=== PATIENT | male | born 1990 | race Caucasian/White ===

== ENCOUNTER → 2016-05-09 | Outpatient (CLI) | payer OTHER ==
[~2016-05-09] MED LIST: ALBU17IN INH; Acetaminophen/Hydrocodone PO; BACT800T5 PO; SENO8.6T10 PO
== END ==
LOC: M LAB 15:03
PROVIDERS: ATTEND Nurse Practitioner Family
DX: Z13.89 Encounter for screening for other disorder (principal); R41.3 Other amnesia

== ENCOUNTER → 2016-08-03 | Outpatient (CLI) | payer OTHER ==
[2016-08-03 11:22] LABS: ALBUMIN 3.9 GM/DL (3.2-5.2); ALBUMIN/GLOBULIN RATIO 1.39 (1.00-1.93); ALKALINE PHOSPHATASE 94 U/L (45-117); ALT/SGPT 31 U/L (12-78); ANION GAP 5 MEQ/L (8-16); AST/SGOT 17 U/L (15-37); BILIRUBIN,TOTAL 0.6 MG/DL (0.2-1.0); BLOOD UREA NITROGEN 10 MG/DL (7-18); CALCIUM LEVEL 8.7 MG/DL (8.5-10.1); CARBON DIOXIDE LEVEL 32 MEQ/L (21-32); CHLORIDE LEVEL 104 MEQ/L (98-107); CHOLESTEROL LEVEL 210 MG/DL (<200); CREATININE FOR GFR 0.98 MG/DL (0.70-1.30); GLOMERULAR FILTRATION RATE > 60.0 (>60); GLUCOSE, FASTING 98 MG/DL (70-105); POTASSIUM SERUM 4.2 MEQ/L (3.5-5.1); SODIUM LEVEL 141 MEQ/L (136-145); TOTAL PROTEIN 6.7 GM/DL (6.4-8.2); TRIGLYCERIDES LEVEL 157 MG/DL (<150)
[2016-08-03 12:31] LABS: BASO % 0.7 % (0.0-1.0); EOS # 0.1 K/mm3 (0.0-0.50); EOS % 2.2 % (0.0-3.0); LYMPH # 1.3 K/mm3 (1.5-6.5); LYMPH % 28.1 % (24.0-44.0); MEAN CORPUSCULAR HEMOGLOBIN 30.1 pg (27.0-33.0); MEAN CORPUSCULAR HGB CONC 33.3 g/dl (32.0-36.5); MEAN CORPUSCULAR VOLUME 90.5 fl (80.0-96.0); MONO # 0.3 K/mm3 (0.0-0.8); MONO % 6.1 % (0.0-5.0); NEUTROPHILS # 2.8 K/mm3 (1.8-7.7); RED CELL DISTRIBUTION WIDTH 12.9 % (11.5-14.5); WHITE BLOOD COUNT 4.5 K/mm3 (4.0-10.0)
== END ==
LOC: M LAB 10:17
PROVIDERS: ATTEND Physician Assistant Medical
DX: E78.2 Mixed hyperlipidemia (principal)

== ENCOUNTER 2016-10-26 21:07 | Emergency (ER) | payer OTHER ==
[~2016-10-26] VITALS: Ht 167.6 cm; Wt 92.5 kg
[2016-10-26] MEDS ORDERED: ZYRT10CA PO (21:26)
[2016-10-26] MEDS ORDERED: ACET30TAB PO (21:55)
[2016-10-26] MEDS ORDERED: BACT800T5 PO (21:55)
[2016-10-26] MEDS ORDERED: ACETAMINOPH W/CODEINE #3 TAB UD PO ONE (22:00)
[2016-10-26 22:03] VITALS: BP 123/58
[2016-10-30] MEDS ORDERED: AUGM875T28 PO (10:40)
== END 2016-10-26 22:08 | disposition home or self-care (01) ==
LOC: M ED 22:06
DX: L03.011 Cellulitis of right finger (principal); F41.9 Anxiety disorder, unspecified; F32.9 Major depressive disorder, single episode, unspecified; Z79.899 Other long term (current) drug therapy

== ENCOUNTER 2016-10-28 12:55 | Emergency (ER) | payer OTHER ==
[~2016-10-28] VITALS: Ht 167.6 cm; Wt 92.6 kg
[~2016-10-28 12:55] MED LIST changes: +ACET30TAB PO; +ZYRT10CA PO
[2016-10-28] MEDS ORDERED: CLEO300C2 PO (14:03)
--- NOTE | 2016-10-28 14:10 | REP ---
LEFT SECOND FINGER SERIES: 10/28/2016 CLINICAL HISTORY: Swelling left 2nd finger. FINDINGS: The four views demonstrate diffuse soft tissue swelling about the proximal to mid 2nd finger. There is less swelling distally. The IP joints and MCP joint are intact. There is no fracture, avulsion or subluxation evident. No radiopaque foreign body. Adjacent bones and soft tissues intact. IMPRESSION: 1. Soft tissue swelling over the middle and proximal phalanges of the left 2nd digit without subjacent fracture, avulsion, IP joint abnormality or MCP joint finding. No foreign body or other acute finding. Signed by Nasir Perez MD 10/28/2016 08:08 P
[2016-10-28 14:14] VITALS: BP 131/69
[2016-10-29] MEDS ORDERED: CLEO300C2 PO (01:56)
[2016-10-29] MEDS ORDERED: ACET30TAB PO (01:56)
[2016-10-30] MEDS ORDERED: AUGM875T28 PO (10:40)
== END 2016-10-28 14:15 | disposition home or self-care (01) ==
LOC: M ED 13:26
DX: L03.012 Cellulitis of left finger (principal); Z86.14 Personal history of Methicillin resistant Staphylococcus aureus infection; J45.909 Unspecified asthma, uncomplicated; Z79.899 Other long term (current) drug therapy; Z88.5 Allergy status to narcotic agent; Z91.041 Radiographic dye allergy status

== ENCOUNTER 2016-10-29 00:23 | Inpatient (IN) | payer OTHER ==
[~2016-10-29] VITALS: Ht 167.6 cm; Wt 94.2 kg
[~2016-10-29 00:23] MED LIST changes: +CLEO300C2 PO
[2016-10-29] MEDS ORDERED: CLINDAMYCIN 900 MG in APPROPRIATE DILUENT 1 EA IV ONE (01:45)
[2016-10-29] MEDS ORDERED: CLEO300C2 PO (01:56)
[2016-10-29] MEDS ORDERED: ACET30TAB PO (01:56)
[2016-10-29 02:13] LABS: BASO # 0.1 K/mm3 (0.0-0.2); EOS # 0.2 K/mm3 (0.0-0.50); LARGE UNSTAINED CELL # 0.1 K/mm3 (0.0-0.4); LARGE UNSTAINED CELL % 1.6 % (0.0-4.0); LYMPH # 2.4 K/mm3 (1.5-6.5); LYMPH % 31.2 % (24.0-44.0); MEAN CORPUSCULAR HEMOGLOBIN 32.2 pg (27.0-33.0); MEAN CORPUSCULAR HGB CONC 34.5 g/dl (32.0-36.5); MEAN CORPUSCULAR VOLUME 93.2 fl (80.0-96.0); MONO # 0.5 K/mm3 (0.0-0.8); MONO % 6.1 % (0.0-5.0); NEUTROPHILS # 4.3 K/mm3 (1.8-7.7); NEUTROPHILS % 57.2 % (36.0-66.0); PLATELET COUNT, AUTOMATED 205 k/mm3 (150-450); RED CELL DISTRIBUTION WIDTH 12.7 % (11.5-14.5); WHITE BLOOD COUNT 7.5 K/mm3 (4.0-10.0)
[2016-10-29 02:34] LABS: ANION GAP 7 MEQ/L (8-16); BLOOD UREA NITROGEN 14 MG/DL (7-18); CALCIUM LEVEL 8.9 MG/DL (8.5-10.1); CARBON DIOXIDE LEVEL 30 MEQ/L (21-32); CHLORIDE LEVEL 104 MEQ/L (98-107); CREATININE FOR GFR 1.02 MG/DL (0.70-1.30); GLOMERULAR FILTRATION RATE > 60.0 (>60); GLUCOSE, FASTING 104 MG/DL (70-105); POTASSIUM SERUM 3.7 MEQ/L (3.5-5.1); SODIUM LEVEL 141 MEQ/L (136-145)
[2016-10-29] MEDS ORDERED: ALBUTEROL 90 MCG/ACT 8GM HFA INHALER INH PRN (04:45)
[2016-10-29] MEDS ORDERED: VANCOMYCIN HCL 1,000 MG, VIAL MATE ADAPTER 1 EACH in D5W 250 ML IV ONE (05:00)
--- NOTE | 2016-10-29 05:29 | HPEPDOC ---
General Date of Admission Oct 29, 2016 at 01:24 Primary Care Physician: ANCELMO HINES MD Attending Physician: TIA DAVEY MD Chief Complaint The patient is a 26-year-old male admitted with a reason for visit of Cellulitis Of Left Index Finger. Source: Patient Exam Limitations: No limitations Timing/Duration: Day(s) (2) Severity: Severe History of Present Illness 26-year-old male with no past medical or surgical history presented to the emergency room for pain and swelling of the left index finger. He denies any trauma. No fever, chills. His left index finger that started due to swelling 2 days back, he came to the emergency room and was given Bactrim which did not help. Swelling or pain. He came back to the emergency room and was given clindamycin, which also did not help his pain. He had history of MRSA in the past. Home Medications Scheduled Clindamycin Hcl (Cleocin) 300 Mg Cap, 300 MG PO Q6H, (Reported) SENT 10/28/16 PATIENT HAS YET TO START FOR 10 DAYS Scheduled PRN Acetaminophen/Codeine (Tylenol/Codeine #3) Tab, 1 TAB PO Q4H PRN for PAIN, ( Reported) Albuterol Sulfate (Ventolin Hfa) 200 Puff/8 Gm Aers, 2 PUFF INH Q4H PRN for WHEEZING, (Reported) Allergies Coded Allergies: Contrast Media (Verified Allergy, Intermediate, triggers asthma, 10/29/16) Hydrocodone (Verified Adverse Reaction, Mild, vomiting, 10/29/16) Past Medical History Medical History None Surgical History None Family History Significant Family History: No pertinent family hx Social History * Smoker: Denies Alcohol: Denies Drugs: denies Recent Travel/Sick Contacts: Denies: Recent travel, Recent sick contacts Psychosocial History: No pertinent psych hx Review of Symptoms Constitutional: Denies: Chills, Fever, Night Sweats Eyes: Denies: Pain, Vision change ENT: Denies: Head Aches, Ear Pain, Dysphagia Skin: Denies: Rash, Lesions, Breakdown Pulmonary: Denies: Dyspnea, Cough Cardiovascular: Denies: Chest Pain, Palpitations, Orthopnea, Paroxysmal Noc. Dyspnea, Lt Headedness Gastrointestinal: Denies: Nausea, Vomiting, Abdominal Pain, Diarrhea Genitourinary: Denies: Dysuria, Frequency, Incontinence, Retention Hematologic: Denies: Bruising, Bleeding Excessively Musculoskeletal: Reports: Hand Pain (left index finger swelling and pain), Denies: Neck Pain, Back Pain, Joint Pain, Muscle Pain, Spasms Neurological: Denies: Weakness, Numbness, Change in speech, Confusion Psych: Reports: Mood Normal, Denies: Depression, Memory Issues Physical Examination General Exam: Positive: Alert, No Acute Distress Eye Exam: Positive: PERRLA, Conjunctiva & lids normal, EOMI, Negative: Sclera icteric ENT Exam: Positive: Atraumatic, Mucous membr. moist/pink, Pharynx Normal Neck Exam: Positive: Supple, Negative: JVD, thyromegaly Chest Exam: Positive: Clear to auscultation, Normal air movement Heart Exam: Positive: Rate Normal, Regular Rhythm, Normal S1, Normal S2, Negative: Murmurs, Rubs Telemetry: Positive: No significant arrhythmia Abdomen Exam: Positive: Normal bowel sounds, Soft, Negative: Tenderness, Hepatospenomegaly Extremity Exam: Positive: Normal pulses, Tenderness, Swelling, Other (left index finger swelling and pain and erythma), Negative: Clubbing, Cyanosis, Edema Skin Exam: Positive: Nl turgor and temperature, Negative: Breakdown, Lesion Neuro Exam: Positive: Normal Gait, Normal Speech, Cranial Nerves 3-12 NL, Reflexes 2+ Psych Exam: Positive: Mental status NL, Mood NL, Oriented x 3 Vital Signs Vital Signs Date Time Temp Pulse Resp B/P (MAP) Pulse Ox O2 Delivery O2 Flow Rate FiO2 10/29/16 04:01 75 18 128/91 (103) 96 10/29/16 00:27 98.3 Room Air Laboratory Data Labs 24H Laboratory Tests 2 10/29/16 02:01: White Blood Count 7.5, Red Blood Count 4.73, Hemoglobin 15.2, Hematocrit 44.0, Mean Corpuscular Volume 93.2, Mean Corpuscular Hemoglobin 32.2, Mean Corpuscular Hemoglobin Concent 34.5, Red Cell Distribution Width 12.7, Platelet Count 205, Neutrophils (%) (Auto) 57.2, Lymphocytes (%) (Auto) 31.2, Monocytes ( %) (Auto) 6.1H, Eosinophils (%) (Auto) 3.0, Basophils (%) (Auto) 1.0, Neutrophils # (Auto) 4.3, Lymphocytes # (Auto) 2.4, Monocytes # (Auto) 0.5, Eosinophils # (Auto) 0.2, Basophils # (Auto) 0.1, Large Unclassified Cells % 1.6 , Large Unclassified Cells # 0.1, Anion Gap 7L, Glomerular Filtration Rate > 60.0, Blood Urea Nitrogen 14, Creatinine 1.02, Sodium Level 141, Potassium Level 3.7, Chloride Level 104, Carbon Dioxide Level 30, Calcium Level 8.9, C- Reactive Protein, Quantitative < 0.30 CBC/BMP Laboratory Tests 10/29/16 02:01 Red Blood Count 4.73, Mean Corpuscular Volume 93.2, Mean Corpuscular Hemoglobin 32.2, Mean Corpuscular Hemoglobin Concent 34.5, Red Cell Distribution Width 12.7 , Neutrophils (%) (Auto) 57.2, Lymphocytes (%) (Auto) 31.2, Monocytes (%) (Auto ) 6.1 H, Eosinophils (%) (Auto) 3.0, Basophils (%) (Auto) 1.0, Neutrophils # ( Auto) 4.3, Lymphocytes # (Auto) 2.4, Monocytes # (Auto) 0.5, Eosinophils # (Auto ) 0.2, Basophils # (Auto) 0.1, Calcium Level 8.9 Microbiology Microbiology 10/29/16 Blood Culture, Received Pending 10/29/16 Blood Culture, Received Pending Assessment/Plan 26-year-old male with no past medical surgical history presented with left index finger cellulitis Problems (1) Cellulitis of left index finger Status: Acute Problem Text: X-ray for left index Finger showed Soft tissue swelling over the middle and proximal phalanges of the left 2nd digit without subjacent fracture, avulsion, IP joint abnormality or MCP joint finding. No foreign body or other acute finding. Started Unasyn and IV vancomycin Plan / VTE VTE Prophylaxis Ordered?: Yes Plan Diet: Continue Current Activity: Continue Current Anticipated Discharge: Home YARELIS TEJEDA MD Oct 29, 2016 05:29
--- NOTE | 2016-10-29 05:45 | PHACANCOPD ---
PHARMACY VANCOMYCIN DOSING Pt Demographics Demographics Patient Age:26 , Weight:90.900 , Gender: male Adjusted Body Weight Date: 10/29/16, Adjusted Body Weight: [74.7] Kg Events Past 24 Hours Events Past 24 Hours: NO: Dialysis, Diuretic Therapy, Change in CrCl, Fever, Elevation in WBC, Pending Diagnostics, Pending Procedures, Other Vancomycin Vancomycin Target Ranges: 15-20 mcg/ml Vancomycin Load Y/N: Yes Load Dose Date Time Vancomycin Load Dose: 2000MG Date: 10-29 Time: 0600 Vancomycin Dose Date: 10/29/16. Current Vancomycin Dose: [1000MG Q8H] Intermittent Dosing?: No Labs Labs Item Value Date Time White Blood Count 7.5 K/mm3 10/29/16 0201 Creatinine 1.02 MG/DL 10/29/16 0201 Blood Urea Nitrogen 14 MG/DL 10/29/16 0201 Vital Signs Label Value Date Time Patient Temperature 97.4 degrees F 10/29/16 0519 Temperature Source Oral 10/29/16 0519 Micro Microbiology 10/29/16 Blood Culture, Received Pending 10/29/16 Blood Culture, Received Pending Creatinine Clearance Date:10/29/16. Creatinine Clearance: [98]. Pending Labs Trough 06-25 @2100 Assessment and Plan Maintaining Current Dose?: Yes Reason for dose change: No Dose Change Pharmacist Note Pharmacist Note Date: 10/29/16. Pharmacist note:Dosed at 1000mg q8h with a trough ordered for 06- 25 @2100. Will continue to monitor and make adjustments as needed. [facility] Oct 29, 2016 05:45
[2016-10-29] MEDS: VANCOMYCIN HCL 1,000 MG, VIAL MATE ADAPTER 1 EACH in D5W 250 ML IV SCH ×3 (05:57→22:28)
[2016-10-29] MEDS ORDERED: ONDANSETRON 4MG/2ML VIAL (J2405) IV PRN (06:00)
[2016-10-29 06:35] VITALS: BP 120/94
[2016-10-29] MEDS ORDERED: IBUPROFEN 400 MG TAB PO PRN (08:00)
[2016-10-29] MEDS: ACETAMINOPHEN 325 MG TAB PO PRN ×2 (08:22→22:35)
[2016-10-29] MEDS: AMPICILLIN SOD/SULBACTAM SOD 3 GM in D5W MINI-BAG PLUS 100 ML IV SCH ×3 (09:26→20:48)
[2016-10-29] MEDS: ENOXAPARIN 40 MG/0.4 ML SYRINGE (J1650) SC SCH (12:15)
--- NOTE | 2016-10-29 13:20 | IPNPDOC ---
Subjective Date Seen The patient was seen on 10/29/16. Subjective Chief Complaint/HPI The patient is a 26-year-old male admitted with a reason for visit of Cellulitis Of Left Index Finger. Events since last encounter no acute events overnight . Denied f/c/abd pain/ n/v/ chest pain Constitutional: Denies: Chills, Fever Skin: Denies: Rash, Lesions Pulmonary: Denies: Dyspnea, Cough Cardiovascular: Denies: Chest Pain, Palpitations Gastrointestinal: Denies: Nausea, Vomiting, Abdominal Pain, Diarrhea, Constipation Objective Physical Examination General Exam: Positive: Alert, No Acute Distress Eye Exam: Positive: PERRLA, Conjunctiva & lids normal, EOMI, Negative: Sclera icteric ENT Exam: Positive: Atraumatic, Mucous membr. moist/pink, Pharynx Normal Neck Exam: Positive: Supple, Negative: JVD, thyromegaly Chest Exam: Positive: Clear to auscultation, Normal air movement Heart Exam: Positive: Rate Normal, Regular Rhythm, Normal S1, Normal S2, Negative: Murmurs, Rubs Telemetry: Positive: No significant arrhythmia Abdomen Exam: Positive: Normal bowel sounds, Soft, Negative: Tenderness, Hepatospenomegaly Extremity Exam: Positive: Normal pulses, Tenderness, Swelling, Other (left index finger swelling and pain and erythma), Negative: Clubbing, Cyanosis, Edema Skin Exam: Positive: Nl turgor and temperature, Negative: Breakdown, Lesion Neuro Exam: Positive: Normal Gait, Normal Speech, Cranial Nerves 3-12 NL, Reflexes 2+ Psych Exam: Positive: Mental status NL, Mood NL, Oriented x 3 Assessment /Plan Assessment 26-year-old male no PMH recented with left index finger swelling not responsive to PO meds Problems (1) Cellulitis of left index finger Status: Acute Problem Text: X-ray for left index Finger showed Soft tissue swelling over the middle and proximal phalanges of the left 2nd digit without subjacent fracture, avulsion, IP joint abnormality or MCP joint finding. No foreign body or other acute finding. Started Unasyn and IV vancomycin d/w ortho, no surgical issu crp neg, no wbc elevation or left shift, MRI possible bug bite MRSA screening Plan/VTE VTE Prophylaxis Ordered?: Yes (lovenox sq) Plan Diet: Continue Current Activity: Continue Current Anticipated Discharge: Home Disposition IF MRI neg, likely DC tomorrow. VS, I&O, 24H, Fishbone Vital Signs/I&O Vital Signs Date Time Temp Pulse Resp B/P (MAP) Pulse Ox O2 Delivery O2 Flow Rate FiO2 10/29/16 06:35 97.6 70 16 120/94 (103) 96 Room Air I&O- Last 24 Hours up to 6 AM 10/29/16 05:59 Intake Total 50 ml Output Total 0 ml Balance 50 ml Laboratory Data 24H LABS Laboratory Tests 2 10/29/16 02:01: White Blood Count 7.5, Red Blood Count 4.73, Hemoglobin 15.2, Hematocrit 44.0, Mean Corpuscular Volume 93.2, Mean Corpuscular Hemoglobin 32.2, Mean Corpuscular Hemoglobin Concent 34.5, Red Cell Distribution Width 12.7, Platelet Count 205, Neutrophils (%) (Auto) 57.2, Lymphocytes (%) (Auto) 31.2, Monocytes ( %) (Auto) 6.1H, Eosinophils (%) (Auto) 3.0, Basophils (%) (Auto) 1.0, Neutrophils # (Auto) 4.3, Lymphocytes # (Auto) 2.4, Monocytes # (Auto) 0.5, Eosinophils # (Auto) 0.2, Basophils # (Auto) 0.1, Large Unclassified Cells % 1.6 , Large Unclassified Cells # 0.1, Anion Gap 7L, Glomerular Filtration Rate > 60.0, Blood Urea Nitrogen 14, Creatinine 1.02, Sodium Level 141, Potassium Level 3.7, Chloride Level 104, Carbon Dioxide Level 30, Calcium Level 8.9, C- Reactive Protein, Quantitative < 0.30 CBC/BMP Laboratory Tests 10/29/16 02:01 Red Blood Count 4.73, Mean Corpuscular Volume 93.2, Mean Corpuscular Hemoglobin 32.2, Mean Corpuscular Hemoglobin Concent 34.5, Red Cell Distribution Width 12.7 , Neutrophils (%) (Auto) 57.2, Lymphocytes (%) (Auto) 31.2, Monocytes (%) (Auto ) 6.1 H, Eosinophils (%) (Auto) 3.0, Basophils (%) (Auto) 1.0, Neutrophils # ( Auto) 4.3, Lymphocytes # (Auto) 2.4, Monocytes # (Auto) 0.5, Eosinophils # (Auto ) 0.2, Basophils # (Auto) 0.1, Calcium Level 8.9 Microbiology Microbiology 10/29/16 Blood Culture, Received Pending 10/29/16 Blood Culture, Received Pending 10/29/16 MRSA Screen, Received Pending HERMAN CASTRO MD Oct 29, 2016 13:20
[2016-10-29 14:00] VITALS: BP 110/77
--- NOTE | 2016-10-29 21:28 | PHACANCOPD ---
PHARMACY VANCOMYCIN DOSING Pt Demographics Demographics Patient Age:26 , Weight:94.200 , Gender: male Adjusted Body Weight Date: 10/29/16, Adjusted Body Weight: [74.7] Kg Events Past 24 Hours Events Past 24 Hours: NO: Dialysis, Diuretic Therapy, Change in CrCl, Fever, Elevation in WBC, Pending Diagnostics, Pending Procedures, Other Vancomycin Vancomycin Target Ranges: 15-20 mcg/ml Vancomycin Load Y/N: Yes Load Dose Date Time Vancomycin Load Dose: 2000MG Date: 10-29 Time: 06 Vancomycin Dose Date: 10/29/16. Current Vancomycin Dose: [1000MG Q8H] Intermittent Dosing?: No Labs Labs Item Value Date Time White Blood Count 7.5 K/mm3 10/29/16 0201 Creatinine 1.02 MG/DL 10/29/16 0201 Blood Urea Nitrogen 14 MG/DL 10/29/16 0201 Vancomycin Level Trough 13.9 UG/ML 10/29/16 2045 Vital Signs Label Value Date Time Patient Temperature 97.7 degrees F 10/29/16 1400 Temperature Source Temporal 10/29/16 1400 Micro Microbiology 10/29/16 Blood Culture, Received Pending 10/29/16 Blood Culture, Received Pending 10/29/16 MRSA Screen, Received Pending Creatinine Clearance Date:10/29/16. Creatinine Clearance: [98]. Pending Labs Trough 10-30 @1300 Assessment and Plan Maintaining Current Dose?: Yes Reason for dose change: No Dose Change Pharmacist Note Pharmacist Note Date: 10/29/16. Pharmacist note:Trough of 13.9 is slightly below target range. Will give additional 500mg dose to boost levels. Will continue current dosing. Trough ordered for 10-30 @1300. Will continue to monitor and make adjustments as needed. [facility] Oct 29, 2016 21:28
[2016-10-29 22:00] VITALS: BP 118/76
[2016-10-30] MEDS ORDERED: VANCOMYCIN HCL 500 MG in D5W MINI-BAG PLUS 100 ML IV ONE ×2
[2016-10-30] MEDS: AMPICILLIN SOD/SULBACTAM SOD 3 GM in D5W MINI-BAG PLUS 100 ML IV SCH ×2 (03:32→09:30)
[2016-10-30] MEDS: VANCOMYCIN HCL 1,000 MG, VIAL MATE ADAPTER 1 EACH in D5W 250 ML IV SCH (05:41)
[2016-10-30 06:00] VITALS: BP 103/57
[2016-10-30 06:01] LABS: MEAN CORPUSCULAR HEMOGLOBIN 31.8 pg (27.0-33.0); MEAN CORPUSCULAR VOLUME 93.6 fl (80.0-96.0); RED CELL DISTRIBUTION WIDTH 12.6 % (11.5-14.5); WHITE BLOOD COUNT 5.4 K/mm3 (4.0-10.0)
[2016-10-30 06:09] LABS: ANION GAP 6 MEQ/L (8-16); BLOOD UREA NITROGEN 8 MG/DL (7-18); CALCIUM LEVEL 8.5 MG/DL (8.5-10.1); CARBON DIOXIDE LEVEL 28 MEQ/L (21-32); CHLORIDE LEVEL 106 MEQ/L (98-107); CREATININE FOR GFR 0.87 MG/DL (0.70-1.30); GLOMERULAR FILTRATION RATE > 60.0 (>60); GLUCOSE, FASTING 89 MG/DL (70-105); MAGNESIUM LEVEL 2.3 MG/DL (1.8-2.4); POTASSIUM SERUM 3.6 MEQ/L (3.5-5.1); SODIUM LEVEL 140 MEQ/L (136-145)
[2016-10-30] MEDS: ACETAMINOPHEN 325 MG TAB PO PRN (07:54)
[2016-10-30] MEDS: ENOXAPARIN 40 MG/0.4 ML SYRINGE (J1650) SC SCH (09:30)
[2016-10-30] MEDS ORDERED: AUGM875T27 PO (10:40)
[2016-10-30] MEDS ORDERED: DOXY-278 PO (10:40)
--- NOTE | 2016-10-30 12:11 | CR ---
DATE OF CONSULTATION: 10/29/2016 REASON FOR CONSULTATION: Left index finger swelling. CONSULTATION REPORT FOR: Dr. Ni Sanchez HISTORY OF PRESENT ILLNESS: Michael Rangel is a 26-year-old, right hand dominant, male with three days of left index finger pain and swelling. The patient has had multiple emergency room visits for this left index finger pain. The patient denies any mechanism of injury. He denies any history of wounds, scratches, or bites to the left index finger. He denies any history of IV drug abuse. PAST MEDICAL HISTORY: None. MEDICATIONS: None. ALLERGIES: No known drug allergies. PAST SURGICAL HISTORY: None. FAMILY HISTORY: Noncontributory. SOCIAL HISTORY: The patient lives in [place]. He denies smoking. He drinks alcohol once or twice a week. He denies any illicit drug use. 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 REVIEW OF SYSTEMS: 14-point review of systems was reviewed and is unremarkable. PHYSICAL EXAMINATION: VITAL SIGNS: Reviewed and stable. GENERAL: This is a well-nourished male who appears his stated age in no acute distress. NEUROLOGIC: He is awake, alert, and oriented to person, place, and time. He has intact sensory and motor function left upper extremity radial, median, and ulnar anterior interosseous nerve (AIN) and posterior interosseous nerve (PIN) distributions. He has intact sensation to light touch in the tip of the left index finger. CARDIOVASCULAR: He has 2+ radial pulse and brisk capillary refill to all digits of the left upper extremity. MUSCULOSKELETAL: Focused physical examination of the left index finger demonstrates mild diffuse swelling about the left index finger extending from the middle of the proximal phalanx to the fingertip. There is mild erythema on the dorsum on the index finger extending to the volar radial aspect of the index finger. There is minimal tenderness along the flexor tendon sheath. There is no pain with passive stretch of the left index finger. It is not held in a flexed posture. There is no tenderness on the thenar eminence. There is no evidence of fusiform swelling. There is no evidence of a ligamentous instability. Plain radiographs of the left index finger demonstrate no acute osseous abnormalities. LABORATORY EVALUATION: Includes a white blood cell count of 7.1 and CRP of less than 0.3. ASSESSMENT: This is a 26-year-old male with left index finger swelling of unknown etiology. Given no history of wound, normal C-reactive protein (CRP) and lack of Kanavel signs, flexor tenosynovitis is unlikely and there does not appear to be any demonstrable abscess. PLAN: I recommend supportive therapy with antiinflammatories. The patient may be given antibiotics per the hospitalist service. He can be splinted or riley taped for comfort with followup with his primary care doctor. No orthopedic surgical intervention is indicated at this time. MARK
--- NOTE | 2016-10-30 12:14 | REP ---
MRI study of the left index finger without IV contrast: History: Pain and swelling left index finger. History of allergy to MRI contrast. Comparison radiographs October 28, 2016. Technique: Sagittal axial and coronal imaging planes utilized. T1 and T2-weighted scans were obtained in the usual fashion with without fat saturation. MRI findings: Cortical and medullary bone signal intensity are normal on T1 and T2-weighted scans. Radial and ulnar collateral ligaments appear intact at all three index finger articulations. The flexor and extensor tendons appear intact. No tendinopathy seen. There is a ill-defined area of subcutaneous low T1 high T2 signal intensity along the radial and dorsal aspect of the index finger at the level of the PIP joint. This area measures approximately 10 mm in length by 6 mm in palmar to dorsal, by 6 mm in radial to ulnar dimension. This is nonspecific. Soft tissues of the index finger are otherwise unremarkable on MR imaging. There is no evidence of joint fluid or other extra-articular fluid collection. Impression: Nonspecific somewhat ill-defined area of soft tissue swelling with high T2 and low T1 signal intensity in the subcutaneous region of the index finger along its dorsal and radial aspect. Signed by José Negron MD 10/30/2016 01:18 P
--- NOTE | 2016-10-30 16:55 | DSES ---
DATE OF ADMISSION: 10/29/2016 DATE OF DISCHARGE: 10/30/2016 PRIMARY CARE PROVIDER: SHAUN Pierre FINAL DIAGNOSES: Right index finger swelling and possibly cellulitis. Failure of outpatient treatment. HISTORY OF PRESENT ILLNESS: This is a 26-year-old male patient with no major past medical history presented to the hospital multiple times to emergency room with swelling of left index finger. Denies any trauma, bug bit or injuries. Denies any fever or chills. Was prescribed Bactrim as well as clindamycin with no improvement. Has history of Methicillin-resistant Staphylococcus aureus (MRSA). Subsequently presented to the emergency room, denies any chest pain, pressure or discomfort and was admitted for observation with antibiotic treatment. HOSPITAL COURSE: The patient was admitted, antibiotics, IV broad spectrum was started. Cultures were sent. C-reactive protein was sent. MRI of the hand was done showing only nonspecific soft tissue swelling. Orthopedics were consulted, determined nothing surgical. The patient's swelling improved over the course of 24 hours and subsequently was discharged for further followup as outpatient. VITAL SIGNS: Temperature 97.7, pulse 63, respirations 18, blood pressure 103.57, pulse oximetry 90% on room air. GENERAL: The patient alert and oriented times two. In no acute distress. HEENT: Normocephalic, atraumatic. PULMONARY: Bilateral clear to auscultation. CARDIAC: Regular rate and rhythm. Normal S1, S2. ABDOMEN: Soft, nontender. Positive bowel sounds. EXTREMITIES: No edema of left index finger. Mildly swollen. Edema has resolved. LABORATORY DATA: WBC 5.4, hemoglobin and hematocrit 14.8/43.6, platelets 177. Sodium 140, potassium 3.6, chloride 106, bicarbonate 28, BUN 8, creatinine 0.87. DISCHARGE MEDICATION: - Augmentin 875/125 mg tablets by mouth twice a day for five more days - doxycycline 100 mg by mouth twice a day for five more days - home medication of acetaminophen Tylenol-3 every 4 hours as needed pain were continued - Ventolin inhaler every 4 hours as needed were continued. HOSPITAL COURSE: The patient instructed to follow with his primary care provider in 7 days. Return to hospital if symptoms worsen.
== END 2016-10-30 13:25 | disposition home or self-care (01) | DRG 383 ==
LOC: M ED 01:23 → M ED INP 01:24 → OBSVTOIN 04:37 → M MSPAV 05:35
PROVIDERS: ADMIT Internal Medicine; ATTEND Hospitalist
DX: L03.012 Cellulitis of left finger (principal); Z88.5 Allergy status to narcotic agent; Z79.899 Other long term (current) drug therapy; Z91.041 Radiographic dye allergy status

== ENCOUNTER → 2016-11-29 | Outpatient (CLI) | payer OTHER ==
[~2016-11-29] MED LIST changes: +AUGM875T28 PO; +DOXY-278 PO
[2016-11-29 10:03] LABS: ALBUMIN 3.8 GM/DL (3.2-5.2); ALBUMIN/GLOBULIN RATIO 1.23 (1.00-1.93); ALKALINE PHOSPHATASE 100 U/L (45-117); ALT/SGPT 27 U/L (12-78); ANION GAP 7 MEQ/L (8-16); AST/SGOT 15 U/L (15-37); BILIRUBIN,TOTAL 0.5 MG/DL (0.2-1.0); BLOOD UREA NITROGEN 13 MG/DL (7-18); CALCIUM LEVEL 8.8 MG/DL (8.5-10.1); CARBON DIOXIDE LEVEL 27 MEQ/L (21-32); CHLORIDE LEVEL 103 MEQ/L (98-107); CHOLESTEROL LEVEL 200 MG/DL (<200); CREATININE FOR GFR 0.91 MG/DL (0.70-1.30); GLOMERULAR FILTRATION RATE > 60.0 (>60); GLUCOSE, FASTING 98 MG/DL (70-105); POTASSIUM SERUM 4.3 MEQ/L (3.5-5.1); SODIUM LEVEL 137 MEQ/L (136-145); TOTAL PROTEIN 6.9 GM/DL (6.4-8.2); TRIGLYCERIDES LEVEL 191 MG/DL (<150)
--- NOTE | 2016-11-30 04:22 | REP ---
Clinical: Cellulitis . Technique: AP, lateral, bilateral oblique views left hand . Findings: The osseous structures and joint spaces are intact and normal. There is no evidence for acute fracture or dislocation. Surrounding soft tissues are unremarkable. No subcutaneous emphysema or radiodense foreign body. Impression: Normal examination. No significant swelling, subcutaneous emphysema, or radiodense foreign body. No obvious osseous or articular involvement. Signed by Scott Almaraz MD 11/30/2016 04:14 A
== END ==
LOC: M LAB 09:00
PROVIDERS: ATTEND Physician Assistant Medical
DX: L03.012 Cellulitis of left finger (principal); E78.2 Mixed hyperlipidemia

== ENCOUNTER 2017-02-24 23:55 | Emergency (ER) | payer OTHER ==
[~2017-02-24] VITALS: Ht 167.6 cm; Wt 95.5 kg
[2017-02-24 23:56] VITALS: BP 113/91
== END 2017-02-25 04:39 | disposition left against medical advice (07) ==
LOC: M ED 23:55
DX: H92.09 Otalgia, unspecified ear (principal); Z53.21 Procedure and treatment not carried out due to patient leaving prior to being seen by health care provider

== ENCOUNTER → 2017-04-09 | Outpatient (CLI) | payer OTHER ==
[2017-04-09 11:08] LABS: ALBUMIN 3.9 GM/DL (3.2-5.2); ALKALINE PHOSPHATASE 100 U/L (45-117); ALT/SGPT 32 U/L (12-78); ANION GAP 6 MEQ/L (8-16); AST/SGOT 21 U/L (7-37); BILIRUBIN,TOTAL 0.8 MG/DL (0.2-1.0); BLOOD UREA NITROGEN 12 MG/DL (7-18); CALCIUM LEVEL 9.1 MG/DL (8.5-10.1); CARBON DIOXIDE LEVEL 32 MEQ/L (21-32); CHLORIDE LEVEL 104 MEQ/L (98-107); CHOLESTEROL LEVEL 207 MG/DL (<200); CREATININE FOR GFR 0.95 MG/DL (0.70-1.30); GLOMERULAR FILTRATION RATE > 60.0 (>60); GLUCOSE, FASTING 90 MG/DL (70-105); POTASSIUM SERUM 4.3 MEQ/L (3.5-5.1); SODIUM LEVEL 142 MEQ/L (136-145); TOTAL PROTEIN 6.9 GM/DL (6.4-8.2); TRIGLYCERIDES LEVEL 118 MG/DL (<150)
== END ==
LOC: M LAB 08:56
PROVIDERS: ATTEND Physician Assistant Medical
DX: E78.2 Mixed hyperlipidemia (principal)

== ENCOUNTER → 2017-06-05 | Outpatient (CLI) | payer OTHER | LOC: M RAD 12:14 | DX: M25.531 Pain in right wrist (principal) | CPT/HCPCS: 73110 ==

== ENCOUNTER → 2017-06-18 | Outpatient (CLI) | payer OTHER ==
[2017-06-18 17:04] LABS: ALBUMIN 4.3 GM/DL (3.2-5.2); ALBUMIN/GLOBULIN RATIO 1.48 (1.00-1.93); ALKALINE PHOSPHATASE 94 U/L (45-117); ALT/SGPT 34 U/L (12-78); ANION GAP 6 MEQ/L (8-16); AST/SGOT 21 U/L (7-37); BILIRUBIN,TOTAL 0.6 MG/DL (0.2-1.0); BLOOD UREA NITROGEN 12 MG/DL (7-18); CALCIUM LEVEL 9.2 MG/DL (8.5-10.1); CARBON DIOXIDE LEVEL 30 MEQ/L (21-32); CHLORIDE LEVEL 104 MEQ/L (98-107); CHOLESTEROL LEVEL 181 MG/DL (<200); CHOLESTEROL RISK RATIO 5.323 (<5); CREATININE FOR GFR 1.03 MG/DL (0.70-1.30); GLOMERULAR FILTRATION RATE > 60.0 (>60); GLUCOSE, FASTING 83 MG/DL (70-100); HDL CHOLESTEROL 34 MG/DL (>40); LDL CHOLESTEROL 128.2 MG/DL (<100); NON-HDL-C 147 MG/DL; POTASSIUM SERUM 4.3 MEQ/L (3.5-5.1); SODIUM LEVEL 140 MEQ/L (136-145); TOTAL PROTEIN 7.2 GM/DL (6.4-8.2); TRIGLYCERIDES LEVEL 94 MG/DL (<150)
== END ==
LOC: M LAB 14:31
DX: E78.2 Mixed hyperlipidemia (principal)
CPT/HCPCS: 80053

== ENCOUNTER 2017-06-23 19:08 | Emergency (ER) | payer OTHER ==
[2017-06-23 22:23] LABS: INFLUENZA A AMPLIFICATION NEGATIVE (NEGATIVE); INFLUENZA B AMPLIFICATION NEGATIVE (NEGATIVE)
[2017-06-23] MEDS: BENZONATATE 100 MG CAP PO (22:57)
[2017-06-23] MEDS: ONDANSETRON 4 MG ORAL DISINTEGRATING TAB (S0181) PO (22:57)
[2017-06-23] MEDS: predniSONE 20 MG TAB PO (22:58)
== END 2017-06-23 23:05 | disposition home or self-care (01) ==
LOC: M ED 19:08
DX: B34.9 Viral infection, unspecified (principal); J45.909 Unspecified asthma, uncomplicated; Z91.048 Other nonmedicinal substance allergy status; Z88.5 Allergy status to narcotic agent; Z79.899 Other long term (current) drug therapy
CPT/HCPCS: 87502

== ENCOUNTER 2017-09-02 17:45 | Emergency (ER) | payer OTHER ==
[2017-09-02 18:36] LABS: BASO % 0.3 % (0.0-1.0); EOS # 0.1 10^3/uL (0.0-0.50); EOS % 1.7 % (0.0-3.0); HEMATOCRIT 45.6 % (42.0-52.0); HEMOGLOBIN 15.4 g/dl (13.5-17.5); IMMATURE GRANULOCYTE % 0.2 % (0-3.0); LYMPH # 1.8 10^3/uL (1.5-6.5); LYMPH % 28.9 % (24.0-44.0); MEAN CORPUSCULAR HEMOGLOBIN 30.3 pg (27.0-33.0); MEAN CORPUSCULAR HGB CONC 33.8 g/dl (32.0-36.5); MEAN CORPUSCULAR VOLUME 89.8 fl (80.0-96.0); MONO # 0.4 10^3/uL (0.0-0.8); MONO % 6.6 % (0.0-5.0); NEUTROPHILS # 3.9 10^3/uL (1.8-7.7); NEUTROPHILS % 62.3 % (36.0-66.0); PLATELET COUNT, AUTOMATED 237 10^3/uL (150-450); RED BLOOD COUNT 5.08 10^6/uL (4.30-6.10); RED CELL DISTRIBUTION WIDTH 12.7 % (11.5-14.5); WHITE BLOOD COUNT 6.3 10^3/uL (4.0-10.0)
[2017-09-02 18:52] LABS: INR 0.96; PROTHROMBIN TIME 12.9 SECONDS (12.4-14.5)
[2017-09-02 18:53] LABS: PARTIAL THROMBOPLASTIN TIME 28.6 SECONDS (26.8-37.9)
[2017-09-02 18:56] LABS: D-DIMER QUANT < 270.0 ng/ml (<500)
[2017-09-02 19:03] LABS: ALBUMIN 4.3 GM/DL (3.2-5.2); ALKALINE PHOSPHATASE 99 U/L (45-117); ALT/SGPT 41 U/L (12-78); ANION GAP 6 MEQ/L (8-16); AST/SGOT 24 U/L (7-37); BILIRUBIN,DIRECT 0.1 MG/DL (0.0-0.2); BILIRUBIN,TOTAL 0.4 MG/DL (0.2-1.0); BLOOD UREA NITROGEN 11 MG/DL (7-18); CALCIUM LEVEL 8.8 MG/DL (8.5-10.1); CARBON DIOXIDE LEVEL 31 MEQ/L (21-32); CHLORIDE LEVEL 104 MEQ/L (98-107); CPK CREATINE PHOSPHOKINASE 126 U/L (39-308); CREATININE FOR GFR 0.96 MG/DL (0.70-1.30); FREE T4 1.06 NG/DL (0.76-1.46); GLOMERULAR FILTRATION RATE > 60.0 (>60); GLUCOSE, FASTING 103 MG/DL (70-100); POTASSIUM SERUM 3.9 MEQ/L (3.5-5.1); SODIUM LEVEL 141 MEQ/L (136-145); TOTAL PROTEIN 7.6 GM/DL (6.4-8.2); TROPONIN I < 0.02 NG/ML (< 0.10)
[2017-09-02 19:08] LABS: CK-MB VALUE MASS < 1.0 NG/ML (<3.6); MB/CK RELATIVE INDEX 0.79 (< OR =4); NT-PRO BNP < 5 PG/ML (<125); THYROID STIMULATING HORMONE 0.928 uIU/ML (0.358-3.740)
== END 2017-09-02 19:35 | disposition home or self-care (01) ==
LOC: M ED 17:45
DX: R07.89 Other chest pain (principal); M79.602 Pain in left arm; R06.02 Shortness of breath; F41.9 Anxiety disorder, unspecified; K21.9 Gastro-esophageal reflux disease without esophagitis; E78.9 Disorder of lipoprotein metabolism, unspecified; J45.909 Unspecified asthma, uncomplicated; Z88.5 Allergy status to narcotic agent; Z91.041 Radiographic dye allergy status; Z79.899 Other long term (current) drug therapy
CPT/HCPCS: 71046

== ENCOUNTER 2017-12-06 17:08 | Emergency (ER) | payer OTHER | END 2017-12-06 19:05 | disposition home or self-care (01) | LOC: M ED 17:08 | DX: K04.7 Periapical abscess without sinus (principal); R51 Headache; E78.5 Hyperlipidemia, unspecified; J45.909 Unspecified asthma, uncomplicated; M54.9 Dorsalgia, unspecified; F41.9 Anxiety disorder, unspecified; F32.9 Major depressive disorder, single episode, unspecified; Z87.442 Personal history of urinary calculi; Z79.899 Other long term (current) drug therapy; Z88.5 Allergy status to narcotic agent; Z91.041 Radiographic dye allergy status | CPT/HCPCS: 99283 ==

== ENCOUNTER → 2017-12-26 | Outpatient (REF) | payer OTHER ==
[2017-12-26 20:23] LABS: ALBUMIN 4.4 GM/DL (3.2-5.2); ALBUMIN/GLOBULIN RATIO 1.38 (1.00-1.93); ALKALINE PHOSPHATASE 102 U/L (45-117); ALT/SGPT 30 U/L (12-78); ANION GAP 8 MEQ/L (8-16); AST/SGOT 17 U/L (7-37); BILIRUBIN,TOTAL 0.7 MG/DL (0.2-1.0); BLOOD UREA NITROGEN 12 MG/DL (7-18); CALCIUM LEVEL 9.4 MG/DL (8.5-10.1); CARBON DIOXIDE LEVEL 30 MEQ/L (21-32); CHLORIDE LEVEL 103 MEQ/L (98-107); CHOLESTEROL LEVEL 210 MG/DL (<200); CREATININE FOR GFR 1.05 MG/DL (0.70-1.30); GLOMERULAR FILTRATION RATE > 60.0 (>60); GLUCOSE, FASTING 81 MG/DL (70-100); HDL CHOLESTEROL 40 MG/DL (>40); LDL CHOLESTEROL 139.4 MG/DL (<100); NON-HDL-C 170 MG/DL; POTASSIUM SERUM 3.9 MEQ/L (3.5-5.1); SODIUM LEVEL 141 MEQ/L (136-145); TOTAL PROTEIN 7.6 GM/DL (6.4-8.2); TRIGLYCERIDES LEVEL 153 MG/DL (<150)
[2017-12-26 20:29] LABS: TOTAL 25(OH) VITAMIN D 29.9 NG/ML (30.0-100.0)
== END ==
LOC: M LABDRWAD 19:56
DX: E78.5 Hyperlipidemia, unspecified (principal)

== ENCOUNTER 2018-02-16 17:24 | Emergency (ER) | payer OTHER ==
[2018-02-16] MEDS: LIDOCAINE W/EPINEPHRINE 1% 20ML VIAL SC (17:54)
[2018-02-16] MEDS: ACETAMINOPHEN TAB 650MG DOSE (2X325MG) PO (17:55)
[2018-02-16] MEDS: ADACEL/BOOSTRIX VACCINE (DIPHTH/PERTUSS/ACELL/TETANUS)0.5ML SYR (90715) IM (17:55)
[2018-02-16] MEDS: DERMABOND TOPICAL SKIN ADHESIVE TOP (18:13)
== END 2018-02-16 18:41 | disposition home or self-care (01) ==
LOC: M ED 17:24
DX: S01.01XA Laceration without foreign body of scalp, initial encounter (principal); W06.XXXA Fall from bed, initial encounter; Y92.019 Unspecified place in single-family (private) house as the place of occurrence of the external cause
CPT/HCPCS: 90715

== ENCOUNTER 2018-02-17 15:29 | Emergency (ER) | payer OTHER ==
[2018-02-17] MEDS: IBUPROFEN 800 MG TAB PO (16:45)
== END 2018-02-17 16:45 | disposition home or self-care (01) ==
LOC: M ED 15:29
DX: S06.0X0A Concussion without loss of consciousness, initial encounter (principal); X58.XXXA Exposure to other specified factors, initial encounter; Y92.89 Other specified places as the place of occurrence of the external cause; Y93.72 Activity, wrestling; J45.909 Unspecified asthma, uncomplicated; Z91.041 Radiographic dye allergy status; Z88.8 Allergy status to other drugs, medicaments and biological substances; Z79.899 Other long term (current) drug therapy
CPT/HCPCS: 70450

== ENCOUNTER → 2018-02-26 | Outpatient (CLI) | payer OTHER | LOC: M SLEEP HO 11:49 | DX: G47.33 Obstructive sleep apnea (adult) (pediatric) (principal); G47.31 Primary central sleep apnea | CPT/HCPCS: G0399 ==

== ENCOUNTER → 2018-04-17 | Outpatient (REF) | payer OTHER ==
[2018-04-17 13:53] LABS: BASO % 0.2 % (0.0-1.0); EOS # 0.1 10^3/uL (0.0-0.50); EOS % 0.5 % (0.0-3.0); HEMATOCRIT 48.2 % (42.0-52.0); HEMOGLOBIN 16.4 g/dl (13.5-17.5); IMMATURE GRANULOCYTE % 0.2 % (0-3.0); LYMPH # 1.3 10^3/uL (1.5-6.5); LYMPH % 14.1 % (24.0-44.0); MEAN CORPUSCULAR HEMOGLOBIN 30.6 pg (27.0-33.0); MEAN CORPUSCULAR VOLUME 89.9 fl (80.0-96.0); MONO # 0.6 10^3/uL (0.0-0.8); MONO % 6.8 % (0.0-5.0); NEUTROPHILS # 7.4 10^3/uL (1.8-7.7); NEUTROPHILS % 78.2 % (36.0-66.0); PLATELET COUNT, AUTOMATED 186 10^3/uL (150-450); RED BLOOD COUNT 5.36 10^6/uL (4.30-6.10); RED CELL DISTRIBUTION WIDTH 12.3 % (11.5-14.5); WHITE BLOOD COUNT 9.5 10^3/uL (4.0-10.0)
[2018-04-17 15:14] LABS: IMMUNOGLOBULIN E 47.9 IU/ML (<100)
[2018-04-21 08:06] LABS: D001-IgE D pteronyssinus 2.78 kU/L (Class III); E001-IgE Cat Epith/Dander < 0.10 kU/L (Class 0); E005-IgE Dog Dander < 0.10 kU/L (Class 0); G002-IgE Bermuda Grass < 0.10 kU/L (Class 0); G008-IgE Kentucky Bluegrass 0.13 kU/L (Class 0/I); M001-IgE Penicillium chrysogen < 0.10 kU/L (Class 0); M002 IgE Cladosporium herbaru < 0.10 kU/L (Class 0); M003 IgE Aspergillus fumigatu < 0.10 kU/L (Class 0); M006-IgE Alternaria alternata < 0.10 kU/L (Class 0); T001-IgE Maple/Box Elder < 0.10 kU/L (Class 0); T003-IgE Common Silver Birch < 0.10 kU/L (Class 0); T006-IgE Cedar, Mountain < 0.10 kU/L (Class 0); T007-IgE Oak, White < 0.10 kU/L (Class 0); T008-IgE Elm, American < 0.10 kU/L (Class 0); T041-IgE Hickory, White < 0.10 kU/L (Class 0); T070-IgE White Mulberry < 0.10 kU/L (Class 0); W001-IgE Ragweed, Short 0.33 kU/L (Class I); W009-IgE Plantain, English 0.15 kU/L (Class 0/I); W014-IgE Pigweed, Rough < 0.10 kU/L (Class 0); W018-IgE Sheep Sorrel < 0.10 kU/L (Class 0)
== END ==
LOC: M LAB REF 13:00
DX: J45.40 Moderate persistent asthma, uncomplicated (principal)

== ENCOUNTER → 2018-04-28 | Outpatient (CLI) | payer OTHER ==
[~2018-04-28] MED LIST changes: +ATOR1TAB21 PO; -DOXY-278 PO; +DOXY-350 PO; +FLUT1INH3; +LIDO2SO SSP; +OMEP20CA3; +PRED20TA PO; +PROAAER10 INH; +TYLE500T78 PO; +VITA50005; +ZOFR4TAB14 PO
--- NOTE | 2018-05-08 08:11 | SLEEPCENT ---
DATE OF PROCEDURE: 04/28/2018 ORDERING PROVIDER: Dr. Perry Nocturnal polysomnography was performed for the titration of pressure therapy in this patient with a clinical diagnosis of obstructive sleep apnea syndrome confirmed by home testing revealing respiratory event index of 17.5. For testing, a ResMed Air Fit F20 full face mask of medium size was used, 4 cm of water pressure were applied to the circuit, and the lights were extinguished. 7 hours and 5 minutes of data were reviewed. There were 278 minutes of sleep identified. Sleep latency was mildly prolonged at 22 minutes. Rapid eye movement (REM) latency was normal at 96 minutes. Sleep architecture was fairly good with three REM cycles noted. Overall sleep efficiency 90.7%. The patient's electrocardiogram showed sinus rhythm with an average heart rate of 60 beats per minute. Electroencephalogram (EEG) showed normal waveforms for awake and sleep with EKG bleed through into the tracing. Respiratory events were best palliated with C-PAP at a pressure of +6, with which the patient slept through REM without respiratory event or oxygen desaturation. IMPRESSION: Obstructive sleep apnea syndrome (G47.33). RECOMMENDATIONS: Nightly use of pressure therapy 6 cm of water.
== END ==
LOC: M SLEEP 19:35
PROVIDERS: ATTEND Internal Medicine Pulmonary Disease
DX: G47.33 Obstructive sleep apnea (adult) (pediatric) (principal)

== ENCOUNTER 2018-08-06 15:02 | Emergency (ER) | payer OTHER ==
[~2018-08-06] VITALS: Ht 167.6 cm; Wt 90.9 kg
[~2018-08-06 15:02] MED LIST changes: +ACET-716 PO; -ACET30TAB PO
[2018-08-06] MEDS ORDERED: IBUPROFEN 800 MG TAB PO ONE (16:00)
[2018-08-06] MEDS ORDERED: ONDANSETRON 4 MG ORAL DISINTEGRATING TAB (Q0162 PER 1MG) PO ONE (16:00)
[2018-08-06 16:44] LABS: INFLUENZA A AMPLIFICATION NEGATIVE (NEGATIVE); INFLUENZA B AMPLIFICATION NEGATIVE (NEGATIVE)
[2018-08-06] MEDS ORDERED: METOCLOPRAMIDE INJ 10MG/2ML VIAL (J2765) IV ONE (17:45)
[2018-08-06] MEDS ORDERED: NS 1,000 ML IV ONE (17:45)
[2018-08-06 17:58] LABS: BASO % 0.2 % (0.0-1.0); EOS % 0.2 % (0.0-3.0); HEMATOCRIT 50.3 % (42.0-52.0); HEMOGLOBIN 16.9 g/dl (13.5-17.5); LYMPH # 0.5 10^3/uL (1.5-6.5); LYMPH % 4.7 % (24.0-44.0); MEAN CORPUSCULAR HEMOGLOBIN 31.3 pg (27.0-33.0); MEAN CORPUSCULAR HGB CONC 33.6 g/dl (32.0-36.5); MEAN CORPUSCULAR VOLUME 93.1 fl (80.0-96.0); MONO # 0.5 10^3/uL (0.0-0.8); MONO % 4.8 % (0.0-5.0); NEUTROPHILS # 9.3 10^3/uL (1.8-7.7); NEUTROPHILS % 89.7 % (36.0-66.0); PLATELET COUNT, AUTOMATED 173 10^3/uL (150-450); WHITE BLOOD COUNT 10.3 10^3/uL (4.0-10.0)
[2018-08-06 18:28] LABS: ALBUMIN 4.7 GM/DL (3.2-5.2); ALT/SGPT 50 U/L (12-78); BILIRUBIN,DIRECT 0.2 MG/DL (0.0-0.2); BILIRUBIN,TOTAL 0.9 MG/DL (0.2-1.0); BLOOD UREA NITROGEN 16 MG/DL (7-18); CALCIUM LEVEL 9.2 MG/DL (8.5-10.1); CARBON DIOXIDE LEVEL 31 MEQ/L (21-32); CHLORIDE LEVEL 106 MEQ/L (98-107); CREATININE FOR GFR 0.97 MG/DL (0.70-1.30); GLOMERULAR FILTRATION RATE > 60.0 (>60); GLUCOSE, FASTING 94 MG/DL (70-100); LIPASE 64 U/L (73-393); POTASSIUM SERUM 4.1 MEQ/L (3.5-5.1); SODIUM LEVEL 143 MEQ/L (136-145); TOTAL PROTEIN 7.4 GM/DL (6.4-8.2)
[2018-08-06] MEDS ORDERED: ACETAMINOPHEN 500 MG TAB PO ONE (20:00)
--- NOTE | 2018-08-06 20:18 | REP ---
Clinical: Upper abdominal pain with nausea and vomiting. Technique: Axial noncontrast images from the lung bases to the pubic symphysis with coronal and sagittal re-formations. Comparison: 03/13/2016. Findings: Lung bases are clear. Visualized heart and pericardium normal. Liver, spleen, pancreas, gallbladder, bilateral adrenal glands and kidneys are normal. The enteric system is without obstruction or acute inflammatory process. Normal terminal ileum and appendix identified in the right lower quadrant. Pelvis demonstrates normal bladder and age appropriate prostate/seminal vesicles. No ascites. No free air. No adenopathy. Abdominal aorta without aneurysm. Musculoskeletal structures intact. Impression: Normal noncontrast CT of the abdomen and pelvis. Electronically Signed by Scott Almaraz MD 08/06/2018 08:10 P
[2018-08-06] MEDS ORDERED: ONDA4TAB6 PO (21:10)
[2018-08-06 21:20] VITALS: BP 130/80
== END 2018-08-06 21:18 | disposition home or self-care (01) ==
LOC: M ED 15:02
DX: R10.10 Upper abdominal pain, unspecified (principal); R11.2 Nausea with vomiting, unspecified; J45.909 Unspecified asthma, uncomplicated; E78.5 Hyperlipidemia, unspecified; F41.9 Anxiety disorder, unspecified; F33.9 Major depressive disorder, recurrent, unspecified; Z91.041 Radiographic dye allergy status; Z88.5 Allergy status to narcotic agent; Z79.899 Other long term (current) drug therapy
CPT/HCPCS: 36415; 74176; 80048; 80076; 81001; 83690; 85025; 87502; 87880; 96374; 99284; J2765; Q0162

== ENCOUNTER 2018-08-25 19:46 | Emergency (ER) | payer OTHER ==
[~2018-08-25] VITALS: Ht 167.6 cm; Wt 90.9 kg
[~2018-08-25 19:46] MED LIST changes: +ONDA4TAB6 PO
[2018-08-25] MEDS ORDERED: ALL10TAB28 (20:03)
[2018-08-25] MEDS ORDERED: MONT10TA2 (20:03)
[2018-08-25] MEDS ORDERED: FLUT1INH3 (20:04)
[2018-08-25] MEDS ORDERED: VITA-145 (20:04)
[2018-08-25] MEDS ORDERED: METOCLOPRAMIDE INJ 10MG/2ML VIAL (J2765) IV ONE (20:15)
--- NOTE | 2018-08-25 20:39 | REPVR ---
EXAM: CT Head Without Contrast EXAM DATE/TIME: 08/25/2018 8:11 PM CLINICAL HISTORY: 28 years old, male; Pain; Additional info: Syncope TECHNIQUE: Imaging protocol: Axial computed tomography images of the head/brain without contrast. Radiation optimization: All CT scans at this facility use at least one of these dose optimization techniques: automated exposure control; mA and/or kV adjustment per patient size (includes targeted exams where dose is matched to clinical indication); or iterative reconstruction. COMPARISON: CT Head without contrast 02/17/2018 4:07 PM FINDINGS: Brain: Normal. No hemorrhage. No significant white matter disease. No edema. Ventricles: Normal. No ventriculomegaly. Bones/joints: Unremarkable. No acute fracture. Sinuses: Visualized sinuses are unremarkable. No acute sinusitis. Mastoid air cells: Visualized mastoid air cells are unremarkable. No mastoid effusion. Soft tissues: Unremarkable. IMPRESSION: No acute intracranial abnormality. Electronically signed by: Kulwant Yap On 08/25/2018 20:38:23 PM
[2018-08-25 20:48] LABS: BASO % 0.2 % (0.0-1.0); EOS # 0.1 10^3/uL (0.0-0.50); EOS % 1.2 % (0.0-3.0); HEMOGLOBIN 15.1 g/dl (13.5-17.5); LYMPH # 0.9 10^3/uL (1.5-6.5); LYMPH % 21.7 % (24.0-44.0); MEAN CORPUSCULAR HEMOGLOBIN 30.7 pg (27.0-33.0); MEAN CORPUSCULAR HGB CONC 33.6 g/dl (32.0-36.5); MEAN CORPUSCULAR VOLUME 91.5 fl (80.0-96.0); MONO # 0.5 10^3/uL (0.0-0.8); NEUTROPHILS # 2.5 10^3/uL (1.8-7.7); NEUTROPHILS % 63.4 % (36.0-66.0); PLATELET COUNT, AUTOMATED 168 10^3/uL (150-450); RED BLOOD COUNT 4.92 10^6/uL (4.30-6.10)
[2018-08-25 20:59] LABS: INR 0.98; PROTHROMBIN TIME 13.1 SECONDS (12.1-14.4)
--- NOTE | 2018-08-25 21:05 | ECGEPIP ---
Stationary ECG Study 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
[2018-08-25 21:30] LABS: AMPHETAMINES LEVEL URINE NEGATIVE (NEGATIVE); BARBITURATES URINE NEGATIVE (NEGATIVE); BENZODIAZEPINES URINE NEGATIVE (NEGATIVE); CANNABINOIDS URINE NEGATIVE (NEGATIVE); COCAINE METABOLITE URINE NEGATIVE (NEGATIVE); METHADONE URINE NEGATIVE (NEGATIVE); OPIATES URINE NEGATIVE (NEGATIVE); PHENCYCLIDINE URINE NEGATIVE (NEGATIVE)
[2018-08-25 21:50] LABS: BLOOD UREA NITROGEN 14 MG/DL (7-18); CALCIUM LEVEL 8.8 MG/DL (8.5-10.1); CARBON DIOXIDE LEVEL 25 MEQ/L (21-32); CHLORIDE LEVEL 108 MEQ/L (98-107); CPK CREATINE PHOSPHOKINASE 310 U/L (39-308); CREATININE FOR GFR 0.84 MG/DL (0.70-1.30); FREE T4 0.87 NG/DL (0.76-1.46); GLOMERULAR FILTRATION RATE > 60.0 (>60); GLUCOSE, FASTING 91 MG/DL (70-100); MAGNESIUM LEVEL 2.1 MG/DL (1.8-2.4); MB/CK RELATIVE INDEX 0.64 (< OR =4); POTASSIUM SERUM 4.1 MEQ/L (3.5-5.1); SODIUM LEVEL 141 MEQ/L (136-145); THYROID STIMULATING HORMONE 0.959 uIU/ML (0.358-3.740); TROPONIN I < 0.02 NG/ML (< 0.10)
[2018-08-25 22:32] VITALS: BP 130/74
--- NOTE | 2018-08-26 08:40 | REP ---
Chest x-ray: Two views. History: Syncope . Comparison study: September 02, 2017. . Findings: The lungs are well inflated and free of infiltrate. The pleural angles are sharp. The heart size is normal. Pulmonary vasculature is not increased. No significant bony abnormality is seen. EKG monitoring electrodes are visualized. Impression: Negative chest x-ray. Electronically Signed by José Negron MD 08/26/2018 08:32 A
== END 2018-08-25 22:35 | disposition home or self-care (01) ==
LOC: M ED 19:46
DX: R55 Syncope and collapse (principal); J45.909 Unspecified asthma, uncomplicated; K21.9 Gastro-esophageal reflux disease without esophagitis; J30.2 Other seasonal allergic rhinitis; Z79.899 Other long term (current) drug therapy; Z88.5 Allergy status to narcotic agent; Z91.041 Radiographic dye allergy status
CPT/HCPCS: 70450; 71046; 80048; 80307; 81001; 82550; 82553; 83735; 84439; 84443; 85025; 85610; 93005; 93041; 94760; 96374; 99284; J2765

== ENCOUNTER 2018-12-10 18:53 | Emergency (ER) | payer OTHER ==
[~2018-12-10] VITALS: Ht 170.2 cm; Wt 92.7 kg
[~2018-12-10 18:53] MED LIST changes: +ALL10TAB29 PO; +MONT10TA2 PO; +OMEP1CAP73 PO; -OMEP20CA3; +VITA-145 PO
[2018-12-10] MEDS ORDERED: NS 1,000 ML IV ONE (19:15)
[2018-12-10 19:32] LABS: HEMATOCRIT 45.1 % (42.0-52.0); HEMOGLOBIN 15.5 g/dl (13.5-17.5); MEAN CORPUSCULAR HEMOGLOBIN 31.6 pg (27.0-33.0); MEAN CORPUSCULAR HGB CONC 34.4 g/dl (32.0-36.5); MEAN CORPUSCULAR VOLUME 91.9 fl (80.0-96.0); PLATELET COUNT, AUTOMATED 206 10^3/uL (150-450); RED BLOOD COUNT 4.91 10^6/uL (4.30-6.10); WHITE BLOOD COUNT 6.2 10^3/uL (4.0-10.0)
[2018-12-10 19:48] LABS: BLOOD UREA NITROGEN 10 MG/DL (7-18); CALCIUM LEVEL 9.5 MG/DL (8.5-10.1); CARBON DIOXIDE LEVEL 28 MEQ/L (21-32); CHLORIDE LEVEL 107 MEQ/L (98-107); CREATININE FOR GFR 1.05 MG/DL (0.70-1.30); GLOMERULAR FILTRATION RATE > 60.0 (>60); GLUCOSE, FASTING 85 MG/DL (70-100); POTASSIUM SERUM 4.1 MEQ/L (3.5-5.1); SODIUM LEVEL 140 MEQ/L (136-145)
--- NOTE | 2018-12-10 20:10 | ECGEPIP ---
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
--- NOTE | 2018-12-10 20:37 | REPVR ---
EXAM: CT Head Without Contrast EXAM DATE/TIME: 12/10/2018 7:54 PM CLINICAL HISTORY: 28 years old, male; Pain; Headache; Additional info: MACARIO, fall TECHNIQUE: Imaging protocol: Computed tomography images of the head without contrast. Radiation optimization: All CT scans at this facility use at least one of these dose optimization techniques: automated exposure control; mA and/or kV adjustment per patient size (includes targeted exams where dose is matched to clinical indication); or iterative reconstruction. COMPARISON: CT Head without contrast 08/25/2018 8:02 PM FINDINGS: Brain: Normal. No hemorrhage. Unremarkable white matter. No mass effect. Ventricles: Normal. No ventriculomegaly. Bones/joints: Unremarkable. No acute fracture. Sinuses: Question of right sphenoid sinus mucosal thickening. Mastoid air cells: Visualized mastoid air cells are well aerated. No mastoid effusion. Soft tissues: Unremarkable. IMPRESSION: 1. There has been no change since 08/25/2018. No acute interval intracranial process is identified. 2. Question of right sphenoid sinus disease. Electronically signed by: Raul Mello On 12/10/2018 20:36:33 PM
[2018-12-10 21:42] VITALS: BP 128/79
[2019-03-14] MEDS ORDERED: ATOR1TAB19 PO (10:50)
[2019-03-14] MEDS ORDERED: TOPI100T9 PO (10:50)
[2019-03-14] MEDS ORDERED: CITA20TA6 PO (10:50)
== END 2018-12-10 21:44 | disposition home or self-care (01) ==
LOC: EDBD 18:53 → M ED 18:53
DX: I95.1 Orthostatic hypotension (principal); E86.0 Dehydration; J45.909 Unspecified asthma, uncomplicated; F33.9 Major depressive disorder, recurrent, unspecified; E78.5 Hyperlipidemia, unspecified; K21.9 Gastro-esophageal reflux disease without esophagitis; Z79.899 Other long term (current) drug therapy; Z88.5 Allergy status to narcotic agent; Z91.041 Radiographic dye allergy status

== ENCOUNTER 2019-01-14 20:22 | Emergency (ER) | payer OTHER ==
[~2019-01-14] VITALS: Ht 170.2 cm; Wt 93.0 kg
[~2019-01-14 20:22] MED LIST changes: +ALL10TAB29; -ALL10TAB29 PO; +MONT10TA2; -MONT10TA2 PO; -OMEP1CAP73 PO; +OMEP20CA4; +VITA-145; -VITA-145 PO
[2019-01-14 23:00] LABS: BASO % 0.3 % (0.0-1.0); EOS # 0.1 10^3/uL (0.0-0.5); EOS % 1.9 % (0.0-3.0); HEMOGLOBIN 13.3 g/dl (13.5-17.5); LYMPH # 1.8 10^3/uL (1.5-5.0); LYMPH % 30.3 % (24.0-44.0); MEAN CORPUSCULAR VOLUME 91.3 fl (80.0-96.0); MONO # 0.4 10^3/uL (0.0-0.8); MONO % 6.6 % (0.0-5.0); NEUTROPHILS # 3.6 10^3/uL (1.5-8.5); NEUTROPHILS % 60.6 % (36.0-66.0); PLATELET COUNT, AUTOMATED 206 10^3/uL (150-450); RED BLOOD COUNT 4.16 10^6/uL (4.30-6.10); WHITE BLOOD COUNT 5.9 10^3/uL (4.0-10.0)
[2019-01-14 23:13] LABS: INR 1.08; PARTIAL THROMBOPLASTIN TIME 28.1 SECONDS (25.0-38.4); PROTHROMBIN TIME 13.7 SECONDS (11.8-14.0)
[2019-01-14 23:30] LABS: BLOOD UREA NITROGEN 10 MG/DL (7-18); CALCIUM LEVEL 9.2 MG/DL (8.5-10.1); CARBON DIOXIDE LEVEL 27 MEQ/L (21-32); CHLORIDE LEVEL 105 MEQ/L (98-107); CK-MB VALUE MASS 1.2 NG/ML (<3.6); CPK CREATINE PHOSPHOKINASE 169 U/L (39-308); CREATININE FOR GFR 0.92 MG/DL (0.70-1.30); GLOMERULAR FILTRATION RATE > 60.0 (>60); GLUCOSE, FASTING 95 MG/DL (70-100); MAGNESIUM LEVEL 2.2 MG/DL (1.8-2.4); MB/CK RELATIVE INDEX 0.71 (< OR =4); POTASSIUM SERUM 3.7 MEQ/L (3.5-5.1); SODIUM LEVEL 141 MEQ/L (136-145); TROPONIN I < 0.02 NG/ML (< 0.10)
[2019-01-15] MEDS ORDERED: NS 1,000 ML IV ONE (00:30)
[2019-01-15 01:35] VITALS: BP 122/64
--- NOTE | 2019-01-15 05:46 | ECGEPIP ---
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
--- NOTE | 2019-01-15 09:08 | REP ---
Chest x-ray: Two views. History: Syncope . Comparison study: August 25, 2018 . Findings: The lungs are well inflated and free of infiltrate. The pleural angles are sharp. The heart size is normal. Pulmonary vasculature is not increased. No significant bony abnormality is seen. EKG monitoring electrodes are seen. Impression: Negative chest x-ray. Electronically Signed by José Negron MD 01/15/2019 09:00 A
--- NOTE | 2019-01-15 09:10 | REP ---
T-spine series: Three views. History: Trauma. Findings: Thoracic vertebral body heights are preserved. No fracture or collapse is seen. Pedicles and posterior elements are intact. No paravertebral soft-tissue mass is seen. Swimmer's lateral view shows no additional abnormality. Impression: Negative thoracic spine radiographs. Electronically Signed by José Negron MD 01/15/2019 09:01 A
== END 2019-01-15 01:37 | disposition home or self-care (01) ==
LOC: M ED 20:22
DX: R55 Syncope and collapse (principal); F33.9 Major depressive disorder, recurrent, unspecified; F41.9 Anxiety disorder, unspecified; E78.9 Disorder of lipoprotein metabolism, unspecified; G47.33 Obstructive sleep apnea (adult) (pediatric); K21.9 Gastro-esophageal reflux disease without esophagitis; Z79.899 Other long term (current) drug therapy; Z88.5 Allergy status to narcotic agent; Z91.041 Radiographic dye allergy status

== ENCOUNTER 2019-03-02 20:25 | Emergency (ER) | payer OTHER ==
[~2019-03-02] VITALS: Ht 170.2 cm; Wt 90.5 kg
[2019-03-02] MEDS ORDERED: TOPI25TA10 PO (20:37)
[2019-03-02] MEDS ORDERED: PRED20TA PO (20:37)
[2019-03-02] MEDS ORDERED: ACETAMINOPHEN 325 MG TAB PO ONE (21:15)
[2019-03-02 21:33] LABS: BASO % 0.4 % (0.0-1.0); EOS # 0.2 10^3/uL (0.0-0.5); EOS % 1.5 % (0.0-3.0); HEMATOCRIT 41.2 % (42.0-52.0); LYMPH # 1.2 10^3/uL (1.5-5.0); LYMPH % 11.3 % (24.0-44.0); MEAN CORPUSCULAR HEMOGLOBIN 30.7 pg (27.0-33.0); MEAN CORPUSCULAR VOLUME 90.4 fl (80.0-96.0); MONO # 0.9 10^3/uL (0.0-0.8); MONO % 8.5 % (0.0-5.0); NEUTROPHILS # 8.5 10^3/uL (1.5-8.5); NEUTROPHILS % 77.6 % (36.0-66.0); PLATELET COUNT, AUTOMATED 172 10^3/uL (150-450); RED BLOOD COUNT 4.56 10^6/uL (4.30-6.10)
[2019-03-02] MEDS ORDERED: diphenhydrAMINE INJ 50MG/ML VIAL (J1200) IV STA (21:51)
[2019-03-02] MEDS ORDERED: KETOROLAC 30 MG/ML VIAL (J1885) IV ONE (22:00)
[2019-03-02] MEDS ORDERED: METOCLOPRAMIDE 10 MG TAB PO ONE (22:00)
[2019-03-02] MEDS ORDERED: NS 1,000 ML IV ONE (22:00)
[2019-03-02 22:01] LABS: ALBUMIN 3.6 GM/DL (3.2-5.2); ALT/SGPT 26 U/L (12-78); BILIRUBIN,TOTAL 0.9 MG/DL (0.2-1.0); BLOOD UREA NITROGEN 17 MG/DL (7-18); CALCIUM LEVEL 8.8 MG/DL (8.5-10.1); CARBON DIOXIDE LEVEL 26 MEQ/L (21-32); CHLORIDE LEVEL 102 MEQ/L (98-107); CREATININE FOR GFR 1.11 MG/DL (0.70-1.30); GLOMERULAR FILTRATION RATE > 60.0 (>60); GLUCOSE, FASTING 99 MG/DL (70-100); POTASSIUM SERUM 3.7 MEQ/L (3.5-5.1); SODIUM LEVEL 135 MEQ/L (136-145); TOTAL PROTEIN 6.9 GM/DL (6.4-8.2)
[2019-03-02 22:06] LABS: INFLUENZA A AMPLIFICATION NEGATIVE (NEGATIVE); INFLUENZA B AMPLIFICATION NEGATIVE (NEGATIVE)
[2019-03-02] MEDS ORDERED: METOCLOPRAMIDE INJ 10MG/2ML VIAL (J2765) IV ONE (22:15)
[2019-03-02] MEDS ORDERED: MAG SULF 1GM/100ML (MAG RUN) 1 GM in IV 1 EA IV ONE (23:45)
[2019-03-02] MEDS ORDERED: VALPROATE SOD INJ 1,000 MG in D5W 50 ML IV ONE (23:45)
[2019-03-03 02:06] VITALS: BP 112/67
--- NOTE | 2019-03-03 07:35 | REP ---
Clinical: Shortness of breath and fever . Comparison: 01/14/2019 . Technique: PA and lateral. Findings: The mediastinum and cardiac silhouette are normal. The lung dickson are clear and without acute consolidation, effusion, or pneumothorax. The skeletal structures are intact and normal. Impression: 1. No acute cardiopulmonary process. Electronically Signed by Scott Almaraz MD 03/03/2019 07:27 A
== END 2019-03-03 02:14 | disposition home or self-care (01) ==
LOC: M ED 20:25
DX: R51 Headache (principal); R42 Dizziness and giddiness; R50.9 Fever, unspecified; J45.909 Unspecified asthma, uncomplicated; K21.9 Gastro-esophageal reflux disease without esophagitis; E78.49 Other hyperlipidemia; Z91.041 Radiographic dye allergy status; Z88.5 Allergy status to narcotic agent
CPT/HCPCS: 71046; 80053; 83605; 85025; 87502; 96361; 96365; 96375; 99284; J1200; J1885; J2765; J3475

== ENCOUNTER 2019-03-18 12:39 | Day surgery (SDC) | payer OTHER ==
[~2019-03-18] VITALS: Ht 170.2 cm; Wt 87.5 kg
[~2019-03-18 12:39] MED LIST changes: -ALL10TAB29; +ALL10TAB29 PO; +ATOR1TAB19 PO; +CITA20TA6 PO; +LR 1,000 ML IV ONE; -MONT10TA2; +MONT10TA2 PO; -OMEP20CA4; +OMEP20CA4 PO; +TOPI100T9 PO; +TOPI25TA10 PO; -VITA-145; +VITA-145 PO; +ceFAZolin SOD 2 GM in IV 1 EA IV ONE
[2019-03-18] MEDS ORDERED: PROPOFOL 200 MG/20 ML VIAL As Ordered ONE (13:03)
[2019-03-18] MEDS ORDERED: MIDAZOLAM INJ 2 MG/2 ML VIAL (J2250) As Ordered ONE (13:03)
[2019-03-18] MEDS ORDERED: fentaNYL 100 MCG/2 ML INJECTION (J3010) As Ordered ONE (13:03)
[2019-03-18] MEDS ORDERED: LIDOCAINE 2% INJ 100 MG/5 ML SDV (FOR ANES.) As Ordered ONE (13:03)
[2019-03-18] MEDS ORDERED: LIDOCAINE 1% MDV 20ML VIAL As Ordered ONE (13:36)
--- NOTE | 2019-03-18 14:41 | RO ---
DATE OF PROCEDURE: 03/18/2019 PREPROCEDURE DIAGNOSIS: Unexplained syncope. POSTPROCEDURE DIAGNOSIS: Unexplained syncope. FINDINGS: Unexplained syncope. PROCEDURE PERFORMED: Implantation of a Medtronic implantable loop recorder. SURGEON: Renny Narayanan MD SOCIAL WORKER AIDE: None. ANESTHESIA: Lidocaine 1% local and monitored anesthetic care. SPECIMENS: None. ESTIMATED BLOOD LOSS: 3 mL. BLOOD PRODUCTS REPLACED: None. DRAINS: None. COMPLICATIONS: None. DESCRIPTION OF PROCEDURE: The patient was prepped and draped over the sternum and left anterior chest. Lidocaine 1% was used for local anesthetic. An incision was made approximately 1 cm in length with a #15 blade though the skin at approximately the left 4th interspace 1 inch lateral to the left parasternal border. The guide on the insertion tool was then placed into the incision and advanced parallel to the anterior chest wall in the subcutaneous fat layer and directed in a left lateral/caudal direction. The insertion tool was then rotated 180 degrees along its long axis, and then the harness placer was placed into the insertion tool and used to advance the loop recorder into the subcutaneous fat. The punch was then removed, and then the insertion tool was removed leaving the loop recorder in situ. A single 2-0 Vicryl suture was used for the more deeper portion of the incision. The skin was then approximated temporarily using a subcuticular stitch consisting of 4-0 Biosyn with the ends protruding about 0.5 cm from either end of the incision line. The incision line was then kept well approximated by placing tension on the suture to get the skin to come together closely, then three layers of Dermabond were applied. The Biosyn suture was then snipped and pulled through the skin and removed entirely. The patient tolerated the procedure well without any immediate complications. The implantable loop recorder implanted was a DotGT Reveal LINQ, model LNQ11 with serial number [id number].
[2019-03-18 15:00] VITALS: BP 120/77
== END 2019-03-18 15:10 | disposition home or self-care (01) ==
LOC: M SDC 12:39
PROVIDERS: ATTEND Internal Medicine Cardiovascular Disease
DX: R55 Syncope and collapse (principal); J45.909 Unspecified asthma, uncomplicated; G47.33 Obstructive sleep apnea (adult) (pediatric); E66.9 Obesity, unspecified; Z68.30 Body mass index [BMI] 30.0-30.9, adult; E78.00 Pure hypercholesterolemia, unspecified; F41.9 Anxiety disorder, unspecified; F32.9 Major depressive disorder, single episode, unspecified; Z79.899 Other long term (current) drug therapy; Z91.041 Radiographic dye allergy status; Z88.5 Allergy status to narcotic agent; Z82.49 Family history of ischemic heart disease and other diseases of the circulatory system; Z86.14 Personal history of Methicillin resistant Staphylococcus aureus infection
CPT/HCPCS: 33285; C1764; J0690; J2250; J3010

== ENCOUNTER → 2019-05-21 | Outpatient (CLI) | payer OTHER ==
[~2019-05-21] MED LIST changes: -LR 1,000 ML IV ONE; +OMEP1CAP73 PO; -OMEP20CA4 PO; -ceFAZolin SOD 2 GM in IV 1 EA IV ONE
--- NOTE | 2019-05-22 07:33 | EEG ---
DATE OF PROCEDURE: 05/21/2019 REFERRING PHYSICIAN: Dr. Laxmi Clark. DIAGNOSIS: Syncope. EEG# - 20-8 HISTORY: Michael Rangel is a 28-year-old male with history of passing out spell. This EEG was done to rule out epileptic potential. He is currently taking Topamax. TECHNICAL DESCRIPTION: This digital EEG was recorded by 21 scalp, ear and two EKG electrodes and was reviewed in bipolar and referential montages following reformatting in 10-20 international electrode placement system. INTERPRETATION: Patient was noted to be in awake and drowsy states during this EEG. Resting awake background rhythm consisted of well-formed posterior dominant rhythm with anterior/posterior gradient comprising of 9 Hz alpha activity measuring 15 - 60 microvolts in amplitude which was symmetric and reactive to eye opening. Attenuation of posterior dominant rhythm was seen during Anteriorly low voltage and mixed frequency activity was noted. Stage I and II sleep were reviewed and were symmetric bilaterally. Hyperventilation and photic stimulation remained unremarkable. EKG revealed normal sinus rhythm. No focal, lateralizing or epileptiform abnormalities were seen. No relevant clinical activity was noted. CONCLUSION: This EEG in awake, drowsy states, stage I is within normal limits.
== END ==
LOC: M SLEEP 08:23
PROVIDERS: ATTEND Psychiatry & Neurology Neurology
DX: R55 Syncope and collapse (principal)

== ENCOUNTER → 2019-07-02 | Outpatient (CLI) | payer OTHER ==
[~2019-07-02] MED LIST changes: -MONT10TA2 PO; +MONT10TA4 PO
[2019-07-02 09:39] LABS: BASO % 0.2 % (0.0-1.0); EOS # 0.1 10^3/uL (0.0-0.5); EOS % 0.6 % (0.0-3.0); HEMATOCRIT 47.9 % (42.0-52.0); HEMOGLOBIN 15.4 g/dl (13.5-17.5); LYMPH # 1.7 10^3/uL (1.5-5.0); LYMPH % 13.1 % (24.0-44.0); MEAN CORPUSCULAR HEMOGLOBIN 29.1 pg (27.0-33.0); MEAN CORPUSCULAR HGB CONC 32.2 g/dl (32.0-36.5); MEAN CORPUSCULAR VOLUME 90.4 fl (80.0-96.0); MONO # 1.1 10^3/uL (0.0-0.8); MONO % 8.4 % (0.0-5.0); NEUTROPHILS # 9.8 10^3/uL (1.5-8.5); NEUTROPHILS % 77.2 % (36.0-66.0); PLATELET COUNT, AUTOMATED 229 10^3/uL (150-450); WHITE BLOOD COUNT 12.7 10^3/uL (4.0-10.0)
[2019-07-02 10:07] LABS: ALBUMIN 4.2 GM/DL (3.2-5.2); ALT/SGPT 27 U/L (12-78); BILIRUBIN,TOTAL 1.3 MG/DL (0.2-1.0); BLOOD UREA NITROGEN 13 MG/DL (7-18); CALCIUM LEVEL 9.5 MG/DL (8.5-10.1); CARBON DIOXIDE LEVEL 31 MEQ/L (21-32); CHLORIDE LEVEL 103 MEQ/L (98-107); CHOLESTEROL LEVEL 159 MG/DL (<200); CHOLESTEROL RISK RATIO 3.533 (<5); CREATININE FOR GFR 1.16 MG/DL (0.70-1.30); FREE T4 1.17 NG/DL (0.76-1.46); GLOMERULAR FILTRATION RATE > 60.0 (>60); GLUCOSE, FASTING 95 MG/DL (70-100); HDL CHOLESTEROL 45 MG/DL (>40); LDL CHOLESTEROL 96 MG/DL (<100); NON-HDL-C 114 MG/DL; POTASSIUM SERUM 4.4 MEQ/L (3.5-5.1); SODIUM LEVEL 138 MEQ/L (136-145); TOTAL PROTEIN 7.7 GM/DL (6.4-8.2); TRIGLYCERIDES LEVEL 89 MG/DL (<150)
[2019-07-02 10:36] LABS: TOTAL 25(OH) VITAMIN D 24.7 NG/ML (30.0-100.0)
== END ==
LOC: M LAB 08:33
PROVIDERS: ATTEND Family Medicine
DX: N52.2 Drug-induced erectile dysfunction (principal); F32.9 Major depressive disorder, single episode, unspecified; R53.83 Other fatigue

== ENCOUNTER → 2019-08-25 | Outpatient (REF) | payer OTHER ==
[2019-08-25 14:32] LABS: ALBUMIN 4.1 GM/DL (3.2-5.2); BILIRUBIN,DIRECT 0.1 MG/DL (0.0-0.2); BILIRUBIN,TOTAL 0.7 MG/DL (0.2-1.0); TOTAL PROTEIN 7.2 GM/DL (6.4-8.2)
== END ==
LOC: M SFHCADAM 10:04
PROVIDERS: ATTEND Family Medicine
DX: R94.5 Abnormal results of liver function studies (principal)

== ENCOUNTER 2019-10-06 17:38 | Emergency (ER) | payer OTHER ==
[~2019-10-06] VITALS: Ht 167.6 cm; Wt 94.2 kg
[~2019-10-06 17:38] MED LIST changes: -ALL10TAB29 PO; +CETI-24 PO; +MONT10TA10 PO; -MONT10TA4 PO
[2019-10-06] MEDS ORDERED: VITAD1000T PO (17:48)
[2019-10-06] MEDS ORDERED: BUPR-69 PO (17:48)
[2019-10-06] MEDS ORDERED: AMIT50TA PO (17:48)
[2019-10-06] MEDS ORDERED: NS 1,000 ML IV ONE (18:00)
[2019-10-06 18:06] LABS: BASO % 0.4 % (0.0-1.0); EOS # 0.2 10^3/uL (0.0-0.5); HEMATOCRIT 41.6 % (42.0-52.0); HEMOGLOBIN 14.2 g/dl (13.5-17.5); LYMPH # 1.7 10^3/uL (1.5-5.0); LYMPH % 25.1 % (24.0-44.0); MEAN CORPUSCULAR HEMOGLOBIN 29.9 pg (27.0-33.0); MEAN CORPUSCULAR HGB CONC 34.1 g/dl (32.0-36.5); MEAN CORPUSCULAR VOLUME 87.6 fl (80.0-96.0); MONO # 0.5 10^3/uL (0.0-0.8); MONO % 7.2 % (0.0-5.0); NEUTROPHILS # 4.4 10^3/uL (1.5-8.5); NEUTROPHILS % 64.2 % (36.0-66.0); PLATELET COUNT, AUTOMATED 244 10^3/uL (150-450); RED BLOOD COUNT 4.75 10^6/uL (4.30-6.10); WHITE BLOOD COUNT 6.9 10^3/uL (4.0-10.0)
[2019-10-06 18:45] LABS: BLOOD UREA NITROGEN 12 MG/DL (7-18); CALCIUM LEVEL 8.6 MG/DL (8.5-10.1); CARBON DIOXIDE LEVEL 26 MEQ/L (21-32); CHLORIDE LEVEL 108 MEQ/L (98-107); GLOMERULAR FILTRATION RATE > 60.0 (>60); GLUCOSE, FASTING 100 MG/DL (70-100); MAGNESIUM LEVEL 2.3 MG/DL (1.8-2.4); POTASSIUM SERUM 3.7 MEQ/L (3.5-5.1); SODIUM LEVEL 137 MEQ/L (136-145); THYROID STIMULATING HORMONE 0.616 uIU/ML (0.358-3.740)
[2019-10-06 19:46] VITALS: BP 147/68
--- NOTE | 2019-10-06 20:52 | ECGEPIP ---
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
[2019-12-28] MEDS ORDERED: GABA-282 PO (22:09)
[2020-03-03] MEDS ORDERED: FLUT1INH3 INH (15:02)
[2020-03-03] MEDS ORDERED: D31000TA2 PO (15:02)
[2020-03-03] MEDS ORDERED: LYRI75CA PO (15:02)
[2020-03-03] MEDS ORDERED: AMIT50TA PO (15:02)
[2020-03-03] MEDS ORDERED: FLUT15.819 (15:02)
[2020-06-10] MEDS ORDERED: MONT10TA10 (21:21)
== END 2019-10-06 19:48 | disposition home or self-care (01) ==
LOC: M ED 17:38 → EDBD 17:38 → M ED 19:48
DX: R55 Syncope and collapse (principal); J45.909 Unspecified asthma, uncomplicated; E78.9 Disorder of lipoprotein metabolism, unspecified; Z79.899 Other long term (current) drug therapy; Z88.5 Allergy status to narcotic agent; Z91.041 Radiographic dye allergy status

== ENCOUNTER 2019-11-12 19:58 | Emergency (ER) | payer OTHER ==
[~2019-11-12] VITALS: Ht 170.2 cm; Wt 100.0 kg
[~2019-11-12 19:58] MED LIST changes: +AMIT50TA PO; +BUPR-69 PO; -MONT10TA10 PO; +MONT10TA4 PO
[2019-11-12] MEDS ORDERED: ACETAMINOPHEN 325 MG TAB PO ONE (21:15)
[2019-11-12] MEDS ORDERED: diazePAM 10 MG TAB PO ONE (21:15)
[2019-11-12] MEDS ORDERED: predniSONE 20 MG TAB PO ONE (21:15)
--- NOTE | 2019-11-12 22:18 | REPVR ---
PROCEDURE INFORMATION: Exam: CT Lumbar Spine Without Contrast Exam date and time: 11/12/2019 9:34 PM Age: 29 years old Clinical indication: Low back pain; Additional info: Low back pain, sciatica TECHNIQUE: Imaging protocol: Computed tomography images of the lumbar spine without contrast. Radiation optimization: All CT scans at this facility use at least one of these dose optimization techniques: automated exposure control; mA and/or kV adjustment per patient size (includes targeted exams where dose is matched to clinical indication); or iterative reconstruction. COMPARISON: No relevant prior studies available. FINDINGS: Vertebrae: No segmental lumbar vertebral malalignment. Vertebral body height and morphology is maintained. No acute fracture or destructive process. Intervertebral disc height is maintained for age. Probable L5-S1 disc bulge and focal protrusion asymmetric to the left of midline. Vasculature: No dilatation of the imaged distal abdominal aorta. Other findings: No significant abnormality of the imaged retroperitoneum. IMPRESSION: 1. No fracture or other acute osseous abnormality involving the lumbar spine. 2. The probable L5-S1 disc bulge and left paracentral disc protrusion which may impact the traversing left S1 nerve root within the lateral recess. This would be better evaluated using MRI since CT is not sensitive or indicated for evaluation of disc disease. Electronically signed by: Tee Jenkins On 11/12/2019 22:18:41 PM
[2019-11-12] MEDS ORDERED: ROBA750T4 PO (22:28)
[2019-11-12] MEDS ORDERED: PRED20TA PO (22:28)
[2019-11-12 22:35] VITALS: BP 132/98
--- NOTE | 2019-11-13 15:03 | ED PDOC ---
Post-Departure Follow-Up dr robison faxed formal report of ct ls spine for fu Jose Moe MD Nov 13, 2019 15:03
[2020-03-03] MEDS ORDERED: AMIT50TA PO (15:02)
[2020-03-03] MEDS ORDERED: FLUT1INH3 INH (15:02)
[2020-03-03] MEDS ORDERED: D31000TA2 PO (15:02)
[2020-03-03] MEDS ORDERED: FLUT15.819 (15:02)
[2020-03-03] MEDS ORDERED: LYRI75CA PO (15:02)
== END 2019-11-12 22:37 | disposition home or self-care (01) ==
LOC: M ED 19:58
DX: M51.16 Intervertebral disc disorders with radiculopathy, lumbar region (principal); J45.909 Unspecified asthma, uncomplicated; Z79.899 Other long term (current) drug therapy; Z88.5 Allergy status to narcotic agent; Z91.041 Radiographic dye allergy status

== ENCOUNTER 2019-11-19 15:25 | Emergency (ER) | payer OTHER ==
[~2019-11-19] VITALS: Ht 167.6 cm; Wt 99.3 kg
[~2019-11-19 15:25] MED LIST changes: +ROBA750T4 PO
[2019-11-19] MEDS ORDERED: LIDOCAINE 5% (LIDODERM) PATCH TD ONE (18:00)
[2019-11-19] MEDS ORDERED: LIDO5DIS41 TOP (19:32)
[2019-11-19] MEDS ORDERED: NEUR300C PO (19:32)
[2019-11-19 19:38] VITALS: BP 130/98
[2019-11-19] MEDS ORDERED: **NOTE PATIENT COMMENT** MISC XX SCH (21:00)
[2020-03-03] MEDS ORDERED: FLUT1INH3 INH (15:02)
[2020-03-03] MEDS ORDERED: AMIT50TA PO (15:02)
[2020-03-03] MEDS ORDERED: D31000TA2 PO (15:02)
[2020-03-03] MEDS ORDERED: FLUT15.819 (15:02)
[2020-03-03] MEDS ORDERED: LYRI75CA PO (15:02)
== END 2019-11-19 19:46 | disposition home or self-care (01) ==
LOC: M ED 15:25
DX: M51.27 Other intervertebral disc displacement, lumbosacral region (principal); J45.909 Unspecified asthma, uncomplicated; Z79.52 Long term (current) use of systemic steroids; Z79.899 Other long term (current) drug therapy; Z88.5 Allergy status to narcotic agent; Z91.041 Radiographic dye allergy status

== ENCOUNTER 2019-12-28 20:36 | Emergency (ER) | payer OTHER ==
[~2019-12-28] VITALS: Ht 167.6 cm; Wt 100.0 kg
[~2019-12-28 20:36] MED LIST changes: +LIDO5DIS41 TOP; +NEUR300C PO
[2019-12-28 20:50] VITALS: BP 158/100
[2019-12-28] MEDS ORDERED: GI COCKTAIL 50ML BTL(HYOSCYAMINE/MAALOX/LIDOCAINE VISCOUS)(1:3:1) PO ONE (21:00)
[2019-12-28] MEDS ORDERED: PANTOPRAZOLE 40MG VIAL (C9113 PER 1) IV ONE (21:00)
[2019-12-28 21:30] LABS: BASO % 0.4 % (0.0-1.0); EOS # 0.4 10^3/uL (0.0-0.5); EOS % 5.5 % (0.0-3.0); HEMATOCRIT 43.1 % (42.0-52.0); HEMOGLOBIN 14.3 g/dl (13.5-17.5); LYMPH # 2.2 10^3/uL (1.5-5.0); LYMPH % 29.8 % (24.0-44.0); MEAN CORPUSCULAR HGB CONC 33.2 g/dl (32.0-36.5); MEAN CORPUSCULAR VOLUME 87.4 fl (80.0-96.0); MONO # 0.8 10^3/uL (0.0-0.8); NEUTROPHILS # 3.9 10^3/uL (1.5-8.5); NEUTROPHILS % 52.9 % (36.0-66.0); PLATELET COUNT, AUTOMATED 234 10^3/uL (150-450); RED BLOOD COUNT 4.93 10^6/uL (4.30-6.10); WHITE BLOOD COUNT 7.4 10^3/uL (4.0-10.0)
[2019-12-28] MEDS ORDERED: BUPR75TA5 PO (22:09)
[2019-12-28] MEDS ORDERED: GABA-843 PO (22:09)
[2019-12-28 22:10] LABS: ALT/SGPT 27 U/L (12-78); BILIRUBIN,DIRECT 0.1 MG/DL (0.0-0.2); BILIRUBIN,TOTAL 0.4 MG/DL (0.2-1.0); BLOOD UREA NITROGEN 9 MG/DL (7-18); CALCIUM LEVEL 8.7 MG/DL (8.5-10.1); CARBON DIOXIDE LEVEL 29 MEQ/L (21-32); CHLORIDE LEVEL 108 MEQ/L (98-107); CK-MB VALUE MASS 1.3 NG/ML (<3.6); CPK CREATINE PHOSPHOKINASE 155 U/L (39-308); CREATININE FOR GFR 0.93 MG/DL (0.70-1.30); GLOMERULAR FILTRATION RATE > 60.0 (>60); GLUCOSE, FASTING 78 MG/DL (70-100); LIPASE 67 U/L (73-393); MB/CK RELATIVE INDEX 0.84 (< OR =4); POTASSIUM SERUM 3.9 MEQ/L (3.5-5.1); SODIUM LEVEL 143 MEQ/L (136-145); TROPONIN I < 0.02 NG/ML (< 0.10)
[2019-12-28] MEDS ORDERED: SUCRALFATE SUSP 1GM/10ML UD PO ONE (22:15)
[2019-12-28] MEDS ORDERED: SUCR1SS PO (23:21)
[2019-12-28] MEDS ORDERED: PROT1TAB2 PO (23:21)
--- NOTE | 2020-01-19 14:23 | ECGEPIP ---
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
--- NOTE | 2020-01-27 08:10 | REP ---
PORTABLE CHEST X-RAY: HISTORY: Chest pain. TECHNIQUE: Portable upright AP view. COMPARISON: 01/14/19 FINDINGS: The mediastinum and cardiac silhouette are within normal limits and stable. Loop recorder noted. Lung dickson are well-aerated and clear. No consolidation, effusion or pneumothorax. Skeletal structures are intact. IMPRESSION: Normal portable chest x-ray. MTDD
[2020-03-03] MEDS ORDERED: FLUT1INH3 INH (15:02)
[2020-03-03] MEDS ORDERED: AMIT50TA PO (15:02)
[2020-03-03] MEDS ORDERED: FLUT15.819 (15:02)
[2020-03-03] MEDS ORDERED: LYRI75CA PO (15:02)
[2020-03-03] MEDS ORDERED: D31000TA2 PO (15:02)
== END 2019-12-28 23:57 | disposition home or self-care (01) ==
LOC: M ED 20:36 → EDBD 20:36 → M ED 23:57
DX: K21.0 Gastro-esophageal reflux disease with esophagitis (principal); G47.33 Obstructive sleep apnea (adult) (pediatric); Z95.818 Presence of other cardiac implants and grafts; Z88.5 Allergy status to narcotic agent; Z91.041 Radiographic dye allergy status; Z79.899 Other long term (current) drug therapy
CPT/HCPCS: 71045; 80048; 80076; 82550; 82553; 83690; 84443; 85025; 93005; 93041; 94760; 96374; 99284; C9113

== ENCOUNTER → 2020-03-03 | Outpatient (CLI) | payer OTHER ==
[~2020-03-03] MED LIST changes: +BUPR75TA5 PO; +D31000TA2 PO; +FLUT15.819; +FLUT1INH3 INH; +GABA-843 PO; +LYRI75CA PO; +PERC5TAB12 PO; +PROT1TAB2 PO; +SUCR1SS PO
== END ==
LOC: M LABSMTC 10:32
PROVIDERS: ATTEND Anesthesiology
DX: Z01.812 Encounter for preprocedural laboratory examination (principal); Z20.828 Contact with and (suspected) exposure to other viral communicable diseases
CPT/HCPCS: C9803; U0003

== ENCOUNTER 2020-03-08 10:49 | Day surgery (SDC) | payer OTHER ==
[2020-03-08] VITALS (8 sets, daily range): BP systolic 140–172; BP diastolic 83–99; O2SAT 91–96
[~2020-03-08] VITALS: Ht 165.1 cm; Wt 98.4 kg
[~2020-03-08 10:49] MED LIST changes: +CelecoXIB (CeleBREX) 100 MG CAP PO ONE; +GABAPENTIN 300 MG CAP PO ONE; +LIDOCAINE 1% MDV 20ML VIAL SQ PRN; +LR 1,000 ML IV ONE; +NORCO, ANEXSIA 5/325MG TABLET (HYDROcodone/ACETAMINOPHEN) PO ONE; -PERC5TAB12 PO; +ceFAZolin SOD 2 GM in IV 1 EA IV ONE
[2020-03-08] MEDS ORDERED: BUPIVACAINE/EPIN 0.5% 30 ML VIAL As Ordered ONE (12:35)
[2020-03-08] MEDS ORDERED: THROMBIN SOLN 20,000 UNITS KIT As Ordered ONE (12:35)
[2020-03-08] MEDS: BUPIVACAINE HCL 0.25% 10ML VIAL As Ordered ONE ×2 (12:35→14:15)
[2020-03-08] MEDS ORDERED: BUPIVACAINE LIPOSOME/PF 1.3% 20ML VIAL (13.3MG/ML)(EXPAREL)(C9290 PER1MG) As Ordered ONE (12:36)
[2020-03-08] MEDS ORDERED: BACITRACIN PWD 50,000 UNITS VIAL As Ordered ONE (12:36)
[2020-03-08] MEDS ORDERED: TRANEXAMIC ACID 100 MG/ML 10ML VIAL As Ordered ONE (12:37)
[2020-03-08] MEDS ORDERED: EPINEPHrine INJ 1 MG/ML 1ML AMP As Ordered ONE (12:37)
[2020-03-08] MEDS ORDERED: BUPIVACAINE HCL 0.5% 10ML VIAL As Ordered ONE (12:39)
[2020-03-08] MEDS ORDERED: LIDOCAINE 2% 100MG/5ML SDV (FOR ANES.) As Ordered ONE (13:25)
[2020-03-08] MEDS ORDERED: propofoL 200 MG/20 ML VIAL As Ordered ONE (13:25)
[2020-03-08] MEDS ORDERED: METOCLOPRAMIDE INJ 10MG/2ML VIAL (J2765 PER 1) As Ordered ONE (13:25)
[2020-03-08] MEDS ORDERED: SUGAMMADEX SODIUM 500 MG/5 ML VIAL (BRIDION) As Ordered ONE (13:25)
[2020-03-08] MEDS ORDERED: fentaNYL 250 MCG/5 ML INJECTION (J3010) As Ordered ONE (13:25)
[2020-03-08] MEDS ORDERED: ROCURONIUM BROMIDE 50 MG/5 ML VIAL As Ordered ONE (13:25)
[2020-03-08] MEDS ORDERED: dexameTHASONE 4 MG/ML 1ML VIAL (J1100 PER 1MG) As Ordered ONE (13:25)
[2020-03-08] MEDS ORDERED: MIDAZOLAM INJ 2MG/2ML VIAL (J2250 PER 1MG) As Ordered ONE (13:25)
[2020-03-08] MEDS ORDERED: ONDANSETRON 4MG/2ML VIAL As Ordered ONE ×2 (13:25→15:21)
[2020-03-08] MEDS ORDERED: HYDROmorphone HCL 2 MG/ML 1ML VIAL (J1170) As Ordered ONE (14:00)
--- NOTE | 2020-03-08 14:13 | REP ---
INDICATION: LEFT L5-S1 MICRODISCECTOMY. COMPARISON: CT 11/12/2019 TECHNIQUE: Cross-table lateral lumbar spine, portable. FINDINGS: Metal probe projects over the spinous process of L5 and is at the lower aspect of the vertebral body at the L5-S1 level. IMPRESSION: Metal surgical probe lower aspect of L5 at the L5-S1 level. <Electronically signed by Nasir Perez > 03/08/20 [id number]
[2020-03-08] MEDS ORDERED: ACETAMINOPHEN 1000MG 100ML IV BTL (OFIRMEV) (J0131 PER 10MG) As Ordered ONE (14:32)
[2020-03-08] MEDS: LR 1,000 ML IV SCH (15:05)
[2020-03-08] MEDS ORDERED: fentaNYL 100 MCG/2 ML INJECTION (J3010) As Ordered ONE (15:20)
[2020-03-08] MEDS ORDERED: oxyCODONE 5MG TAB As Ordered ONE (15:20)
[2020-03-08] MEDS: fentaNYL 100 MCG/2 ML INJECTION (J3010) IV PRN ×4 (15:25→15:40)
[2020-03-08] MEDS ORDERED: oxyCODONE 5MG TAB PO PRN (16:00)
[2020-03-08] MEDS ORDERED: ONDANSETRON 4MG/2ML VIAL IV PRN ×2 (16:00→21:15)
[2020-03-08] MEDS ORDERED: CYCLOBENZAPRINE 10MG TABLET PO PRN (16:15)
[2020-03-08] MEDS ORDERED: PERCOCET 5MG/325MG TAB PO PRN (16:15)
[2020-03-08] MEDS ORDERED: LR 1,000 ML IV SCH (16:15)
[2020-03-08] MEDS ORDERED: HYDROMORPHONE HCL 0.5 MG/ 0.5 ML SYRINGE (J1170 PER 1) IV PRN ×2 (16:15)
[2020-03-08] MEDS: GABAPENTIN 100 MG CAP PO SCH ×2 (17:10→21:01)
[2020-03-08] MEDS: PERCOCET 5MG/325MG TAB PO PRN (18:03)
[2020-03-08] MEDS ORDERED: ceFAZolin SOD 1 GM in D5W MINI-BAG PLUS 50 ML IV ONE (19:00)
[2020-03-08] MEDS ORDERED: AMITRIPTYLINE 50 MG TAB PO SCH (21:00)
[2020-03-08] MEDS ORDERED: OMEPRAZOLE 20 MG CAP PO SCH (21:00)
[2020-03-08] MEDS: buPROPion 75 MG TAB PO SCH (21:01)
[2020-03-09 01:15] VITALS: BP 115/86
[2020-03-09] MEDS: PERCOCET 5MG/325MG TAB PO PRN ×2 (03:13→09:38)
[2020-03-09] MEDS: LR 1,000 ML IV SCH (04:30)
[2020-03-09 05:15] VITALS: BP 116/86
[2020-03-09] MEDS ORDERED: PERC5TAB12 PO (06:34)
[2020-03-09] MEDS ORDERED: METAMUCIL (PSYLLIUM) PACKET PO SCH (09:00)
[2020-03-09] MEDS: GABAPENTIN 100 MG CAP PO SCH (09:38)
[2020-03-09] MEDS: buPROPion 75 MG TAB PO SCH (09:38)
[2020-03-09 10:00] VITALS: BP 119/86
--- NOTE | 2020-03-10 12:16 | ROES ---
DATE OF OPERATION: 03/08/2020 PREOPERATIVE DIAGNOSIS: Left paracentral disc herniation at L5-S producing S1 radiculopathy. POSTOPERATIVE DIAGNOSIS: Left paracentral disc herniation at L5-S producing S1 radiculopathy. PROCEDURE PERFORMED: Left L5-S1 microdiscectomy. SURGEON: Elliot Mcmanus M.D. DRIVER SALESMAN: Sebastián Sprague PA-C ANESTHESIA: General endotracheal ESTIMATED BLOOD LOSS: Less than 40 mL, replaced with crystalloid COMPLICATIONS: No complications. INDICATIONS: Paresthesias, left lower extremity pain, left lower extremity MRI suggests disc extrusion, L5-S1, left paracentral. The patient has elected for operative intervention. Consent reviewed in detail including a wale discussion of the pathology involved, the procedure proposed, alternatives including doing nothing, risks including but not limited to pain, failure, incomplete relief, nerve injury, need for more surgery, infection, bleeding, blood loss, blood clots or other issues. The patient wants to proceed. OPERATIVE COURSE: The patient was identified in the holding area. The site and side verified. He was brought to the operating room. Once anesthesia was administered, he was positioned in the prone position on the Dameon table for exposure of the lumbar spine, the knees slightly flexed. An axillary roll was utilized, both I and the tool room lathe operator, for comfortable sedation and positioning. He was then sterilely prepped and draped in the usual fashion. Mr. Spargue stood on the patients right. Kai stood on the patients left. Incision was based on palpation of the iliac crest, infiltrated with 1/4% Marcaine with epinephrine and the made using a 10 blade knife. I utilized the 3.5 loupe magnification. We developed a dissection down to the posterior lumbar fascia, appreciated crossing of the fibers at L5, opened the posterior lumbar fascia sharply with a 10 blade knife, developed down through the paraspinal muscles, reflecting them off of the spinous process of L5 over the L5 lamina. A drill was then utilized to drill a divot in the L5 lamina. A Carranza John was placed at L5 and a cross table lateral x-ray was taken to verify a level. Once this was accomplished, the dissection continued further inferiorly, superiorly and laterally, exposing the facet complex of 5-1. Next, at this stage, my loupe magnification and headlamp were removed. The operating microscope was sterilely draped and brought in for additional portions of the procedure. Mr. Sprague looked through oculars on the right, I through oculars on the left. I utilized the high speed bur to implement a left unilateral laminotomy of L5, extending superiorly to the bare area of 5, inferiorly to the bare are area of S1, elevated the ligamentum flavum using curved curettes. Mr. Sprague assisted using suction Eliseo and Eliseo retractors. I removed ligamentum flavum using #2 Kerrisons and pituitaries. This exposed the thecal sac. The S1 nerve root was appreciated to be elevated. The subarticular space was decompressed using #2 Kerrisons. Carranza John was utilized to sweep the traversing S1 nerve root medially. Mr. Sprague placed suction Eliseo and held them with the root retracted. We appreciated significant thinning of the annulus and posterior longitudinal ligament with a disc elevation that had been under the shoulder of the S1 nerve root. I opened the annulus using an 11 blade, removed disc material using [place] pituitaries, thin pituitaries. I probed the neural foramina and made sure there was no friable, retrievable disc material there. I utilized bipolar cautery for hemostasis. We probed the interspace to make sure there was no additional removable or friable disc material. Next, irrigation was accomplished. Next, thrombin Gelfoam and bipolar cautery utilized for hemostasis. Next, once we appreciated no active bleeding, we inspected the thecal sac, no evidence of active bleeding or CSF leak. Next, retractors were removed, the posterior lumbar fascia reapproximated with interrupted stitch. All counts were correct. Deep dermis approximated with interrupted stitch. Prineo dressing applied to skin. The patient was rolled to hospital bed, extubated, moved to recovery room in good condition. For further details, please refer to the medical record. MARK
== END 2020-03-09 11:14 | disposition home or self-care (01) ==
LOC: M SDC 10:49 → M MS5PR 16:30 → M SDC 03-09 11:14
PROVIDERS: ATTEND Orthopaedic Surgery
DX: M51.26 Other intervertebral disc displacement, lumbar region (principal); E78.5 Hyperlipidemia, unspecified; K21.9 Gastro-esophageal reflux disease without esophagitis; J45.909 Unspecified asthma, uncomplicated; G43.909 Migraine, unspecified, not intractable, without status migrainosus; Z91.041 Radiographic dye allergy status; Z88.5 Allergy status to narcotic agent; F41.9 Anxiety disorder, unspecified; F32.9 Major depressive disorder, single episode, unspecified; Z79.899 Other long term (current) drug therapy
CPT/HCPCS: 36415; 63030; 72100; 86850; 87641; 88304; 96361; 96365; 96375; C9290; J0131; J0690; J1100; J1170; J2250; J2405; J2765; J3010

== ENCOUNTER → 2020-04-28 | Outpatient (REF) | payer OTHER ==
[~2020-04-28] MED LIST changes: -CelecoXIB (CeleBREX) 100 MG CAP PO ONE; -GABAPENTIN 300 MG CAP PO ONE; -LIDOCAINE 1% MDV 20ML VIAL SQ PRN; -LR 1,000 ML IV ONE; -MONT10TA4 PO; +MONT5TAB2 PO; -NORCO, ANEXSIA 5/325MG TABLET (HYDROcodone/ACETAMINOPHEN) PO ONE; +PERC5TAB12 PO; -ceFAZolin SOD 2 GM in IV 1 EA IV ONE
[2020-04-28 13:21] LABS: FREE T4 0.9 NG/DL (0.76-1.46); THYROID STIMULATING HORMONE 1.34 uIU/ML (0.358-3.740)
== END ==
LOC: M SFHCADAM 09:05
PROVIDERS: ATTEND Family Medicine
DX: R63.5 Abnormal weight gain (principal)

== ENCOUNTER 2020-05-28 23:32 | Emergency (ER) | payer OTHER ==
[~2020-05-28] VITALS: Ht 170.2 cm; Wt 115.8 kg
[~2020-05-28 23:32] MED LIST changes: +GABA-282 PO; -GABA-843 PO; +MONT10TA10 PO; -MONT5TAB2 PO; +VITAD1000T PO
[2020-05-29] MEDS ORDERED: NAPR500T6 PO
--- NOTE | 2020-05-29 02:45 | REPVR ---
PROCEDURE INFORMATION: Exam: US Duplex Left Lower Extremity Veins, Limited Exam date and time: 05/29/2020 2:28 AM Age: 29 years old Clinical indication: Pain; Leg, upper; Left; Additional info: Lle swelling TECHNIQUE: Imaging protocol: Real-time Duplex ultrasound of the Left Lower Extremity with 2-D willoughby scale, color Doppler flow and spectral waveform analysis with image documentation. Limited exam focused on the left lower extremity veins. COMPARISON: US Duplex, Ext,LOWER veins,unilat 06/09/2014 2:30 PM FINDINGS: Left deep veins: Unremarkable. The common femoral, femoral, proximal profunda femoral and popliteal veins are patent without thrombus. Normal Doppler waveforms. Normal compressibility and/or augmentation response. Left superficial veins: Unremarkable. Saphenofemoral junction is patent without thrombus. Soft tissues: Unremarkable. IMPRESSION: Negative left lower extremity venous duplex exam without evidence of deep venous thrombosis. Electronically signed by: Raul Mello On 05/29/2020 02:45:04 AM
[2020-05-29 03:31] VITALS: BP 136/60
[2020-06-10] MEDS ORDERED: MONT10TA10 (21:21)
== END 2020-05-29 03:39 | disposition home or self-care (01) ==
LOC: M ED 23:32
DX: R22.42 Localized swelling, mass and lump, left lower limb (principal); Z91.041 Radiographic dye allergy status; Z79.899 Other long term (current) drug therapy

== ENCOUNTER → 2020-06-04 | Outpatient (REF) | payer OTHER ==
[~2020-06-04] MED LIST changes: -MONT10TA10 PO; +MONT5TAB2 PO; +NAPR500T6 PO
[2020-06-04 16:55] LABS: BASO % 0.4 % (0.0-1.0); EOS # 0.4 10^3/uL (0.0-0.5); EOS % 6.2 % (0.0-3.0); HEMATOCRIT 39.7 % (42.0-52.0); HEMOGLOBIN 12.9 g/dl (13.5-17.5); LYMPH # 1.7 10^3/uL (1.5-5.0); MEAN CORPUSCULAR HEMOGLOBIN 28.9 pg (27.0-33.0); MEAN CORPUSCULAR HGB CONC 32.5 g/dl (32.0-36.5); MEAN CORPUSCULAR VOLUME 88.8 fl (80.0-96.0); MONO # 0.7 10^3/uL (0.0-0.8); NEUTROPHILS # 4.1 10^3/uL (1.5-8.5); NEUTROPHILS % 58.6 % (36.0-66.0); PLATELET COUNT, AUTOMATED 261 10^3/uL (150-450); RED BLOOD COUNT 4.47 10^6/uL (4.30-6.10); WHITE BLOOD COUNT 7.1 10^3/uL (4.0-10.0)
[2020-06-04 17:13] LABS: ALBUMIN 4.4 GM/DL (3.2-5.2); ALT/SGPT 37 U/L (12-78); BILIRUBIN,TOTAL 0.5 MG/DL (0.2-1.0); BLOOD UREA NITROGEN 15 MG/DL (7-18); CALCIUM LEVEL 9.7 MG/DL (8.5-10.1); CARBON DIOXIDE LEVEL 32 MEQ/L (21-32); CHLORIDE LEVEL 105 MEQ/L (98-107); GLOMERULAR FILTRATION RATE > 60.0 (>60); GLUCOSE, FASTING 67 MG/DL (70-100); POTASSIUM SERUM 4.5 MEQ/L (3.5-5.1); SODIUM LEVEL 142 MEQ/L (136-145); TOTAL PROTEIN 7.1 GM/DL (6.4-8.2)
== END ==
LOC: M SFHCADAM 13:53
PROVIDERS: ATTEND Family Medicine
DX: Z01.818 Encounter for other preprocedural examination (principal)

== ENCOUNTER 2020-06-10 21:11 | Emergency (ER) | payer OTHER ==
[~2020-06-10] VITALS: Ht 167.6 cm; Wt 114.7 kg
[~2020-06-10 21:11] MED LIST changes: -AMOX875T2; -MONT10TA10; -MONT10TA10 PO; +MONT5TAB2 PO
--- OUTSIDE RECORDS SUMMARY | 2020-06-10 21:19 | CCD ---
Author Author [facility] Organization [facility] Address Unknown Phone Unavailable Care Team Providers Care Raisin Washer Name Role Phone George Mejia Unavailable PROBLEMS Type Condition ICD9-CM Code PIV62-HC Code Onset Dates Condition S tatus W/U Status Risk SNOMED Code Notes Problem Moderate persistent asthma without complication J4 5.40 Active confirmed 736972934 Problem Vitamin D deficiency E55.9 Active confirmed 21782456 Problem Familial hypercholesterolemia E78.01 Active confirm ed 401747548 Problem Dyslipidemia E78.5 Active confirmed 9141757 07 Problem Allergic rhinitis, unspecified seasonality, unspecifie d trigger J30.9 Active confirmed 75788780 Problem Depression, unspecified depression type F32.9 Active confirmed 23908329 Problem Gastroesophageal reflux dise ase, unspecified whether esophagitis present K21.9 Active confirmed 636632416 Problem Obesity (BMI 30.0-34.9) E66.9 Active confirmed [id number] Problem EDSON (obstructive sleep apnea) G47.33 Active confirm ed 43255907 Problem Mixed hyperlipidemia E78.2 Active confirmed 538659279 Problem Rosacea L71.9 Active confirmed 330000957 Problem Other headache syndrome G44.89 Active confirmed 968701062 Problem Drug-induced erectile dysfunction N52.2 Active confirmed 003148551 Problem Sciatica of left side M54.32 Active confirmed 04838749 ALLERGIES Allergen (clinical drug ingredient) Drug/Non Drug Allergy do cumented on EMR Reaction Allergy Type Onset Date Status MRI contrast Nausea/Vomiting Non Drug Allergy A ctive Vicodin Nausea/Vomiting Drug Allergy Active environmental sneezing Non Drug Allergy Activ e ENCOUNTERS from 1989 to 2020-06-07 Encounter Location Date Provider Diagnosis [facility] Dermatology [address] [facility] [address] [place] [address] May, George Mejia Screening, malignant neoplas m, skin Z12.83 ; Rosacea L71.9 ; Atypical nevus D22.9 ; Melanocytic nevi of trunk D22.5 ; Melanocytic nevi of right upper limb, including shoulder D22.61 ; Melanocytic nevi of left upper limb, including shoulder D22.62 ; Melanocytic nevi of face D22.30 ; Melanocytic nevi of right lower limb, including hip D22.71 ; Melanocytic nevi of left lower limb, including hip D22.72 ; Melanocytic nevi of scalp and neck D22.4 ; Lentigines L81.4 and Skin tag L91.8 IMMUNIZATIONS Vaccine Route Administration Date Status Pneumococcal Adult 0.5mL (Pneumovax 23) IM Intramuscular Dec 26, 2017 Administered SOCIAL HISTORY Tobacco Use: Social History Observation Description Date Details (start date - stop date) Never Smoker Sex Assigned At : Social History Observation Description Sex Assigned At Unknown Audit Question Answer Notes Total Score: 2 Interpretation: Alcohol Education Holiness: Question Answer Notes Holiness No worship beliefs that would impact health care. Drug and Alcohol Question Answer Notes Total Score: 0 Interpretation: No problems reported Alcohol Screening: Question Answer Notes Did you have a drink containing alcohol in the past year? Ye s Points 3 Interpretation Negative How often did you have six or more drinks on one occas ion in the past year? Never (0 points) How many drinks did you have on a typica l day when you were drinking in the past year? 3 or 4 (1 point) How often did you have a drink containing alcohol in t he past year? Two to four times a month (2 points) BMI Care Goal Follow-Up Question Answer Notes Above Normal BMI Follow-Up Giving encouragement to exercise Tobacco Use: Question Answer Notes Are you a: never smoker REASON FOR REFERRAL No Information VITAL SIGNS Weight 242 lbs May, Height 5'7" in May, BMI 37.90 kg/m2 May, Blood pressure systolic 148 mm Hg May, Blood pressure diastolic 90 mm Hg May, MEDICATIONS Medication SIG (Take, Route, Frequency, Duration) Notes Start Da te End Date Status Zyrtec Allergy 10 MG 1 tablet Orally Once a day as needed for 30 Active BuPROPion HCl 75 MG 1 tab Orally Twice a day for 30 Active Naproxen 500 MG 1 tablet Orally Twice a day for 30 day(s) Active AirDuo RespiClick 232/14 232-14 MCG/ACT 1 puff Inhalat ion Twice a day for 30 day(s) Nov, Active Amitriptyline HCl 50 MG 1 tab Orally Daily for 30 days Active Pantoprazole Sodium 40 MG 1 tablet Orally Once a day for 30 days Active Lyrica 25 MG 1 capsule Orally Once a day for 30 Days 2020 Active Atorvastatin Calcium 10 MG 1 tablet Orally Once a day for 30 Active Lidocaine 5 % External for 30 Activ e Metronidazole 0.75 % 1 application Externally Twice a day after washing face May, Active Montelukast Sodium 10 MG take one tablet by mouth every day Oral for 30 days Active Vitamin D3 1000 UNIT 1 tablet Orally Once a day for 30 Active PROCEDURES No Information RESULTS No Results REASON FOR VISIT 1 year FBSE MEDICAL (GENERAL) HISTORY Type Description Date Medical History MRSA infection- Rt Knee 05/2014 Medical History Vitamin D deficiency Medical History Fracture, Rt foot 3rd MT 10/2014 Medical History hyperlipidemia Medical History asthma Medical History obstructive sleep apnea Medical History echo (04/2019) with mild dil atation of the aortic root at the level of the sinuses Valsalva, normal ascending aorta, f/u in 2 years Surgical History I&D- Rt knee 06/04/14 Surgical History cardiac implantable loop recorder Surgical History back surgery 03/08/2020 Hospitalization History related to I&D 05/2014 Goals Section No Information Health Concerns No Information MEDICAL EQUIPMENT No Information MENTAL STATUS No Information FUNCTIONAL STATUS No Information ASSESSMENTS Encounter Date Diagnosis Assessment Notes Treatment Notes Treatm ent Clinical Notes May, Screening, malignant neoplasm, skin (ICD-10 - Z1 2.83) Patient counseled on signs and symptoms of skin cancer including ABCDE's of Melanoma. Patient counseled to wear sunscreen or use sun protective clothing when outdoors. Avoid peak hours of sun between 10-2. Patient instructed to call with any new or changing lesions. May, Rosacea (ICD-10 - L71.9) Resume rx above if worsening. Well controlled right now. Discussed nature of rosacea and factors that can exacerbate the condition including anything that causes flushing/blushing - spicy food, alcohol, sunlight, exercise, and the need to try to limit these factors. Use a mild cleanser on face like Cetaphil liquid cleanser and luke warm water when cleansing May, Atypical nevus (ICD-10 - D22.9) Benign, reassurance, ABCDE, photoprotection, Q 1 Y MD derm skin check, Q 1 M self skin check May, Melanocytic nevi of trunk (ICD-10 - D22.5) Benign, reassurance, ABCDE, photoprotection, Q 1 Y MD derm skin check, Q 1 M self skin check May, Melanocytic nevi of right up per limb, including shoulder (ICD-10 - D22.61) Benign, reassurance, ABCDE, photoprotection, Q 1 Y MD derm skin check, Q 1 M self skin check May, Melanocytic nevi of left upp er limb, including shoulder (ICD-10 - D22.62) Benign, reassurance, ABCDE, photoprotection, Q 1 Y MD derm skin check, Q 1 M self skin check May, Melanocytic nevi of face (ICD-10 - D22.30) Benign, reassurance, ABCDE, photoprotection, Q 1 Y MD derm skin check, Q 1 M self skin check May, Melanocytic nevi of right lo wer limb, including hip (ICD-10 - D22.71) Benign, reassurance, ABCDE, photoprotection, Q 1 Y MD derm skin check, Q 1 M self skin check May, Melanocytic nevi of left low er limb, including hip (ICD-10 - D22.72) Benign, reassurance, ABCDE, photoprotection, Q 1 Y MD derm skin check, Q 1 M self skin check May, Melanocytic nevi of scalp and neck (ICD-10 - D22 .4) Benign, reassurance, ABCDE, photoprotection, Q 1 Y MD derm skin check, Q 1 M self skin check May, Lentigines (ICD-10 - L81.4) Benign, reassurance, ABCDE, photoprotection, Q 1 Y MD derm skin check, Q 1 M self skin check May, Skin tag (ICD-10 - L91.8) Benign, reassurance PLAN OF TREATMENT Treatment Notes Assessment Notes Clinical Notes Screening, malignant neoplasm, skin Patient counseled on signs and symptoms of skin cancer including ABCDE's of Melanoma. Patient counseled to wear sunscreen or use sun protective clothing when outdoors. Avoid peak hours of sun between 10 -2. Patient instructed to call with any new or changing lesions. Rosacea Resume rx above if worsening . Well controlled right now. Discussed nature of rosacea and factors that can exacerbate the condition including anything that causes flushing/blushing - spicy food, alcohol, sunlight, exercise, and the need to try to limit these factors. Use a mild cleanser on face like Cetaphil liquid cleanser and luke warm water when cleansing Atypical nevus Benign, reassurance, ABCDE, photoprotection, Q 1 Y MD derm skin check, Q 1 M self skin check Melanocytic nevi of trunk Benign, reassu jeaneth, ABCDE, photoprotection, Q 1 Y MD derm skin check, Q 1 M self skin check Melanocytic nevi of right upper limb, including shoulder Benign, reassurance, ABCDE, photoprotection, Q 1 Y MD derm skin check, Q 1 M self skin check Melanocytic nevi of left upper limb, including shoulder Benign, reassurance, ABCDE, photoprotection, Q 1 Y MD derm skin check, Q 1 M self skin check Melanocytic nevi of face Benign, reassur ance, ABCDE, photoprotection, Q 1 Y MD derm skin check, Q 1 M self skin check Melanocytic nevi of right lower limb, including hip Benign, reassurance, ABCDE, photoprotection, Q 1 Y MD derm skin check, Q 1 M self skin check Melanocytic nevi of left lower limb, including hip Benign, reassurance, ABCDE, photoprotection, Q 1 Y MD derm skin check, Q 1 M self skin check Melanocytic nevi of scalp and neck Benig n, reassurance, ABCDE, photoprotection, Q 1 Y MD derm skin check, Q 1 M self skin check Skin tag Benign, reassurance Lentigines Benign, reassurance, ABCDE, photoprotection, Q 1 Y MD derm skin check, Q 1 M self skin check Next Appt Details 1 Year Reason:FBSE Provider Name:George Mejia, 2021-05 10:15:00 AM, [address] [facility], [address], [place], [address], Follow Up:1 YearFBSE Insurance Providers Payer Name Payer Address Payer Phone Insured Name Patient Relati onship to Insured Coverage Start Date Coverage End Date [facility] [employer] [address] [facility] [id number] [phone] JUAN WILLIAM self
--- OUTSIDE RECORDS SUMMARY | 2020-06-10 21:19 | CCD | Continuity of Care Document ---
Author Author [facility] Organization Unknown Address [address] [place] [address] Phone [phone] Care Team Providers Care Manager Hospital Name Role Phone Sebastián Franklin MD [facility] [phone] Bridger Soriano MD [facility] [phone] Rihcelle Garces NP [facility] [phone] Rajiv Bae MD [facility] Unavailable Josi Garcia DO [facility] [phone] Problems Active Problems Provider Date Asthma Onset: Abscess Onset: 06/04/2014 Cellulitis of finger Onset: Chest pain Onset: Closed injury of head Onset: Concussion injury of body structure Onse t: Dehydration Onset: Dental abscess Onset: Dizziness Onset: Dyspnea Onset: Facial paresthesia Onset: Pyrexia of unknown origin Onset: 000 Headache Onset: Scalp laceration Onset: Nausea and vomiting Onset: Noncompliance with medication regimen On set: Orthostatic hypotension Onset: 0 Upper abdominal pain Onset: Left without being seen Onset: 0 Posttraumatic headache Onset: Prolapsed lumbar intervertebral disc Ons et: Syncope Onset: Viral disease Onset: Pure hypercholesterolemia Elliot Mcmanus MD Onset: 020 Social History Type Date Description Comments Sex Unknown ETOH Use Occasionally consumes alcohol Allergies, Adverse Reactions, Alerts Active Allergies Reaction Severity Comments Date Hydrocodone Vomiting Mild 11/13/2019 Medications Active Medications SIG Qnty Indications Ordering Provide r Date Tylenol With Codeine #3 300-30mg T ablets 1-2 tabs every 4-6 hours as needed pain 30tabs Lakhwinder Damian MD 03/19/2020 Tizanidine HCL 4mg Tablets 1 by mouth three times a day 30tabs Elliot Mcmanus MD 03/19/2020 Hibiclens 4% Liquid use in shower once daily for 5 days before surgery 1units Elliot Mcmanus MD 02/27/2020 Bactroban 2% Ointment apply a pea sized amount to each nasal passage 3x daily for 5 days before surgery QS Elliot Mcmanus MD 02/27/2020 Hydrocodone Bitartrate/Acetaminophen 5-325mg Tablets 1 tab by mouth every 4-6 hours prn/pain after surgery do not fill until 03-08-20 12tabs Elliot Mcmanus MD 02/20/2020 Methocarbamol 750mg Tablets Three Times A Day 30tabs Unknown 11/12/2019 Prednisone 20mg Tablets As Directed 20tabs Unknown 11/12/2019 Amitriptyline HCL 50mg Tablets Daily At Bedtime Unknown Atorvastatin Calcium 10mg Tablets Daily At Bedtime Unknown Bupropion HCL 100mg Tablets Twice A Day Unknown Cetirizine HCL 10mg Tablets Daily At Bedtime Unknown [facility] High-Potency Vitamin D 1000Unit Tablets Daily At Bedtime Unknown Fluticasone Propionate/Salmeterol 232-14mcg/Act Aerosol Daily as needed for Congestion Unknown Montelukast Sodium 10mg Tablets Daily At Bedtime Unknown Omeprazole 20mg Capsules DR Daily At Bedtime Unknown Immunizations CPT Code Status Date Vaccine Lot # [id number] Given 02/16/2018 Tetanus, Diphthe tali Toxoids/Acellular Pertussis Vaccine 7 [place] > [id number] Given 06/06/2014 Pneumococcal Vaccine Vital Signs Date Vital Result Comment 04/16/2020 10:53am Body Temperature 96.3 F 03/19/2020 10:18am Body Temperature 97.1 F Results Test Acquired Date Facility Test Result H/L Range Note Laboratory test finding 03/09/2020 [facility] [address] [place] [address] ([phone] - MRSA PCR Screen NOT DETECTED Normal Negative 1 Laboratory test finding 03/08/2020 [facility] [address] [place] [address] (315)- - Pathology Request For Service (SEE NOTE) 2 Type & Screen -Incl Blood Type,Jorge,AB SC 03/08/2020 [facility] [address] [place] [address] (315)- - Blood Type O POSITIVE Normal AB Screen Gel Manual NEGATIVE Normal 1 A negative test result does not exclude the possibility of nasal colonization because test results may be affected by improper specimen collection, technical error, sample mix-up, or because the number of organisms in the sample is below the limit of detection of the test. 2 FINAL DIAGNOSIS Submitted as "disc tissue L5-S1",discectomy: Consistent with disc tissue. Negative for malignancy. 03/10/2020857 CLINICAL DIAGNOSIS Herniated/ruptured disc at level L5-S1 03/09/20201331 GROSS DIAGNOSIS Received in formalin labeled "disc tissue L5-S1" consists of fragments of tissue, 0.5 x 0.5 x 0.1 cm. All in one. -OA 03/09/20201331 Signed LASHANDA STEWART MD 03/10/2020 0911 Procedures Date Code Description Status 03/08/2020 80504 Laminectomy One Interspace, Lumb ar Completed 03/08/2020 88349 Laminectomy One Interspace, Lumb ar Completed 02/09/2020 32449 X-Ray Spine Lumbosacral Complete W/Oblique 4 Views Completed Medical Devices Description No Information Available Encounters Type Date Location Provider Dx Diagnosis Office Visit 04/16/2020 11:30a [place] Z47.89 Encounter for other orthopedic aftercare Office Visit 03/[place] 10:[place] [facility] Z47.89 Encounter for other orthopedic aftercare Office Visit 02/09/2020 2:30p [place] MD M51.26 Other intervertebral disc displacement, lumbar region M54.16 Radiculopathy, lumbar region Assessments Date Code Description Provider 05/27/2020 Z47.89 Encounter for other orthopedic a ftercare Sebastián Rocha, P.A. 04/16/2020 Z47.89 Encounter for other orthopedic a ftercare Romulo AdamA. 03/19/2020 Z47.89 Encounter for other orthopedic a ftercare Sebastián Rocha P.A. 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, lumbosacral region Elliot Mcmanus MD 02/09/2020 M51.26 Other intervertebral disc displa cement, lumbar region Elliot Mcmanus MD 02/09/2020 M54.16 Radiculopathy, lumbar region Bru jj Mcmanus MD Plan of Treatment Future Appointment(s):* 06/14/2020 1:30 pm - Katy Damian PA-C at [place] 05/27/2020 - Sebastián Rocha, P.A.* Z47.89 Encounter for other orthopedic aftercare* Follow up:* 1 month with [facility] for back recheck Functional Status Description No Information Available Mental Status Description No Information Available Referrals Refer to Reason for Referral Status Appt Date Elliot Mcmanus MD SURGERY PER PIPPA AT [facility] D APPROVAL FOR LEFT L5/S1 SURGERY (85535) TO SURGERY NT Created [facility], [address] [place] [address] [phone]
--- OUTSIDE RECORDS SUMMARY | 2020-06-10 21:19 | CCD ---
Author Author [facility] Organization [facility] Address Unknown Phone Unavailable Care Team Providers Care Softball Umpire Name Role Phone OjseJosi Bolton Unavailable PROBLEMS Type Condition ICD9-CM Code EAU11-QF Code Onset Dates Condition S tatus SNOMED Code Notes Problem Familial hypercholesterolemia E78.01 Active 39 5847600 Problem Moderate persistent asthma without complication J4 5.40 Active 576736601 Problem Obesity (BMI 30.0-34.9) E66.9 Active 36007521 8672862 Problem Dyslipidemia E78.5 Active 397735048 Problem Allergic rhinitis, unspecified seasonality, unspecifie d trigger J30.9 Active 01282360 Problem Sciatica of left side M54.32 Active 37987629 Problem Mixed hyperlipidemia E78.2 Active 739963640 Problem Gastroesophageal reflux dise ase, unspecified whether esophagitis present K21.9 Active 652859671 Problem Vitamin D deficiency E55.9 Active 06515089 Problem Depression, unspecified depression type F32.9 Active 82028718 Problem Rosacea L71.9 Active 338670346 Problem Other headache syndrome G44.89 Active 93623602 9 Problem Drug-induced erectile dysfunction N52.2 Active 136568692 ALLERGIES Allergen (clinical drug ingredient) Drug/Non Drug Allergy do cumented on EMR Reaction Allergy Type Onset Date Status MRI contrast Nausea/Vomiting Non Drug Allergy A ctive Vicodin Nausea/Vomiting Drug Allergy Active environmental sneezing Non Drug Allergy Activ e ENCOUNTERS from 1989 to 2020-06-03 Encounter Location Date Provider Diagnosis [address] [address] May, Josi Jose-Tartell IMMUNIZATIONS Vaccine Route Administration Date Status Pneumococcal Adult 0.5mL (Pneumovax 23) IM Intramuscular Dec 26, 2017 Administered SOCIAL HISTORY Tobacco Use: Social History Observation Description Date Details (start date - stop date) Never Smoker Sex Assigned At : Social History Observation Description Sex Assigned At Unknown Audit Question Answer Notes Total Score: 2 Interpretation: Alcohol Education Nondenominational: Question Answer Notes Nondenominational No orthodoxy beliefs that would impact health care. Drug [...] REASON FOR REFERRAL No Information VITAL SIGNS No information MEDICATIONS Medication SIG (Take, Route, Frequency, Duration) Notes Start Da te End Date Status Lidocaine 5 % External for 30 Activ e Lyrica 25 MG 1 capsule Orally Once a day for 30 Days 2020 Active Pantoprazole Sodium 40 MG 1 tablet Orally Once a day for 30 days Active Amitriptyline HCl 50 MG 1 tab Orally Daily for 30 days Active Zyrtec Allergy 10 MG 1 tablet Orally Once a day as needed for 30 Active Atorvastatin Calcium 10 MG 1 tablet Orally Once a day for 30 Active Metronidazole 0.75 % 1 application Externally Twice a day after washing face May, Active AirDuo RespiClick 232/14 232-14 MCG/ACT 1 puff Inhalat ion Twice a day for 30 day(s) Nov, Active Montelukast Sodium 10 MG take one tablet by mouth every day Oral for 30 days Active BuPROPion HCl 75 MG 1 tab Orally Twice a day for 30 Active Vitamin D3 1000 UNIT 1 tablet Orally Once a day for 30 Active PROCEDURES No Information RESULTS No Results REASON FOR VISIT ER Visit [facility] 05/29; Left Leg Swelling MEDICAL (GENERAL) HISTORY Type Description Date Medical [...] No Information FUNCTIONAL STATUS No Information ASSESSMENTS No Information PLAN OF TREATMENT Medication Medication Name Sig Start Date Stop Date Metronidazole 0.75 % 1 application Externally Twice a day af ter washing face May, BuPROPion HCl 75 MG 1 tab Orally Twice a day for 30 Lyrica 25 MG 1 capsule Orally Once a day for 30 Days May, Next Appt Details Provider Name:Josi Zamora, 2020-06-04 01:00:00 PM, [address], [place], [address], Provider Name:George Mejia, 2021-05 10:15:00 AM, [address] [facility], [address], [place], [address], Insurance Providers Payer Name Payer Address Payer Phone Insured Name Patient Relati onship to Insured Coverage Start Date Coverage End Date [facility] [address] [facility] [phone] JUAN WILLIAM self
--- OUTSIDE RECORDS SUMMARY | 2020-06-10 21:19 | CCD | Continuity of Care Document ---
Author Author Michael STALLINGS PA-C Organization Unknown Address [address] [place] [address], [facility] [place] [address] Phone [phone] Care Team Providers Care Peoples[employer] Financials Consultant Name Role Phone Adela Bhakta MD AUTM [phone] Josi Garcia DO AUTM [phone] Kusum Perry MD AUTM [phone] Elliot Mcmanus MD AUTM [phone] Problems Active Problems Provider Date Presence of other cardiac implants and grafts SACHI Hollins Onset: 03/26/2019 Syncope and collapse SACHI Fulton Onset: 12/03/2019 Pure hypercholesterolemia SACHI Fulton Onset: 2019 Obesity SACHI Fulton Onset: 12/03/2019 Dietary management surveillance SACHI Fulton Onset: 12/03/2019 Thoracic aortic ectasia SACHI Fulton Onset: 12/03/19 20 Social History Type Date Description Comments Sex Unknown ETOH Use Consumes Beer 2 every other da y Tobacco Use Start: Unknown Patient has never smoked Smoking Status Reviewed: 05/31/20 Patient has never smoked Exercise Type/Frequency Does housework daily Exercise Limitations Shortness Of Breath Exercise Limitations Back Pain Allergies, Adverse Reactions, Alerts Active Allergies Reaction Severity Comments Date Contrast Dye triggers asthma 03/05/2019 Hydrocodone vomiting 03/05/2019 Medications Active Medications SIG Qnty Indications Ordering Provide r Date Naproxen 500mg Tablets 1 by mouth twice a day Unknown 05/30/2020 Pantoprazole Sodium 20mg Tablets D R 1 by mouth every day Josi Garcia DO 0 Bupropion HCL 75mg Tablets 1 po daily Josi Garcia DO 02/29/2020 Lyrica 25mg Capsules 1 po radha ly Josi Garcia, DO 02/29/2020 Cetirizine HCL 10mg Tablets 1 by mouth every day Josi Garcia, DO 9 Vitamin D3 1000Unit Tablets 1 by mouth every day Josi Garcia, DO 9 Montelukast Sodium 10mg Tablets Take One Tablet By Mouth Every Day 30tabs J45.40 Kusum Perry MD Fluticasone Propionate/Salmeterol 232-14mcg/Act Aerosol Inhale One puff By Mouth Twice A Day 3units Kusum Christian MD Atorvastatin Calcium 10mg Tablets 1 by mouth every day Unknown Vitamin D 1000Unit Tablets 1 by mouth every day Unknown Amitriptyline HCL 50mg Tablets 1 tab once daily Unknown Bupropion HCL 75mg Tablets 1 tab twice daily Unknown Immunizations Description No Information Available Vital Signs Date Vital Result Comment 05/31/2020 7:44am Weight 250.00 lb Home Weight 250lb Home weight Height 67 inches 5'7" BMI (Body Mass Index) 39.2 kg/m2 Heart Rate 80 /min Regular Respiratory Rate 16 /min BP Systolic Right Arm 126 mmHg sitting, large cuf f BP Diastolic Right Arm 80 mmHg sitting, large cu ff BP Systolic Left Arm 128 mmHg sitting BP Diastolic Left Arm 80 mmHg sitting 03/01/2020 1:29pm Weight 213.00 lb Height 67 inches 5'7" BMI (Body Mass Index) 33.4 kg/m2 Heart Rate 100 /min Regular Respiratory Rate 16 /min BP Systolic Right Arm 128 mmHg sitting, large cuf f BP Diastolic Right Arm 74 mmHg sitting, large cu ff BP Systolic Left Arm 126 mmHg sitting BP Diastolic Left Arm 74 mmHg sitting Results Test Acquired Date Facility Test Result H/L Range Note Laboratory test finding 04/28/2020 [facility] - not interf aced (315)- - Thyroid Stimulating Hormone 1.340 Free T4 0.90 Procedures Date Code Description Status 05/31/2020 86641 ECG 12-Lead Completed 05/20/2020 95050 Implantable Loop Recorder System , Review And Report Completed 04/16/2020 37210 Implantable Loop Recorder System , Review And Report Completed 03/15/2020 28327 Implantable Loop Recorder System , Review And Report Completed 03/01/2020 22095 ECG 12-Lead Completed 12/08/2019 02203 Implantable Loop Recorder System , Review And Report Completed 12/03/2019 11432 ECG 12-Lead Completed Medical Devices Description No Information Available Encounters Type Date Location Provider Dx Diagnosis Office Visit 05/31/2020 7:45a Main Office Windy Stallings PA-C Z01.8 10 Encounter for preprocedural cardiovascular examination R55 Syncope and collapse Z95.818 Presence of other cardiac im plants and grafts I77.810 Thoracic aortic ectasia E78.00 Pure hypercholesterolemia, u nspecified Z71.3 Dietary counseling and surve illance Office Visit 03/01/2020 1:30p Main Office Windy Stallings PA-C Z01.8 10 Encounter for preprocedural cardiovascular examination R55 Syncope and collapse Z95.818 Presence of other cardiac im plants and grafts I77.810 Thoracic aortic ectasia E78.00 Pure hypercholesterolemia, u nspecified Z71.3 Dietary counseling and surve illance Office Visit 12/03/2019 9:50a Main Office SACHI Fulton R55 Syncope and collapse I77.810 Thoracic aortic ectasia Z95.818 Presence of other cardiac im plants and grafts E78.00 Pure hypercholesterolemia, u nspecified E66.09 Other obesity due to excess calories Z71.3 Dietary counseling and surve illance Assessments Date Code Description Provider 05/31/2020 Z01.810 Encounter for preprocedural card iovascular examination Windy Stallings PA-C 05/31/2020 R55 Syncope and collapse Windy verdin PA-C 05/31/2020 Z95.818 Presence of other cardiac implan ts and grafts Windy Stallings PA-C 05/31/2020 I77.810 Thoracic aortic ectasia Windy gamboa PA-C 05/31/2020 E78.00 Pure hypercholesterolemia, unspe cified Windy Stallings PA-C 05/31/2020 Z71.3 Dietary counseling and surveilla nce Windy Stallings PA-C 05/20/2020 Z95.818 Presence of other cardiac implan ts and grafts [facility] 04/16/2020 Z95.818 Presence of other cardiac implan ts and grafts [facility] 03/15/2020 Z95.818 Presence of other cardiac implan ts and grafts [facility] 03/01/2020 Z01.810 Encounter for preprocedural card iovascular examination Windy Stallings PA-C 03/01/2020 R55 Syncope and collapse Windy verdin PA-C 03/01/2020 Z95.818 Presence of other cardiac implan ts and grafts Windy Stallings PA-C 03/01/2020 I77.810 Thoracic aortic ectasia Windy gamboa PA-C 03/01/2020 E78.00 Pure hypercholesterolemia, unspe cified RAYMON CasonC 03/01/2020 Z71.3 Dietary counseling and surveilla jackelyn Stallings PA-C 12/08/2019 Z95.818 Presence of other cardiac implan ts and grafts [facility] 12/03/2019 R55 Syncope and collapse SACHI Paredes 12/03/2019 I77.810 Thoracic aortic ectasia SACHI Fulton 12/03/2019 Z95.818 Presence of other cardiac implan ts and grafts SACHI Fulton 12/03/2019 E78.00 Pure hypercholesterolemia, unspe cified SACHI Fulton 12/03/2019 E66.09 Other obesity due to excess gilberto yara SACHI Fulton 12/03/2019 Z71.3 Dietary counseling and surveilla SACHI Wyatt Plan of Treatment Future Appointment(s):* 05/31/2021 8:15 am - Windy Stallings PA-C at Main Office * 06/24/2020 7:00 am - [facility] at Main Office 05/31/2020 - Windy Stallings PA-C* Z01.810 Encounter for preprocedural cardiovascular examination * R55 Syncope and collapse * Z95.818 Presence of other cardiac implants and grafts * I77.810 Thoracic aortic ectasia * E78.00 Pure hypercholesterolemia, unspecified * Z71.3 Dietary counseling and surveillance* Recommendations:* Follow a low fat/low cholesterol diet and do at least 30 minutes of sustained aerobic activity daily. * All * Follow up:* 12 month follow up. Functional Status Functional Condition Comment Date Status Independent with all ADL's Activ e Mental Status Description No Information Available Referrals Description No Information Available
--- OUTSIDE RECORDS SUMMARY | 2020-06-10 21:19 | CCD ---
Author Author [facility] Organization [facility] Address Unknown Phone Unavailable Care Team Providers Care Chip Washer Name Role Phone Jose-Tartell, Josi Unavailable PROBLEMS Type Condition ICD9-CM Code ZWF71-EM Code Onset Dates Condition S tatus SNOMED Code Notes Problem Familial hypercholesterolemia E78.01 Active 39 4323746 Problem Moderate persistent asthma without complication J4 5.40 Active 536061586 Problem Obesity (BMI 30.0-34.9) E66.9 Active 20100183 7263282 Problem Dyslipidemia E78.5 Active 778484176 Problem Allergic rhinitis, unspecified seasonality, unspecifie d trigger J30.9 Active 04240370 Problem Sciatica of left side M54.32 Active 54308745 Problem Mixed hyperlipidemia E78.2 Active 283389477 Problem Gastroesophageal reflux dise ase, unspecified whether esophagitis present K21.9 Active 262757585 Problem Vitamin D deficiency E55.9 Active 53081292 Problem Depression, unspecified depression type F32.9 Active 69662140 Problem Rosacea L71.9 Active 692628040 Problem Other headache syndrome G44.89 Active 84032080 9 Problem Drug-induced erectile dysfunction N52.2 Active 582835244 ALLERGIES Allergen (clinical drug ingredient) Drug/Non Drug Allergy do cumented on EMR Reaction Allergy Type Onset Date Status MRI contrast Nausea/Vomiting Non Drug Allergy A ctive Vicodin Nausea/Vomiting Drug Allergy Active environmental sneezing Non Drug Allergy Activ e ENCOUNTERS from 1989 to 2020-05-21 Encounter Location Date Provider Diagnosis [facility] [address] [place] [address] 14 May, Josi Jose-Tartell IMMUNIZATIONS Vaccine Route Administration Date Status Pneumococcal Adult 0.5mL (Pneumovax 23) IM Intramuscular Dec 26, 2017 Administered SOCIAL HISTORY Tobacco Use: Social History Observation Description Date Details (start date - stop date) Never Smoker Sex Assigned At : Social History Observation Description Sex Assigned At Unknown Audit Question Answer Notes Total Score: 2 Interpretation: Alcohol Education Latter Day: Question Answer Notes Latter Day No orthodox beliefs that would impact health care. Drug [...] 5 % External for 30 Activ e BuPROPion HCl 75 MG 1 tab Orally Twice a day for 30 day(s) Oct, Active Pantoprazole Sodium 40 MG 1 tablet Orally Once a day for 30 days Active Amitriptyline HCl 50 MG 1 tab Orally Daily for 30 days Active Vitamin D3 1000 UNIT 1 tablet Orally Once a day for 30 Active Zyrtec Allergy 10 MG 1 tablet Orally Once a day as needed for 30 Active Lyrica 25 MG 1 capsule Orally Once a day for 30 Days 2020 Active AirDuo RespiClick 232/14 232-14 MCG/ACT 1 puff Inhalat ion Twice a day for 30 day(s) Nov, Active Montelukast Sodium 10 MG take one tablet by mouth every day Oral for 30 days Active Atorvastatin Calcium 10 MG 1 tablet Orally Once a day for 30 Active Metronidazole 0.75 % 1 application Externally Twice a day after washing face May, Active PROCEDURES No Information RESULTS No Results REASON FOR VISIT No Information MEDICAL (GENERAL) HISTORY Type Description Date Medical [...] Medication Name Sig Start Date Stop Date Lyrica 25 MG 1 capsule Orally Once a day for 30 Days May, Metronidazole 0.75 % 1 application Externally Twice a day af ter washing face May, Next Appt Details Provider Name:George Robert Mejia, 2021-05 10:15:00 AM, [address] [facility], [address], [place], [address], Insurance Providers Payer Name Payer Address Payer Phone Insured Name Patient Relati onship to Insured Coverage Start Date Coverage End Date [facility] [address] [facility] [address] [phone] JUAN WILLIAM self
--- OUTSIDE RECORDS SUMMARY | 2020-06-10 21:19 | CCD | Continuity of Care Document ---
Author Organization Unknown Address Unknown Phone Unavailable Care Team Providers Care Security Services Manager Name Role Phone Adela Bhakta MD AUTM [phone] Josi Garcia DO AUTM [phone] Kusum Perry MD AUTM [phone] Elliot Mcmanus MD AUTM [phone] Problems Active Problems Provider Date Presence of other cardiac implants and grafts SACHI Hollins Onset: 03/26/2019 Syncope and collapse SACHI Fulton Onset: 12/03/2019 Pure hypercholesterolemia SACHI Fulton Onset: 2019 Obesity SACHI Fulton Onset: 12/03/2019 Dietary management surveillance SACHI Fulton Onset: 12/03/2019 Thoracic aortic ectasia SACHI Fulton Onset: 12/03/19 Social History Type Date Description Comments Sex [...] R 1 by mouth every day Josi Garcia, DO 0 Bupropion HCL 75mg Tablets 1 po daily Josi Garcia, DO 02/29/2020 Lyrica 25mg Capsules 1 po [...] 80 /min Regular Respiratory Rate 16 /min 03/01/2020 1:29pm Weight 213.00 lb Height 67 [...] H/L Range Note Laboratory test finding 04/28/2020 [facility] - not interf aced (315)- - Thyroid Stimulating Hormone 1.340 Free T4 0.90 Procedures Date Code Description Status 05/31/2020 93192 ECG 12-Lead Completed 05/20/2020 44397 Implantable Loop Recorder System , Review And Report Completed 04/16/2020 42072 Implantable Loop Recorder System , Review And Report Completed 03/15/2020 27446 Implantable Loop Recorder System , Review And Report Completed 03/01/2020 08846 ECG 12-Lead Completed 12/08/2019 24796 Implantable Loop Recorder System , Review And Report Completed 12/03/2019 87030 ECG 12-Lead Completed Medical Devices Description No Information Available Encounters Type Date Location Provider Dx Diagnosis Office Visit 03/01/2020 1:30p Main Office Windy Miller PA-C Z01.8 10 Encounter for preprocedural cardiovascular [...] Encounter for preprocedural card iovascular examination Windy Miller PA-C 05/31/2020 R55 Syncope and collapse Windy verdin PA-C 05/31/2020 Z95.818 Presence of other cardiac implan ts and grafts RAYMON CasonC 05/31/2020 I77.810 Thoracic aortic ectasia Windy gamboa PA-C 05/31/2020 E78.00 Pure hypercholesterolemia, unspe cified RAYMON CasonC 05/31/2020 Z71.3 Dietary counseling and surveilla nce Windy Miller PA-C 05/20/2020 Z95.818 Presence of other cardiac implan ts and grafts [facility] 04/16/2020 Z95.818 Presence of other cardiac implan ts and grafts [facility] 03/15/2020 Z95.818 Presence of other cardiac implan ts and grafts [facility] 03/01/2020 Z01.810 Encounter for preprocedural card iovascular examination Windy Miller PA-C 03/01/2020 R55 Syncope and collapse Windy verdin PA-C 03/01/2020 Z95.818 Presence of other cardiac implan ts and grafts Windy Miller PA-C 03/01/2020 I77.810 Thoracic aortic ectasia Windy gamboa PA-C 03/01/2020 E78.00 Pure hypercholesterolemia, unspe cified Windy Millre PA-C 03/01/2020 Z71.3 Dietary counseling and surveilla jackelyn Miller PA-C 12/08/2019 Z95.818 Presence of other cardiac [...] SACHI Wyatt Plan of Treatment Future Appointment(s):* 06/24/2020 7:00 am - [facility] at Main Office * 02/25/2021 8:45 am - Windy Miller PA-C at Main Office 05/31/2020 - Windy Miller PA-C* Z01.810 Encounter for preprocedural cardiovascular examination [...]
--- OUTSIDE RECORDS SUMMARY | 2020-06-10 21:19 | CCD | Continuity of Care Document ---
Author Author Michael HAINES DO Organization Unknown Address [address] [facility], [address] [place] [address] Phone [phone] Care Team Providers Care Fly Frame Tender Name Role Phone Josi Zamora D.O. AUTM Problems Description No Information Available Social History Type Date Description Comments Sex Unknown Tobacco Use Start: Unknown Never Smoked Cigarettes ETOH Use Denies alcohol use Tobacco Use Start: Unknown Denies Smoking Recreational Drug Use Denies Drug Use Smoking Status Reviewed: 02/04/20 Denies Smoking Allergies, Adverse Reactions, Alerts Active Allergies Reaction Severity Comments Date NKDA 05/20/2020 Contrast Dye Difficulty breathing 018 Medications Active Medications SIG Qnty Indications Ordering Provide r Date Montelukast Sodium 10mg Tablets Take One Tablet By Mouth Every Day 30tabs J45.40 Kusum Perry M.D. 0 07/23/2018 CPAP 6cm Kusum Hendrix M.D. 04/08 Fluticasone Propionate/Salmeterol 232-14mcg/Act Aerosol Inhale One puff By Mouth Twice A Day 3units Kusum Christian M.D. Atorvastatin Calcium 10mg Tablets 1 by mouth every day Unknown Vitamin D 1000Unit Tablets 1 by mouth every day Unknown Amitriptyline HCL 50mg Tablets 1 tab once daily Unknown Bupropion HCL 75mg Tablets 1 tab twice daily Unknown Cetirizine HCL 10mg Tablets 1 tabs by mouth every night Unknown Lyrica 75mg Capsules 1 bid Unknown Pantoprazole Sodium 40mg Tablets D R Once daily Unknown Immunizations Description No Information Available Vital Signs Date Vital Result Comment 05/20/2020 9:50am BP Systolic 152 mmHg BP Diastolic 102 mmHg Height 67 inches 5'7" Weight 249.38 lb BMI (Body Mass Index) 39.1 kg/m2 [place] Body Weight 148 lb Weight 113.117 kg BSA (Body Surface Area) 2.22 m2 02/04/2020 8:12am BP Systolic 122 mmHg BP Diastolic 84 mmHg Heart Rate 76 /min O2 % BldC Oximetry 94 % Body Temperature 97.5 F Height 65.5 inches 5'5.50" Weight 214.50 lb BMI (Body Mass Index) 35.1 kg/m2 [place] Body Weight 136 lb Weight 97.297 kg BSA (Body Surface Area) 2.05 m2 Results Description No Information Available Procedures Description No Information Available Medical Devices Description No Information Available Encounters Type Date Location Provider Dx Diagnosis Office Visit 02/04/2020 9:00a [facility] Kusum Phillips M.D. J45.20 Mild intermittent asthma, un complicated G47.33 Obstructive sleep apnea (ana cristina lt) (pediatric) J30.9 Allergic rhinitis, unspecifi ed Assessments Date Code Description Provider 02/04/2020 J45.20 Mild intermittent asthma, uncomp licated Kusum Perry M.D. 02/04/2020 G47.33 Obstructive sleep apnea (adult) (pediatric) Kusum Perry M.D. 02/04/2020 J30.9 Allergic rhinitis, unspecified Kusum Phillips M.D. Plan of Treatment Future Appointment(s):* 08/09/2020 10:30 am - Kusum Perry M.D. at [facility] 02/04/2020 - Kusum Perry M.D.* J45.20 Mild intermittent asthma, uncomplicated * G47.33 Obstructive sleep apnea (adult) (pediatric) * J30.9 Allergic rhinitis, unspecified * * Follow up:* Follow up in six months with compliance report. Functional Status Functional Condition Comment Date Status Independent with all ADL's Activ e Independent with all IADL's Acti ve Mental Status Mental Condition Comment Date Status None Active Can understand information Activ e Referrals Refer to Reason for Referral Status Appt Date Ray Haines D.O. UMBILICAL HERNIA Scheduled [address] [id number] [phone]
--- OUTSIDE RECORDS SUMMARY | 2020-06-10 21:20 | CCD | Continuity of Care Document ---
Author Author Michael ROCHA P.A. Organization Unknown Address [address] [place] [address] Phone [phone] Care Team Providers Care Motorboat Mechanic Name Role Phone Sebastián Franklin MD AUTM [phone] Bridger Soriano MD AUTM [phone] Richelle Garces NP AUTM [phone] Rajiv Bae MD AUTM Unavailable Josi Garcia DO AUTM [phone] Problems Active Problems Provider Date Asthma Onset: [...] CPT Code Status Date Vaccine Lot # [id number] Given 02/16/2018 Tetanus, Diphthe tali Toxoids/Acellular Pertussis Vaccine 7 [place] > [id number] Given 06/06/2014 Pneumococcal Vaccine Vital Signs Date Vital Result Comment 04/16/2020 10:53am Body Temperature 96.3 F 03/19/2020 10:18am Body Temperature 97.1 F Results Test Acquired Date Facility Test Result H/L Range Note Laboratory test finding 03/09/2020 [facility] [address] [place] [address] (315)- - MRSA PCR Screen NOT DETECTED Normal Negative 1 Laboratory test finding 03/08/2020 [facility] [address] [place] [address] (315)- - Pathology Request For Service (SEE NOTE) 2 Type & Screen -Incl Blood Type,Jorge,AB SC 03/08/2020 [facility] [address] [place] [address] (315)- - Blood Type O POSITIVE Normal [...] 0911 Procedures Date Code Description Status 03/08/2020 32606 Laminectomy One Interspace, Lumb ar Completed 03/08/2020 35839 Laminectomy One Interspace, Lumb ar Completed 02/09/2020 41301 X-Ray Spine Lumbosacral Complete W/Oblique 4 Views Completed Medical Devices Description No Information Available Encounters Type Date Location Provider Dx Diagnosis Office Visit 03/19/2020 10:15a [facility] P.[facility] Z47.89 Encounter for other orthopedic aftercare Office Visit 02/09/2020 2:30p Joni Mcmanus MD M51.26 Other intervertebral disc displacement, lumbar region M54.16 Radiculopathy, lumbar region Office Visit 11/13/2019 3:00p Joni Mcmanus MD M54.16 Radiculopathy, lumbar region M54.5 Low back pain Assessments Date Code Description Provider 04/16/2020 Z47.89 Encounter for other orthopedic a ftercare Sebastián Rocha, P.A. 03/19/2020 Z47.89 Encounter for other orthopedic a ftercare Sebastián Rocha, P.A. 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, lumbosacral region Elliot Mcmanus MD 02/09/2020 M51.26 Other intervertebral disc displa cement, lumbar region Elliot Mcmanus MD 02/09/2020 M54.16 Radiculopathy, lumbar region Bru jj Mcmanus MD 11/13/2019 M54.16 Radiculopathy, lumbar region Bru jj Mcmanus MD 11/13/2019 M54.5 Low back pain Elliot Mcmanus MD Plan of Treatment 04/16/2020 - Sebastián Rocha, P.A.* Z47.89 Encounter for other orthopedic aftercare* Follow up:* 5-6 weeks with [facility] for lower back recheck Functional Status Description No Information Available Mental Status Description No Information Available Referrals Refer to Reason for Referral Status Appt Date Elliot Mcmanus MD SURGERY PER PIPPA AT [facility] D APPROVAL FOR LEFT L5/S1 SURGERY (07698) TO SURGERY NT Created [address] [place] [address], [place] [address] [phone] Elliot Mcmanus MD Auth for physical therapy . Patient going to , passed to chart. Created [address] [facility], [place] [address] [phone]
--- OUTSIDE RECORDS SUMMARY | 2020-06-10 21:20 | CCD | Continuity of Care Document ---
Author Organization Unknown Address Unknown Phone Unavailable Care Team Providers Care Manager Programs Name Role Phone Adela Bhakta MD AUTM [phone] Josi Garcia DO AUTM [phone] Kusum Perry MD AUTM [phone] Elliot Mcmanus MD AUTM [phone] Problems Active Problems Provider Date Presence of other cardiac implants and grafts SACHI Hollins Onset: 03/26/2019 Thoracic aortic ectasia SACHI [place]ulton Onset: 12/03/19 20 Dietary management surveillance SACHI [place] Onset: 12/03/2019 Obesity SACHI [place] Onset: 12/03/2019 Pure hypercholesterolemia SACHI [place] Onset: 2019 Syncope and collapse SACHI [place] Onset: 12/03/2019 Social History Type Date Description Comments Sex Unknown ETOH Use Consumes Beer 2 every other da y Tobacco Use Start: Unknown Patient has never smoked Smoking Status Reviewed: 03/01/20 Patient has never smoked Exercise Type/Frequency Walks 5 times a week Exercise Limitations Shortness Of Breath Allergies, Adverse Reactions, Alerts Active Allergies Reaction Severity Comments Date Contrast Dye triggers asthma 03/05/2019 Hydrocodone vomiting 03/05/2019 Medications Active Medications SIG Qnty Indications Ordering Provide r Date Pantoprazole Sodium 20mg Tablets D R 1 by mouth every day Josi Garcia, DO 0 Bupropion HCL 75mg Tablets 1 po daily Josi Garcia, DO 02/29/2020 Lyrica 75mg Capsules 1 po radha ly Josi Garcia, DO 02/29/2020 Atorvastatin Calcium 10mg Tablets 1 by mouth every night at bedtime Josi Garcia, DO 03/05/2019 Cetirizine HCL 10mg Tablets 1 by mouth every day Josi Garcia, DO 9 Fluticasone Propionate 50mcg/Act Suspension 1 spray each nostril daily as needed Josi Morris, DO 03/05/2019 Vitamin D3 1000Unit Tablets 1 by mouth every day Josi Garcia, DO 9 Citalopram Hydrobromide 20mg Table ts 1 by mouth every day Josi Garcia, DO 9 Immunizations Description No Information Available Vital Signs Date Vital Result Comment 03/01/2020 1:29pm Weight 213.00 lb Height 67 inches 5'7" BMI (Body Mass Index) 33.4 kg/m2 Heart Rate 100 /min Regular Respiratory Rate 16 /min BP Systolic Right Arm 128 mmHg sitting, large cuf f BP Diastolic Right Arm 74 mmHg sitting, large cu ff BP Systolic Left Arm 126 mmHg sitting BP Diastolic Left Arm 74 mmHg sitting 12/03/2019 10:11am Weight 217.00 lb Home Weight 215lb Height 67 inches 5'7" BMI (Body Mass Index) 34.0 kg/m2 Heart Rate 89 /min BP Systolic Sitting 122 mmHg large cuff, Ra BP Diastolic Sitting 84 mmHg large cuff, Ra Results Description No Information Available Procedures Date Code Description Status 03/15/2020 63853 Implantable Loop Recorder System , Review And Report Completed 03/01/2020 85161 ECG 12-Lead Completed 12/08/2019 51820 Implantable Loop Recorder System , Review And Report Completed 12/03/2019 85211 ECG 12-Lead Completed 11/05/2019 97048 Implantable Loop Recorder System , Review And Report Completed 10/03/2019 43325 Implantable Loop Recorder System , Review And Report Completed Medical Devices Description No Information Available [...] surve illance Assessments Date Code Description Provider 03/15/2020 Z95.818 Presence of other cardiac implan ts and grafts [facility] 03/01/2020 Z01.810 Encounter for preprocedural card iovascular examination Windy Miller PA-C 03/01/2020 R55 Syncope and collapse Windy verdin PA-C 03/01/2020 Z95.818 Presence of other cardiac implan ts and grafts Windy Miller PA-C 03/01/2020 I77.810 Thoracic aortic ectasia Windy gamboa PA-C 03/01/2020 E78.00 Pure hypercholesterolemia, unspe cified Windy Miller PA-C 03/01/2020 Z71.3 Dietary counseling and surveilla ncbobby Miller PA-C 12/08/2019 Z95.818 Presence of other [...] [place] 12/03/2019 Z71.3 Dietary counseling and surveilla ncSACHI Christensen 11/05/2019 Z95.818 Presence of other cardiac implan ts and grafts [facility] 10/03/2019 Z95.818 Presence of other cardiac implan ts and grafts [facility] Plan of Treatment Future Appointment(s):* 04/14/2020 7:00 am - [facility] at Main Office * 02/25/2021 8:45 am - Windy Miller PA-C at Main Office 03/01/2020 - Windy Miller PA-C* Z01.810 Encounter for preprocedural cardiovascular examination * R55 Syncope and collapse * Z95.818 Presence of other cardiac implants and grafts * I77.810 Thoracic aortic ectasia * E78.00 Pure hypercholesterolemia, unspecified * Z71.3 Dietary counseling and surveillance* Recommendations:* Follow a low fat/low cholesterol diet and do at least 30 minutes of sustained aerobic activity daily, after you are cleared by orthopedics post surgery. * All * Follow up:* 12 month follow up. Request last lipids from PCP. Functional Status Functional Condition Comment Date Status Independent with all ADL's Activ e Mental Status Description No Information Available Referrals Description No Information Available
--- OUTSIDE RECORDS SUMMARY | 2020-06-10 21:20 | CCD ---
Author Author [facility] Organization [facility] Address Unknown Phone Unavailable Care Team Providers Care Diesel Engine Mechanic Name Role Phone Jose-Tartell, Josi Unavailable PROBLEMS Type Condition ICD9-CM Code TKQ65-LE Code Onset Dates Condition S tatus SNOMED Code Notes Problem Familial hypercholesterolemia E78.01 Active 39 0638359 Problem Moderate persistent asthma without complication J4 5.40 Active 764229872 Problem Obesity (BMI 30.0-34.9) E66.9 Active 26696618 2221471 Problem Dyslipidemia E78.5 Active 370230648 Problem Allergic rhinitis, unspecified seasonality, unspecifie d trigger J30.9 Active 17950616 Problem Sciatica of left side M54.32 Active 74207364 Problem Mixed hyperlipidemia E78.2 Active 113841065 Problem Gastroesophageal reflux dise ase, unspecified whether esophagitis present K21.9 Active 600927672 Problem Vitamin D deficiency E55.9 Active 22747008 Problem Depression, unspecified depression type F32.9 Active 74306095 Problem Rosacea L71.9 Active 089367492 Problem Other headache syndrome G44.89 Active 62877697 9 Problem Drug-induced erectile dysfunction N52.2 Active 061339104 ALLERGIES Allergen (clinical drug ingredient) Drug/Non Drug Allergy do cumented on EMR Reaction Allergy Type Onset Date Status MRI contrast Nausea/Vomiting Non Drug Allergy A ctive Vicodin Nausea/Vomiting Drug Allergy Active environmental sneezing Non Drug Allergy Activ e ENCOUNTERS from 1989 to 2020-05-15 Encounter Location Date Provider Diagnosis [facility] [address] [place] [address] 23 Dec, 20 20 Josi Jose-Tartell Umbilical hernia without obstruction and without gangrene K42.9 and Weight gain R63.5 IMMUNIZATIONS Vaccine Route Administration Date Status Pneumococcal Adult 0.5mL (Pneumovax 23) IM Intramuscular Dec 26, 2017 Administered SOCIAL HISTORY Tobacco Use: Social History Observation Description Date Details (start date - stop date) Never Smoker Sex Assigned At : Social History Observation Description Sex Assigned At Unknown Audit Question Answer Notes Total Score: 2 Interpretation: Alcohol Education Cheondoism: Question Answer Notes Cheondoism No episcopalian beliefs that would impact health care. Drug [...] FOR REFERRAL No Information VITAL SIGNS Weight 239 lbs Apr, Height 5'7" in Apr, BMI 37.43 kg/m2 Apr, Heart Rate 103 /min Apr, Respiratory Rate 18 /min Apr, Temperature 98.7 degrees Fahrenheit Apr, Oximetry 98 Apr, Blood pressure systolic 116 mm Hg Apr, Blood pressure diastolic 82 mm Hg Apr, MEDICATIONS Medication SIG (Take, Route, Frequency, Duration) [...] every day Oral for 30 days Active Lyrica 25 MG 1 capsule Orally Once a day May, Active Vitamin D3 1000 UNIT 1 tablet Orally Once a day for 30 Active PROCEDURES No Information RESULTS REASON FOR VISIT poss. hernia MEDICAL (GENERAL) HISTORY Type Description Date Medical [...] Notes Treatment Notes Treatm ent Clinical Notes Apr, Umbilical hernia without obs truction and without gangrene (ICD-10 - K42.9) Discussed; referred to general surgery. Discussed need for emergent medical attention if significant pain develops. Apr, Weight gain (ICD-10 - R63.5) Likely from reduced activity with back pain and surgery; will check a thyroid to evaluate for contributions from this. PLAN OF TREATMENT Medication Medication Name Sig Start Date Stop Date Metronidazole 0.75 % 1 application Externally Twice a day af ter washing face May, Treatment Notes Assessment Notes Clinical Notes Umbilical hernia without obstruction and without gangrene Discussed; referred to general surgery. Discussed need for emergent medical attention if significant pain develops. Weight gain Likely from reduced activity with back pain and surgery; will check a thyroid to evaluate for contributions from this. Next Appt Details Provider Name:George Mejia, 2021-05 10:15:00 AM, [address] [facility], [address] Floor, [place], [address], Insurance Providers Payer Name Payer Address Payer Phone Insured Name Patient Relati onship to Insured Coverage Start Date Coverage End Date [facility] [address] [facility] [address] JUAN WILLIAM self
--- OUTSIDE RECORDS SUMMARY | 2020-06-10 21:20 | CCD | Continuity of Care Document ---
Author Author Michael ROCHA P.A. Organization Unknown Address [address] [place] [address] Phone [phone] Care Team Providers Care Audit Associate Name Role Phone Sebastián Franklin MD AUTM [phone] Bridger Soriano MD AUTM [phone] Richelle Garces NP AUTM [phone] Rajiv Bae MD AUTM Unavailable Josi Garcia DO AUTM [phone] Problems Active Problems Provider Date Asthma Onset: [...] CPT Code Status Date Vaccine Lot # [id number] Given 02/16/2018 Tetanus, Diphthe tali Toxoids/Acellular Pertussis Vaccine 7 [place] > [id number] Given 06/06/2014 Pneumococcal Vaccine Vital Signs Date Vital Result Comment 03/19/2020 10:18am Body Temperature 97.1 F 11/12/2019 7:58pm Weight 220.44 lb BMI (Body Mass Index) 34.0 kg/m2 Results Test Acquired Date Facility Test Result H/L Range Note Laboratory test finding 03/09/2020 [facility] [address] [place] [address] (315)- - MRSA PCR Screen NOT DETECTED Normal Negative 1 Laboratory test finding 03/08/2020 [facility] [address] [place] [address] (315)- - Pathology Request For Service (SEE NOTE) 2 Type & Screen -Incl Blood Type,Jorge,AB SC 03/08/2020 [facility] [address] [place] [address] (315)- - Blood Type O POSITIVE Normal AB Screen Gel Manual NEGATIVE Normal Monocytes # Bld Auto 10/06/2019 N2N/CCD Import Monocytes # Bld Auto 0.5 0.0-0.8 Eosinophil # Bld Auto 10/06/2019 N2N/CCD Import Eosinophil # Bld Auto 0.2 0.0-0.5 Basophils # Bld Auto 10/06/2019 N2N/CCD Import Basophils # Bld Auto 0.0 0.0-0.2 Serum or plasma glucose measurement (mass/volume) 10/06/2019 N2N/CCD Import Serum or plasma glucose measurement (mass/volume) 100 70-100 BUN SerPl-mCnc 10/06/2019 N2N/CCD Import BUN SerPl-mCnc 12 7-18 Serum or plasma creatinine measurement (mass/volum 0 N2N/CCD Import Serum or plasma creatinine measurement (mass/volume) 0.90 0.70-1.30 GFR/Bsa.pred SerPl MDRD-ArVRat 10/06/2019 N2N/CCD I mport GFR/Bsa.pred SerPl MDRD-ArVRat > 60.0 >60 Sodium SerPl-sCnc 10/06/2019 N2N/CCD Import Sodium SerPl-sCnc 137 136-145 Potassium SerPl-sCnc 10/06/2019 N2N/CCD Import Potassium SerPl-sCnc 3.7 3.5-5.1 Chloride SerPl-sCnc 10/06/2019 N2N/CCD Import Chloride SerPl-sCnc 108 98-107 Co2 SerPl-sCnc 10/06/2019 N2N/CCD Import Co2 SerPl-sCnc 26 21-32 Anion Gap3 SerPl-sCnc 10/06/2019 N2N/CCD Import Anion Gap3 SerPl-sCnc 3 8-16 Calcium SerPl-sCnc 10/06/2019 N2N/CCD Import Calcium SerPl-sCnc 8.6 8.5-10.1 Magnesium SerPl-mCnc 10/06/2019 N2N/CCD Import Magnesium SerPl-mCnc 2.3 1.8-2.4 Serum or plasma thyrotropin measurement by detecti 0 N2N/CCD Import Serum or plasma thyrotropin measurement by detection limit <= 0.005 miu/l (units/volume) 0.616 0.358-3.740 WBC # Bld Auto 10/06/2019 N2N/CCD Import WBC # Bld Auto 6.9 4.0-10.0 Blood erythrocytes automated count (number/volume) 0 N2N/CCD Import Blood erythrocytes automated count (number/volume) 4.75 4.30-6.10 Hgb Bld-mCnc 10/06/2019 N2N/CCD Import Hgb Bld-mCnc 14.2 13.5-17.5 Hct VFr Bld Auto 10/06/2019 N2N/CCD Import Hct VFr Bld Auto 41.6 42.0-52.0 MCV RBC Auto 10/06/2019 N2N/CCD Import MCV RBC Auto 87.6 80.0-96.0 MCH RBC Qn Auto 10/06/2019 N2N/CCD Import MCH RBC Qn Auto 29.9 27.0-33.0 Automated erythrocyte mean corpuscular hemoglobin 10/06/2019 N2N/CCD Import Automated erythrocyte mean corpuscular h emoglobin concentration measurement (mass/volume) 34.1 32.0-36.5 Automated erythrocyte distribution width ratio 10/06/2019 N2N/CCD Import Automated erythrocyte distribution width ratio 13.2 11.5-14.5 Platelet # Bld Auto 10/06/2019 N2N/CCD Import Platelet # Bld Auto 244 150-450 Blood neutrophils automated count (number/volume) 10/06/2019 N2N/CCD Import Blood neutrophils automated count (number/volume) 64.2 36.0-66.0 Lymphocytes/leuk NFr Bld Auto 10/06/2019 N2N/CCD Im port Lymphocytes/leuk NFr Bld Auto 25.1 24.0-44.0 Monocytes/leuk NFr Bld Auto 10/06/2019 N2N/CCD Impo rt Monocytes/leuk NFr Bld Auto 7.2 0.0-5.0 Eosinophil/leuk NFr Bld Auto 10/06/2019 N2N/CCD Imp ort Eosinophil/leuk NFr Bld Auto 3.0 0.0-3.0 Basophils/leuk NFr Bld Auto 10/06/2019 N2N/CCD Impo rt Basophils/leuk NFr Bld Auto 0.4 0.0-1.0 Imm Granulocytes/leuk NFr Bld Auto 10/06/2019 N2N/C CD Import Imm Granulocytes/leuk NFr Bld Auto 0.1 0-3.0 nRBC/100 WBC Bld Auto-Rto 10/06/2019 N2N/CCD Import nRBC/100 WBC Bld Auto-Rto 0.0 0-0 Neutrophils # Bld Auto 10/06/2019 N2N/CCD Import Neutrophils # Bld Auto 4.4 1.5-8.5 Lymphocytes # Bld Auto 10/06/2019 N2N/CCD Import Lymphocytes # Bld Auto 1.7 1.5-5.0 1 A negative test result does not exclude the possibility of nasal colonization because test results may be affected by improper specimen collection, technical error, sample mix-up, or because the number of organisms in the sample is below the limit of detection of the test. 2 FINAL DIAGNOSIS Submitted as "disc tissue L5-S1",discectomy: Consistent with disc tissue. Negative for malignancy. 03/10/2020 - 0858 CLINICAL DIAGNOSIS Herniated/ruptured disc at level L5-S1 03/09/2020 - 1331 GROSS DIAGNOSIS Received in formalin labeled "disc tissue L5-S1" consists of fragments of tissue, 0.5 x 0.5 x 0.1 cm. All in one. -OA 03/09/2020 - 1331 Signed LASHANDA STEWART MD 03/10/2020 0911 Procedures Date Code Description Status 03/08/2020 03226 Laminectomy One Interspace, Lumb ar Completed 03/08/2020 86723 Laminectomy One Interspace, Lumb ar Completed 02/09/2020 84988 X-Ray Spine Lumbosacral Complete W/Oblique 4 Views Completed Medical Devices Description No Information Available Encounters Type Date Location Provider Dx Diagnosis Office Visit 03/19/2020 10:15a [place] Romulo AdamA. Z47.89 Encounter for other orthopedic aftercare Office Visit 02/09/2020 2:30p [place] Elliot Mcmanus MD M51.26 Other intervertebral disc displacement, lumbar region M54.16 Radiculopathy, lumbar region Office Visit 11/13/2019 3:00p [place] Elliot Mcmanus MD M54.16 Radiculopathy, lumbar region M54.5 Low back pain Assessments Date Code Description Provider 03/19/2020 Z47.89 Encounter for other orthopedic a ftercare Miguel Adam 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, lumbosacral region Miguel Adam 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, lumbosacral region Elliot Mcmanus MD 02/09/2020 M51.26 Other intervertebral disc displa cement, lumbar region Elliot Mcmanus MD 02/09/2020 M54.16 Radiculopathy, lumbar region Bru jj Mcmanus MD 11/13/2019 M54.16 Radiculopathy, lumbar region Bru jj Mcmanus MD 11/13/2019 M54.5 Low back pain Elliot Mcmanus MD Plan of Treatment Future Appointment(s):* 04/16/2020 11:30 am - Miguel Adam at [facility] [place] 03/19/2020 - Sebastián Rocha PBeau* Z47.89 Encounter for other orthopedic aftercare* Follow up:* in 3-4 weeks with [facility] * All * New Medication:* Tylenol With Codeine #3 300-30 mg - 1-2 tabs every 4-6 hours as needed pain * Tizanidine HCL 4 mg - 1 by mouth three times a day Functional Status Description No Information Available Mental Status Description No Information Available Referrals Refer to Reason for Referral Status Appt Date Elliot Mcmanus MD SURGERY PER PIPPA [facility] D APPROVAL FOR LEFT L5/S1 SURGERY (04048) TO SURGERY NT Created [address] [facility], [address] [place] [address] [phone] Elliot Mcmanus MD Auth for physical therapy . Patient going to , passed to chart. Created [address] [facility], [address] [place] [address] [phone]
--- OUTSIDE RECORDS SUMMARY | 2020-06-10 21:20 | CCD ---
Author Author [facility] Organization [facility] Address Unknown Phone Unavailable Care Team Providers Care Service Delivery Supervisor Name Role Phone Jose-Tartell, Josi Unavailable PROBLEMS Type Condition ICD9-CM Code VDK09-KF Code Onset Dates Condition S tatus SNOMED Code Notes Problem Familial hypercholesterolemia E78.01 Active 39 1671262 Problem Moderate persistent asthma without complication J4 5.40 Active 657031367 Problem Obesity (BMI 30.0-34.9) E66.9 Active 29041243 2471385 Problem Dyslipidemia E78.5 Active 896195664 Problem Allergic rhinitis, unspecified seasonality, unspecifie d trigger J30.9 Active 97051909 Problem Sciatica of left side M54.32 Active 09709792 Problem Mixed hyperlipidemia E78.2 Active 881607318 Problem Gastroesophageal reflux dise ase, unspecified whether esophagitis present K21.9 Active 697412035 Problem Vitamin D deficiency E55.9 Active 48204535 Problem Depression, unspecified depression type F32.9 Active 39200181 Problem Rosacea L71.9 Active 095127927 Problem Other headache syndrome G44.89 Active 83071887 9 Problem Drug-induced erectile dysfunction N52.2 Active 235276671 ALLERGIES Allergen (clinical drug ingredient) Drug/Non Drug Allergy do cumented on EMR Reaction Allergy Type Onset Date Status MRI contrast Nausea/Vomiting Non Drug Allergy A ctive Vicodin Nausea/Vomiting Drug Allergy Active environmental sneezing Non Drug Allergy Activ e ENCOUNTERS from 1989 to 2020-05-06 Encounter Location Date Provider Diagnosis [facility] [address] [place] [address] 29 Dec, 20 20 Josi Jose-Tartell IMMUNIZATIONS Vaccine Route Administration Date Status Pneumococcal Adult 0.5mL (Pneumovax 23) IM Intramuscular Dec 26, 2017 Administered SOCIAL HISTORY Tobacco Use: Social History Observation Description Date Details (start date - stop date) Never Smoker Sex Assigned At : Social History Observation Description Sex Assigned At Unknown Audit Question Answer Notes Total Score: 2 Interpretation: Alcohol Education Pentecostalism: Question Answer Notes Pentecostalism No evangelical beliefs that would impact health care. Drug [...] Notes Start Da te End Date Status Vitamin D3 1000 UNIT 1 tablet Orally Once a day for 30 Active Zyrtec Allergy 10 MG 1 tablet Orally Once a day as needed for 30 Active Metronidazole 0.75 % 1 application Externally Twi ce a day after washing face for 30 Days May, Active Acetaminophen-Codeine #3 300-30 MG 1 tablet as needed Orally every 6 hrs Active Tizanidine HCl 4 MG 1 tablet as needed Orally Three times a day Active Lyrica 75 MG 1 capsule Orally bid for 30 Days Feb, Not-Taking Gabapentin 600 MG 1 tablet Orally tid for 30 day(s) Nov Not-Taking Methocarbamol 750 MG Oral for 10 No t-Taking Omeprazole 20 MG TAKE ONE CAPSULE BY MOUTH EVERY DAY Oral for 30 Not-Taking Montelukast Sodium 10 MG take one tablet by mouth every day Oral for 30 days Active Amitriptyline HCl 50 MG 1 tab Orally Daily for 30 days Active AirDuo RespiClick 232/14 232-14 MCG/ACT 1 puff Inhalat ion Twice a day for 30 day(s) Nov, Active Pantoprazole Sodium 40 MG 1 tablet Orally Once a day for 30 days Active Lidocaine 5 % External for 30 Activ e BuPROPion HCl 75 MG 1 tab Orally Twice a day for 30 day(s) Oct, Active Atorvastatin Calcium 10 MG 1 tablet Orally Once a day for 30 Active PROCEDURES No Information RESULTS No Results REASON FOR VISIT refill MEDICAL (GENERAL) HISTORY Type Description Date Medical [...] cardiac implantable loop recorder Surgical History back 03/08/2020 Hospitalization History related to I&D 05/2014 Goals Section No Information Health Concerns No Information MEDICAL EQUIPMENT No Information MENTAL STATUS No Information FUNCTIONAL STATUS No Information ASSESSMENTS No Information PLAN OF TREATMENT Medication Medication Name Sig Start Date Stop Date Zyrtec Allergy 10 MG 1 tablet Orally Once a day as needed for 30 Atorvastatin Calcium 10 MG 1 tablet Orally Once a day for 30 Vitamin D3 1000 UNIT 1 tablet Orally Once a day for 30 Next Appt Details Provider Name:George Mejia, 2020-05 10:30:00 AM, [address] [facility], [address], [place], [address], Insurance Providers Payer Name Payer Address Payer Phone Insured Name Patient Relati onship to Insured Coverage Start Date Coverage End Date [facility] [address] [facility] [phone] JUAN WILLIAM self
--- OUTSIDE RECORDS SUMMARY | 2020-06-10 21:20 | CCD ---
Author Author [facility] Organization [facility] Address Unknown Phone Unavailable Care Team Providers Care Assembler Corncob Pipes Name Role Phone Josi Zamora Unavailable PROBLEMS Type Condition ICD9-CM Code [id number] Code Onset Dates Condition S tatus SNOMED Code Notes Problem Familial hypercholesterolemia E78.01 Active 39 9995686 Problem Moderate persistent asthma without complication J4 5.40 Active 536560878 Problem Obesity (BMI 30.0-34.9) E66.9 Active 94220707 0012282 Problem Dyslipidemia E78.5 Active 984780406 Problem Allergic rhinitis, unspecified seasonality, unspecifie d trigger J30.9 Active 66897747 Problem Sciatica of left side M54.32 Active 11129227 Problem Mixed hyperlipidemia E78.2 Active 592065853 Problem Gastroesophageal reflux dise ase, unspecified whether esophagitis present K21.9 Active 106070147 Problem Vitamin D deficiency E55.9 Active 29923316 Problem Depression, unspecified depression type F32.9 Active 05114091 Problem Rosacea L71.9 Active 159317712 Problem Other headache syndrome G44.89 Active 93477615 9 Problem Drug-induced erectile dysfunction N52.2 Active 404779474 ALLERGIES Allergen (clinical drug ingredient) Drug/Non Drug Allergy do cumented on EMR Reaction Allergy Type Onset Date Status MRI contrast Nausea/Vomiting Non Drug Allergy A ctive Vicodin Nausea/Vomiting Drug Allergy Active environmental sneezing Non Drug Allergy Activ e ENCOUNTERS from 1989 to 2020-05-04 Encounter Location Date Provider Diagnosis [facility] [address] [address] Apr, Josi Jose-Tartell IMMUNIZATIONS Vaccine Route Administration Date [...] Education Pentecostalism: Question Answer Notes Pentecostalism No sabianism beliefs that would impact health care. Drug [...] Notes Start Da te End Date Status Amitriptyline HCl 50 MG 1 tab Orally Daily for 30 days Active Pantoprazole Sodium 40 MG 1 tablet Orally Once a day for 30 days Active Montelukast Sodium 10 MG take one tablet by mouth every day Oral for 30 days Active Gabapentin 600 MG 1 tablet Orally tid for 30 day(s) Nov Not-Taking Zyrtec Allergy 10 MG 1 tablet Orally Once a day as needed for 30 Active Lidocaine 5 % External for 30 Activ e Atorvastatin Calcium 10 MG 1 tablet Orally Once a day for 30 Active AirDuo RespiClick 232/14 232-14 MCG/ACT 1 puff Inhalat ion Twice a day for 30 day(s) Nov, Active BuPROPion HCl 75 MG 1 tab Orally Twice a day for 30 day(s) Oct, Active Tizanidine HCl 4 MG 1 tablet as needed Orally Three times a day Active Omeprazole 20 MG TAKE ONE CAPSULE BY MOUTH EVERY DAY Oral for 30 Not-Taking Acetaminophen-Codeine #3 300-30 MG 1 tablet as needed Orally every 6 hrs Active Metronidazole 0.75 % 1 application Externally Twi ce a day after washing face for 30 Days May, Active Vitamin D3 1000 UNIT 1 tablet Orally Once a day for 30 Active Lyrica 75 MG 1 capsule Orally bid for 30 Days Feb, Not-Taking Methocarbamol 750 MG Oral for 10 No t-Taking PROCEDURES No Information RESULTS No Results REASON FOR VISIT refills MEDICAL (GENERAL) HISTORY Type Description Date Medical [...] Medication Name Sig Start Date Stop Date Atorvastatin Calcium 10 MG 1 tablet Orally Once a day for 30 Vitamin D3 1000 UNIT 1 tablet Orally Once a day for 30 Zyrtec Allergy 10 MG 1 tablet Orally Once a day as needed for 30 Next Appt Details Provider Name:George Mejia, 2020-05 10:30:00 AM, [address] [facility], [address]st [facility], [place], [address], Insurance Providers Payer Name Payer Address Payer Phone Insured Name Patient Relati onship to Insured Coverage Start Date Coverage End Date [facility] COMMUN[facility] PLAN [facility] [address] [facility] [phone] JUAN WILLIAM self
--- OUTSIDE RECORDS SUMMARY | 2020-06-10 21:20 | CCD | Continuity of Care Document ---
Author Author [facility] Organization Unknown Address [address] [place] [address] Phone [phone] Care Team Providers Care Professional Employer Consultant Name Role Phone Sebastián Franklin MD AUTM [phone] Bridger Soriano MD AUTM [phone] Richelle Garces NP AUTM [phone] Rajiv Bae MD AUTM Unavailable Josi Garcia DO AUTM [phone] Problems Active Problems Provider Date Asthma Onset: [...] CPT Code Status Date Vaccine Lot # [id number] Given 02/16/2018 Tetanus, Diphthe tali Toxoids/Acellular Pertussis Vaccine 7 [place] > [id number] Given 06/06/2014 Pneumococcal Vaccine Vital Signs Date Vital Result Comment 04/16/2020 10:53am Body Temperature 96.3 F 03/19/2020 10:18am Body Temperature 97.1 F Results Test Acquired Date Facility Test Result H/L Range Note Laboratory test finding 03/09/2020 [facility] [address] [place] [address] (315)- - MRSA PCR Screen NOT DETECTED Normal Negative 1 Laboratory test finding 03/08/2020 [facility] [address] [place] [address] (315)- - Pathology Request For Service (SEE NOTE) 2 Type & Screen -Incl Blood Type,Jorge,AB SC 03/08/2020 [facility] [address] [place] [address] (315)- - Blood Type O POSITIVE Normal [...] 0911 Procedures Date Code Description Status 03/08/2020 58297 Laminectomy One Interspace, Lumb ar Completed 03/08/2020 72889 Laminectomy One Interspace, Lumb ar Completed 02/09/2020 56215 X-Ray Spine Lumbosacral Complete W/Oblique 4 Views Completed Medical Devices Description No Information Available Encounters Type Date Location Provider Dx Diagnosis Office Visit 04/16/2020 11[place] Z47.89 Encounter for other orthopedic aftercare Office Visit 03/19/2020 10[place] Z47.89 Encounter for other orthopedic aftercare Office Visit 02/09/2020 2:[place] M51.26 Other intervertebral disc displacement, lumbar region M54.16 Radiculopathy, lumbar region Office Visit 11/13/2019 3:00p [place] Elliot Mcmanus MD M54.16 Radiculopathy, lumbar region M54.5 Low back pain Assessments Date Code Description Provider 04/16/2020 Z47.89 Encounter for other orthopedic a ftercare Sebastián Rocha P.AJulissa 03/19/2020 Z47.89 Encounter for other orthopedic a ftercare Sebastián Rocha P.A. 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, lumbosacral region Elliot Mcmanus MD 02/09/2020 M51.26 Other intervertebral disc displa cement, lumbar region Elliot Mcmanus MD 02/09/2020 M54.16 Radiculopathy, lumbar region Bru jj Mcmanus MD 11/13/2019 M54.16 Radiculopathy, lumbar region Bru jj Mcmanus MD 11/13/2019 M54.5 Low back pain Elliot Mcmanus MD Plan of Treatment Future Appointment(s):* 05/27/2020 11:30 am - Miguel Adam at [place] 04/16/2020 - Miguel Adam* Z47.89 Encounter for other orthopedic aftercare* Follow up:* 5-6 weeks with [facility] for lower back recheck Functional Status Description No Information Available Mental Status Description No Information Available Referrals Refer to Dr Reason for Referral Status Appt Date Elliot Mcmanus MD SURGERY PER [facility]PA [facility] APPROVAL FOR LEFT L5/S1 SURGERY (82918) TO SURGERY NT Created [address] [place] [address] [phone] Elliot Mcmanus MD Auth for physical therapy . Patient going to , passed to chart. Created [facility] [place] [address] [phone]
--- OUTSIDE RECORDS SUMMARY | 2020-06-10 21:20 | CCD | Continuity of Care Document ---
Author Author [facility] Organization Unknown Address [address] [place] [address] Phone [phone] Care Team Providers Care Hall Supervisor Name Role Phone Sebastián Franklin MD AUTM [phone] Bridger Soriano MD AUTM [phone] Richelle Garces NP AUTM [phone] Rajiv Bae MD AUTM Unavailable Josi Garcia DO AUTM [phone] Problems Active Problems Provider Date Asthma Onset: [...] SIG Qnty Indications Ordering Provide r Date Hibiclens 4% Liquid use in shower once [...] CPT Code Status Date Vaccine Lot # [id number] Given 02/16/2018 Tetanus, Diphthe tali Toxoids/Acellular Pertussis Vaccine 7 Or > [id number] Given 06/06/2014 Pneumococcal Vaccine Vital Signs Date Vital Result Comment 11/12/2019 7:58pm Weight 220.44 lb BMI (Body Mass Index) 34.0 kg/m2 Results Test Acquired Date Facility Test Result H/L Range Note Laboratory test finding 03/09/2020 [facility] [address] [place] [address] (315)- - MRSA PCR Screen NOT DETECTED Normal Negative 1 Laboratory test finding 03/08/2020 [facility] [address] [place] [address] (278)- - Pathology Request For Service (SEE NOTE) 2 Type & Screen -Incl Blood Type,Jorge,AB SC 03/08/2020 [facility] [address] [place] [address] (344)- - Blood Type O POSITIVE Normal AB [...] Herniated/ruptured disc at level L5-S1 03/09/2020 - 133 GROSS DIAGNOSIS Received in formalin labeled "disc tissue L5-S1" consists of fragments of tissue, 0.5 x 0.5 x 0.1 cm. All in one. -OA 03/09/2020 - 133 Signed LASHANDA STEWART MD 03/10/2020 0911 Procedures Date Code Description Status 03/08/2020 45377 Laminectomy One Interspace, Lumb ar Completed 03/08/2020 05903 Laminectomy One Interspace, Lumb ar Completed 02/09/2020 83182 X-Ray Spine Lumbosacral Complete W/Oblique 4 Views Completed Medical Devices Description No Information Available Encounters Type Date Location Provider Dx Diagnosis Office Visit 02/09/2020 2:30p Joni Mcmanus MD M51.26 Other intervertebral disc displacement, lumbar region M54.16 Radiculopathy, lumbar region Office Visit 11/13/2019 3:00p Joni Mcmanus MD M54.16 Radiculopathy, lumbar region M54.5 Low back pain Assessments Date Code Description Provider 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 at [place] 02/09/2020 - Elliot Mcmanus MD* M51.26 Other intervertebral disc displacement, lumbar region* Follow up:* post op * M54.16 Radiculopathy, lumbar region Functional Status Description No Information Available Mental Status Description No Information Available Referrals Refer to Dr Reason for Referral Status Appt Date Elliot Mcmanus MD SURGERY PER PIPPA AT [facility] APPROVAL FOR LEFT L5/S1 SURGERY (56081) TO SURGERY NT Created [address] [place] [address], [place] [address] [phone] Elliot Mcmanus MD Auth for physical therapy . Patient going to , passed to chart. Created [address] [place] [address], [place] [address] [phone]
--- OUTSIDE RECORDS SUMMARY | 2020-06-10 21:20 | CCD ---
Author Author [facility] Organization [facility] Address Unknown Phone Unavailable Care Team Providers Care Veterinary Microbiologist Name Role Phone Jose-Tartell, Josi Unavailable PROBLEMS Type Condition ICD9-CM Code [id number] Code Onset Dates Condition S tatus SNOMED Code Notes Problem Familial hypercholesterolemia E78.01 Active 39 9166480 Problem Moderate persistent asthma without complication J4 5.40 Active 947789144 Problem Obesity (BMI 30.0-34.9) E66.9 Active 09396444 9296929 Problem Dyslipidemia E78.5 Active 254005489 Problem Allergic rhinitis, unspecified seasonality, unspecifie d trigger J30.9 Active 70532765 Problem Sciatica of left side M54.32 Active 92566732 Problem Mixed hyperlipidemia E78.2 Active 109130975 Problem Gastroesophageal reflux dise ase, unspecified whether esophagitis present K21.9 Active 604486420 Problem Vitamin D deficiency E55.9 Active 38550292 Problem Depression, unspecified depression type F32.9 Active 33392237 Problem Rosacea L71.9 Active 205174472 Problem Other headache syndrome G44.89 Active 64206018 9 Problem Drug-induced erectile dysfunction N52.2 Active 263004975 ALLERGIES Allergen (clinical drug ingredient) Drug/Non Drug Allergy do cumented on EMR Reaction Allergy Type Onset Date Status MRI contrast Nausea/Vomiting Non Drug Allergy A ctive Vicodin Nausea/Vomiting Drug Allergy Active environmental sneezing Non Drug Allergy Activ e ENCOUNTERS from 1989 to 2020-05-06 Encounter Location Date Provider Diagnosis [facility] [address] [place] [address] 29 Dec, 20 20 Josi Jose-Tartell IMMUNIZATIONS Vaccine Route Administration Date Status Pneumococcal Adult 0.5mL (Pneumovax 23) IM Intramuscular Dec 26, 2017 Administered SOCIAL HISTORY Tobacco Use: Social History Observation Description Date Details (start date - stop date) Never Smoker Sex Assigned At : Social History Observation Description Sex Assigned At Unknown Audit Question Answer Notes Total Score: 2 Interpretation: Alcohol Education Episcopalian: Question Answer Notes Episcopalian No tenriism beliefs that would impact health care. Drug [...] Information RESULTS No Results REASON FOR VISIT vit d MEDICAL (GENERAL) HISTORY Type Description Date Medical [...] Provider Name:George Mejia, 2020-05 10:30:00 AM, [address] [facility], [address] [facility], [place], [address], Insurance Providers Payer Name Payer Address Payer Phone Insured Name Patient Relati onship to Insured Coverage Start Date Coverage End Date [facility] COMMUN[facility] PLAN [facility] [address] [facility] [phone] JUAN WILLIAM self
--- OUTSIDE RECORDS SUMMARY | 2020-06-10 21:20 | CCD | Continuity of Care Document ---
Author Author Michael [facility] P.A[facility] Organization Unknown Address [address] [place] [address] Phone [phone] Care Team Providers Care Fresh Meat Grader Name Role Phone Sebastián Franklin MD AUTM [phone] Bridger Soriano MD AUTM [phone] Richelle Garces NP AUTM [phone] Rajiv Bae MD AUTM Unavailable Josi Garcia DO AUTM [phone] Problems Active Problems Provider Date Asthma Onset: [...] every 4-6 hours as needed pain 30tabs Elliot Mcmanus MD 03/19/2020 Tizanidine HCL 4mg Tablets 1 [...] CPT Code Status Date Vaccine Lot # [id number] Given 02/16/2018 Tetanus, Diphthe tali Toxoids/Acellular Pertussis Vaccine 7 [place] > [address] Given 06/06/2014 Pneumococcal Vaccine Vital Signs Date Vital Result Comment 03/19/2020 10:18am Body Temperature 97.1 F 11/12/2019 7:58pm Weight 220.44 lb BMI (Body Mass Index) 34.0 kg/m2 Results Test Acquired Date Facility Test Result H/L Range Note Laboratory test finding 03/09/2020 [facility] [address] [place] [address] (315)- - MRSA PCR Screen NOT DETECTED Normal Negative 1 Laboratory test finding 03/08/2020 [facility] [address] [place] [address] (315)- - Pathology Request For Service (SEE NOTE) 2 Type & Screen -Incl Blood Type,Jorge,AB SC 03/08/2020 [facility] [address] [place] [address] (315)- - Blood Type O POSITIVE Normal [...] 0911 Procedures Date Code Description Status 03/08/2020 27248 Laminectomy One Interspace, Lumb ar Completed 03/08/2020 43893 Laminectomy One Interspace, Lumb ar Completed 02/09/2020 02099 X-Ray Spine Lumbosacral Complete W/Oblique 4 Views Completed Medical Devices Description No Information Available Encounters Type Date Location Provider Dx Diagnosis Office Visit 02/09/2020 2:30p [place] Elliot Mcmanus MD M51.26 Other intervertebral disc displacement, lumbar region M54.16 Radiculopathy, lumbar region Office Visit 11/13/2019 3:00p [place] Elliot Mcmanus MD M54.16 Radiculopathy, lumbar region [...] pain Elliot Mcmanus MD Plan of Treatment 03/19/2020 - Sebastián Rocha, P.A.* Z47.89 Encounter for [...] Elliot Mcmanus MD SURGERY PER PIPPA AT [facility] D APPROVAL FOR LEFT L5/S1 SURGERY (17817) TO SURGERY NT Created [address] [place] [address] [phone] Elliot Mcmanus MD Auth for physical therapy . Patient going to , passed to chart. Created [address] [place], [place] [address], [place] [address] [phone]
--- OUTSIDE RECORDS SUMMARY | 2020-06-10 21:20 | CCD ---
Author Author [facility] Organization [facility] Address Unknown Phone Unavailable Care Team Providers Care Mumps Developer Name Role Phone Jose-Tartell, Josi Unavailable PROBLEMS Type Condition ICD9-CM Code [id number] Code Onset Dates Condition S tatus SNOMED Code Notes Problem Familial hypercholesterolemia E78.01 Active 39 9621735 Problem Moderate persistent asthma without complication J4 5.40 Active 504890245 Problem Obesity (BMI 30.0-34.9) E66.9 Active 21716708 3812330 Problem Dyslipidemia E78.5 Active 964248490 Problem Allergic rhinitis, unspecified seasonality, unspecifie d trigger J30.9 Active 13886206 Problem Sciatica of left side M54.32 Active 79780321 Problem Mixed hyperlipidemia E78.2 Active 413188357 Problem Gastroesophageal reflux dise ase, unspecified whether esophagitis present K21.9 Active 178853852 Problem Vitamin D deficiency E55.9 Active 01720150 Problem Depression, unspecified depression type F32.9 Active 13517335 Problem Rosacea L71.9 Active 587804051 Problem Other headache syndrome G44.89 Active 58785146 9 Problem Drug-induced erectile dysfunction N52.2 Active 359373492 ALLERGIES Allergen (clinical drug ingredient) Drug/Non Drug Allergy do cumented on EMR Reaction Allergy Type Onset Date Status MRI contrast Nausea/Vomiting Non Drug Allergy A ctive Vicodin Nausea/Vomiting Drug Allergy Active environmental sneezing Non Drug Allergy Activ e ENCOUNTERS from 1989 to 2020-04-05 Encounter Location Date Provider Diagnosis [facility] [address] [place] [address] 18 Nov, 20 20 Josi Jose-Tartell Moderate persistent asthma without compl ication J45.40 ; Back pain with history of spinal surgery M54.9 and Gastroesophageal reflux disease, unspecified whether esophagitis present K21.9 IMMUNIZATIONS Vaccine Route Administration Date Status Pneumococcal Adult 0.5mL (Pneumovax 23) IM Intramuscular Dec 26, 2017 Administered SOCIAL HISTORY Tobacco Use: Social History Observation Description Date Details (start date - stop date) Never Smoker Sex Assigned At : Social History Observation Description Sex Assigned At Unknown Audit Question Answer Notes Total Score: 2 Interpretation: Alcohol Education Adventist: Question Answer Notes Adventist No taoism beliefs that would impact health care. Drug [...] FOR REFERRAL No Information VITAL SIGNS Weight 217 lbs Mar, Height 5'7" in Mar, BMI 33.98 kg/m2 Mar, Heart Rate 82 /min Mar, Respiratory Rate 18 /min Mar, Temperature 97.8 degrees Fahrenheit Mar, Oximetry 98 Mar, Blood pressure systolic 126 mm Hg Mar, Blood pressure diastolic 92 mm Hg Mar, MEDICATIONS Medication SIG (Take, Route, Frequency, Duration) Notes Start Da te End Date Status Lyrica 75 MG 1 capsule Orally bid for 30 Days Feb, Not-Taking Zyrtec Allergy 10 MG 1 tablet Orally Once a day as needed for 30 Active BuPROPion HCl 75 MG 1 tab Orally Twice a day for 30 day(s) Oct, Active Omeprazole 20 MG TAKE ONE CAPSULE BY MOUTH EVERY DAY Oral for 30 Not-Taking AirDuo RespiClick 232/14 232-14 MCG/ACT 1 puff Inhalat ion Twice a day for 30 day(s) Nov, Active Methocarbamol 750 MG Oral for 10 No t-Taking Metronidazole 0.75 % 1 application Externally Twi ce a day after washing face for 30 Days May, Active Atorvastatin Calcium 10 MG 1 tablet Orally Once a day for 30 Active Pantoprazole Sodium 40 MG 1 tablet Orally Once a day for 30 days Active Tizanidine HCl 4 MG 1 tablet as needed Orally Three times a day Active Amitriptyline HCl 50 MG Orally A ctive Montelukast Sodium 10 MG take one tablet by mouth every day Oral for 30 days Active Lidocaine 5 % External for 30 Activ e Vitamin D3 1000 UNIT 1 tablet Orally Once a day for 30 Active Acetaminophen-Codeine #3 300-30 MG 1 tablet as needed Orally every 6 hrs Active Gabapentin 600 MG 1 tablet Orally tid for 30 day(s) Nov Not-Taking PROCEDURES No Information RESULTS No Results REASON FOR VISIT 3 month MEDICAL (GENERAL) HISTORY Type Description Date Medical [...] Notes Treatment Notes Treatm ent Clinical Notes Mar, Moderate persistent asthma without compl ication (ICD-10 - J45.40) Asthma currently pretty well controlled, refill requested. Mar, Back pain with history of spinal surgery (ICD-10 - M54.9) Encouraged PT when appropriate. Following with ortho, recovering from surgery. Mar, Gastroesophageal reflux dise ase, unspecified whether esophagitis present (ICD-10 - K21.9) This controls his symptoms well. PLAN OF TREATMENT Medication Medication Name Sig Start Date Stop Date Pantoprazole Sodium 40 MG 1 tablet Orally Once a day for 30 days Montelukast Sodium 10 MG take one tablet by mouth every day Oral for 30 days Treatment Notes Assessment Notes Clinical Notes Moderate persistent asthma without complication Asthma currently pretty well controlled, refill requested. Back pain with history of spinal surgery Encouraged PT when appropriate. Following with ortho, recovering from surgery. Gastroesophageal reflux disease, unspecified whether esophag itis present This controls his symptoms well. Next Appt Details 6 Months Reason:f/u Provider Name:George Mejia, 2020-05 10:30:00 AM, [address] [facility], 1st Floor, [place], [address], Follow Up:6 Monthsf/u Insurance Providers Payer Name Payer Address Payer Phone Insured Name Patient Relati onship to Insured Coverage Start Date Coverage End Date [facility] COMMUN[facility] PLAN [facility] [address] [facility] [id number] JUAN WILLIAM self
[2020-06-10] MEDS ORDERED: MONT5TAB2 (21:21)
[2020-06-10] MEDS ORDERED: AMOX875T2 (21:21)
--- OUTSIDE RECORDS SUMMARY | 2020-06-10 21:21 | CCD | Continuity of Care Document ---
Author Author Michael PICKENS MD Organization Unknown Address [address] [place] [id number] Phone [phone] Care Team Providers Care Bindery Machine Tender Name Role Phone Sebastián Franklin MD AUTM [phone] Bridger Soriano MD AUTM [phone] Richelle Garces NP AUTM [phone] Rajiv Bae MD AUTM Unavailable Josi Garcia DO AUTM [phone] Problems Active Problems Provider Date Asthma Onset: [...] Onset: Viral disease Onset: Pure hypercholesterolemia Elliot Pickens MD Onset: 020 Social History Type Date Description Comments Sex Unknown ETOH Use Occasionally consumes alcohol Allergies, Adverse Reactions, Alerts Active Allergies Reaction Severity Comments Date Hydrocodone Vomiting Mild 11/13/2019 Medications Active Medications SIG Qnty Indications Ordering Provide r Date Hibiclens 4% Liquid use in shower once daily for 5 days before surgery 1units Elliot Pickens MD 02/27/2020 Bactroban 2% Ointment apply a pea sized amount to each nasal passage 3x daily for 5 days before surgery QS Elliot Pickens MD 02/27/2020 Hydrocodone Bitartrate/Acetaminophen 5-325mg Tablets 1 tab by mouth every 4-6 hours prn/pain after surgery do not fill until 03-08-20 12tabs Elliot Pickens MD 02/20/2020 Methocarbamol 750mg Tablets Three Times [...] CPT Code Status Date Vaccine Lot # [id number] Given 02/16/2018 Tetanus, Diphthe tali Toxoids/Acellular Pertussis Vaccine 7 Or > [id number] Given 06/06/2014 Pneumococcal Vaccine Vital Signs Date Vital Result Comment 11/12/2019 7:58pm Weight 220.44 lb BMI (Body Mass Index) 34.0 kg/m2 Results Test Acquired Date Facility Test Result H/L Range Note Laboratory test finding 03/09/2020 [facility] [address] [place] [address] (315)- - MRSA PCR Screen NOT DETECTED Normal Negative 1 Laboratory test finding 03/08/2020 [facility] [address] [place] [address] (315)- - Pathology Request For Service (SEE NOTE) 2 Type & Screen -Incl Blood Type,Jorge,AB SC 03/08/2020 [facility] [address] [place] [address] [phone] - Blood Type O POSITIVE Normal AB [...] disc tissue. Negative for malignancy. 03/10/2020 - 857 CLINICAL DIAGNOSIS Herniated/ruptured disc at level L5-S1 03/09/2020 - 1331 GROSS DIAGNOSIS Received in formalin labeled "disc tissue L5-S1" consists of fragments of tissue, 0.5 x 0.5 x 0.1 cm. All in one. 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, lumbar region M54.16 Radiculopathy, lumbar region Office Visit 11/13/2019 3:[facility]p [facility] MD M54.16 Radiculopathy, lumbar region M54.5 Low back pain Assessments Date Code Description Provider 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 at [facility] 02/09/2020 - Elliot Pickens MD* M51.26 Other intervertebral disc displacement, lumbar region* Follow up:* post op * M54.16 Radiculopathy, lumbar region Functional Status Description No Information Available Mental Status Description No Information Available Referrals Refer to Dr Reason for Referral Status Appt Date Elliot Pickens MD SURGERY PER [facility] AT [facility] APPROVAL FOR LEFT L5/S1 SURGERY (96743) TO SURGERY NT Created [address] [place] [address] [phone] Elliot Pickens MD Auth for physical therapy . Patient going to , passed to chart. Created [facility] [place] [address] [phone]
--- OUTSIDE RECORDS SUMMARY | 2020-06-10 21:22 | CCD ---
Author Author [facility] Organization [facility] Address Unknown Phone Unavailable Support Name Relationship Address Phone 11-14 Next Of Kin [address] [place] [address] Lidia Whiting Next Of Kin [address] [place] [address] HUMA Next Of Kin [id number] [place] [address] [address] Next Of Kin [address] [place] [address] Milana Maharaj Next Of Kin [address] [place] [id number] LEIGHTON VALADEZ Next Of Kin [address] [address] [place] Next Of Kin [id number] [address] Pili Clark DMD Next Of Kin [address] [place] [address] SUNJOHN [place] [address] LEIGHTON MIXON Next Of Kin [address] [address] Cleo Mayes Next Of Kin [address] [place] [address] [address] Next Of Kin [address] [place] [address] [employer] Next Of Kin [address] [place] [address] [place] [address] TOYS R US Next Of Kin Unknown [facility] Next Of Kin [address] [place] [address] UE Next Of Kin Unknown Unavailable ST Next Of Kin Unknown Unavailable GORDO WILLIAM Next Of Kin [address] [place] [address] WATNTIMES Next Of Kin [address] [place] [address] FRANSISCA WILLIAM Next Of Kin [address] [place] [address] Leighton Valadez ECON Unknown [phone] Fransisca William ECON [address] [place] [address] [phone] leighton mixon ECON [address] [place] [address] [phone] GORDO WILLIAM ECON [address] [place] [address] Unavailable Care Team Providers Care Traffic Control Signaler Name Role Phone Symenow, Aaliyah Windy PA Unavailable Unavailable Symenow, Aaliyah Windy PA Unavailable Unavailable Symenow, Aaliyah Windy PA Unavailable Unavailable Symenow, Aaliyah Windy PA Unavailable Unavailable Symenow, Aaliyah Windy PA Unavailable Unavailable Symenow, Aaliyah Windy PA Unavailable Unavailable Symenow, Aaliyah Windy PA Unavailable Unavailable Symenow, Aaliyah Windy PA Unavailable Unavailable Symenow, Aaliyah Windy PA Unavailable Unavailable Symenow, Aaliyah Windy PA Unavailable Unavailable Symenow, Aaliyah Windy PA Unavailable Unavailable Symenow, Aaliyah Windy PA Unavailable Unavailable Symenow, Aaliyah Windy PA Unavailable Unavailable Symenow, Aaliyah Windy PA Unavailable Unavailable Symenow, Aaliyah Windy PA Unavailable Unavailable Symenow, Aaliyah Windy PA Unavailable Unavailable Symenow, Aaliyah Windy PA Unavailable Unavailable Symenow, Aaliyah Windy PA Unavailable Unavailable Symenow, Aaliyah Windy PA Unavailable Unavailable Symenow, Aaliyah Windy PA Unavailable Unavailable Symenow, Aaliyah Windy PA Unavailable Unavailable Symenow, Aaliyah Windy PA Unavailable Unavailable Symenow, Aaliyah Windy PA Unavailable Unavailable Symenow, Aaliyah Windy PA Unavailable Unavailable Symenow, Aaliyah Windy PA Unavailable Unavailable Symenow, Aaliyah Windy PA Unavailable Unavailable Symenow, Aaliyah Windy PA Unavailable Unavailable Symenow, Aaliyah Windy PA Unavailable Unavailable Symenow, Aaliyah Windy PA Unavailable Unavailable Symenow, Aaliyah Windy PA Unavailable Unavailable Symenow, Aaliyah Windy PA Unavailable Unavailable Symenow, Aaliyah Windy PA Unavailable Unavailable Symenow, Aaliyah Windy PA Unavailable Unavailable Symenow, Aaliyah Windy PA Unavailable Unavailable Symenow, Aaliyah Windy PA Unavailable Unavailable Symenow, Aaliyah Windy PA Unavailable Unavailable [facility], JLAM Unavailable Unavailable MCELHERAN, GWENDOLYN PA Unavailable Unavailable MCELHERAN, GWENDOLYN PA Unavailable Unavailable MCELHERAN, GWENDOLYN PA Unavailable Unavailable MCELHERAN, GWENDOLYN PA Unavailable Unavailable MCELHERAN, GWENDOLYN PA Unavailable Unavailable MCELHERAN, GWENDOLYN PA Unavailable Unavailable MCELHERAN, GWENDOLYN PA Unavailable Unavailable MCELHERAN, GWENDOLYN PA Unavailable Unavailable MCELHERAN, GWENDOLYN PA Unavailable Unavailable MCELHERAN, GWENDOLYN PA Unavailable Unavailable MCELHERAN, GWENDOLYN PA Unavailable Unavailable MCELHERAN, GWENDOLYN PA Unavailable Unavailable MCELHERAN, GWENDOLYN PA Unavailable Unavailable MCELHERAN, GWENDOLYN PA Unavailable Unavailable MCELHERAN, GWENDOLYN PA Unavailable Unavailable MCELHERAN, GWENDOLYN PA Unavailable Unavailable MCELHERAN, GWENDOLYN PA Unavailable Unavailable MCELHERAN, GWENDOLYN PA Unavailable Unavailable MCELHERAN, GWENDOLYN PA Unavailable Unavailable MCELHERAN, GWENDOLYN PA Unavailable Unavailable MCELHERAN, GWENDOLYN PA Unavailable Unavailable MCELHERAN, GWENDOLYN PA Unavailable Unavailable MCELHERAN, GWENDOLYN PA Unavailable Unavailable MCELHERAN, GWENDOLYN PA Unavailable Unavailable MCELHERAN, GWENDOLYN PA Unavailable Unavailable MCELHERAN, GWENDOLYN PA Unavailable Unavailable MCELHERAN, GWENDOLYN PA Unavailable Unavailable MCELHERAN, GWENDOLYN PA Unavailable Unavailable Sandip, Angela Marissa PA Unavailable Unavailable Sandip, Angela Marissa PA Unavailable Unavailable Sandip, Angela Marissa PA Unavailable Unavailable Sandip, Angela Marissa PA Unavailable Unavailable Sandip, L Marissa PA Unavailable Unavailable Sandip, L Marissa PA Unavailable Unavailable Sandip, L Marissa PA Unavailable Unavailable Sandip, L Marissa PA Unavailable Unavailable Sandip, L Marissa PA Unavailable Unavailable Sandip, L Marissa PA Unavailable Unavailable Sandip, L Marissa PA Unavailable Unavailable Sandip, L Marissa PA Unavailable Unavailable Sandip, L Marissa PA Unavailable Unavailable Sandip, L Marissa PA Unavailable Unavailable Sandip, L Marissa PA Unavailable Unavailable Sandip, L Marissa PA Unavailable Unavailable Sandip, L Marissa PA Unavailable Unavailable Sandip, L Marissa PA Unavailable Unavailable Sandip, L Marissa PA Unavailable Unavailable Sandip, L Marissa PA Unavailable Unavailable Sandip, L Marissa PA Unavailable Unavailable Sandip, L Marissa PA Unavailable Unavailable Sadnip, L Marissa PA Unavailable Unavailable NCFH, SSCORDO SCORDO PA LIDIA Unavailable Unavaila ble Kusum Perry MD Unavailable Unavailable Kusum Perry MD Unavailable Unavailable Kusum Perry MD Unavailable Unavailable Kusum Perry MD Unavailable Unavailable Kusum Perry MD Unavailable Unavailable Kusum Perry MD Unavailable Unavailable Kusum Perry MD Unavailable Unavailable Kusum Perry MD Unavailable Unavailable Kusum Perry MD Unavailable Unavailable Kusum Perry MD Unavailable Unavailable Kusum Perry MD Unavailable Unavailable Kusum Perry MD Unavailable Unavailable Kusum Perry MD Unavailable Unavailable Kusum Perry MD Unavailable Unavailable Kusum Perry MD Unavailable Unavailable Kusum Perry MD Unavailable Unavailable Kusum Perry MD Unavailable Unavailable Kusum Perry MD Unavailable Unavailable Kusum Perry MD Unavailable Unavailable Kusum Perry MD Unavailable Unavailable Kusum Perry MD Unavailable Unavailable Kusum Perry MD Unavailable Unavailable Kusum Perry MD Unavailable Unavailable Kusum Perry MD Unavailable Unavailable Kusum Perry MD Unavailable Unavailable Scordo, M Lidia PA Unavailable Unavailable Scordo, M Lidia PA Unavailable Unavailable Scordo, M Lidia PA Unavailable Unavailable Scordo, M Lidia PA Unavailable Unavailable Scordo, M Lidia PA Unavailable Unavailable Scordo, M Lidia PA Unavailable Unavailable Scordo, M Lidia PA Unavailable Unavailable Scordo, M Lidia PA Unavailable Unavailable Scordo, M Lidia PA Unavailable Unavailable Scordo, M Lidia PA Unavailable Unavailable Scordo, M Lidia PA Unavailable Unavailable Scordo, M Lidia PA Unavailable Unavailable Scordo, M Lidia PA Unavailable Unavailable Scordo, M Lidia PA Unavailable Unavailable Scordo, M Lidia PA Unavailable Unavailable Scordo, M Lidia PA Unavailable Unavailable Scordo, M Lidia PA Unavailable Unavailable Scordo, M Lidia PA Unavailable Unavailable Scordo, M Lidia PA Unavailable Unavailable Scordo, M Lidia PA Unavailable Unavailable Scordo, M Lidia PA Unavailable Unavailable Scordo, M Lidia PA Unavailable Unavailable Scordo, M Lidia PA Unavailable Unavailable Scordo, M Lidia PA Unavailable Unavailable Scordo, M Lidia PA Unavailable Unavailable Scordo, M Lidia PA Unavailable Unavailable Scordo, M Lidia PA Unavailable Unavailable Scordo, M Lidia PA Unavailable Unavailable Scordo, M Lidia PA Unavailable Unavailable Scordo, M Lidia PA Unavailable Unavailable Scordo, M Lidia PA Unavailable Unavailable Scordo, M Lidia PA Unavailable Unavailable Scordo, M Lidia PA Unavailable Unavailable Scordo, M Lidia PA Unavailable Unavailable Scordo, M Lidia PA Unavailable Unavailable Scordo, M Lidia PA Unavailable Unavailable Scordo, M Lidia PA Unavailable Unavailable Scordo, M Lidia PA Unavailable Unavailable Scordo, M Lidia PA Unavailable Unavailable Scordo, M Lidia PA Unavailable Unavailable Scordo, M Lidia PA Unavailable Unavailable Scordo, M Lidia PA Unavailable Unavailable Veley, Milana COMPUTER SYSTEMS SECURITY ANALYST Unavailable Unavailable Veley, Milana COMPUTER SYSTEMS SECURITY ANALYST Unavailable Unavailable Veley, Milana COMPUTER SYSTEMS SECURITY ANALYST Unavailable Unavailable Veley, Milana COMPUTER SYSTEMS SECURITY ANALYST Unavailable Unavailable Veley, Milana COMPUTER SYSTEMS SECURITY ANALYST Unavailable Unavailable Veley, Milana COMPUTER SYSTEMS SECURITY ANALYST Unavailable Unavailable Veley, Milana COMPUTER SYSTEMS SECURITY ANALYST Unavailable Unavailable Veley, Milana COMPUTER SYSTEMS SECURITY ANALYST Unavailable Unavailable Veley, Milana COMPUTER SYSTEMS SECURITY ANALYST Unavailable Unavailable Veley, Milana COMPUTER SYSTEMS SECURITY ANALYST Unavailable Unavailable Veley, Milana COMPUTER SYSTEMS SECURITY ANALYST Unavailable Unavailable Veley, Milana COMPUTER SYSTEMS SECURITY ANALYST Unavailable Unavailable Veley, Milana COMPUTER SYSTEMS SECURITY ANALYST Unavailable Unavailable Veley, Milana COMPUTER SYSTEMS SECURITY ANALYST Unavailable Unavailable Veley, Milana COMPUTER SYSTEMS SECURITY ANALYST Unavailable Unavailable Veley, Milana COMPUTER SYSTEMS SECURITY ANALYST Unavailable Unavailable Veley, Milana COMPUTER SYSTEMS SECURITY ANALYST Unavailable Unavailable Veley, Milana COMPUTER SYSTEMS SECURITY ANALYST Unavailable Unavailable Veley, Milana COMPUTER SYSTEMS SECURITY ANALYST Unavailable Unavailable Veley, Milana COMPUTER SYSTEMS SECURITY ANALYST Unavailable Unavailable Veley, Milana COMPUTER SYSTEMS SECURITY ANALYST Unavailable Unavailable Veley, Milana COMPUTER SYSTEMS SECURITY ANALYST Unavailable Unavailable Veley, Milana COMPUTER SYSTEMS SECURITY ANALYST Unavailable Unavailable Veley, Milana COMPUTER SYSTEMS SECURITY ANALYST Unavailable Unavailable Veley, Milana COMPUTER SYSTEMS SECURITY ANALYST Unavailable Unavailable Veley, Milana COMPUTER SYSTEMS SECURITY ANALYST Unavailable Unavailable Veley, Milana COMPUTER SYSTEMS SECURITY ANALYST Unavailable Unavailable Veley, Milana COMPUTER SYSTEMS SECURITY ANALYST Unavailable Unavailable Veley, Milana COMPUTER SYSTEMS SECURITY ANALYST Unavailable Unavailable Veley, Milana COMPUTER SYSTEMS SECURITY ANALYST Unavailable Unavailable Velpablo, Milana COMPUTER SYSTEMS SECURITY ANALYST Unavailable Unavailable Bigg Bhakta MD Unavailable Unavailable Bigg Bhakta MD Unavailable Unavailable Bigg Bhakta MD Unavailable Unavailable Bigg Bhaktaah Unavailable Unavailable Livia O Pacoah Unavailable Unavailable Livia O Pacoah Unavailable Unavailable Bigg Bhakta MD Unavailable Unavailable Bigg Bhakta MD Unavailable Unavailable Bigg Bhakta MD Unavailable Unavailable Bigg Bhaktaah Unavailable Unavailable Bigg Bhakta MD Unavailable Unavailable Bigg Bhakta MD Unavailable Unavailable Bigg Bhakta MD Unavailable Unavailable Bigg Bhakta MD Unavailable Unavailable Bigg Bhakta MD Unavailable Unavailable Bigg Bhakta MD Unavailable Unavailable Bigg Bhakta MD Unavailable Unavailable Bigg Bhakta MD Unavailable Unavailable Bigg Bhakta MD Unavailable Unavailable Bigg Bhakta MD Unavailable Unavailable Bigg Bhakta MD Unavailable Unavailable Bigg Bhakta MD Unavailable Unavailable Bigg Bhakta MD Unavailable Unavailable Bigg Bhakta MD Unavailable Unavailable Bigg Bhakta MD Unavailable Unavailable Bigg Bhakta MD Unavailable Unavailable Bigg Bhakta MD Unavailable Unavailable Bigg Bhaktaah Unavailable Unavailable Bigg Bhakta MD Unavailable Unavailable Bigg Bhakta MD Unavailable Unavailable Bigg Bhakta MD Unavailable Unavailable Bigg Bhakta MD Unavailable Unavailable Bigg Bhakta MD Unavailable Unavailable Bigg Bhaktaah Unavailable Unavailable Bigg Bhakta MD Unavailable Unavailable Bigg Bhakta MD Unavailable Unavailable Bigg Bhakta MD Unavailable Unavailable Bigg Bhakta MD Unavailable Unavailable Bigg Bhaktaah Unavailable Unavailable Bigg Bhakta MD Unavailable Unavailable Bigg Bhakta MD Unavailable Unavailable Bigg Bhakta MD Unavailable Unavailable Bigg Bhakta MD Unavailable Unavailable Bigg Bhakta MD Unavailable Unavailable Bigg Bhakta MD Unavailable Unavailable Bigg Bhakta MD Unavailable Unavailable Bigg Bhakta MD Unavailable Unavailable Bigg Bhakta MD Unavailable Unavailable Bigg Bhakta MD Unavailable Unavailable Bigg Bhakta MD Unavailable Unavailable Bigg Bhakta MD Unavailable Unavailable Bigg Bhakta MD Unavailable Unavailable Bigg Bhakta MD Unavailable Unavailable Bigg Bhakta MD Unavailable Unavailable Bigg Bhakta MD Unavailable Unavailable Bigg Bhakta MD Unavailable Unavailable Bigg Bhakta MD Unavailable Unavailable Bigg Bhakta MD Unavailable Unavailable Bigg Bhakta MD Unavailable Unavailable Bigg Bhakta MD Unavailable Unavailable Bigg Bhakta MD Unavailable Unavailable Bigg Bhakta MD Unavailable Unavailable Bigg Bhakta MD Unavailable Unavailable Bigg Bhakta MD Unavailable Unavailable Bigg Bhakta MD Unavailable Unavailable Bigg Bhakta MD Unavailable Unavailable Bigg Bhakta MD Unavailable Unavailable Bigg Bhakta MD Unavailable Unavailable Bigg Bhakta MD Unavailable Unavailable Bigg Bhakta MD Unavailable Unavailable Bigg Bhakta MD Unavailable Unavailable Bigg Bhakta MD Unavailable Unavailable Bigg Bhakta MD Unavailable Unavailable Bigg Bhakta MD Unavailable Unavailable Bigg Bhakta MD Unavailable Unavailable Bigg Bhakta MD Unavailable Unavailable Angela Mcmanus MD Unavailable Unavailable Angela Mcmanus MD Unavailable Unavailable Angela Mcmanus MD Unavailable Unavailable Angela Mcmanus MD Unavailable Unavailable Angela Mcmanus MD Unavailable Unavailable Angela Mcmanus MD Unavailable Unavailable Angela Mcmanus MD Unavailable Unavailable Angela Mcmanus MD Unavailable Unavailable Angela Mcmanus MD Unavailable Unavailable Angela Mcmanus MD Unavailable Unavailable Angela Mcmanus MD Unavailable Unavailable Angela Mcmanus MD Unavailable Unavailable Angela Mcmanus MD Unavailable Unavailable Angela Mcmanus MD Unavailable Unavailable Angela Mcmanus MD Unavailable Unavailable Angela Mcmanus MD Unavailable Unavailable Mcmanus, L Elliot MD Unavailable Unavailable Mcmanus, L Elliot MD Unavailable Unavailable Mcmanus, L Elliot MD Unavailable Unavailable Mcmanus, L Elliot MD Unavailable Unavailable Mcmanus, L Elliot MD Unavailable Unavailable Mcmanus, L Elliot MD Unavailable Unavailable Mcmanus, L Elliot MD Unavailable Unavailable Mcmanus, L Elliot MD Unavailable Unavailable Mcmanus, L Elliot MD Unavailable Unavailable Mcmanus, L Elliot MD Unavailable Unavailable Mcmanus, L Elliot MD Unavailable Unavailable Mcmanus, L Elliot MD Unavailable Unavailable Mcmanus, L Elliot MD Unavailable Unavailable Mcmanus, L Elliot MD Unavailable Unavailable Mcmanus, L Elliot MD Unavailable Unavailable Mcmanus, L Elliot MD Unavailable Unavailable Mcmanus, L Elliot MD Unavailable Unavailable Mcmanus, L Elliot MD Unavailable Unavailable Mcmanus, L Elliot MD Unavailable Unavailable Mcmanus, L Elliot MD Unavailable Unavailable Mcmanus, L Elliot MD Unavailable Unavailable Mcmanus, L Elliot MD Unavailable Unavailable Mcmanus, L Elliot MD Unavailable Unavailable Mcmanus, L Elliot MD Unavailable Unavailable Mcmanus, L Elliot MD Unavailable Unavailable Mcmanus, L Elliot MD Unavailable Unavailable Mcmanus, L Elliot MD Unavailable Unavailable Mcmanus, L Elliot MD Unavailable Unavailable Mcmanus, L Elliot MD Unavailable Unavailable Mcmanus, L Elliot MD Unavailable Unavailable Mcmanus, L Elliot MD Unavailable Unavailable Re-disclosure Warning The records that you are about to access may contain information from federally-assisted alcohol or drug abuse programs. If such information is present, then the following federally mandated warning applies: This information has been disclosed to you from records protected by federal confidentiality rules (42 CFR part 2). The federal rules prohibit you from making any further disclosure of this information unless further disclosure is expressly permitted by the written consent of the person to whom it pertains or as otherwise permitted by 42 CFR part 2. A general authorization for the release of medical or other information is NOT sufficient for this purpose. The Federal rules restrict any use of the information to criminally investigate or prosecute any alcohol or drug abuse patient.The records that you are about to access may contain highly sensitive health information, the redisclosure of which is protected by Article 27-F of the [place] State Public Health law. If you continue you may have access to information: Regarding HIV / AIDS; Provided by facilities licensed or operated by the [facility] Office of Mental Health; or Provided by the [facility] Office for People With Developmental Disabilities. If such information is present, then the following [facility] mandated warning applies: This information has been disclosed to you from confidential records which are protected by state law. State law prohibits you from making any further disclosure of this information without the specific written consent of the person to whom it pertains, or as otherwise permitted by law. Any unauthorized further disclosure in violation of state law may result in a fine or halfway sentence or both. A general authorization for the release of medical or other information is NOT sufficient authorization for further disc losure. Allergies and Adverse Reactions Type Description Substance Reaction Status Data Source(s ) Adverse Reaction Adverse Reaction Hydrocodone Vomiting Mild MEDENT ([facility]) MRI contrast MRI contrast MRI contrast Nausea/Vomiting Active eC W1 ([facility]) environmental environmental environmental sneezing Active eCW1 ([facility]) Vicodin Vicodin Vicodin Nausea/Vomiting Active eCW1 ([facility]) environmental environmental environmental sneezing Active eCW1 ([facility]) MRI contrast MRI contrast MRI contrast Nausea/Vomiting Active eC W1 ([facility]) Vicodin Vicodin Vicodin Nausea/Vomiting Active eCW1 ([facility]) environmental environmental environmental sneezing Active eCW1 ([facility]) MRI contrast MRI contrast MRI contrast Nausea/Vomiting Active eC W1 ([facility]) Vicodin Vicodin Vicodin Nausea/Vomiting Active eCW1 ([facility]) environmental environmental environmental sneezing Active eCW1 ([facility]) MRI contrast MRI contrast MRI contrast Nausea/Vomiting Active eC W1 ([facility]) Vicodin Vicodin Vicodin Nausea/Vomiting Active eCW1 ([facility]) environmental environmental environmental sneezing Active eCW1 ([facility]) MRI contrast MRI contrast MRI contrast Nausea/Vomiting Active eC W1 ([facility]) Vicodin Vicodin Vicodin Nausea/Vomiting Active eCW1 ([facility]) Family History Family Member Name Family Member Gender Family Member Status Date o f Status Description Data Source(s) Unknown Male Problem [facility] () Encounters Encounter Providers Location Date Indications Data Source(s ) Office Visit Attender: Windy KARIMI Main Office 05/31/2020 06:45:0 0 AM EST [facility] ([facility]) [place] [address] [facility] [address] 05/31/2020 12:00:00 AM EST eCW1 ([facility]) [place] [address] [address] 05/20/2020 12:00:00 AM EST eCW1 ([facility]) [place] [address] [facility] [address] 05/10/2020 12:00:00 AM EST eCW1 ([facility]) [place] [address] [facility] [address] 05/04/2020 12:00:00 AM EST eCW1 ([facility]) [place] [address] [facility] [address] 05/04/2020 12:00:00 AM EST eCW1 ([facility]) [place] [address] [facility] [address] 04/28/2020 12:00:00 AM EST eCW1 ([facility]) [place] [address] [facility] [address] 04/22/2020 12:00:00 AM EST eCW1 ([facility]) Office Visit Attender: GWENDOLYN KARIMI Physical Therapy 04/16/2020 10:30:00 AM EST [facility] ([facility]) Outpatient [address] [facility] [place] [address] 03/24/2020 12:00:00 AM EST eCW1 ([facility]) Office Visit Attender: GWENDOLYN KRAIMI Physical Therapy 03/19/2020 09:15:00 AM EST MEDENT ([facility]) Office Visit Attender: Windy KARIMI Main Office 03/01/2020 01:30:0 0 PM EDT [facility] ([facility]) [place] [address] [facility] [facility] [address] 02/19/2020 12:00:00 AM EDT eCW1 ([facility]) [place] [address] [facility] [facility] [address] 02/19/2020 12:00:00 AM EDT eCW1 ([facility]) [place] [address] [facility] [address] 02/19/2020 12:00:00 AM EDT eCW1 ([facility]) Outpatient Attender: Elliot Mcmanus MD Physical Therapy 02/09/2020 0 2:30:00 PM EDT MEDENT ([facility]) [facility]2020 10:14:01 AM EDT [facility] Outpatient Attender: Kusum Huerta/Hafsa/Alexis/Jose ndl 02/04/2020 09:00:00 AM EDT MEDENT ([facility]) Outpatient Attender: [facility] 01/05/2020 03:22:01 PM EDT [facility] Outpatient Attender: Lidia KARIMI 01/05/2020 03:22:01 PM EDT [facility] Outpatient Attender: JOHNATHON [facility] 01/05/2020 11:25:01 AM EDT [facility] Outpatient Attender: JOHNATHON [facility] 01/05/2020 11:24:00 AM EDT [facility] Outpatient Attender: JOHNATHON [facility] 01/05/2020 11:20:00 AM EDT [facility] Outpatient Attender: Lidia KARIMI 01/02/2020 03:40:00 PM EDT [facility] Office Visit Attender: Marissa KARIMI Main Office 12/03/2019 09 :50:00 AM EDT MEDENT ([facility]) Outpatient Attender: Adela Bhakta MD Main office - [facility] 12/02/2019 12:30:00 PM EDT MED[facility] ([facility]) [place] [address] [facility] [address] 11/27/2019 12:00:00 AM EDT eCW1 ([facility]) [place] [address] [facility] [address] 11/26/2019 12:00:00 AM EDT eCW1 ([facility]) Outpatient Attender: Milana Garcia COMPUTER SYSTEMS SECURITY ANALYST FP 11/21/2019 04:03:0 0 PM EDT [facility] Outpatient Attender: Milana Garcia COMPUTER SYSTEMS SECURITY ANALYST FP 11/21/2019 10:08:0 0 AM EDT [facility] Outpatient Attender: Milana Garcia COMPUTER SYSTEMS SECURITY ANALYST FP 11/20/2019 04:07:0 0 PM EDT [facility] Outpatient Attender: Milana Garcia COMPUTER SYSTEMS SECURITY ANALYST FP 11/20/2019 02:59:0 0 PM EDT [facility] Outpatient Attender: Milana Garcia COMPUTER SYSTEMS SECURITY ANALYST FP 11/20/2019 02:57:0 1 PM EDT [facility] Outpatient Attender: Milana Garcia COMPUTER SYSTEMS SECURITY ANALYST FP 11/20/2019 02:56:0 0 PM EDT [facility] Outpatient Attender: Milana Garcia COMPUTER SYSTEMS SECURITY ANALYST FP 11/20/2019 02:25:0 3 PM EDT [facility] Outpatient Attender: Milana Garcia COMPUTER SYSTEMS SECURITY ANALYST FP 11/20/2019 02:13:0 1 PM EDT [facility] Unknown [address] [facility] [address] 11/20/2019 12:00:00 AM EDT eCW1 ([facility]) Outpatient Attender: Milana Garcia COMPUTER SYSTEMS SECURITY ANALYST FP 11/19/2019 03:41:0 0 PM EDT [facility] Outpatient Attender: Elliot Mcmanus MD Physical Therapy 11/13/2019 0 3:00:00 PM EDT MEDENT ([facility]) Outpatient Attender: Milana Garcia COMPUTER SYSTEMS SECURITY ANALYST FP 10/16/2019 11:48:0 0 AM EDT [facility] Outpatient [address] [facility] [address] 10/13/2019 12:00:00 AM EDT eCW1 ([facility]) Outpatient Attender: Milana Garcia COMPUTER SYSTEMS SECURITY ANALYST FP 09/24/2019 09:49:4 9 AM EDT [facility] Outpatient Attender: Adela Bhakta MD Main office - [facility] 09/01/2019 01:00:00 PM EDT MEDENT ([facility]) [facility] Linus [place]a [facility] [address] 08/25/2019 12:00:00 AM EDT eCW1 ([facility]) [facility] Lin[place] Figueroa [facility] [address] 2019 12:00:00 AM EDT eCW1 ([facility]) [facility] Linus [address] [place] [address], [place] [address] 07/10/2019 12:00:00 AM EST eCW1 ([facility]) Outpatient Attender: Milana Garcia NP FP 07/08/2019 01:48:0 1 PM [facility] Outpatient Attender: Milana Garcia NP FP 07/04/2019 02:46:0 1 PM [facility] Outpatient Attender: Milana Garcia NP FP 07/04/2019 02:45:0 0 PM [facility] Outpatient Attender: Milana Garcia NP FP 07/04/2019 02:44:5 9 PM [facility] Outpatient Attender: Milana Garcia NP FP 07/04/2019 02:43:0 1 PM [facility] Linus [address] [place] [address], [place] [address] 07/04/2019 12:00:00 AM EST eCW1 ([facility]) [facility] 06/09/2019 11:36:00 AM [facility] Linus [address] [place] [address], [place] [address] 06/05/2019 12:00:00 AM EST eCW1 ([facility]) [facility] 06/04/2019 10:23:00 AM EST [facility] Outpatient Attender: Kusum Huerta/Hafsa/Alexis/Jose ndangela 05/29/2019 08:00:00 AM EST MEDENT ([facility]) [facility] FP 05/13/2019 03:00:04 PM EST [facility] Outpatient [facility]: [facility] 05/13/2019 12:33:01 PM EST [facility] Outpatient Attender: [facility] 05/13/2019 11:26:00 AM EST [facility]/13[facility] 11:14:00 AM EST [facility] 05/13/2019 11:12:02 AM EST [facility] Outpatient [facility] 05/13/2019 11:04:01 AM EST [facility] Outpatient [facility] 05/12/2019 08:25:01 AM EST [facility] [address] [place] [address] 05/08/2019 12:00:00 AM EST eCW1 ([facility]) [facility] [address] [facility] [address] 04/29/2019 12:00:00 AM EST eCW1 ([facility]) Medications Medication Brand Name Start Date Product Form Dose Route Admi nistrative Instructions Pharmacy Instructions Status Indications Reaction Description Data Source(s) 875-125 mg 06/09/2020 12:00:00 AM EST tablet 20 TAKE ONE TABLET BY MOUTH TWICE A DAY FOR 10 DAYS TAKE ONE TABLET BY MOUTH TWICE A DAY FOR 10 DAYS SOLD: 06/09/2020 [facility] 75 mg 05/31/2020 12:00:00 AM EST tablet 60 TAKE ONE TABLET BY MOUTH TWICE A DAY TAKE ONE TABLET BY MOUTH TWICE A DAY SOLD: 06/01/2020 [facility] Naproxen 500 MG Oral Tablet Naproxen 05/30/2020 12:00:00 AM EST ORAL active [facility] ([facility]) 500 mg 05/23/2020 12:00:00 AM EST tablet 20 TAKE ONE TABLET BY MOUTH EVERY 12 HOURS FOR 10 DAYS TAKE ONE TABLET BY MOUTH EVERY 12 HOURS FOR 10 DAYS SO LD: 05/23/2020 [facility] 500 mg 05/23/2020 12:00:00 AM EST tablet 20 TAKE ONE TABLET BY MOUTH EVERY 12 HOURS FOR 10 DAYS TAKE ONE TABLET BY MOUTH EVERY 12 HOURS FOR 10 DAYS SO LD: 06/04/2020 [facility] 25 mg 05/22/2020 12:00:00 AM EST capsule 30 TAKE ONE CAPSULE BY MOUTH EVERY DAY * MAXIMUM DAILY DOSE = 1 TAKE ONE CAPSULE BY MOUTH EVERY DAY * JO-ANN MEDELLIN DAILY DOSE = 1 SOLD: 05/23/2020 [facility] pregabalin 25 MG Oral Capsule [Lyrica] Lyrica 25 MG Lyrica 2 5 MG 05/10/2020 12:00:00 AM EST 1.0 {capsule} active L yrica 25 MG eCW1 ([facility]) pregabalin 25 MG Oral Capsule [Lyrica] Lyrica 25 MG Lyrica 2 5 MG 05/10/2020 12:00:00 AM EST 1.0 {capsule} active L yrica 25 MG eCW1 ([facility]) pregabalin 25 MG Oral Capsule [Lyrica] Lyrica 25 MG Lyrica 2 5 MG 05/10/2020 12:00:00 AM EST 1.0 {capsule} active L yrica 25 MG eCW1 ([facility]) pregabalin 25 MG Oral Capsule [Lyrica] Lyrica 25 MG Lyrica 2 5 MG 05/10/2020 12:00:00 AM EST 1.0 {capsule} active L yrica 25 MG eCW1 ([facility]) atorvastatin 10 MG Oral Tablet ATORVASTATIN CALCIUM 05/07/2020 1 2:00:00 AM EST tablet 30 TAKE ONE TABLET BY MOUTH EVERY D AY TAKE ONE TABLET BY MOUTH EVERY DAY SOLD: 05/08/2020 [facility] atorvastatin 10 MG Oral Tablet ATORVASTATIN CALCIUM 05/07/2020 1 2:00:00 AM EST tablet 30 TAKE ONE TABLET BY MOUTH EVERY D AY TAKE ONE TABLET BY MOUTH EVERY DAY SOLD: 06/07/2020 [facility] 10 mg 04/23/2020 12:00:00 AM EST tablet 30 TAKE ONE TABLET BY MOUTH EVERY DAY NEEDED TAKE ONE TABLET BY MOUTH EVERY DAY NEEDED SOLD: 04/24/2020 [facility] 25 mcg (1,000 unit) 04/23/2020 12:00:00 AM EST tablet 30 TAKE ONE TABLET BY MOUTH EVERY DAY TAKE ONE TABLET BY MOUTH EVERY DAY SOLD: 05/23/2020 [facility] 25 mcg (1,000 unit) 04/23/2020 12:00:00 AM EST tablet 30 TAKE ONE TABLET BY MOUTH EVERY DAY TAKE ONE TABLET BY MOUTH EVERY DAY SOLD: 04/24/2020 [facility] 10 mg 04/23/2020 12:00:00 AM EST tablet 30 TAKE ONE TABLET BY MOUTH EVERY DAY NEEDED TAKE ONE TABLET BY MOUTH EVERY DAY NEEDED SOLD: 05/23/2020 [facility] 75 mg 04/23/2020 12:00:00 AM EST tablet 60 TAKE ONE TABLET BY MOUTH TWICE A DAY TAKE ONE TABLET BY MOUTH TWICE A DAY SOLD: 04/24/2020 [facility] 50 mg 04/08/2020 12:00:00 AM EST tablet 30 TAKE ONE TABLET BY MOUTH EVERY DAY TAKE ONE TABLET BY MOUTH EVERY DAY SOLD: 05/08/2020 [facility] 50 mg 04/08/2020 12:00:00 AM EST tablet 30 TAKE ONE TABLET BY MOUTH EVERY DAY TAKE ONE TABLET BY MOUTH EVERY DAY SOLD: 04/09/2020 [facility] 50 mg 04/08/2020 12:00:00 AM EST tablet 30 TAKE ONE TABLET BY MOUTH EVERY DAY TAKE ONE TABLET BY MOUTH EVERY DAY SOLD: 06/07/2020 [facility] 300-30 mg 03/30/2020 12:00:00 AM EST tablet 30 TAKE 1-2 TABLETS BY MOUTH EVERY 4-6 HOURS NEEDED FOR PAIN MAXIMUM DAILY DOSE = 4 TABLETS TAKE 1-2 TABLETS BY MOUTH EVERY 4-6 HOURS NEEDED FOR PAIN MAXIMUM DAILY DOSE = 4 TABLETS SOLD: 03/30/2020 [facility] pantoprazole 40 MG Delayed Release Oral Tablet PANTOPRAZOLE SODIUM 03/25/2020 12:00:00 AM EST tablet,delayed release (DR/EC) 30 T ISIDRO ONE TABLET BY MOUTH EVERY DAY TAKE ONE TABLET BY MOUTH EVERY DAY SOLD: 04/22/2020 [facility] pantoprazole 40 MG Delayed Release Oral Tablet PANTOPRAZOLE SODIUM 03/25/2020 12:00:00 AM EST tablet,delayed release (DR/EC) 30 T ISIDRO ONE TABLET BY MOUTH EVERY DAY TAKE ONE TABLET BY MOUTH EVERY DAY SOLD: 05/23/2020 [facility] montelukast 10 MG Oral Tablet MONTELUKAST SODIUM 03/25/2020 12:0 0:00 AM EST tablet 30 TAKE ONE TABLET BY MOUTH EVERY D AY TAKE ONE TABLET BY MOUTH EVERY DAY SOLD: 04/22/2020 [facility] montelukast 10 MG Oral Tablet MONTELUKAST SODIUM 03/25/2020 12:0 0:00 AM EST tablet 30 TAKE ONE TABLET BY MOUTH EVERY D AY TAKE ONE TABLET BY MOUTH EVERY DAY SOLD: 03/27/2020 [facility] pantoprazole 40 MG Delayed Release Oral Tablet PANTOPRAZOLE SODIUM 03/25/2020 12:00:00 AM EST tablet,delayed release (DR/EC) 30 T ISIDRO ONE TABLET BY MOUTH EVERY DAY TAKE ONE TABLET BY MOUTH EVERY DAY SOLD: 03/27/2020 [facility] montelukast 10 MG Oral Tablet MONTELUKAST SODIUM 03/25/2020 12:0 0:00 AM EST tablet 30 TAKE ONE TABLET BY MOUTH EVERY D AY TAKE ONE TABLET BY MOUTH EVERY DAY SOLD: 05/23/2020 [facility] tizanidine 4 MG Oral Tablet Tizanidine HCL 03/19/2020 12:00:00 AM EST ORAL active MEDENT ([facility]) Acetaminophen 300 MG / Codeine Phosphate 30 MG Oral Tablet [Tylenol with Codeine] Tylenol With Codeine #3 03/19/2020 12:00:00 AM EST active [facility] ([facility]) tizanidine 4 MG Oral Tablet TIZANIDINE HCL 03/19/2020 12:00:00 AM EST tablet 30 TAKE ONE TABLET BY MOUTH THREE TIMES A DAY MAXIMUM JENNIFER LY DOSE = 3 TAKE ONE TABLET BY MOUTH THREE TIMES A DAY MAXIMUM DAILY DOSE = 3 SOLD: 03/19/2020 [facility] 300-30 mg 03/19/2020 12:00:00 AM EST tablet 30 TAKE 1-2 TABLETS BY MOUTH EVERY 4 TO 6 HOURS NEEDED FOR PAIN MAXIMUM DAILY DOSE = 4 TABLETS TAKE 1-2 TABLETS BY MOUTH EVERY 4 TO 6 HOURS NEEDED FOR PAIN MAXIMUM DAILY DOSE = 4 TABLETS SOLD: 03/19/2020 [facility] 5-325 mg 03/08/2020 12:00:00 AM EST tablet 12 TAKE 1 TABLET BY MOUTH EVERY 4 TO 6 HOURS NEEDED FOR PAIN AFTER SURGERY MAXIMUM DAILY DOSE = 6 TABLETS TAKE 1 TABLET BY MOUTH EVERY 4 TO 6 HOURS NEEDED FOR PAIN AFTER SURGERY MAXIMUM DAILY DOSE = 6 TABLETS SOLD: 03/09/2020 [facility] pregabalin 25 MG Oral Capsule [Lyrica] Lyrica 02/29/2020 12:00:00 AM EDT ORAL active [facility] ([facility]) Bupropion Hydrochloride 75 MG Oral Tablet Bupropion HCL 02/29/2020 12:00:00 AM EDT ORAL active [facility] ([facility]) pantoprazole 20 MG Delayed Release Oral Tablet Pantoprazole Sodium 02/29/2020 12:00:00 AM EDT ORAL active M EDENT ([facility]) 2 % 02/27/2020 12:00:00 AM EDT ointment 22 APPLY A PEA SIZED AMOUNT TO EACH NASAL PASSAGE 3 TIMES A DAY FOR 5 DAYS BEFORE SURGERY APPLY A PEA SIZED AMOUNT TO EACH NASAL PASSAGE 3 TIMES A DAY FOR 5 DAYS BEFORE SURGERY SOLD: 03/01/2020 [facility] Mupirocin 0.02 MG/MG Topical Ointment [Bactroban] Bactroban 02/27/2020 12:00:00 AM EDT active MEDENT ([facility]) chlorhexidine gluconate 40 MG/ML Medicated Liquid Soap [Hibi clens] Hibiclens 02/27/2020 12:00:00 AM EDT active MEDENT ([facility]) 600 mg 02/20/2020 12:00:00 AM EDT tablet 90 TAKE 1 TABLET BY MOUTH 3 TIMES A DAY MAXIMUM DAILY DOSE = 3 TABLETS TAKE 1 TABLET BY MOUTH 3 TIMES A DAY MAX IMUM DAILY DOSE = 3 TABLETS SOLD: 02/21/2020 [facility] 75 mg 02/20/2020 12:00:00 AM EDT tablet 60 TAKE ONE TABLET BY MOUTH TWICE A DAY TAKE ONE TABLET BY MOUTH TWICE A DAY SOLD: 02/21/2020 [facility] 75 mg 02/20/2020 12:00:00 AM EDT capsule 60 TAKE 1 CAPSULE BY MOUTH TWICE A DAY MAXIMUM DAILY DOSE = 2 CAPSULES TAKE 1 CAPSULE BY MOUTH TWICE A DAY MAXI MUM DAILY DOSE = 2 CAPSULES SOLD: 02/21/2020 [facility] Acetaminophen 325 MG / Hydrocodone Bitartrate 5 MG Ora l Tablet Hydrocodone Bitartrate/Acetaminophen 02/20/2020 12:00:00 AM EDT ORAL active MEDENT ([facility]) 75 mg 02/20/2020 12:00:00 AM EDT capsule 60 TAKE 1 CAPSULE BY MOUTH TWICE A DAY MAXIMUM DAILY DOSE = 2 CAPSULES TAKE 1 CAPSULE BY MOUTH TWICE A DAY MAXI MUM DAILY DOSE = 2 CAPSULES SOLD: 03/20/2020 [facility] pregabalin 75 MG Oral Capsule [Lyrica] Lyrica 75 MG Lyrica 7 5 MG 02/19/2020 12:00:00 AM EDT 1.0 {capsule} suspended Lyrica 75 MG eCW1 ([facility]) pregabalin 75 MG Oral Capsule [Lyrica] Lyrica 75 MG Lyrica 7 5 MG 02/19/2020 12:00:00 AM EDT 1.0 {capsule} suspended Lyrica 75 MG eCW1 ([facility]) pregabalin 75 MG Oral Capsule [Lyrica] Lyrica 75 MG Lyrica 7 5 MG 02/19/2020 12:00:00 AM EDT 1.0 {capsule} active L yrica 75 MG eCW1 ([facility]) pregabalin 75 MG Oral Capsule [Lyrica] Lyrica 75 MG Lyrica 7 5 MG 02/19/2020 12:00:00 AM EDT 1.0 {capsule} suspended Lyrica 75 MG eCW1 ([facility]) pregabalin 75 MG Oral Capsule [Lyrica] Lyrica 75 MG Lyrica 7 5 MG 02/19/2020 12:00:00 AM EDT 1.0 {capsule} suspended Lyrica 75 MG eCW1 ([facility]) pregabalin 75 MG Oral Capsule [Lyrica] Lyrica 75 MG Lyrica 7 5 MG 02/19/2020 12:00:00 AM EDT 1.0 {capsule} active L yrica 75 MG eCW1 ([facility]) pregabalin 75 MG Oral Capsule [Lyrica] Lyrica 75 MG Lyrica 7 5 MG 02/19/2020 12:00:00 AM EDT 1.0 {capsule} active L yrica 75 MG eCW1 ([facility]) 20 mg 01/28/2020 12:00:00 AM EDT capsule,delayed release (DR/EC) 30 TAKE ONE CAPSULE BY MOUTH EVERY DAY TAKE ONE CAPSULE BY MOUTH EVERY DAY SOLD: 02/02/2020 [facility] 20 mg 01/28/2020 12:00:00 AM EDT capsule,delayed release (DR/EC) 30 TAKE ONE CAPSULE BY MOUTH EVERY DAY TAKE ONE CAPSULE BY MOUTH EVERY DAY SOLD: 03/01/2020 [facility] 232-14 mcg/actuation 01/27/2020 12:00:00 AM EDT aerosol powdr breath activated 3 INHALE ONE PUFF BY MOUTH TWICE A DAY INHA LE ONE PUFF BY MOUTH TWICE A DAY SOLD: 05/04/2020 [facility] 232-14 mcg/actuation 01/27/2020 12:00:00 AM EDT aerosol powdr breath activated 3 INHALE ONE PUFF BY MOUTH TWICE A DAY INHA LE ONE PUFF BY MOUTH TWICE A DAY SOLD: 02/02/2020 [facility] 40 mg 12/29/2019 12:00:00 AM EDT tablet,delayed release (DR/EC) 30 TAKE ONE TABLET BY MOUTH EVERY DAY TAKE ONE TABLET BY MOUTH EVERY DAY SOLD: 12/31/2019 [facility] 600 mg 12/14/2019 12:00:00 AM EDT tablet 135 TAKE 1 & 1/2 TABLETS BY MOUTH THREE TIMES A DAY TAKE 1 & 1/2 TABLETS BY MOUTH THREE TIMES A DAY SOLD: 12/17/2019 [facility] 600 mg 12/14/2019 12:00:00 AM EDT tablet 135 TAKE 1 & 1/2 TABLETS BY MOUTH THREE TIMES A DAY TAKE 1 & 1/2 TABLETS BY MOUTH THREE TIMES A DAY SOLD: 01/14/2020 [facility] 4 mg 12/02/2019 12:00:00 AM EDT tablet,disintegrating 3 0 DISSOLVE ONE TABLET ON TONGUE EVERY 8 HOURS NEEDED FOR NAUSEA AND VOMITING OR MIGRAINE DISSOLVE ONE TABLET ON TONGUE EVERY 8 HOURS NEEDED FOR NAUSEA AND VOMITING OR MIGRAINE SOLD: 12/05/2019 [facility] Ondansetron 4 MG Disintegrating Oral Tablet Ondansetron 12/02/2019 12:00:00 AM EDT active MEDENT ([facility]) gabapentin 600 MG Oral Tablet Gabapentin 600 MG Gabapentin 6 00 MG 11/27/2019 12:00:00 AM EDT 1.0 {tablet} suspended Gabapentin 600 MG eCW1 ([facility]) gabapentin 600 MG Oral Tablet Gabapentin 600 MG Gabapentin 6 00 MG 11/27/2019 12:00:00 AM EDT 1.0 {tablet} suspended Gabapentin 600 MG eCW1 ([facility]) gabapentin 600 MG Oral Tablet Gabapentin 600 MG Gabapentin 6 00 MG 11/27/2019 12:00:00 AM EDT 1.0 {tablet} active Ga bapentin 600 MG eCW1 ([facility]) 600 mg 11/27/2019 12:00:00 AM EDT tablet 90 TAKE ONE TABLET BY MOUTH THREE TIMES A DAY TAKE ONE TABLET BY MOUTH THREE TIMES A DAY SOLD: 11/28/2019 [facility] gabapentin 600 MG Oral Tablet Gabapentin 600 MG Gabapentin 6 00 MG 11/27/2019 12:00:00 AM EDT 1.0 {tablet} active Ga bapentin 600 MG eCW1 ([facility]) gabapentin 600 MG Oral Tablet Gabapentin 600 MG Gabapentin 6 00 MG 11/27/2019 12:00:00 AM EDT 1.0 {tablet} active Ga bapentin 600 MG eCW1 ([facility]) gabapentin 600 MG Oral Tablet Gabapentin 600 MG Gabapentin 6 00 MG 11/27/2019 12:00:00 AM EDT 1.0 {tablet} active Ga bapentin 600 MG eCW1 ([facility]) gabapentin 600 MG Oral Tablet Gabapentin 600 MG Gabapentin 6 00 MG 11/27/2019 12:00:00 AM EDT 1.0 {tablet} suspended Gabapentin 600 MG eCW1 ([facility]) gabapentin 600 MG Oral Tablet Gabapentin 600 MG Gabapentin 6 00 MG 11/27/2019 12:00:00 AM EDT 1.0 {tablet} active Ga bapentin 600 MG eCW1 ([facility]) gabapentin 600 MG Oral Tablet Gabapentin 600 MG Gabapentin 6 00 MG 11/27/2019 12:00:00 AM EDT 1.0 {tablet} suspended Gabapentin 600 MG eCW1 ([facility]) 300 mg 11/20/2019 12:00:00 AM EDT capsule 45 TAKE 1 CAPSULE BY MOUTH 3 TIMES A DAY MAX DAILY DOSE = 3 CAPSULES TAKE 1 CAPSULE BY MOUTH 3 TIMES A DAY MA X DAILY DOSE = 3 CAPSULES SOLD: 11/20/2019 [facility] 5 % 11/20/2019 12:00:00 AM EDT adhesive patch,medicate d 30 APPLY 1 PATCH TOPICALLY ONCE A DAY, MAY WEAR FOR UP TO 12 HOURS (12 HOURS ON, 12 HOURS OFF) APPLY 1 PATCH TOPICALLY ONCE A DAY, MAY WEAR FOR UP TO 12 HOURS (12 HOURS ON, 12 HOURS OFF) SOLD: 11/20/2019 [facility] 750 mg 11/13/2019 12:00:00 AM EDT tablet 30 TAKE ONE TABLET BY MOUTH THREE TIMES A DAY TAKE ONE TABLET BY MOUTH THREE TIMES A DAY SOLD: 11/13/2019 [facility] 20 mg 11/13/2019 12:00:00 AM EDT tablet 20 3 TABLETS BY MOUTH EVERY DAY X 3 DAYS, 2 TABLETS EVERY DAY X 4 DAYS, 1 TABLET EVERY DAY X 3 DAYS 3 TABLETS BY MOUTH EVERY DAY X 3 DAYS, 2 TABLETS EVERY DAY X 4 DAYS, 1 TABLET EVERY DAY X 3 DAYS SOLD: 11/13/2019 [facility] Prednisone 20 MG Oral Tablet Prednisone 11/12/2019 12:00:00 AM EDT active [facility] ([facility]) Methocarbamol 750 MG Oral Tablet Methocarbamol 11/12/2019 12:00:00 AM EDT active MEDENT ([facility]) onabotulinumtoxinA 200 UNT/ML Injectable Solution [Botox] Alvarado tox 10/30/2019 12:00:00 AM EDT active M EDENT ([facility]) 25 mcg (1,000 unit) 10/16/2019 12:00:00 AM EDT tablet 30 TAKE ONE TABLET BY MOUTH EVERY DAY TAKE ONE TABLET BY MOUTH EVERY DAY SOLD: 12/31/2019 [facility] 10 mg 10/16/2019 12:00:00 AM EDT tablet 30 TAKE ONE TABLET BY MOUTH EVERY DAY NEEDED TAKE ONE TABLET BY MOUTH EVERY DAY NEEDED SOLD: 02/02/2020 [facility] 10 mg 10/16/2019 12:00:00 AM EDT tablet 30 TAKE ONE TABLET BY MOUTH EVERY DAY TAKE ONE TABLET BY MOUTH EVERY DAY SOLD: 11/20/2019 [facility] 25 mcg (1,000 unit) 10/16/2019 12:00:00 AM EDT tablet 30 TAKE ONE TABLET BY MOUTH EVERY DAY TAKE ONE TABLET BY MOUTH EVERY DAY SOLD: 10/17/2019 [facility] 10 mg 10/16/2019 12:00:00 AM EDT tablet 30 TAKE ONE TABLET BY MOUTH EVERY DAY NEEDED TAKE ONE TABLET BY MOUTH EVERY DAY NEEDED SOLD: 10/17/2019 [facility] 25 mcg (1,000 unit) 10/16/2019 12:00:00 AM EDT tablet 30 TAKE ONE TABLET BY MOUTH EVERY DAY TAKE ONE TABLET BY MOUTH EVERY DAY SOLD: 11/20/2019 [facility] 10 mg 10/16/2019 12:00:00 AM EDT tablet 30 TAKE ONE TABLET BY MOUTH EVERY DAY NEEDED TAKE ONE TABLET BY MOUTH EVERY DAY NEEDED SOLD: 03/30/2020 [facility] 10 mg 10/16/2019 12:00:00 AM EDT tablet 30 TAKE ONE TABLET BY MOUTH EVERY DAY TAKE ONE TABLET BY MOUTH EVERY DAY SOLD: 12/31/2019 [facility] 10 mg 10/16/2019 12:00:00 AM EDT tablet 30 TAKE ONE TABLET BY MOUTH EVERY DAY TAKE ONE TABLET BY MOUTH EVERY DAY SOLD: 10/17/2019 [facility] 25 mcg (1,000 unit) 10/16/2019 12:00:00 AM EDT tablet 30 TAKE ONE TABLET BY MOUTH EVERY DAY TAKE ONE TABLET BY MOUTH EVERY DAY SOLD: 02/02/2020 [facility] 10 mg 10/16/2019 12:00:00 AM EDT tablet 30 TAKE ONE TABLET BY MOUTH EVERY DAY NEEDED TAKE ONE TABLET BY MOUTH EVERY DAY NEEDED SOLD: 12/31/2019 [facility] 25 mcg (1,000 unit) 10/16/2019 12:00:00 AM EDT tablet 30 TAKE ONE TABLET BY MOUTH EVERY DAY TAKE ONE TABLET BY MOUTH EVERY DAY SOLD: 03/30/2020 [facility] 25 mcg (1,000 unit) 10/16/2019 12:00:00 AM EDT tablet 30 TAKE ONE TABLET BY MOUTH EVERY DAY TAKE ONE TABLET BY MOUTH EVERY DAY SOLD: 03/01/2020 [facility] 10 mg 10/16/2019 12:00:00 AM EDT tablet 30 TAKE ONE TABLET BY MOUTH EVERY DAY NEEDED TAKE ONE TABLET BY MOUTH EVERY DAY NEEDED SOLD: 11/20/2019 [facility] atorvastatin 10 MG Oral Tablet ATORVASTATIN CALCIUM 10/16/2019 1 2:00:00 AM EDT tablet 30 TAKE ONE TABLET BY MOUTH EVERY D AY TAKE ONE TABLET BY MOUTH EVERY DAY SOLD: 03/30/2020 [facility] 10 mg 10/16/2019 12:00:00 AM EDT tablet 30 TAKE ONE TABLET BY MOUTH EVERY DAY NEEDED TAKE ONE TABLET BY MOUTH EVERY DAY NEEDED SOLD: 03/01/2020 [facility] atorvastatin 10 MG Oral Tablet ATORVASTATIN CALCIUM 10/16/2019 1 2:00:00 AM EDT tablet 30 TAKE ONE TABLET BY MOUTH EVERY D AY TAKE ONE TABLET BY MOUTH EVERY DAY SOLD: 03/01/2020 [facility] atorvastatin 10 MG Oral Tablet ATORVASTATIN CALCIUM 10/16/2019 1 2:00:00 AM EDT tablet 30 TAKE ONE TABLET BY MOUTH EVERY D AY TAKE ONE TABLET BY MOUTH EVERY DAY SOLD: 02/02/2020 [facility] Bupropion Hydrochloride 75 MG Oral Tablet BuPROPion HC l 75 MG BuPROPion HCl 75 MG 10/13/2019 12:00:00 AM EDT active BuPROPion HCl 75 MG eCW1 ([facility]) 75 mg 10/13/2019 12:00:00 AM EDT tablet 60 TAKE ONE TABLET BY MOUTH TWICE A DAY TAKE ONE TABLET BY MOUTH TWICE A DAY SOLD: 10/17/2019 [facility] Bupropion Hydrochloride 75 MG Oral Tablet BuPROPion HC l 75 MG BuPROPion HCl 75 MG 10/13/2019 12:00:00 AM EDT active BuPROPion HCl 75 MG eCW1 ([facility]) Bupropion Hydrochloride 75 MG Oral Tablet BuPROPion HC l 75 MG BuPROPion HCl 75 MG 10/13/2019 12:00:00 AM EDT active BuPROPion HCl 75 MG eCW1 ([facility]) Bupropion Hydrochloride 75 MG Oral Tablet BuPROPion HC l 75 MG BuPROPion HCl 75 MG 10/13/2019 12:00:00 AM EDT active BuPROPion HCl 75 MG eCW1 ([facility]) Bupropion Hydrochloride 75 MG Oral Tablet BuPROPion HC l 75 MG BuPROPion HCl 75 MG 10/13/2019 12:00:00 AM EDT active BuPROPion HCl 75 MG eCW1 ([facility]) Bupropion Hydrochloride 75 MG Oral Tablet BuPROPion HC l 75 MG BuPROPion HCl 75 MG 10/13/2019 12:00:00 AM EDT active BuPROPion HCl 75 MG eCW1 ([facility]) Bupropion Hydrochloride 75 MG Oral Tablet BuPROPion HC l 75 MG BuPROPion HCl 75 MG 10/13/2019 12:00:00 AM EDT active BuPROPion HCl 75 MG eCW1 ([facility]) Bupropion Hydrochloride 75 MG Oral Tablet BuPROPion HC l 75 MG BuPROPion HCl 75 MG 10/13/2019 12:00:00 AM EDT active BuPROPion HCl 75 MG eCW1 ([facility]) Bupropion Hydrochloride 75 MG Oral Tablet BuPROPion HC l 75 MG BuPROPion HCl 75 MG 10/13/2019 12:00:00 AM EDT active BuPROPion HCl 75 MG eCW1 ([facility]) Bupropion Hydrochloride 75 MG Oral Tablet BuPROPion HC l 75 MG BuPROPion HCl 75 MG 10/13/2019 12:00:00 AM EDT active BuPROPion HCl 75 MG eCW1 ([facility]) Bupropion Hydrochloride 75 MG Oral Tablet BuPROPion HC l 75 MG BuPROPion HCl 75 MG 10/13/2019 12:00:00 AM EDT active BuPROPion HCl 75 MG eCW1 ([facility]) Bupropion Hydrochloride 75 MG Oral Tablet BuPROPion HC l 75 MG BuPROPion HCl 75 MG 10/13/2019 12:00:00 AM EDT active BuPROPion HCl 75 MG eCW1 ([facility]) Bupropion Hydrochloride 75 MG Oral Tablet BuPROPion HC l 75 MG BuPROPion HCl 75 MG 10/13/2019 12:00:00 AM EDT active BuPROPion HCl 75 MG eCW1 ([facility]) 20 mg 08/29/2019 12:00:00 AM EDT capsule,delayed release (DR/EC) 30 TAKE ONE CAPSULE BY MOUTH EVERY DAY TAKE ONE CAPSULE BY MOUTH EVERY DAY SOLD: 12/31/2019 [facility] 20 mg 08/29/2019 12:00:00 AM EDT capsule,delayed release (DR/EC) 30 TAKE ONE CAPSULE BY MOUTH EVERY DAY TAKE ONE CAPSULE BY MOUTH EVERY DAY SOLD: 11/20/2019 [facility] 20 mg 08/29/2019 12:00:00 AM EDT capsule,delayed release (DR/EC) 30 TAKE ONE CAPSULE BY MOUTH EVERY DAY TAKE ONE CAPSULE BY MOUTH EVERY DAY SOLD: 09/18/2019 [facility] 20 mg 08/29/2019 12:00:00 AM EDT capsule,delayed release (DR/EC) 30 TAKE ONE CAPSULE BY MOUTH EVERY DAY TAKE ONE CAPSULE BY MOUTH EVERY DAY SOLD: 10/17/2019 [facility] 100 mg 08/06/2019 12:00:00 AM EDT tablet 60 TAKE ONE TABLET BY MOUTH TWICE A DAY TAKE ONE TABLET BY MOUTH TWICE A DAY SOLD: 08/12/2019 [facility] 232-14 mcg/actuation 07/31/2019 12:00:00 AM EDT aerosol powdr breath activated 3 INHALE ONE PUFF BY MOUTH TWICE A DAY INHA LE ONE PUFF BY MOUTH TWICE A DAY SOLD: 08/03/2019 [facility] 232-14 mcg/actuation 07/31/2019 12:00:00 AM EDT aerosol powdr breath activated 3 INHALE ONE PUFF BY MOUTH TWICE A DAY INHA LE ONE PUFF BY MOUTH TWICE A DAY SOLD: 10/31/2019 [facility] 500 mg 07/02/2019 12:00:00 AM EST tablet 40 TAKE 2 TABLETS BY MOUTH TWO TIMES A DAY FOR 10 DAYS TAKE 2 TABLETS BY MOUTH TWO TIMES A DAY FOR 10 DAYS SOLD: 07/02/2019 [facility] 75 mg 07/01/2019 12:00:00 AM EST capsule 10 TAKE ONE CAPSULE BY MOUTH TWICE A DAY FOR 5 DAYS TAKE ONE CAPSULE BY MOUTH TWICE A DAY FOR 5 DAYS SOLD: 07/02/2019 [facility] 50 mg 06/18/2019 12:00:00 AM EST tablet 30 TAKE ONE TABLET BY MOUTH DAILY AT BEDTIME TAKE ONE TABLET BY MOUTH DAILY AT BEDTIME SOLD: 07/24/2019 [facility] 50 mg 06/18/2019 12:00:00 AM EST tablet 30 TAKE ONE TABLET BY MOUTH DAILY AT BEDTIME TAKE ONE TABLET BY MOUTH DAILY AT BEDTIME SOLD: 08/21/2019 [facility] 50 mg 06/18/2019 12:00:00 AM EST tablet 30 TAKE ONE TABLET BY MOUTH DAILY AT BEDTIME TAKE ONE TABLET BY MOUTH DAILY AT BEDTIME SOLD: 09/18/2019 [facility] 50 mg 06/18/2019 12:00:00 AM EST tablet 30 TAKE ONE TABLET BY MOUTH DAILY AT BEDTIME TAKE ONE TABLET BY MOUTH DAILY AT BEDTIME SOLD: 06/18/2019 [facility] Amitriptyline Hydrochloride 50 MG Oral Tablet Amitriptyline HCL 06/17/2019 12:00:00 AM EST active M EDENT ([facility]) 100 mg 06/06/2019 12:00:00 AM EST tablet 60 TAKE 1 TABLET BY MOUTH TWICE A DAY TAKE 1 TABLET BY MOUTH TWICE A DAY SOLD: 06/09/2019 [facility] Bupropion Hydrochloride 100 MG Oral Tablet BuPROPion H Cl 100 MG BuPROPion HCl 100 MG 06/05/2019 12:00:00 AM EST active 1 tablet W1 ([facility]) Bupropion Hydrochloride 100 MG Oral Tablet BuPROPion H Cl 100 MG BuPROPion HCl 100 MG 06/05/2019 12:00:00 AM EST active 1 tablet eCW1 ([facility]) Amitriptyline Hydrochloride 25 MG Oral Tablet AMITRIPTYLINE HCL 06/03/2019 12:00:00 AM EST tablet 30 TAKE 1 TABLET BY MOUTH AT BEDTIME TAKE 1 TABLET BY MOUTH AT BEDTIME SOLD: 06/04/2019 [facility] Amitriptyline Hydrochloride 25 MG Oral Tablet Amitriptyline HCL 06/02/2019 12:00:00 AM EST completed MEDENT ([facility]) 0.75 % 05/09/2019 12:00:00 AM EST gel 45 APPLY 1 APPLICATION TOPICALLY TO FACE AFTER WASHING TWICE A DAY APPLY 1 APPLICATION TOPICALLY TO FACE AF TER WASHING TWICE A DAY SOLD: 06/09/2019 [facility] 0.75 % 05/09/2019 12:00:00 AM EST gel 45 APPLY 1 APPLICATION TOPICALLY TO FACE AFTER WASHING TWICE A DAY APPLY 1 APPLICATION TOPICALLY TO FACE AF TER WASHING TWICE A DAY SOLD: 09/18/2019 [facility] 0.75 % 05/09/2019 12:00:00 AM EST gel 45 APPLY 1 APPLICATION TOPICALLY TO FACE AFTER WASHING TWICE A DAY APPLY 1 APPLICATION TOPICALLY TO FACE AF TER WASHING TWICE A DAY SOLD: 07/24/2019 [facility] 0.75 % 05/09/2019 12:00:00 AM EST gel 45 APPLY 1 APPLICATION TOPICALLY TO FACE AFTER WASHING TWICE A DAY APPLY 1 APPLICATION TOPICALLY TO FACE AF TER WASHING TWICE A DAY SOLD: 08/21/2019 [facility] 0.75 % 05/09/2019 12:00:00 AM EST gel 45 APPLY 1 APPLICATION TOPICALLY TO FACE AFTER WASHING TWICE A DAY APPLY 1 APPLICATION TOPICALLY TO FACE AF TER WASHING TWICE A DAY SOLD: 05/09/2019 [facility] 0.75 % 05/09/2019 12:00:00 AM EST gel 45 APPLY 1 APPLICATION TOPICALLY TO FACE AFTER WASHING TWICE A DAY APPLY 1 APPLICATION TOPICALLY TO FACE AF TER WASHING TWICE A DAY SOLD: 10/17/2019 [facility] Metronidazole 0.0075 MG/MG Vaginal Gel Metronidazole 0 .75 % Metronidazole 0.75 % 05/08/2019 12:00:00 AM EST active 1 application eCW1 ([facility]) Metronidazole 0.0075 MG/MG Vaginal Gel Metronidazole 0 .75 % Metronidazole 0.75 % 05/08/2019 12:00:00 AM EST 1.0 {application} active Metronidazole 0.75 % eCW1 ([facility]) Metronidazole 0.0075 MG/MG Vaginal Gel Metronidazole 0 .75 % Metronidazole 0.75 % 05/08/2019 12:00:00 AM EST 1.0 {application} active Metronidazole 0.75 % eCW1 ([facility]) Metronidazole 0.0075 MG/MG Vaginal Gel Metronidazole 0 .75 % Metronidazole 0.75 % 05/08/2019 12:00:00 AM EST 1.0 {application} active Metronidazole 0.75 % eCW1 ([facility]) Metronidazole 0.0075 MG/MG Vaginal Gel Metronidazole 0 .75 % Metronidazole 0.75 % 05/08/2019 12:00:00 AM EST 1.0 {application} active Metronidazole 0.75 % eCW1 ([facility]) Metronidazole 0.0075 MG/MG Vaginal Gel Metronidazole 0 .75 % Metronidazole 0.75 % 05/08/2019 12:00:00 AM EST 1.0 {application} active Metronidazole 0.75 % eCW1 ([facility]) Metronidazole 0.0075 MG/MG Vaginal Gel Metronidazole 0 .75 % Metronidazole 0.75 % 05/08/2019 12:00:00 AM EST active 1 application eCW1 ([facility]) Metronidazole 0.0075 MG/MG Vaginal Gel Metronidazole 0 .75 % Metronidazole 0.75 % 05/08/2019 12:00:00 AM EST active 1 application eCW1 ([facility]) Metronidazole 0.0075 MG/MG Vaginal Gel Metronidazole 0 .75 % Metronidazole 0.75 % 05/08/2019 12:00:00 AM EST 1.0 {application} active Metronidazole 0.75 % eCW1 ([facility]) Metronidazole 0.0075 MG/MG Vaginal Gel Metronidazole 0 .75 % Metronidazole 0.75 % 05/08/2019 12:00:00 AM EST 1.0 {application} active Metronidazole 0.75 % eCW1 ([facility]) Metronidazole 0.0075 MG/MG Vaginal Gel Metronidazole 0 .75 % Metronidazole 0.75 % 05/08/2019 12:00:00 AM EST active 1 application eCW1 ([facility]) Metronidazole 0.0075 MG/MG Vaginal Gel Metronidazole 0 .75 % Metronidazole 0.75 % 05/08/2019 12:00:00 AM EST 1.0 {application} active Metronidazole 0.75 % eCW1 ([facility]) Metronidazole 0.0075 MG/MG Vaginal Gel Metronidazole 0 .75 % Metronidazole 0.75 % 05/08/2019 12:00:00 AM EST 1.0 {application} active Metronidazole 0.75 % eCW1 ([facility]) Metronidazole 0.0075 MG/MG Vaginal Gel Metronidazole 0 .75 % Metronidazole 0.75 % 05/08/2019 12:00:00 AM EST 1.0 {application} active Metronidazole 0.75 % eCW1 ([facility]) Metronidazole 0.0075 MG/MG Vaginal Gel Metronidazole 0 .75 % Metronidazole 0.75 % 05/08/2019 12:00:00 AM EST 1.0 {application} active Metronidazole 0.75 % eCW1 ([facility]) Metronidazole 0.0075 MG/MG Vaginal Gel Metronidazole 0 .75 % Metronidazole 0.75 % 05/08/2019 12:00:00 AM EST 1.0 {application} active Metronidazole 0.75 % eCW1 ([facility]) Metronidazole 0.0075 MG/MG Vaginal Gel Metronidazole 0 .75 % Metronidazole 0.75 % 05/08/2019 12:00:00 AM EST 1.0 {application} active Metronidazole 0.75 % eCW1 ([facility]) Metronidazole 0.0075 MG/MG Vaginal Gel Metronidazole 0 .75 % Metronidazole 0.75 % 05/08/2019 12:00:00 AM EST 1.0 {application} active Metronidazole 0.75 % eCW1 ([facility]) Metronidazole 0.0075 MG/MG Vaginal Gel Metronidazole 0 .75 % Metronidazole 0.75 % 05/08/2019 12:00:00 AM EST 1.0 {application} active Metronidazole 0.75 % eCW1 ([facility]) venlafaxine 100 MG Oral Tablet VENLAFAXINE HCL 05/01/2019 12:00: 00 AM EST tablet 60 TAKE ONE TABLET BY MOUTH TWICE A DAY WITH FOOD TAKE ONE TABLET BY MOUTH TWICE A DAY WITH FOOD SOLD: 05/05/2019 [facility] Amoxicillin 875 MG / Clavulanate 125 MG Oral Tablet Amoxicillin-Pot Clavulanate 875-125 MG Amoxicillin-Pot Clavulanate 875-125 MG 04/29/2019 12:00:00 AM ES T active 1 tablet eCW1 ([facility]) Amoxicillin 875 MG / Clavulanate 125 MG Oral Tablet Amoxicillin-Pot Clavulanate 875-125 MG Amoxicillin-Pot Clavulanate 875-125 MG 04/29/2019 12:00:00 AM ES T 1.0 {tablet} suspended Amoxicillin-Pot C lavulanate 875-125 MG eCW1 ([facility]) Amoxicillin 875 MG / Clavulanate 125 MG Oral Tablet Amoxicillin-Pot Clavulanate 875-125 MG Amoxicillin-Pot Clavulanate 875-125 MG 04/29/2019 12:00:00 AM ES T suspended 1 tablet eCW1 ([facility]) Amoxicillin 875 MG / Clavulanate 125 MG Oral Tablet Amoxicillin-Pot Clavulanate 875-125 MG Amoxicillin-Pot Clavulanate 875-125 MG 04/29/2019 12:00:00 AM ES T suspended 1 tablet eCW1 ([facility]) venlafaxine 100 MG Oral Tablet Venlafaxine HCl 100 MG Venlaf axine HCl 100 MG 04/29/2019 12:00:00 AM EST active 1 tablet with food eCW1 ([facility]) venlafaxine 100 MG Oral Tablet Venlafaxine HCl 100 MG Venlaf axine HCl 100 MG 04/29/2019 12:00:00 AM EST active 1 tablet with food eCW1 ([facility]) 875-125 mg 04/29/2019 12:00:00 AM EST tablet 20 TAKE ONE TABLET BY MOUTH EVERY 12 HOURS FOR 10 DAYS TAKE ONE TABLET BY MOUTH EVERY 12 HOURS FOR 10 DAYS SOLD: 05/05/2019 [facility] Amoxicillin 875 MG / Clavulanate 125 MG Oral Tablet Amoxicillin-Pot Clavulanate 875-125 MG Amoxicillin-Pot Clavulanate 875-125 MG 04/29/2019 12:00:00 AM ES T 1.0 {tablet} suspended Amoxicillin-Pot C lavulanate 875-125 MG W1 ([facility]) Amoxicillin 875 MG / Clavulanate 125 MG Oral Tablet Amoxicillin-Pot Clavulanate 875-125 MG Amoxicillin-Pot Clavulanate 875-125 MG 04/29/2019 12:00:00 AM ES T active 1 tablet W1 ([facility]) Amoxicillin 875 MG / Clavulanate 125 MG Oral Tablet Amoxicillin-Pot Clavulanate 875-125 MG Amoxicillin-Pot Clavulanate 875-125 MG 04/29/2019 12:00:00 AM ES T suspended 1 tablet W1 ([facility]) 25 mcg (1,000 unit) 03/29/2019 12:00:00 AM EST tablet 30 TAKE 1 TABLET BY MOUTH ONCE A DAY TAKE 1 TABLET BY MOUTH ONCE A DAY SOLD: 07/24/2019 [facility] 10 mg 03/29/2019 12:00:00 AM EST tablet 30 TAKE ONE TABLET BY MOUTH EVERY DAY TAKE ONE TABLET BY MOUTH EVERY DAY SOLD: 08/21/2019 [facility] 25 mcg (1,000 unit) 03/29/2019 12:00:00 AM EST tablet 30 TAKE 1 TABLET BY MOUTH ONCE A DAY TAKE 1 TABLET BY MOUTH ONCE A DAY SOLD: 05/19/2019 [facility] 10 mg 03/29/2019 12:00:00 AM EST tablet 30 TAKE ONE TABLET BY MOUTH EVERY DAY TAKE ONE TABLET BY MOUTH EVERY DAY SOLD: 06/16/2019 [facility] 25 mcg (1,000 unit) 03/29/2019 12:00:00 AM EST tablet 30 TAKE 1 TABLET BY MOUTH ONCE A DAY TAKE 1 TABLET BY MOUTH ONCE A DAY SOLD: 08/21/2019 [facility] 10 mg 03/29/2019 12:00:00 AM EST tablet 30 TAKE ONE TABLET BY MOUTH EVERY DAY NEEDED TAKE ONE TABLET BY MOUTH EVERY DAY NEEDED SOLD: 04/15/2019 [facility] 25 mcg (1,000 unit) 03/29/2019 12:00:00 AM EST tablet 30 TAKE 1 TABLET BY MOUTH ONCE A DAY TAKE 1 TABLET BY MOUTH ONCE A DAY SOLD: 06/16/2019 [facility] 10 mg 03/29/2019 12:00:00 AM EST tablet 30 TAKE ONE TABLET BY MOUTH EVERY DAY TAKE ONE TABLET BY MOUTH EVERY DAY SOLD: 09/18/2019 [facility] 10 mg 03/29/2019 12:00:00 AM EST tablet 30 TAKE ONE TABLET BY MOUTH EVERY DAY TAKE ONE TABLET BY MOUTH EVERY DAY SOLD: 04/15/2019 [facility] 10 mg 03/29/2019 12:00:00 AM EST tablet 30 TAKE ONE TABLET BY MOUTH EVERY DAY TAKE ONE TABLET BY MOUTH EVERY DAY SOLD: 05/19/2019 [facility] 10 mg 03/29/2019 12:00:00 AM EST tablet 30 TAKE ONE TABLET BY MOUTH EVERY DAY TAKE ONE TABLET BY MOUTH EVERY DAY SOLD: 07/24/2019 [facility] 25 mcg (1,000 unit) 03/29/2019 12:00:00 AM EST tablet 30 TAKE 1 TABLET BY MOUTH ONCE A DAY TAKE 1 TABLET BY MOUTH ONCE A DAY SOLD: 09/18/2019 [facility] 10 mg 03/29/2019 12:00:00 AM EST tablet 30 TAKE ONE TABLET BY MOUTH EVERY DAY NEEDED TAKE ONE TABLET BY MOUTH EVERY DAY NEEDED SOLD: 05/19/2019 [facility] 10 mg 03/29/2019 12:00:00 AM EST tablet 30 TAKE ONE TABLET BY MOUTH EVERY DAY NEEDED TAKE ONE TABLET BY MOUTH EVERY DAY NEEDED SOLD: 07/24/2019 [facility] 10 mg 03/29/2019 12:00:00 AM EST tablet 30 TAKE ONE TABLET BY MOUTH EVERY DAY NEEDED TAKE ONE TABLET BY MOUTH EVERY DAY NEEDED SOLD: 06/16/2019 [facility] 10 mg 03/29/2019 12:00:00 AM EST tablet 30 TAKE ONE TABLET BY MOUTH EVERY DAY NEEDED TAKE ONE TABLET BY MOUTH EVERY DAY NEEDED SOLD: 09/18/2019 [facility] 10 mg 03/29/2019 12:00:00 AM EST tablet 30 TAKE ONE TABLET BY MOUTH EVERY DAY NEEDED TAKE ONE TABLET BY MOUTH EVERY DAY NEEDED SOLD: 08/21/2019 [facility] 25 mcg (1,000 unit) 03/29/2019 12:00:00 AM EST tablet 30 TAKE 1 TABLET BY MOUTH ONCE A DAY TAKE 1 TABLET BY MOUTH ONCE A DAY SOLD: 04/15/2019 [facility] 100 mg 02/20/2019 12:00:00 AM EDT tablet 30 TAKE 1 TABLET BY MOUTH AT BEDTIME TAKE 1 TABLET BY MOUTH AT BEDTIME SOLD: 05/07/2019 [facility] 232-14 mcg/actuation 01/20/2019 12:00:00 AM EDT aerosol powdr breath activated 3 INHALE ONE PUFF BY MOUTH TWICE A DAY INHA LE ONE PUFF BY MOUTH TWICE A DAY SOLD: 05/05/2019 [facility] 20 mg 11/20/2018 12:00:00 AM EDT capsule,delayed release (DR/EC) 30 TAKE ONE CAPSULE BY MOUTH EVERY DAY TAKE ONE CAPSULE BY MOUTH EVERY DAY SOLD: 08/03/2019 [facility] Insurance Providers Payer name Policy type / Coverage type Policy ID Covered constitution party ID Covered constitution party's relationship to lorenzana Policy Lorenzana Plan Information [facility] [id number] SP [id number] [facility] [id number] SP [id number] [facility] O [id number] S [id number] Managed Care - [facility] Community Plan P [id number] S [id number] Medicaid S [id number] S [id number] Managed Care Formerly [facility] Plan P [id number] S [id number] [facility] [id number] SP [id number] ANS-Medicaid [id number] ANS-Medicaid [id number] Managed Care - [facility] Plan [facility] P [id number] S [id number] [facility] [id number] Managed Care - Community Plan [facility] P [id number] S [id number] Medicaid S [id number] S [id number] ANSI-Medicaid [id number] ANSI-Medicaid [id number] [facility] COMMUNITY [facility]AN [facility] [id number] SP [id number] ANSI-Medicaid [id number] [facility] Health Maintenance Organization (HMO) [id number] Self [id number] ANSI-Medicaid [id number] ANSI-Medicaid [id number] [facility] Health Maintenance Organization (O) [id number] Self [id number] ANSI-Medicaid [id number] [facility] O [id number] S [id number] Managed Care - Community Plan [facility] P [id number] S [id number] MEDICAID [id number] SP [id number] SELF PAY ONLY [id number] SP [id number] [facility] O [id number] S [id number] [employer] COMP [id number] SP [id number] [facility] [id number] SP [id number] SELF PAY UNAVAILABLE SP [facility]NAVAILA BLE [facility] [id number] SP [id number] [employer] [id number] SP [id number] Problems, Conditions, and Diagnoses Code Display Name Description Problem Type Effective Dates Data Source(s) G47.33 [id number] EDSON (obstructive sleep apnea) Problem 06/04/2020 12:00:00 AM EST eC ([facility]) K21.9 [id number] Gastroesophageal ref lux disease, unspecified whether esophagitis present Problem 03/24/2020 12:00:00 AM EST eCW1 ([facility]) 521.00 Dental caries Dental caries 01/05/2020 03:21:29 PM EDT [facility] Thoracic aortic ectasia Thoracic aortic ectasia Proble m 12/03/2019 12:00:00 AM EDT MEDENT ([facility]) [id number] Dietary management surveillance Dietary manageme nt surveillance Problem 12/03/2019 12:00:00 AM EDT [facility] ([facility] 520637956 Obesity Obesity Problem 12/03/2019 12:00:00 AM ED T MEDENT ([facility]) 215412111 Pure hypercholesterolemia Pure hypercholesterolemia Pr oblem 12/03/2019 12:00:00 AM EDT MEDENT ([facility]) 694187834 Syncope and collapse Syncope and collapse Problem 12/03/2019 12:00:00 AM EDT MEDENT ([facility]) M54.32 74991321 Sciatica of left side Problem 11/27/2019 12: 00:00 AM EDT eCW1 ([facility]) 510040213 Pure hypercholesterolemia Pure hypercholesterolemia Pr oblem 11/14/2019 12:00:00 AM EDT MEDENT ([facility] ) 034.0 STREP THROAT STREP THROAT 07/04/2019 02:44:15 P M EST [facility] L71.9 [id number] Rosacea Problem 05/08/2019 12:00:00 AM ES T eCW1 ([facility]) L71.9 [id number] Rosacea Problem 05/08/2019 12:00:00 AM ES T eCW1 ([facility]) N52.2 117601009 Drug-induced erectile dysfunction Problem 04/29/2019 12:00:00 AM EST eCW1 ([facility]) N52.2 566605278 Drug-induced erectile dysfunction Problem 04/29/2019 12:00:00 AM EST eCW1 ([facility]) Surgeries/Procedures Procedure Description Date Indications Data Source(s) ECG ROUTINE ECG W/LEAST 12 LDS W/I&R 05/31/2020 12:00: 00 AM EST MEDENT ([facility]) Implantable Loop Recorder System, Review And Report 05/20/2020 12:00:00 AM EST MEDENT ([facility]) Implantable Loop Recorder System, Review And Report 04/16/2020 12:00:00 AM EST MEDENT ([facility]) Implantable Loop Recorder System, Review And Report 03/15/2020 12:00:00 AM EST MEDENT ([facility]) Laminectomy One Interspace, Lumbar 03/08/2020 12:00:00 AM EST MEDENT ([facility] ) Laminectomy One Interspace, Lumbar 03/08/2020 12:00:00 AM EST MEDENT ([facility] ) ECG ROUTINE ECG W/LEAST 12 LDS W/I&R 03/01/2020 12:00: 00 AM EDT MED[facility] ([facility]) RADEX SPINE LUMBOSACRAL MINIMUM 4 VIEWS 02/09/2020 12: 00:00 AM EDT MEDENT ([facility] ) MRI SPINAL CANAL LUMBAR W/O CONTRAST MATERIAL 02/03/20 20 12:00:00 AM EDT MEDENT ([facility] ) MRI SPINAL CANAL LUMBAR W/O CONTRAST MATERIAL 02/03/20 20 12:00:00 AM EDT MEDENT ([facility] ) Injection, Single Or Multiple trigger points one or two musc les 02/02/2020 12:00:00 AM EDT MEDENT ([facility] ) Inj, Anesth Agent, Trigeminal 02/02/2020 12:00:00 AM E DT MEDENT ([facility] ) INJECTION ANES OTHER PERIPHERAL NERVE/BRANCH 0 12:00:00 AM EDT MEDENT ([facility] ) Implantable Loop Recorder System, Review And Report 12/08/2019 12:00:00 AM EDT MEDENT ([facility]) ECG ROUTINE ECG W/LEAST 12 LDS W/I&R 12/03/2019 12:00: 00 AM EDT MEDENT ([facility]) Injection, Single Or Multiple trigger points one or two musc les 11/20/2019 12:00:00 AM EDT MEDENT ([facility] ) Inj, Anesth Agent, Trigeminal 11/20/2019 12:00:00 AM E DT MEDENT ([facility] ) INJECTION ANES OTHER PERIPHERAL NERVE/BRANCH 0 12:00:00 AM EDT MEDENT ([facility] ) CHEMODNRVTJ [facility] INNERVATED FACIAL NRV 11/18/2019 12:00:00 AM EDT MEDENT ([facility] ) Implantable Loop Recorder System, Review And Report 11/05/2019 12:00:00 AM EDT MEDENT ([facility]) Implantable Loop Recorder System, Review And Report 10/03/2019 12:00:00 AM EDT MEDENT ([facility]) Injection, Single Or Multiple trigger points one or two musc les 09/03/2019 12:00:00 AM EDT MEDENT ([facility] ) Inj, Anesth Agent, Trigeminal 09/03/2019 12:00:00 AM E DT MEDENT ([facility] ) INJECTION ANES OTHER PERIPHERAL NERVE/BRANCH 0 12:00:00 AM EDT MEDENT ([facility] ) Implantable Loop Recorder System, Review And Report 09/02/2019 12:00:00 AM EDT MEDENT ([facility]) Injection, Single Or Multiple trigger points one or two musc les 07/07/2019 12:00:00 AM EST MEDENT ([facility] ) Inj, Anesth Agent, Trigeminal 07/07/2019 12:00:[address] MEDENT ([facility] ) INJECTION ANES OTHER PERIPHERAL NERVE/BRANCH 0 12:00:00 AM EST MEDENT ([facility] ) Implantable Loop Recorder System, Review And Report 06/19/2019 12:00:00 AM EST MEDENT ([facility]) Spirometry 05/29/2019 12:00:00 AM EST M EDENT ([facility], ) Injection, Single Or Multiple trigger points one or two musc les 04/25/2019 12:00:00 AM EST MEDENT ([facility]) Inj, Anesth Agent, Trigeminal 04/25/2019 12:00:[address] MEDENT ([facility] ) INJECTION ANES OTHER PERIPHERAL NERVE/BRANCH 9 12:00:00 AM EST MEDENT ([facility] ) Results ID Date Data Source [id number] 04/28/2020 08:08:00 AM EST [facility] ([facility]) Name Value Range Interpretation Code Description Data Polina rce(s) Supporting Document(s) Thyroid Stimulating Hormone 1.340 ME DENT ([facility]) Free T4 0.90 MED[facility] ([facility]) ID Date Data Source FREE T4 & TSH PANEL 04/28/2020 12:00:00 AM EST eCW1 ([facility]) Name Value Range Interpretation Code Description Data Polina rce(s) Supporting Document(s) 1.340 0.358-3.740 eCW1 ([facility]) 0.90 0.76-1.46 eCW1 ([facility]) ID Date Data Source [id number] 03/09/2020 09:41:00 AM EST MEDENT ([facility]) Name Value Range Interpretation Code Description Data Polina rce(s) Supporting Document(s) Methicillin resistant Staphylococcus aur eus (MRSA) DNA [Presence] in Unspecified specimen by Probe and target amplification method Laboratory [facility]) A negative test result does not exclude the possibility of nasal colonization because test results may be affected by improper specimen collection, technical error, sample mix-up, or because the number of organisms in the sample is below the limit of detection of the test. ID Date Data Source [id number] 03/08/2020 02:41:00 PM EST MEDENT ([facility]) Name Value Range Interpretation Code Description Data [facility] rce(s) Supporting Document(s) Surgical pathology study Laboratory test result [facility] ([facility]) FINAL DIAGNOSIS Submitted as "disc tissue L5-S1",discectomy: Consistent with disc tissue. Negative for malignancy. 03/10/2020857 CLINICAL DIAGNOSIS Herniated/ruptured disc at level L5-S1 03/09/20201331 GROSS DIAGNOSIS Received in formalin labeled "disc tissue L5-S1" consists of fragments of tissue, 0.5 x 0.5 x 0.1 cm. All in one. -OA 03/09/20201331 Signed LASHANDA STEWART MD 03/10/2020 0911 ID Date Data Source [id number] 03/08/2020 11:14:00 AM EST MEDENT ([facility]) Name Value Range Interpretation Code Description Data Polina rce(s) Supporting Document(s) AB Screen Gel Manual Laboratory test result [facility] ([facility]) Blood Type Laboratory test result [facility] ([facility]) ID Date Data Source [id number] 03/03/2020 10:30:00 AM EDT [facility] Name Value Range Interpretation Code Description Data Polina rce(s) Supporting Document(s) SARS coronavirus 2 RNA [facility] This lab was ordered by [facility] and reported by [facility]. ID Date Data Source [id number] 02/09/2020 10:08:22 AM EDT [facility] Vital SignsTemperature: 98.8FV ital Signs performed by: Josi Hall LPN, February 09, 2020 10:08 AMVaccines Administered/Entered:Vaccination Group: InfluenzaSeries: 2Vaccination: Flulaval Quadrivalent Intramuscular Suspension Prefilled Syringe 0.5 MLMfr / Lot# / Exp.Date: Powerspanbelinda / [id number] / 11/03/2020mt. Given / Route / Site: 0.5 mL / IM / Left DeltoidNDC / CVX: [id number] / 150Administered Date: 02/09/2020 10:09VFC Eligibility: Not VFC EligibleVIS Date: 12/19/2018Comments: Administered by: Josi Hall LPN Assessment & Plan Orders:[id number] - Immo Admin (under 19 yrs), 1st Toxoid [CPT- 22763] FluLaval Quadrivalent, preservative free [CPT-14536] 04097-Lig Vst-Est Level I [CPT-83292] Name Value Range Interpretation Code Description Data Polina rce(s) Supporting Document(s) ID Date Data Source [id number] 01/05/2020 10:53:44 AM EDT [facility] Current Problems: Dental caries (ICD-521 .00) (JQV58-C03.9)STREP THROAT (ICD- 034.0) (GKA87-Y28.0)DENTAL CHURCH STATUS (ICD-V45.84) (GDP95-Z28.811)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) (QEE23-U83.6)vitamin D deficiency (ICD- 268.9) (OEQ65-S86.9)Well adult exam (ICD-V70.0) (GEA53-F35.00)Influenza vaccine (ICD-V04.8) (VFB19-G67)Abdominal pain (ICD-789.00) (CFA01-A83.9)Memory loss (ICD-780.93) (OCS89-A27.3)BMI 32.0-32.9 (ICD-V85.32) (VQJ43-Z97.32)Obesity (ICD- 278.00) (XMH18-D01.09)Problem list reviewed during this update.Current Medications: VITAMIN D3 SUPER STRENGTH 2000 UNIT ORAL TABLET (CHOLECALCIFEROL) 1 tab po daily with dinner omit on day taking the Drisdol.; Route: ORALVENTOLIN HFA 108 (90 Base) MCG/ACT INHALATION AEROSOL SOLUTION (ALBUTEROL SULFATE) 2 puffs inhaled q 4hr prn wheezing; Route: INHALATIONMedication list reviewed during this update.Current Allergies: * SEASONAL (Critical)Allergy list reviewed during this update. Dental Chart: Procedures:Type - CDT Code - Description B - (D2160) Amalgam, 3 surfaces, primary or permanent on Tooth # 12 on Tooth Surface MOD (Performed by Pili Clark DMD) B - (D2140) Amalgam-one surface, primary or permanent on Tooth # 2 on Tooth Surface O (Performed by Pili Clark DMD) Chart Notes:rosibel (Jan 05 2020 3:21PM): MERYL (-)Per Pt. . Took temp@ F. Additional PPE requirements due to COVID-19 in the dental setting, N95, surgical mask, hair covering, gown CC: none. Cetacaine spray used as topical. Ul & UR infiltration,1/2 carp each, Lidocaine HCL 2% with 1:100,000 epi. Operative: #2-O, (12-MOD, Limelite, light cured),Gluma and Amalgam. Excavated with High Speed, Slow Speed and Spoon. Occlusion checked and polished. No complications. POI. Assisted by PDPt was cooperative. NV: P/Pili Sousa DMD by rosibel (01/05/2020 3:21 PM): Tooth Notes and Watches:- Tooth 12 Watch: distalSylvia Matos by janie (10/22/2018 3:06 PM): - Tooth 13 Watch: mesialSylvia Matos by janie (10/22/2018 3:06 PM): - Tooth 3 Note: open margin on the distalSylvia Matos by janie (10/22/2018 3:07 PM): - Tooth 31 Watch: mesial Sylvia Matos RDH by janie (11/20/2019 2:54 PM): Assessment & Plan Problems:Added: Dental caries (ICD-521.00) (PMS93-I90.9)Medications:VITAMIN D3 SUPER STRENGTH 2000 UNIT ORAL TABLETVENTOLIN HFA 108 (90 Base) MCG/ACT INHALATION AEROSOL SOLUTIONAllergies:* SEASONAL (Critical) Name Value Range Interpretation Code Description Data Polina rce(s) Supporting Document(s) ID Date Data Source [id number] 11/20/2019 02:38:09 PM EDT [facility] Patient History Medical History:MRSAasth maPast Hx of recurrent strep throatback problemsmigraines- botox injectionsFamily History:Mother-lung cancerSocial/Personal History: Smoking Status: never smokerCurrent Problems: STREP THROAT (ICD-034.0) (QZL73-F56.0)DENTAL CHURCH STATUS (ICD-V45.84) (HEE18-M18.811)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) (RNV09-J56.6)vitamin D deficiency (ICD-268.9) (PPA46-M01.9)Well adult exam (ICD-V70.0) (ICD10- Z00.00)Influenza vaccine (ICD-V04.8) (YYM59-B07)Abdominal pain (ICD-789.00) (GPC09-G60.9)Memory loss (ICD-780.93) (IBX38-F96.3)BMI 32.0-32.9 (ICD-V85.32) (I ZO67-L89.32)Obesity (ICD-278.00) (CVJ56-A02.09)Problem list reviewed during this update.Current Medications: VITAMIN D3 SUPER STRENGTH 2000 UNIT ORAL TABLET (CHOLECALCIFEROL) 1 tab po daily with dinner omit on day taking the Drisdol.; Route: ORALVENTOLIN HFA 108 (90 Base) MCG/ACT INHALATION AEROSOL SOLUTION (ALBUTEROL SULFATE) 2 puffs inhaled q 4hr prn wheezing; Route: INHALATIONMedication list reviewed during this update.Current Allergies: * SEASONAL (Critical)Allergy list reviewed during this update.Past Medical History:(reviewed - no changes required) MRSAasthmaPast Hx of recurrent strep throatback problemsmigraines- botox injections Dental Chart: Procedures:Type - CDT Code - Description B - (D1110) Prophylaxis, adult (Performed by Sylvia Matos RDH) B - (D0120) Periodic oral evaluation - established patient (Performed by Pili Clark DMD) Treatments:Type - CDT Code - Description T - (D2160) Amalgam, 3 surfaces, primary or permanent on Tooth # 12 on Tooth Surface MOD (Performed by Sylvia Matos RDH) Existing:Type - CDT Code - Description[E] Decay On #12 Surface MOD Chart Notes:jlam (Nov 20 2019 4:06PM): Additional PPE requirements due to COVID-19 in the dental setting, N95, surgical mask, hair covering, gown and shield [facility](-). CC: none. Reviewed Xrays. Exam: caries detected. OCS: WNL IO/ EO completed, No significant hard findings upon clinical exam Pt was cooperative.OHI givenReferral: N/ANV:fillingSylvia Matos RDH by rosibel (11/20/2019 4:06 PM): ; janie (Nov 20 2019 3:34PM): [facility] with patient- updated. He is having a little sensitivity on the upper left.Adult prophy- handscaled, italian- mint prophy paste, flossOH-Patient brushes twice/day and flossing regularlyLT gen marginal biofilm and marginal/introproximal calculus on LA. Marginal tissue is pink with no bleeding. OHI- Advise to brush 2x a day and floss everyday. Went over brushing along the gum line nad flossing everyday. Patient is cooperative. NV- 6 month recall/fillingsRasMagen macedo RDH by janie (11/20/2019 3:33 PM): Tooth Notes and Watches:- Tooth 12 Watch: distalSylvia Matos by janie (10/22/2018 3:06 PM): - Tooth 13 Watch: mesialSylvia Matos by janie (10/22/2018 3:06 PM): - Tooth 3 Note: open margin on the distalSylvia Matos by janie (10/22/2018 3:07 PM): - Tooth 31 Watch: mesial Sylvia Matos RDH by janie (11/20/2019 2:54 PM): Assessment & Plan Medications:VITAMIN D3 SUPER STRENGTH 2000 UNIT ORAL TABLETVENTOLIN HFA 108 (90 Base) MCG/ACT INHALATION AEROSOL SOLUTIONAllergies:* SEASONAL (Critical) Name Value Range Interpretation Code Description Data Polina rce(s) Supporting Document(s) ID Date Data Source [id number] 10/06/2019 05:51:00 PM EDT [facility] ([facility]) Name Value Range Interpretation Code Description Data Polina rce(s) Supporting Document(s) Lymphocytes [#/volume] in Blood by Automated count 1.7 1.5-5.0 [facility] ([facility]) ID Date Data Source [id number] 10/06/2019 05:51:00 PM EDT [facility] ([facility]) Name Value Range Interpretation Code Description Data Polina rce(s) Supporting Document(s) Neutrophils [#/volume] in Blood by Automated count 4.4 1.5-8.5 [facility] ([facility]) ID Date Data Source [id number] 10/06/2019 05:51:00 PM EDT [facility] ([facility]) Name Value Range Interpretation Code Description Data Polina rce(s) Supporting Document(s) Nucleated erythrocytes/100 leukocytes [Ratio] in Blood by Au tomated count 0.0 0-0 [facility] ([facility]) ID Date Data Source [id number] 10/06/2019 05:51:00 PM EDT [facility] ([facility]) Name Value Range Interpretation Code Description Data Polina rce(s) Supporting Document(s) Immature granulocytes/100 leukocytes in Blood by Automated count 0.1 0-3.0 [facility] ([facility]) ID Date Data Source [id number] 10/06/2019 05:51:00 PM EDT [facility] ([facility]) Name Value Range Interpretation Code Description Data Polina rce(s) Supporting Document(s) Basophils/100 leukocytes in Blood by Automated count 0.4 0.0-1 .0 [facility] ([facility]) ID Date Data Source [id number] 10/06/2019 05:51:00 PM EDT [facility] ([facility]) Name Value Range Interpretation Code Description Data Polina rce(s) Supporting Document(s) Eosinophils/100 leukocytes in Blood by Automated count 3.0 0.0 -3.0 [facility] ([facility]) ID Date Data Source [id number] 10/06/2019 05:51:00 PM EDT [facility] ([facility]) Name Value Range Interpretation Code Description Data Polina rce(s) Supporting Document(s) Monocytes/100 leukocytes in Blood by Automated count 7.2 0.0-5 .0 [facility] ([facility]) ID Date Data Source [id number] 10/06/2019 05:51:00 PM EDT [facility] ([facility]) Name Value Range Interpretation Code Description Data Polina rce(s) Supporting Document(s) Lymphocytes/100 leukocytes in Blood by Automated count 25.1 24. 0-44.0 [facility] ([facility]) ID Date Data Source [id number] 10/06/2019 05:51:00 PM EDT [facility] ([facility]) Name Value Range Interpretation Code Description Data Polina rce(s) Supporting Document(s) Neutrophils [#/volume] in Blood by Automated count 64.2 36.0-66 .0 [facility] ([facility]) ID Date Data Source [id number] 10/06/2019 05:51:00 PM EDT [facility] ([facility]) Name Value Range Interpretation Code Description Data Polina rce(s) Supporting Document(s) Platelets [#/volume] in Blood by Automated count 244 150-450 [facility] ([facility]) ID Date Data Source [id number] 10/06/2019 05:51:00 PM EDT [facility] ([facility]) Name Value Range Interpretation Code Description Data Polina rce(s) Supporting Document(s) Erythrocyte distribution width [Ratio] by Automated count 13.2 11.5-14.5 [facility] ([facility]) ID Date Data Source [id number] 10/06/2019 05:51:00 PM EDT [facility] ([facility]) Name Value Range Interpretation Code Description Data Polina rce(s) Supporting Document(s) Erythrocyte mean corpuscular hemoglobin concentration [Mass/volume] by Automated count 34.1 32.0-36.5 [facility] ID Date Data Source [id number] 10/06/2019 05:51:00 PM EDT [facility] ([facility]) Name Value Range Interpretation Code Description Data Polina rce(s) Supporting Document(s) Erythrocyte mean corpuscular hemoglobin [Entitic mass] by Au tomated count 29.9 27.0-33.0 [facility] ([facility]) ID Date Data Source [id number] 10/06/2019 05:51:00 PM EDT [facility] ([facility]) Name Value Range Interpretation Code Description Data Polina rce(s) Supporting Document(s) Erythrocyte mean corpuscular volume [Entitic volume] by Auto mated count 87.6 80.0-96.0 [facility] ([facility]) ID Date Data Source [id number] 10/06/2019 05:51:00 PM EDT [facility] ([facility]) Name Value Range Interpretation Code Description Data Polina rce(s) Supporting Document(s) Hematocrit [Volume Fraction] of Blood by Automated count 41.6 4 2.0-52.0 [facility] ([facility]) ID Date Data Source [id number] 10/06/2019 05:51:00 PM EDT [facility] ([facility]) Name Value Range Interpretation Code Description Data Polina rce(s) Supporting Document(s) Hemoglobin [Mass/volume] in Blood 14.2 13.5-17.5 [facility] ([facility]) ID Date Data Source [id number] 10/06/2019 05:51:00 PM EDT [facility] ([facility]) Name Value Range Interpretation Code Description Data Polina rce(s) Supporting Document(s) Erythrocytes [#/volume] in Blood by Automated count 4.75 4.30-6 .10 [facility] ([facility]) ID Date Data Source [id number] 10/06/2019 05:51:00 PM EDT [facility] ([facility]) Name Value Range Interpretation Code Description Data Polina rce(s) Supporting Document(s) Magnesium [Mass/volume] in Serum or Plasma 2.3 1.8-2.4 [facility] ([facility]) ID Date Data Source [id number] 10/06/2019 05:51:00 PM EDT [facility] ([facility]) Name Value Range Interpretation Code Description Data Polina rce(s) Supporting Document(s) Calcium [Moles/volume] in Serum or Plasma 8.6 8.5-10.1 [facility] ([facility]) ID Date Data Source [id number] 10/06/2019 05:51:00 PM EDT [facility] ([facility]) Name Value Range Interpretation Code Description Data Polina rce(s) Supporting Document(s) Anion gap 3 in Serum or Plasma 3 8-16 [facility] ([facility]) ID Date Data Source [id number] 10/06/2019 05:51:00 PM EDT [facility] ([facility]) Name Value Range Interpretation Code Description Data Polina rce(s) Supporting Document(s) Carbon dioxide, total [Moles/volume] in Serum or Plasma 26 21 -32 [facility] ([facility]) ID Date Data Source [id number] 10/06/2019 05:51:00 PM EDT [facility] ([facility] Name Value Range Interpretation Code Description Data Polina rce(s) Supporting Document(s) Chloride [Moles/volume] in Serum or Plasma 108 98-107 [facility] ([facility]) ID Date Data Source [id number] 10/06/2019 05:51:00 PM EDT [facility] ([facility] Name Value Range Interpretation Code Description Data Polina rce(s) Supporting Document(s) Potassium [Moles/volume] in Serum or Plasma 3.7 3.5-5.1 [facility] ([facility]) ID Date Data Source [id number] 10/06/2019 05:51:00 PM EDT [facility] ([facility] Name Value Range Interpretation Code Description Data Polina rce(s) Supporting Document(s) Sodium [Moles/volume] in Serum or Plasma 137 136-145 [facility] ([facility]) ID Date Data Source [id number] 10/06/2019 05:51:00 PM EDT [facility] ([facility]) Name Value Range Interpretation Code Description Data Polina rce(s) Supporting Document(s) Glomerular filtration rate/1.73 sq M.pre dicted [Volume Rate/Area] in Serum or Plasma by Creatinine-based formula (MDRD) [facility] ID Date Data Source [id number] 10/06/2019 05:51:00 PM EDT [facility] ([facility] ) Name Value Range Interpretation Code Description Data Polina rce(s) Supporting Document(s) Creatinine [Mass/volume] in Serum or Plasma 0.90 0.70-1.30 [facility] ([facility]) ID Date Data Source [id number] 10/06/2019 05:51:00 PM EDT [facility] ([facility] ) Name Value Range Interpretation Code Description Data Polina rce(s) Supporting Document(s) Urea nitrogen [Mass/volume] in Serum or Plasma 12 7-18 [facility] ([facility]) ID Date Data Source [id number] 10/06/2019 05:51:00 PM EDT [facility] ([facility]) Name Value Range Interpretation Code Description Data Polina rce(s) Supporting Document(s) Glucose [Mass/volume] in Serum or Plasma 100 70-100 [facility] ([facility]) ID Date Data Source [id number] 10/06/2019 05:51:00 PM EDT [facility] ([facility]) Name Value Range Interpretation Code Description Data Polina rce(s) Supporting Document(s) Basophils [#/volume] in Blood by Automated count 0.0 0.0-0.2 [facility] ([facility]) ID Date Data Source [id number] 10/06/2019 05:51:00 PM EDT [facility] ([facility]) Name Value Range Interpretation Code Description Data Polina rce(s) Supporting Document(s) Eosinophils [#/volume] in Blood by Automated count 0.2 0.0-0.5 [facility] ([facility]) ID Date Data Source [id number] 10/06/2019 05:51:00 PM EDT [facility] ([facility]) Name Value Range Interpretation Code Description Data Polina rce(s) Supporting Document(s) Monocytes [#/volume] in Blood by Automated count 0.5 0.0-0.8 [facility] ([facility]) ID Date Data Source [id number] 10/06/2019 05:51:00 PM EDT [facility] ([facility]) Name Value Range Interpretation Code Description Data Polina rce(s) Supporting Document(s) Leukocytes [#/volume] in Blood by Automated count 6.9 4.0-10.0 [facility] ([facility]) ID Date Data Source [id number] 10/06/2019 05:51:00 PM EDT [facility] ([facility]) Name Value Range Interpretation Code Description Data Polina rce(s) Supporting Document(s) Thyrotropin [Units/volume] in Serum or Plasma by Detec tion limit <= 0.005 mIU/L 0.616 0.358-3.740 [facility] ([facility]) ID Date Data Source [id number] 08/25/2019 10:18:00 AM EDT [facility] ([facility]) Name Value Range Interpretation Code Description Data Polina rce(s) Supporting Document(s) Albumin/Globulin [Mass Ratio] in Serum or Plasma 1.32 1.00-1.93 [facility] ([facility]) ID Date Data Source [id number] 08/25/2019 10:18:00 AM EDT [facility] ([facility]) Name Value Range Interpretation Code Description Data Polina rce(s) Supporting Document(s) Albumin [Mass/volume] in Serum or Plasma 4.1 3.2-5.2 [facility] ([facility]) ID Date Data Source [id number] 08/25/2019 10:18:00 AM EDT [facility] ([facility]) Name Value Range Interpretation Code Description Data Polina rce(s) Supporting Document(s) Protein [Mass/volume] in Serum or Plasma 7.2 6.4-8.2 [facility] ([facility]) ID Date Data Source [id number] 08/25/2019 10:18:00 AM EDT [facility] ([facility]) Name Value Range Interpretation Code Description Data Polina rce(s) Supporting Document(s) Bilirubin.direct [Mass/volume] in Serum or Plasma 0.1 0.0-0.2 [facility] ([facility]) ID Date Data Source [id number] 08/25/2019 10:18:00 AM EDT [facility] ([facility]) Name Value Range Interpretation Code Description Data Polina rce(s) Supporting Document(s) Bilirubin.total [Mass/volume] in Serum or Plasma 0.7 0.2-1.0 [facility] ([facility]) ID Date Data Source [id number] 08/25/2019 10:18:00 AM EDT [facility] ([facility]) Name Value Range Interpretation Code Description Data Polina rce(s) Supporting Document(s) Alkaline phosphatase [Enzymatic activity/volume] in Serum or Ara sma 110 45-117 [facility] ([facility]) ID Date Data Source [id number] 08/25/2019 10:18:00 AM EDT [facility] ([facility]) Name Value Range Interpretation Code Description Data Polina rce(s) Supporting Document(s) Gamma glutamyl transferase [Enzymatic activity/volume] in Se rum or Plasma 75 15-85 [facility] ([facility]) ID Date Data Source [id number] 08/25/2019 10:18:00 AM EDT [facility] ([facility]) Name Value Range Interpretation Code Description Data Polina rce(s) Supporting Document(s) Alanine aminotransferase [Enzymatic activity/volume] in Seru m or Plasma 38 12-78 [facility] ([facility]) ID Date Data Source [id number] 08/25/2019 10:18:00 AM EDT [facility] ([facility]) Name Value Range Interpretation Code Description Data Polina rce(s) Supporting Document(s) Aspartate aminotransferase [Enzymatic activity/volume] in Se rum or Plasma 22 7-37 [facility] ([facility]) ID Date Data Source [id number] 08/25/2019 12:00:00 AM EDT [facility] ([facility]) Name Value Range Interpretation Code Description Data Polina rce(s) Supporting Document(s) 22 7-37 AST/SGOT eCW1 ([facility]) 0.1 0.0-0.2 BILIRUBIN,DIRECT eCW1 ([facility]) 110 45-117 ALKALINE PHOSPHATASE eCW1 ([facility]) 38 12-78 ALT/SGPT eCW1 ([facility]) 0.7 0.2-1.0 BILIRUBIN,TOTAL eCW1 ([facility]) 7.2 6.4-8.2 TOTAL PROTEIN eCW1 ([facility]) 4.1 3.2-5.2 ALBUMIN eCW1 ([facility]) 1.32 1.00-1.93 ALBUMIN/GLOBULIN RATIO eCW1 ([facility]) ID Date Data Source [id number] 08/25/2019 12:00:00 AM EDT [facility] ([facility]) Name Value Range Interpretation Code Description Data Polina rce(s) Supporting Document(s) 75 15-85 GAMMA GLUTAMYLTRANSPEPTIDASE e CW1 ([facility]) ID Date Data Source [id number] 07/02/2019 03:37:46 PM [facility] Measurements & CalculationsHeight: 66 inches 167.64 cm Weight: 205.8 pounds 93.55 kg Body Mass Index (BMI): 33.34BMI Interpretation: ObeseBody Surface Area (BSA): 2.03Weight Management Education Done (Nutrition/Physical Activity)Vital SignsTemperature: 98.7FPulse Rate: 78 beats/minuteRespiratory Rate: 20 respirations/minuteBlood Pressure: 130/88 left arm sitting automaticVital Signs performed by: Josi Hall LPN, July 02, 2019 3:38 PMLabs In-House Lab TestsDate/Time Collected: July 02, 2019 3:41 PMDate/Time Received: July 02, 2019 3:41 PMTest Result Reference Range Normal ValueRapid Strep: positive negativeJosi Hall LPN, July 02, 2019 3:41 PMInitial Intake Information from: patient Room #: 2Smoking, Tobacco, Vaping or Smoke Exposure StatusSmoke Status: never smokerTobacco Use: NoDo you vape? NoPassive Smoke Expo sure: NoHealthcare HistorySince your last office visit...Have you been admitted to the hospital? NoHave you been to an emergency room (ER) or urgent care clinic? NoHave you seen another healthcare provider? NoHave you seen a dentist? Yes - [facility] Int[facility] performed by: Josi Hall LPN, July 02, 2019 3:38 PMPain AssessmentAre you currently having any pain which... You would like your provider to address? Yes Affects your activity level? YesDepression Screening - PHQ-2Over the last two weeks, have you... Had little interest or pleasure in doing things? Not at all Been feeling down, depressed, or hopeless? Not at all PHQ-2 Score: 0Anxiety Screening - ANIA-2Over the last two weeks, have you been... Feeling nervous, anxious, or on edge? Not at all Unable to stop or control worrying? Not at all ANIA-2 Score: 0Infectious Disease / Travel ScreeningRecent travel for you, your family, and/or any sexual partners? NoPain AssessmentLocation: THROATOnset: 06/30/2019Duration: 2-3 daysFrequency: DailyScreening, Brief Intervention, & Referral to Treatment (SBIRT)Pre-Screening Questions How many times have you have 5 or more drinks in a day? 0How many times have you used an illegal drug or used a prescription medication for a non-medical reason? 0Performed by: Josi Hall LPN, July 02, 2019 3:39 PMPatient History Medical History:MRSAasthmaPast Hx of recurrent strep throatSurgical History:No known surgical historyFamily History:Mother-lung cancerSocial/Personal History: Chief Complaintstrep throat History of Present Illness (HPI)URI SYMPTOMS PAST FEW DAYS. SEEN IN [facility] AND TOLD HE HAD THE FLU BUT NO ONE EXAMINED HIM AND THEY REFUSED TO TEST FOR STREP. GIVEN TAMIFLU BUT HE HAS NOT STARTED TAKING.Transitions of Care InboundProblem ReviewProblem List was reviewed and/or updated during this visit.Medication Reconciliation & ReviewMedication List was reviewed and/or updated during this visit, including review of any [id number]-[id number] medications, herbal therapies, and/or supplements.Allergy ReviewAllergy List was reviewed and/or updated during this visit.Review of Systems General: Complains of fatigue, fever, feeling ill. Denies loss of appetite, chills, dizziness, continued fever, headache, sweats, night sweats, sleep disturbances, weight loss. Ears Nose and Throat: Complains of nasal congestion, sore throat, difficulty swallowing. Denies earac he, ear discharge, ringing in ears, decreased hearing, nosebleeds, runny nose, hoarseness, dry mouth, tooth pain, bleeding gums, swollen glands. Negative review of systems for Eyes, Cardiovascular, Respiratory/Breast, GI, Skin.Physical ExamGeneral Appearance: well nourished, well hydrated, no acute distressEyes, External: conjunctivae and lids normal, EOMIExternal Ears: normal, no lesions or deformitiesNasal: congested soundingPharynx: tonsillar exudates, injectedRespiratory, Auscultation: clear to auscultation bilaterally; no rales, rhonchi, or wheezesRespiratory, Effort: no intercostal retractions or use of accessory musclesCardiovascular, Auscultation: S1, S2 audible; no murmur, rub, or gallop; RRRAbdomen: soft, non-tender, no masses, bowel sounds normalSkin, Inspection: no rashes, lesions, or ulcerationsCervical Nodes: anterior cervical adenopathyMood & Affect: no depression, anxiety, or agitationCare Management Plan Transitions of CareInboundAssessment & Plan Problems:Added: STREP THROAT (ICD-034.0) (OUB77-U27.0) Assessment: Instructions: POSITIVE STREP TEST.PENICILLIN X 10 DAYS.Encourage clear liquids. Call if child becomes short of breath, listless, or if no improvement in 2-3 days or if additional or worsening symptoms develop.Patient Instructions/Care Plan: STREP THROAT: POSITIVE STREP TEST.PENICILLIN X 10 DAYS.Encourage clear liquids. Call if child becomes short of breath, listless, or if no improvement in 2-3 days or if additional or worsening symptoms develop. Plan developed in collaboration with patient and/or familyMedications:PENICILLIN V POTASSIUM 500 MG ORAL TABLETVITAMIN D3 SUPER STRENGTH 2000 UNIT ORAL TABLETVENTOLIN HFA 108 (90 Base) MCG/ACT INHALATION AEROSOL SOLUTIONMedication Changes:New Prescription:PENICILLIN V POTASSIUM 500 MG ORAL TABLET-2 TABS PO BID X 10 DAYS Qty: 40[Tablet] Refills: 0 Method: ElectronicRemoved:DRISDOL 17625 UNIT ORAL CAPSULE-1 tab po weekly with dinnerAllergies:* SEASONAL (Critical)Orders:Rapid Strep [CPT-51712] Ofc Vst, Est Level III [CPT-31957] Follow-Up Return to clinic: as needed for follow upMedications:PENICILLIN V POTASSIUM 500 MG ORAL TABLET (PENICILLIN V POTASSIUM) 2 TABS PO BID X 10 DAYS #40[Tablet] x 0 Route:ORAL Entered and Authorized by: Milana CARBALLO Method used: Electronically to [id number] ([email or web address]) [id number] [place] [address] Fax: Note to Pharmacy: Route: ORAL; RxID: [id number]]Elec tronically signed by Milana CARBALLO on 07/04/2019 at 2:44 PM Name Value Range Interpretation Code Description Data Polina rce(s) Supporting Document(s) ID Date Data Source [id number] 07/02/2019 03:37:46 PM EST [facility] Name Value Range Interpretation Code Description Data Polina rce(s) Supporting Document(s) RAPID STREP positive [facility] ID Date Data Source [id number] 07/02/2019 08:51:00 AM EST [facility] ([facility]) Name Value Range Interpretation Code Description Data Polina rce(s) Supporting Document(s) Deprecated Cobalamin [Mass/volume] in Serum 24.7 30.0-100.0 [facility] ([facility]) ID Date Data Source [id number] 07/02/2019 08:51:00 AM EST [facility] ([facility]) Name Value Range Interpretation Code Description Data Polina rce(s) Supporting Document(s) Thyroxine (T4) free [Mass/volume] in Serum or Plasma 1.17 0.76- 1.46 [facility] ([facility]) ID Date Data Source [id number] 07/02/2019 08:51:00 AM EST [facility] ([facility]) Name Value Range Interpretation Code Description Data Polina rce(s) Supporting Document(s) Cholesterol.total/Cholesterol in HDL [Mass Ratio] in Serum or Plasm a 3.533 [facility] ([facility]) ID Date Data Source [id number] 07/02/2019 08:51:00 AM EST [facility] ([facility]) Name Value Range Interpretation Code Description Data Polina rce(s) Supporting Document(s) Cholesterol non HDL [Mass/volume] in Serum or Plasma 114 [facility] ([facility]) ID Date Data Source [id number] 07/02/2019 08:51:00 AM EST [facility] ([facility]) Name Value Range Interpretation Code Description Data Polina rce(s) Supporting Document(s) Cholesterol in LDL [Mass/volume] in Serum or Plasma by calculation 96 [facility] ([facility]) ID Date Data Source [id number] 07/02/2019 08:51:00 AM EST [facility] ([facility]) Name Value Range Interpretation Code Description Data Polina rce(s) Supporting Document(s) Cholesterol in HDL [Mass/volume] in Serum or Plasma 45 [facility] ([facility]) ID Date Data Source [id number] 07/02/2019 08:51:00 AM EST [facility] ([facility]) Name Value Range Interpretation Code Description Data Polina rce(s) Supporting Document(s) Cholesterol [Mass/volume] in Serum or Plasma 159 [facility] ([facility]) ID Date Data Source [id number] 07/02/2019 08:51:00 AM EST [facility] ([facility]) Name Value Range Interpretation Code Description Data Polina rce(s) Supporting Document(s) Triglyceride [Mass/volume] in Serum or Plasma 89 [facility] ([facility]) ID Date Data Source [id number] 05/13/2019 12:32:26 PM [facility] Patient History Medical History:MRSAasth maFamily History:Mother-lung cancerSocial/Personal History: Smoking Status: never smokerCurrent Problems: DENTAL CHURCH STATUS (ICD-V45.84) (PNY14-R40.811)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) (SLK41-J33.6)vitamin D deficiency (ICD-268.9) (ICD10- E55.9)Well adult exam (ICD-V70.0) (UVI95-H56.00)Influenza vaccine (ICD-V04.8) (LOZ23-U59)Abdominal pain (ICD-789.00) (ERL85-F98.9)Memory loss (ICD-780.93) (ZDR75-O33.3)BMI 32.0-32.9 (ICD-V85.32) (UCL59-D02.32)Obesity (ICD-278.00) (RVQ54-F84.09)Problem list reviewed during this update.Current Medications: TRISHA MIN D3 SUPER STRENGTH 2000 UNIT ORAL TABLET (CHOLECALCIFEROL) 1 tab po daily with dinner omit on day taking the Drisdol.; Route: ORALDRISDOL 75068 UNIT ORAL CAPSULE (ERGOCALCIFEROL) 1 tab po weekly with dinner; Route: ORALVENTOLIN HFA 108 (90 Base) MCG/ACT INHALATION AEROSOL SOLUTION (ALBUTEROL SULFATE) 2 puffs inhaled q 4hr prn wheezing; Route: INHALATIONMedication list reviewed during this update.Current Allergies: * SEASONAL (Critical)Allergy list reviewed during this update.Past Medical History:(reviewed - no changes required) MRSAasthma Dental Chart: Procedures:Type - CDT Code - Description B - (D0274) Bitewings, 4 radiographic images (Performed by Sylvia Matos RDH) B - (D0120) Periodic oral evaluation - established patient (Performed by Pili Clark DMD) B - (D1110) Prophylaxis, adult (Performed by Sylvia Matos RDH) Treatments:Type - CDT Code - Description T - (D2140) Amalgam-one surface, primary or permanent on Tooth # 2 on Tooth Surface O (Performed by Sylvia Matos RDH) Existing:Type - CDT Code - Description[E] Decay On #2 Surface O Chart Notes:rosibel (May 13 2019 2:59PM): [facility](-). CC: none. Reviewed Xrays. Exam: caries detected. OCS: WNL IO/ EO completed, No significant hard findings upon clinical exam Pt was cooperative.OHI givenReferral: N/ANV:fillingSylvia Matos RDH by rosibel (05/13/2019 2:59 PM): ; janie (May 13 2019 1:12PM): [facility] with patient- No changes. No problems or concerns today. Adult prophy- handscaled, italian- mint prophy paste, floss, 4 BW's- alwasy take a BW of the upper left due to a watch that is on the border of being done.OH-Patient brushes twice/day and flossing regularlyLT gen marginal biofilm and marginal/introproximal calculus on LA. Marginal tissue is pink with no bleeding. OHI- Advise to brush 2x a day and floss everyday. Went over proper flossin due to watches in between the teeth. Patient is cooperative. NV- 6 month recallRasSylvia macedo RDH by janie (05/13/2019 1:12 PM): Tooth Notes and Watches:- Tooth 12 Note: take BW every 6 months to watch decay due to borderlineReynaldoo Sylvia HERNANDEZ by janie (05/13/2019 12:55 PM): - Tooth 12 Watch: distalSylvia Matos by janie (10/22/2018 3:06 PM): - Tooth 13 Watch: mesialSylvia Matos by janie (10/22/2018 3:06 PM): - Tooth 3 Note: open margin on the distalSylvia Matos by janie (10/22/2018 3:07 PM): Assessment & Plan Medications:VITAMIN D3 SUPER STRENGTH 2000 UNIT ORAL TABLETDRISDOL 94962 UNIT ORAL CAPSULEVENTOLIN HFA 108 (90 Base) MCG/ACT INHALATION AEROSOL SOLUTIONAllergies:* SEASONAL (Critical) __ Name Value Range Interpretation Code Description Data Polina rce(s) Supporting Document(s) Procedure Social History Code Duration Value Status Description Data Source(s ) Smoking 06/04/2020 12:00:00 AM EST Never Smoker completed Never S moker eCW1 ([facility]) Smoking 05/31/2020 12:00:00 AM EST Patient has never smoked co mpleted Patient has never smoked [facility] ([facility]) Smoking 05/10/2020 12:00:00 AM EST Never Smoker completed Never S moker eCW1 ([facility]) Smoking 05/10/2020 12:00:00 AM EST Never Smoker completed Never S moker eCW1 ([facility]) Smoking 05/10/2020 12:00:00 AM EST Never Smoker completed Never S moker eCW1 ([facility]) Smoking 04/28/2020 12:00:00 AM EST Never Smoker completed Never S moker eCW1 ([facility]) Smoking 04/28/2020 12:00:00 AM EST Never Smoker completed Never S moker eCW1 ([facility]) Smoking 04/28/2020 12:00:00 AM EST Never Smoker completed Never S moker eCW1 ([facility]) Smoking 03/24/2020 12:00:00 AM EST Never Smoker completed Never S moker eCW1 ([facility]) Smoking 11/27/2019 12:00:00 AM EDT Never Smoker completed Never S moker eCW1 ([facility]) Smoking 11/27/2019 12:00:00 AM EDT Never Smoker completed Never S moker eCW1 ([facility]) Smoking 11/27/2019 12:00:00 AM EDT Never Smoker completed Never S moker eCW1 ([facility]) Smoking 11/27/2019 12:00:00 AM EDT Never Smoker completed Never S moker eCW1 ([facility]) Smoking 11/27/2019 12:00:00 AM EDT Never Smoker completed Never S moker eCW1 ([facility]) Smoking 11/03/2019 12:00:00 AM EDT Never Smoker completed Never S moker eCW1 ([facility]) Smoking 10/13/2019 12:00:00 AM EDT Never Smoker completed Never S moker eCW1 ([facility]) Vital Signs ID Date Data Source UNK Name Value Range Interpretation Code Description Data Source(s) Respiratory rate 16 /min 16 /min [facility] ( [facility]) Heart rate 80 /min 80 /min [facility] ([facility] Regular Body mass index (BMI) [Ratio] 39.2 kg/m2 39.2 k g/m2 [facility] Body height 67 [in_i] 67 [in_i] [facility] ([facility]) 5'7" Body weight 250.00 [lb_av] 250.00 [lb_av] MED[facility] T ([facility]) Diastolic blood pressure 80 mm[Hg] 80 mm[Hg] [facility] ([facility]) sitting Systolic blood pressure 128 mm[Hg] 128 mm[Hg] [facility] sitting Diastolic blood pressure 80 mm[Hg] 80 mm[Hg] [facility] ([facility]) sitting, large cuff Systolic blood pressure 126 mm[Hg] 126 mm[Hg] [facility] sitting, large cuff Body surface area Derived from formula 2.22 m2 2.22 m2 [facility] ([facility], ) Body weight 113.117 kg 113.117 kg [facility] ([facility], ) [place] body weight 148 [lb_av] 148 [lb_av] MEDEN T ([facility], ) Body mass index (BMI) [Ratio] 39.1 kg/m2 39.1 k g/m2 [facility] ([facility]) Body weight 249.38 [lb_av] 249.38 [lb_av] MEDEN T ([facility]) Body height 67 [in_i] 67 [in_i] [facility] ([facility]) 5'7" Diastolic blood pressure 102 mm[Hg] 102 mm[Hg] [facility] ([facility]) Systolic blood pressure 152 mm[Hg] 152 mm[Hg] M EDENT ([facility]) Diastolic blood pressure 90 mm[Hg] 90 mm[Hg] eCW1 ([facility]) Systolic blood pressure 148 mm[Hg] 148 mm[Hg] e CW1 ([facility]) Body mass index (BMI) [Ratio] 37.90 kg/m2 37.90 kg/m2 eCW1 ([facility]) Body height [in_i] eCW1 ([facility]) Body weight 242 [lb_av] 242 [lb_av] eCW1 ([facility]) Diastolic blood pressure 82 mm[Hg] 82 mm[Hg] eCW1 ([facility]) Systolic blood pressure 116 mm[Hg] 116 mm[Hg] e CW1 ([facility]) Body temperature 98.7 [degF] 98.7 [degF] eCW1 ( [facility]) Respiratory rate 18 /min 18 /min eCW1 ([facility]) Heart rate 103 /min 103 /min eCW1 ([facility]) Body mass index (BMI) [Ratio] 37.43 kg/m2 37.43 kg/m2 W1 ([facility]) Body height [in_i] eCW1 ([facility]) Body weight 239 [lb_av] 239 [lb_av] eCW1 ([facility]) Body temperature 96.3 [degF] 96.3 [degF] [facility] ([facility]) Diastolic blood pressure 92 mm[Hg] 92 mm[Hg] eCW1 ([facility]) Systolic blood pressure 126 mm[Hg] 126 mm[Hg] e CW1 ([facility]) Body temperature 97.8 [degF] 97.8 [degF] eCW1 ( [facility]) Respiratory rate 18 /min 18 /min eCW1 ([facility]) Heart rate 82 /min 82 /min eCW1 ([facility]) Body mass index (BMI) [Ratio] 33.98 kg/m2 33.98 kg/m2 eCW1 ([facility]) Body height [in_i] eCW1 ([facility]) Body weight 217 [lb_av] 217 [lb_av] eCW1 ([facility]) Body temperature 97.1 [degF] 97.1 [degF] [facility] ([facility]) Diastolic blood pressure 74 mm[Hg] 74 mm[Hg] [facility] ([facility]) sitting Systolic blood pressure 126 mm[Hg] 126 mm[Hg] M EDENT ([facility]) sitting Diastolic blood pressure 74 mm[Hg] 74 mm[Hg] [facility] ([facility]) sitting, large cuff Systolic blood pressure 128 mm[Hg] 128 mm[Hg] M EDENT ([facility]) sitting, large cuff Respiratory rate 16 /min 16 /min [facility] ( [facility]) Heart rate 100 /min 100 /min [facility] ([facility]) Regular Body mass index (BMI) [Ratio] 33.4 kg/m2 33.4 k g/m2 [facility] ([facility]) Body height 67 [in_i] 67 [in_i] [facility] ([facility]) 5'7" Body weight 213.00 [lb_av] 213.00 [lb_av] MEDEN T ([facility]) Body surface area Derived from formula 2.05 m2 2.05 m2 [facility] ([facility], ) Body weight 97.297 kg 97.297 kg [facility] ([facility], ) [place] body weight 136 [lb_av] 136 [lb_av] MEDEN T ([facility]) Body mass index (BMI) [Ratio] 35.1 kg/m2 35.1 k g/m2 [facility] ([facility]) Body weight 214.50 [lb_av] 214.50 [lb_av] MEDEN T ([facility]) Body height 65.5 [in_i] 65.5 [in_i] [facility] 5'5.50" Body temperature 97.5 [degF] 97.5 [degF] [facility] ([facility]) Oxygen saturation in Arterial blood by Pulse oximetry 94 % 94 % [facility] ([facility]) Heart rate 76 /min 76 /min [facility] ([facility]) Diastolic blood pressure 84 mm[Hg] 84 mm[Hg] [facility] Systolic blood pressure 122 mm[Hg] 122 mm[Hg] [facility] Diastolic blood pressure--sitting 84 mm[Hg] 84 mm[Hg] [facility] ([facility]) large cuff, Ra Systolic blood pressure--sitting 122 mm[Hg] 122 mm[Hg] [facility] ([facility]) large cuff, Ra Heart rate 89 /min 89 /min [facility] ([facility]) Body mass index (BMI) [Ratio] 34.0 kg/m2 34.0 k g/m2 [facility] ([facility]) Body height 67 [in_i] 67 [in_i] [facility] ([facility]) 5'7" Body weight 217.00 [lb_av] 217.00 [lb_av] MED[facility] T ([facility]) [place] body weight 148 [lb_av] 148 [lb_av] MEDEN T ([facility]) Body mass index (BMI) [Ratio] 31.3 kg/m2 31.3 k g/m2 [facility] ([facility]) Body weight 200.00 [lb_av] 200.00 [lb_av] MEDEN T ([facility]) Body height 67 [in_i] 67 [in_i] [facility] ([facility]) 5'7" Respiratory rate 12 /min 12 /min [facility] ( [facility] ) Diastolic blood pressure 66 mm[Hg] 66 mm[Hg] eCW1 ([facility]) Systolic blood pressure 122 mm[Hg] 122 mm[Hg] e CW1 ([facility]) Body temperature 98.5 [degF] 98.5 [degF] eCW1 ( [facility]) Respiratory rate 18 /min 18 /min eCW1 ([facility]) Heart rate 120 /min 120 /min eCW1 ([facility]) Body mass index (BMI) [Ratio] 33.70 kg/m2 33.70 kg/m2 eCW1 ([facility]) Body height [in_i] eCW1 ([facility]) Body weight 215.2 [lb_av] 215.2 [lb_av] eCW1 ([facility]) Body mass index (BMI) [Ratio] 34.0 kg/m2 34.0 k g/m2 [facility] ([facility] Body weight 220.44 [lb_av] 220.44 [lb_av] MED[facility] T ([facility] ) Diastolic blood pressure 70 mm[Hg] 70 mm[Hg] eCW1 ([facility]) Systolic blood pressure 120 mm[Hg] 120 mm[Hg] e CW1 ([facility]) Body temperature 96.8 [degF] 96.8 [degF] eCW1 ( [facility]) Respiratory rate 18 /min 18 /min eCW1 ([facility]) Heart rate 99 /min 99 /min eCW1 ([facility]) Body mass index (BMI) [Ratio] 33.14 kg/m2 33.14 kg/m2 eCW1 ([facility]) Body height [in_i] eCW1 ([facility]) Body weight 211.6 [lb_av] 211.6 [lb_av] eCW1 ([facility]) [place] body weight 148 [lb_av] 148 [lb_av] MEDEN T ([facility] ) Body mass index (BMI) [Ratio] 31.3 kg/m2 31.3 k g/m2 [facility] ([facility], ) Body weight 200.00 [lb_av] 200.00 [lb_av] MEDEN T ([facility], ) Body height 67 [in_i] 67 [in_i] [facility] ([facility], ) 5'7" Respiratory rate 12 /min 12 /min [facility] ( [facility], ) Diastolic blood pressure 78 mm[Hg] 78 mm[Hg] eCW1 ([facility]) Systolic blood pressure 128 mm[Hg] 128 mm[Hg] e CW1 ([facility]) Body temperature 96.9 [degF] 96.9 [degF] eCW1 ( [facility]) Respiratory rate 18 /min 18 /min eCW1 ([facility]) Heart rate 109 /min 109 /min eCW1 ([facility]) Body mass index (BMI) [Ratio] 33.48 kg/m2 33.48 kg/m2 eCW1 ([facility]) Body height [in_us] eCW1 ([facility]) Body weight Measured 213.8 [lb_av] 213.8 [lb_av ] eCW1 ([facility]) Diastolic blood pressure 74 mm[Hg] 74 mm[Hg] eCW1 ([facility]) Systolic blood pressure 126 mm[Hg] 126 mm[Hg] e CW1 ([facility]) Body temperature 97.1 [degF] 97.1 [degF] eCW1 ( [facility]) Respiratory rate 18 /min 18 /min eCW1 ([facility]) Heart rate 113 /min 113 /min eCW1 ([facility]) Body mass index (BMI) [Ratio] 32.95 kg/m2 32.95 kg/m2 W1 ([facility]) Body height [in_us] eCW1 ([facility]) Body weight Measured 210.4 [lb_av] 210.4 [lb_av ] eCW1 ([facility]) Body mass index (BMI) [Ratio] 31.3 kg/m2 31.3 k g/m2 [facility] ([facility]) Body weight 200.00 [lb_av] 200.00 [lb_av] MEDEN T ([facility]) Body height 67 [in_i] 67 [in_i] [facility] 5'7" Respiratory rate 12 /min 12 /min [facility] ( [facility]) Heart rate 68 /min 68 /min [facility] ([facility]) Diastolic blood pressure 72 mm[Hg] 72 mm[Hg] [facility] ([facility]) Systolic blood pressure 120 mm[Hg] 120 mm[Hg] M EDENT ([facility]) Diastolic blood pressure 70 mm[Hg] 70 mm[Hg] eCW1 ([facility]) Systolic blood pressure 122 mm[Hg] 122 mm[Hg] e CW1 ([facility]) Body temperature 97.5 [degF] 97.5 [degF] eCW1 ( [facility]) Respiratory rate 18 /min 18 /min eCW1 ([facility]) Heart rate 109 /min 109 /min eCW1 ([facility]) Body mass index (BMI) [Ratio] 32.39 kg/m2 32.39 kg/m2 W1 ([facility]) Body height [in_us] eCW1 ([facility]) Body weight Measured 206.8 [lb_av] 206.8 [lb_av ] eCW1 ([facility]) Body weight 91.741 kg 91.741 kg [facility] ([facility]) Body mass index (BMI) [Ratio] 33.1 kg/m2 33.1 k g/m2 [facility] ([facility]) Body weight 202.25 [lb_av] 202.25 [lb_av] MEDEN T ([facility]) Body height 65.5 [in_i] 65.5 [in_i] [facility] 5'5.50" Oxygen saturation in Arterial blood by Pulse oximetry 98 % 98 % [facility] Heart rate 67 /min 67 /min [facility] ([facility]) Diastolic blood pressure 82 mm[Hg] 82 mm[Hg] [facility] ([facility], ) Systolic blood pressure 118 mm[Hg] 118 mm[Hg] M EDENT ([facility], ) Diastolic blood pressure 86 mm[Hg] 86 mm[Hg] eCW1 ([facility]) Systolic blood pressure 132 mm[Hg] 132 mm[Hg] e CW1 ([facility]) Body temperature 98.7 [degF] 98.7 [degF] eCW1 ( [facility]) Respiratory rate 18 /min 18 /min eCW1 ([facility]) Heart rate 85 /min 85 /min eCW1 ([facility]) Body mass index (BMI) [Ratio] 31.67 kg/m2 31.67 kg/m2 eCW1 ([facility]) Body height [in_us] eCW1 ([facility]) Body weight Measured 202.2 [lb_av] 202.2 [lb_av ] eCW1 ([facility]) Diastolic blood pressure 82 mm[Hg] 82 mm[Hg] eCW1 ([facility]) Systolic blood pressure 122 mm[Hg] 122 mm[Hg] e CW1 ([facility]) Body temperature 97.1 [degF] 97.1 [degF] eCW1 ( [facility]) Respiratory rate 18 /min 18 /min eCW1 ([facility]) Heart rate 81 /min 81 /min eCW1 ([facility]) Body mass index (BMI) [Ratio] 31.04 kg/m2 31.04 kg/m2 eCW1 ([facility]) Body height [in_us] eCW1 ([facility]) Body weight Measured 198.2 [lb_av] 198.2 [lb_av ] eCW1 ([facility]) Patient Treatment Plan of Care Planned Activity Planned Date Details Description Data Source (s) pregabalin 25 MG Oral Capsule [Lyrica] 05/10/2020 12:00:00 AM EST eCW1 ([facility]) pregabalin 25 MG Oral Capsule [Lyrica] 05/10/2020 12:00:00 AM EST eCW1 ([facility]) pregabalin 75 MG Oral Capsule [Lyrica] 02/19/2020 12:00:00 AM EDT eCW1 ([facility]) pregabalin 75 MG Oral Capsule [Lyrica] 02/19/2020 12:00:00 AM EDT eCW1 ([facility]) pregabalin 75 MG Oral Capsule [Lyrica] 02/19/2020 12:00:00 AM EDT eCW1 ([facility]) gabapentin 600 MG Oral Tablet 11/27/2019 12:00:00 AM EDT eCW1 ([facility]) gabapentin 600 MG Oral Tablet 11/27/2019 12:00:00 AM EDT eCW1 ([facility]) gabapentin 600 MG Oral Tablet 11/27/2019 12:00:00 AM EDT eCW1 ([facility]) gabapentin 600 MG Oral Tablet 11/27/2019 12:00:00 AM EDT eCW1 ([facility]) gabapentin 600 MG Oral Tablet 11/27/2019 12:00:00 AM EDT eCW1 ([facility]) Bupropion Hydrochloride 75 MG Oral Tablet 10/13/2019 12:00:00 AM ED T eCW1 ([facility]) Bupropion Hydrochloride 75 MG Oral Tablet 10/13/2019 12:00:00 AM ED T eCW1 ([facility]) Bupropion Hydrochloride 75 MG Oral Tablet 10/13/2019 12:00:00 AM ED T eCW1 ([facility]) Bupropion Hydrochloride 75 MG Oral Tablet 10/13/2019 12:00:00 AM ED T eCW1 ([facility]) Bupropion Hydrochloride 75 MG Oral Tablet 10/13/2019 12:00:00 AM ED T eCW1 ([facility]) Bupropion Hydrochloride 100 MG Oral Tablet 06/05/2019 12:00:[address] eCW1 ([facility]) Metronidazole 0.0075 MG/MG Vaginal Gel 05/08/2019 12:00:00 AM EST eCW1 ([facility]) Metronidazole 0.0075 MG/MG Vaginal Gel 05/08/2019 12:00:00 AM EST eCW1 ([facility]) Metronidazole 0.0075 MG/MG Vaginal Gel 05/08/2019 12:00:00 AM EST eCW1 ([facility]) Metronidazole 0.0075 MG/MG Vaginal Gel 05/08/2019 12:00:00 AM EST eCW1 ([facility]) Amoxicillin 875 MG / Clavulanate 125 MG Oral Tablet 04/29/20 12:00:00 AM EST eCW1 ([facility]) venlafaxine 100 MG Oral Tablet 04/29/2019 12:00:00 AM EST eCW1 ([facility])
--- OUTSIDE RECORDS SUMMARY | 2020-06-11 01:05 | CCD ---
Author Author [facility] Organization [facility] Address Unknown Phone Unavailable Support Name Relationship Address Phone 11 Next Of Kin [address] [place] [address] Lidia Whiting Next Of Kin [address] [place] [address] HUMA Next Of Kin [id number] [place] [address] [address] [place] Next Of [address] [address] [place] [address] Milana Maharaj Next Of Kin [address] [place] [id number] LEIGHTON VALADEZ Next Of Kin [id number] [address] [address] [place] Next Of Kin [phone] [address] Pili Clark DMD Next Of Kin [address] [place] [address] SUNJOHN [place] [address] LEIGHTON MIXON Next Of Kin [address] [address] Cleo Mayes Next Of Kin [address] [place] [address] [address] Next Of Kin [address] [place] [address] FUN ON [employer] RUN Next Of Kin [address] [place] [address] [place] [address] TOYS R [place] Next Of Kin Unknown KINNEYWASH Next Of Kin [address] [place] [address] UE Next Of Kin Unknown Unavailable ST Next Of Kin Unknown Unavailable WILLIAMGORDO Next Of Kin [address] [place] [address] WATNTIMES Next Of Kin [address] [place] [address] NATALIIA FRANSISCA Next Of Kin [address] [place] [address] Leighton Valadez ECON Unknown [phone] Fransisca William ECON [address] [place] [address] [phone] leighton mixon ECON [address] [place] [address] [phone] GORDO WILLIAM ECON [address] [place] [address] Unavailable Care Team Providers Care Route Driver Name Role Phone Rufinow, Aaliyah Temple PA Unavailable Unavailable Symenow, Aaliyah Windy PA [...] Unavailable MCELHERAN, GWENDOLYN PA Unavailable Unavailable Sandip, Ritu Marissa PA Unavailable Unavailable Sandip, Ritu Ann PA Unavailable Unavailable Sandip, Ritu Marissa PA Unavailable Unavailable Sandip, L Marissa [...] Unavailable Sandip, L Marissa PA Unavailable Unavailable [facility], SSCORDO SCORDO PA LIDIA Unavailable Unavaila ble Kusum Perry MD Unavailable Unavailable Kusum Perry MD Unavailable Unavailable Kusum Perry MD Unavailable Unavailable uKsum Perry MD Unavailable Unavailable Kusum Perry MD [...] M Lidia PA Unavailable Unavailable Veley, Milana PARKING LINE PAINTER Unavailable Unavailable Veley, Milana PARKING LINE PAINTER Unavailable Unavailable Veley, Milana PARKING LINE PAINTER Unavailable Unavailable Veley, Milana PARKING LINE PAINTER Unavailable Unavailable Veley, Milana PARKING LINE PAINTER Unavailable Unavailable Veley, Milana PARKING LINE PAINTER Unavailable Unavailable Veley, Milana PARKING LINE PAINTER Unavailable Unavailable Veley, Milana PARKING LINE PAINTER Unavailable Unavailable Veley, Milana PARKING LINE PAINTER Unavailable Unavailable Veley, Milana PARKING LINE PAINTER Unavailable Unavailable Veley, Milana PARKING LINE PAINTER Unavailable Unavailable Veley, Milana PARKING LINE PAINTER Unavailable Unavailable Veley, Milana PARKING LINE PAINTER Unavailable Unavailable Veley, Milana PARKING LINE PAINTER Unavailable Unavailable Veley, Milana PARKING LINE PAINTER Unavailable Unavailable Veley, Milana PARKING LINE PAINTER Unavailable Unavailable Veley, Milana PARKING LINE PAINTER Unavailable Unavailable Veley, Milana PARKING LINE PAINTER Unavailable Unavailable Veley, Milana PARKING LINE PAINTER Unavailable Unavailable Veley, Milana PARKING LINE PAINTER Unavailable Unavailable Veley, Milana PARKING LINE PAINTER Unavailable Unavailable Veley, Milana PARKING LINE PAINTER Unavailable Unavailable Veley, Milana PARKING LINE PAINTER Unavailable Unavailable Veley, Milana PARKING LINE PAINTER Unavailable Unavailable Veley, Milana PARKING LINE PAINTER Unavailable Unavailable Veley, Milana PARKING LINE PAINTER Unavailable Unavailable Veley, Milana PARKING LINE PAINTER Unavailable Unavailable Veley, Milana PARKING LINE PAINTER Unavailable Unavailable Veley, Milana PARKING LINE PAINTER Unavailable Unavailable Veley, Milana PARKING LINE PAINTER Unavailable Unavailable Veley, Milana PARKING LINE PAINTER Unavailable Unavailable Bigg Bhakta MD Unavailable Unavailable Bigg Bhakta Samah Unavailable Unavailable Bigg Bhakta MD Unavailable Unavailable Livia O Samah Unavailable Unavailable Livia O Samah Unavailable Unavailable Livia O Samah Unavailable Unavailable Bigg Bhakta MD Unavailable Unavailable Bigg Bhakta MD Unavailable Unavailable Bigg Bhakta MD Unavailable Unavailable Bigg Bhakta MD Unavailable Unavailable Livia O Pacoah Unavailable Unavailable [...] Unavailable Bigg Bhakta MD Unavailable Unavailable Bigg hBakta MD Unavailable Unavailable Bigg Bhakta MD Unavailable Unavailable Bigg Bhaktaah Unavailable Unavailable Bigg Bhakta MD Unavailable Unavailable Bigg Bhakta MD Unavailable Unavailable Bigg Bhakta MD Unavailable Unavailable Bigg Bhakta MD Unavailable Unavailable Bigg Bhaktaah Unavailable Unavailable Bigg Bhakta Samah Unavailable Unavailable Bigg Bhaktaah Unavailable Unavailable Bigg Bhakta MD Unavailable Unavailable Bigg Bhakta MD Unavailable Unavailable Bigg Bhaktaah Unavailable Unavailable Bigg Bhaktaah Unavailable Unavailable Bigg Bhaktaah Unavailable Unavailable Bigg [...] Unavailable Bigg Bhakta MD Unavailable Unavailable Bigg Bhakat MD Unavailable Unavailable Bigg Bhakta MD Unavailable [...] Unavailable Unavailable Bigg Bhakta MD Unavailable Unavailable Ritu Mcmanus MD Unavailable Unavailable Ritu Mcmanus MD Unavailable Unavailable Ritu Mcmanus MD Unavailable Unavailable Ritu Mcmanus MD Unavailable Unavailable Ritu Mcmanus MD Unavailable Unavailable Ritu Mcmanus MD Unavailable Unavailable Ritu Mcmanus MD Unavailable Unavailable Ritu Mcmanus MD Unavailable Unavailable Ritu Mcmanus MD Unavailable Unavailable Ritu Mcmanus MD Unavailable Unavailable Ritu Mcmanus MD Unavailable Unavailable Ritu Mcmanus MD Unavailable Unavailable Ritu Mcmanus MD Unavailable Unavailable Ritu Mcmanus MD Unavailable Unavailable Ritu Mcmanus MD Unavailable Unavailable Ritu Mcmanus MD Unavailable Unavailable Mcmanus, L Elliot [...] is protected by Article 27-F of the [facility] Public Health law. If you continue you may have access to information: Regarding HIV / AIDS; Provided by facilities licensed or operated by the [facility] Office of Mental Health; or Provided by the [facility] Office for People With Developmental Disabilities. If such information is present, then the following [facility] mandated warning applies: This information has been [...] law may result in a fine or assisted sentence or both. A general authorization for the release of medical or other information is NOT sufficient authorization for further disc losure. Allergies and Adverse Reactions Type Description Substance Reaction Status Data Source(s ) Adverse Reaction Adverse Reaction Hydrocodone Vomiting Mild MEDENT ([facility]) MRI contrast MRI contrast MRI contrast Nausea/Vomiting Active eC W1 ([facility]) environmental environmental environmental sneezing Active eCW1 ([facility]) Vicodin Vicodin Vicodin Nausea/Vomiting Active eCW1 ([facility]) environmental environmental environmental sneezing Active eCW1 ([facility]) MRI contrast MRI contrast MRI contrast Nausea/Vomiting Active eC W1 ([facility]) Vicodin Vicodin Vicodin Nausea/Vomiting Active eCW1 ([facility]) environmental environmental environmental sneezing Active eCW1 ([facility]) MRI contrast MRI contrast MRI contrast Nausea/Vomiting Active eC W1 ([facility]) Vicodin Vicodin Vicodin Nausea/Vomiting Active eCW1 ([facility]) environmental environmental environmental sneezing Active eCW1 ([facility]) MRI contrast MRI contrast MRI contrast Nausea/Vomiting Active eC W1 ([facility]) Vicodin Vicodin Vicodin Nausea/Vomiting Active eCW1 ([facility]) environmental environmental environmental sneezing Active eCW1 ([facility]) MRI contrast MRI contrast MRI contrast Nausea/Vomiting Active eC W1 ([facility]) Vicodin Vicodin Vicodin Nausea/Vomiting Active eCW1 ([facility]) Family History Family Member Name Family Member Gender Family Member Status Date o f Status Description Data Source(s) Unknown Male Problem MEDENT ([facility] ) () Encounters Encounter Providers Location Date Indications Data Source(s ) Office Visit Attender: Windy KARIMI Main Office 05/31/2020 06:45:0 0 AM EST MEDENT ([facility] [place] [address] [facility] [place] [address] 05/31/2020 12:00:00 AM EST eCW1 ([facility]) [place] [address] [facility] [address] 05/20/2020 12:00:00 AM EST eCW1 ([facility]) Outpatient [address] [facility] [place] [address] 05/10/2020 12:00:00 AM EST eCW1 ([facility]) Unknown [address] [facility] [place] [address] 05/04/2020 12:00:00 AM EST eCW1 ([facility]) Unknown [address] [facility] [place] [address] 05/04/2020 12:00:00 AM EST eCW1 ([facility]) Outpatient [address] [facility] Y [address] 04/28/2020 12:00:00 AM EST eCW1 ([facility]) Unknown [address] [facility] [place] [address] 04/22/2020 12:00:00 AM EST eCW1 ([facility]) Office Visit Attender: GWENDOLYN KARIMI Physical Therapy 04/16/2020 10:30:00 AM EST MEDENT ([facility]) Outpatient [address] [facility] [place] [address] 03/24/2020 12:00:00 AM EST eCW1 ([facility]) Office Visit Attender: GWENDOLYN KARIMI Physical Therapy 03/19/2020 09:15:00 AM EST MEDENT ([facility]) Office Visit Attender: Windy KARIMI Main Office 03/01/2020 01:30:0 0 PM EDT MEDENT ([facility]) Unknown [address] [facility] [place] [address] 02/19/2020 12:00:00 AM EDT eCW1 ([facility]) Unknown [address] [facility] [place] [address] 02/19/2020 12:00:00 AM EDT eCW1 ([facility]) [place] [address] [facility] [address] 02/19/2020 12:00:00 AM EDT eCW1 ([facility]) Outpatient Attender: Elliot Mcmanus MD Physical Therapy 02/09/2020 0 2:30:00 PM EDT MEDENT ([facility]) Outpatient Attender: JOHNATHON CARRILLO [facility] 02/09/2020 10:14:01 AM EDT [facility] Outpatient Attender: Kusum Huerta/Hafsa/Alexis/Jose ndl 02/04/2020 09:00:00 AM EDT MEDENT ([facility]) Outpatient Attender: JOHNATHON CARRILLO [facility] 01/05/2020 03:22:01 PM EDT [facility] Outpatient Attender: Lidia KARIMI 01/05/2020 03:22:01 PM EDT [facility] Outpatient Attender: JOHNATHON CARRILLO [facility] 01/05/2020 11:25:01 AM EDT [facility] Outpatient Attender: JOHNATHON CARRILLO [facility] 01/05/2020 11:24:00 AM EDT [facility] Outpatient Attender: JOHNATHON CARRILLO [facility] 01/05/2020 11:20:00 AM EDT [facility] Outpatient Attender: Lidia KARIMI 01/02/2020 03:40:00 PM EDT [facility] Office Visit Attender: Marissa KARIMI Main Office 12/03/2019 09 :50:00 AM EDT MEDENT ([facility]) Outpatient Attender: Adela Bhakta MD Main office - [facility] 12/02/2019 12:30:00 PM EDT MEDENT ([facility]) [place] [address] [facility] [address] 11/27/2019 12:00:00 AM EDT eCW1 ([facility]) [place] [address] [facility] [address] 11/26/2019 12:00:00 AM EDT eCW1 ([facility]) Outpatient Attender: Milana Garcia PARKING LINE PAINTER FP 11/21/2019 04:03:0 0 PM EDT [facility] Outpatient Attender: Milana Garcia PARKING LINE PAINTER FP 11/21/2019 10:08:0 0 AM EDT [facility] Outpatient Attender: Milana Garcia PARKING LINE PAINTER FP 11/20/2019 04:07:0 0 PM EDT [facility] Outpatient Attender: Milana Garcia PARKING LINE PAINTER FP 11/20/2019 02:59:0 0 PM EDT [facility] Outpatient Attender: Milana Garcia PARKING LINE PAINTER FP 11/20/2019 02:57:0 1 PM EDT [facility] Outpatient Attender: Milana Garcia PARKING LINE PAINTER FP 11/20/2019 02:56:0 0 PM EDT [facility] Outpatient Attender: Milana Garcia PARKING LINE PAINTER FP 11/20/2019 02:25:0 3 PM EDT [facility] Outpatient Attender: Milana Garcia PARKING LINE PAINTER FP 11/20/2019 02:13:0 1 PM EDT [facility] Unknown [address] [facility] [address] 11/20/2019 12:00:00 AM EDT eCW1 ([facility]) Outpatient Attender: Milana Garcia PARKING LINE PAINTER FP 11/19/2019 03:41:0 0 PM EDT [facility] Outpatient Attender: Elliot Mcmanus MD Physical Therapy 11/13/2019 0 3:00:00 PM EDT MEDENT ([facility]) Outpatient Attender: Milana Garcia PARKING LINE PAINTER FP 10/16/2019 11:48:0 0 AM EDT [facility] Outpatient [address] [facility] [address] 10/13/2019 12:00:00 AM EDT eCW1 ([facility]) Outpatient Attender: Milana Garcia PARKING LINE PAINTER FP 09/24/2019 09:49:4 9 AM EDT [facility] Outpatient Attender: Adela Bhakta MD Main office - [facility] 09/01/2019 01:00:00 PM EDT MEDENT ([facility]) [facility] Linus Figueroa [facility] [address] 08/25/2019 12:00:00 AM EDT eCW1 ([facility]) [facility] Linus Figu[place]a [facility] [address] 2019 12:00:00 AM EDT eCW1 ([facility]) [facility] Linus [place] [facility] [address] 07/10/2019 12:00:00 AM EST eCW1 ([facility]) Outpatient Attender: Milana MAGANA 07/08/2019 01:48:0 1 PM [facility] Outpatient Attender: Milana Garcia NP FP 07/04/2019 02:46:0 1 PM [facility] Outpatient Attender: Milana MAGANA 07/04/2019 02:45:0 0 PM [facility] Outpatient Attender: Milana Garcia NP FP 07/04/2019 02:44:5 9 PM [facility] Outpatient Attender: Milana Garcia NP FP 07/04/2019 02:43:0 1 PM [facility] [place] [facility] [address] 07/04/2019 12:00:00 AM EST eCW1 ([facility]) Outpatient Attender: LINSEY HERNANDEZ IZZY 06/09/2019 11:36:00 AM [facility] Lin[address] [place] [facility] [address] 06/05/2019 12:00:00 AM EST eCW1 ([facility]) Outpatient Attender: [facility]SEY [facility] IZZY 06/04/2019 10:23:00 AM EST [facility] Outpatient Attender: Kusum Huerta/Hafsa/Alexis/Jose gusman 05/29/2019 08:00:00 AM EST MEDENT ([facility]) Outpatient Attender: LINSEY HERNANDEZ IZZY 05/13/2019 03:00:04 PM EST [facility]: [facility] 12:33:01 PM EST [facility] 05/13/2019 11:26:00 AM EST [facility] 05/13/2019 11:14:00 AM [facility] 05/13/2019 11:12:02 AM [facility] 05/13/2019 11:04:01 AM EST [facility] 05/12/2019 08:25:01 AM EST [facility] [address] [place] [address] 05/08/2019 12:00:00 AM EST eCW1 ([facility]) [facility] [place] [address] [facility] [address] 04/29/2019 12:00:00 AM EST eCW1 ([facility]) Medications Medication Brand Name Start Date Product [...] EST ORAL active MEDENT ([facility]) 500 mg 05/23/2020 12:00:00 AM EST tablet [...] {capsule} active L yrica 25 MG eCW1 ([facility]) pregabalin 25 MG Oral Capsule [Lyrica] Lyrica 25 MG Lyrica 2 5 MG 05/10/2020 12:00:00 AM EST 1.0 {capsule} active L yrica 25 MG eCW1 ([facility]) pregabalin 25 MG Oral Capsule [Lyrica] Lyrica 25 MG Lyrica 2 5 MG 05/10/2020 12:00:00 AM EST 1.0 {capsule} active L yrica 25 MG eCW1 ([facility]) pregabalin 25 MG Oral Capsule [Lyrica] Lyrica 25 MG Lyrica 2 5 MG 05/10/2020 12:00:00 AM EST 1.0 {capsule} active L yrica 25 MG eCW1 ([facility]) atorvastatin 10 MG Oral Tablet ATORVASTATIN CALCIUM [...] BY MOUTH EVERY DAY SOLD: 06/07/2020 [facility] 300-30 mg 03/30/2020 12:00:00 AM EST tablet 30 TAKE 1-2 TABLETS BY MOUTH EVERY 4-6 HOURS NEEDED FOR PAIN MAXIMUM DAILY DOSE = 4 TABLETS TAKE 1-2 TABLETS BY MOUTH EVERY 4-6 HOURS NEEDED FOR PAIN MAXIMUM DAILY DOSE = 4 TABLETS SOLD: 03/30/2020 [facility] pantoprazole 40 MG Delayed Release Oral Tablet PANTOPRAZOLE SODIUM 03/25/2020 12:00:00 AM EST tablet,delayed release (DR/EC) 30 T ISIDRO ONE TABLET BY MOUTH EVERY DAY TAKE ONE TABLET BY MOUTH EVERY DAY SOLD: 04/22/2020 [facility] pantoprazole 40 MG Delayed Release Oral Tablet PANTOPRAZOLE SODIUM 03/25/2020 12:00:00 AM EST tablet,delayed release (DR/EC) 30 T ISIDRO ONE TABLET BY MOUTH EVERY DAY TAKE ONE TABLET BY MOUTH EVERY DAY SOLD: 05/23/2020 [facility] montelukast 10 MG Oral Tablet [...] 03/19/2020 12:00:00 AM EST ORAL active MEDENT ([facility]) Acetaminophen 300 MG / Codeine Phosphate 30 MG Oral Tablet [Tylenol with Codeine] Tylenol With Codeine #3 03/19/2020 12:00:00 AM EST active MEDENT ([facility]) tizanidine 4 [...] EDT ORAL active [facility] ([facility] Bupropion Hydrochloride 75 MG Oral Tablet Bupropion HCL 02/29/2020 12:00:00 AM EDT ORAL active [facility] ([facility] pantoprazole 20 MG Delayed Release Oral Tablet Pantoprazole Sodium 02/29/2020 12:00:00 AM EDT ORAL active M EDENT ([facility]) 2 % 02/27/2020 12:00:00 AM EDT ointment 22 APPLY A PEA SIZED AMOUNT TO EACH NASAL PASSAGE 3 TIMES A DAY FOR 5 DAYS BEFORE SURGERY APPLY A PEA SIZED AMOUNT TO EACH NASAL PASSAGE 3 TIMES A DAY FOR 5 DAYS BEFORE SURGERY SOLD: 03/01/2020 [facility] Mupirocin 0.02 MG/MG Topical Ointment [Bactroban] Bactroban 02/27/2020 12:00:00 AM EDT active MEDENT ([facility] chlorhexidine gluconate 40 MG/ML Medicated Liquid Soap [Hibi clens] Hibiclens 02/27/2020 12:00:00 AM EDT active MEDENT ([facility] 600 mg 02/20/2020 12:00:00 AM EDT tablet [...] 02/20/2020 12:00:00 AM EDT ORAL active MEDENT ([facility]) 75 mg 02/20/2020 [...] 1.0 {capsule} suspended Lyrica 75 MG eCW1 ([facility]) pregabalin 75 MG Oral Capsule [Lyrica] Lyrica 75 MG Lyrica 7 5 MG 02/19/2020 12:00:00 AM EDT 1.0 {capsule} suspended Lyrica 75 MG eCW1 ([facility]) pregabalin 75 MG Oral Capsule [Lyrica] Lyrica 75 MG Lyrica 7 5 MG 02/19/2020 12:00:00 AM EDT 1.0 {capsule} active L yrica 75 MG eCW1 ([facility]) pregabalin 75 MG Oral Capsule [Lyrica] Lyrica 75 MG Lyrica 7 5 MG 02/19/2020 12:00:00 AM EDT 1.0 {capsule} suspended Lyrica 75 MG eCW1 ([facility]) pregabalin 75 MG Oral Capsule [Lyrica] Lyrica 75 MG Lyrica 7 5 MG 02/19/2020 12:00:00 AM EDT 1.0 {capsule} suspended Lyrica 75 MG eCW1 ([facility]) pregabalin 75 MG Oral Capsule [Lyrica] Lyrica 75 MG Lyrica 7 5 MG 02/19/2020 12:00:00 AM EDT 1.0 {capsule} active L yrica 75 MG eCW1 ([facility]) pregabalin 75 MG Oral Capsule [Lyrica] Lyrica 75 MG Lyrica 7 5 MG 02/19/2020 12:00:00 AM EDT 1.0 {capsule} active L yrica 75 MG eCW1 ([facility]) 20 mg 01/28/2020 12:00:00 AM EDT capsule,delayed [...] 12/02/2019 12:00:00 AM EDT active MEDENT ([facility]) gabapentin 600 MG Oral Tablet Gabapentin 600 MG Gabapentin 6 00 MG 11/27/2019 12:00:00 AM EDT 1.0 {tablet} suspended Gabapentin 600 MG eCW1 ([facility]) gabapentin 600 MG Oral Tablet Gabapentin 600 MG Gabapentin 6 00 MG 11/27/2019 12:00:00 AM EDT 1.0 {tablet} suspended Gabapentin 600 MG eCW1 ([facility]) gabapentin 600 MG Oral Tablet Gabapentin 600 MG Gabapentin 6 00 MG 11/27/2019 12:00:00 AM EDT 1.0 {tablet} active Ga bapentin 600 MG eCW1 ([facility]) 600 mg 11/27/2019 12:00:00 AM EDT tablet 90 TAKE ONE TABLET BY MOUTH THREE TIMES A DAY TAKE ONE TABLET BY MOUTH THREE TIMES A DAY SOLD: 11/28/2019 [facility] gabapentin 600 MG Oral Tablet Gabapentin 600 MG Gabapentin 6 00 MG 11/27/2019 12:00:00 AM EDT 1.0 {tablet} active Ga bapentin 600 MG eCW1 ([facility]) gabapentin 600 MG Oral Tablet Gabapentin 600 MG Gabapentin 6 00 MG 11/27/2019 12:00:00 AM EDT 1.0 {tablet} active Ga bapentin 600 MG eCW1 ([facility]) gabapentin 600 MG Oral Tablet Gabapentin 600 MG Gabapentin 6 00 MG 11/27/2019 12:00:00 AM EDT 1.0 {tablet} active Ga bapentin 600 MG eCW1 ([facility]) gabapentin 600 MG Oral Tablet Gabapentin 600 MG Gabapentin 6 00 MG 11/27/2019 12:00:00 AM EDT 1.0 {tablet} suspended Gabapentin 600 MG eCW1 ([facility]) gabapentin 600 MG Oral Tablet Gabapentin 600 MG Gabapentin 6 00 MG 11/27/2019 12:00:00 AM EDT 1.0 {tablet} active Ga bapentin 600 MG eCW1 ([facility]) gabapentin 600 MG Oral Tablet Gabapentin 600 MG Gabapentin 6 00 MG 11/27/2019 12:00:00 AM EDT 1.0 {tablet} suspended Gabapentin 600 MG eCW1 ([facility]) 300 mg 11/20/2019 12:00:00 AM EDT capsule 45 TAKE 1 CAPSULE BY MOUTH 3 TIMES A DAY MAX DAILY DOSE = 3 CAPSULES TAKE 1 CAPSULE BY MOUTH 3 TIMES A DAY MA X DAILY DOSE = 3 CAPSULES SOLD: 11/20/2019 [facility] 5 % 11/20/2019 12:00:00 AM EDT [...] Prednisone 11/12/2019 12:00:00 AM EDT active MEDENT ([facility]) Methocarbamol 750 MG Oral Tablet Methocarbamol 11/12/2019 12:00:00 AM EDT active MEDENT ([facility]) onabotulinumtoxinA 200 UNT/ML Injectable Solution [Botox] Alvarado tox 10/30/2019 12:00:00 AM EDT active M EDENT ([facility]) 25 mcg (1,000 [...] EDT active BuPROPion HCl 75 MG eCW1 ([facility]) 75 mg 10/13/2019 12:00:00 AM EDT tablet 60 TAKE ONE TABLET BY MOUTH TWICE A DAY TAKE ONE TABLET BY MOUTH TWICE A DAY SOLD: 10/17/2019 [facility] Bupropion Hydrochloride 75 MG Oral Tablet BuPROPion HC l 75 MG BuPROPion HCl 75 MG 10/13/2019 12:00:00 AM EDT active BuPROPion HCl 75 MG eCW1 ([facility]) Bupropion Hydrochloride 75 MG Oral Tablet BuPROPion HC l 75 MG BuPROPion HCl 75 MG 10/13/2019 12:00:00 AM EDT active BuPROPion HCl 75 MG eCW1 ([facility]) Bupropion Hydrochloride 75 MG Oral Tablet BuPROPion HC l 75 MG BuPROPion HCl 75 MG 10/13/2019 12:00:00 AM EDT active BuPROPion HCl 75 MG eCW1 ([facility] [facility] Bupropion Hydrochloride 75 MG Oral Tablet BuPROPion HC l 75 MG BuPROPion HCl 75 MG 10/13/2019 12:00:00 AM EDT active BuPROPion HCl 75 MG eCW1 ([facility]) Bupropion Hydrochloride 75 MG Oral Tablet BuPROPion HC l 75 MG BuPROPion HCl 75 MG 10/13/2019 12:00:00 AM EDT active BuPROPion HCl 75 MG eCW1 ([facility]) Bupropion Hydrochloride 75 MG Oral Tablet BuPROPion HC l 75 MG BuPROPion HCl 75 MG 10/13/2019 12:00:00 AM EDT active BuPROPion HCl 75 MG eCW1 ([facility]) Bupropion Hydrochloride 75 MG Oral Tablet BuPROPion HC l 75 MG BuPROPion HCl 75 MG 10/13/2019 12:00:00 AM EDT active BuPROPion HCl 75 MG eCW1 ([facility]) Bupropion Hydrochloride 75 MG Oral Tablet BuPROPion HC l 75 MG BuPROPion HCl 75 MG 10/13/2019 12:00:00 AM EDT active BuPROPion HCl 75 MG eCW1 ([facility]) Bupropion Hydrochloride 75 MG Oral Tablet BuPROPion HC l 75 MG BuPROPion HCl 75 MG 10/13/2019 12:00:00 AM EDT active BuPROPion HCl 75 MG eCW1 ([facility]) Bupropion Hydrochloride 75 MG Oral Tablet BuPROPion HC l 75 MG BuPROPion HCl 75 MG 10/13/2019 12:00:00 AM EDT active BuPROPion HCl 75 MG eCW1 ([facility]) Bupropion Hydrochloride 75 MG Oral Tablet BuPROPion HC l 75 MG BuPROPion HCl 75 MG 10/13/2019 12:00:00 AM EDT active BuPROPion HCl 75 MG eCW1 ([facility]) Bupropion Hydrochloride 75 MG Oral Tablet BuPROPion HC l 75 MG BuPROPion HCl 75 MG 10/13/2019 12:00:00 AM EDT active BuPROPion HCl 75 MG eCW1 ([facility]) 20 mg 08/29/2019 12:00:00 AM EDT capsule,delayed [...] BY MOUTH DAILY AT BEDTIME SOLD: 06/18/2019 [facility] Amitriptyline Hydrochloride 50 MG Oral Tablet Amitriptyline HCL 06/17/2019 12:00:00 AM EST active M EDENT ([facility]) 100 mg 06/06/2019 12:00:00 AM EST tablet 60 TAKE 1 TABLET BY MOUTH TWICE A DAY TAKE 1 TABLET BY MOUTH TWICE A DAY SOLD: 06/09/2019 [facility] Bupropion Hydrochloride 100 MG Oral Tablet BuPROPion H Cl 100 MG BuPROPion HCl 100 MG 06/05/2019 12:00:00 AM EST active 1 tablet eCW1 ([facility]) Bupropion Hydrochloride 100 MG Oral Tablet BuPROPion H Cl 100 MG BuPROPion HCl 100 MG 06/05/2019 12:00:00 AM EST active 1 tablet eCW1 ([facility]) Amitriptyline Hydrochloride 25 MG Oral Tablet AMITRIPTYLINE HCL 06/03/2019 12:00:00 AM EST tablet 30 TAKE 1 TABLET BY MOUTH AT BEDTIME TAKE 1 TABLET BY MOUTH AT BEDTIME SOLD: 06/04/2019 [facility] Amitriptyline Hydrochloride 25 MG Oral Tablet Amitriptyline HCL 06/02/2019 12:00:00 AM EST completed MEDENT ([facility], ) 0.75 % 05/09/2019 12:00:00 AM EST gel [...] 12:00:00 AM EST active 1 application eCW1 ([facility]) Metronidazole 0.0075 MG/MG Vaginal Gel Metronidazole 0 .75 % Metronidazole 0.75 % 05/08/2019 12:00:00 AM EST 1.0 {application} active Metronidazole 0.75 % eCW1 ([facility]) Metronidazole 0.0075 MG/MG Vaginal Gel Metronidazole 0 .75 % Metronidazole 0.75 % 05/08/2019 12:00:00 AM EST 1.0 {application} active Metronidazole 0.75 % eCW1 ([facility]) Metronidazole 0.0075 MG/MG Vaginal Gel Metronidazole 0 .75 % Metronidazole 0.75 % 05/08/2019 12:00:00 AM EST 1.0 {application} active Metronidazole 0.75 % eCW1 ([facility]) Metronidazole 0.0075 MG/MG Vaginal Gel Metronidazole 0 .75 % Metronidazole 0.75 % 05/08/2019 12:00:00 AM EST 1.0 {application} active Metronidazole 0.75 % eCW1 ([facility]) Metronidazole 0.0075 MG/MG Vaginal Gel Metronidazole 0 .75 % Metronidazole 0.75 % 05/08/2019 12:00:00 AM EST 1.0 {application} active Metronidazole 0.75 % eCW1 ([facility]) Metronidazole 0.0075 MG/MG Vaginal Gel Metronidazole 0 .75 % Metronidazole 0.75 % 05/08/2019 12:00:00 AM EST active 1 application eCW1 ([facility]) Metronidazole 0.0075 MG/MG Vaginal Gel Metronidazole 0 .75 % Metronidazole 0.75 % 05/08/2019 12:00:00 AM EST active 1 application eCW1 ([facility]) Metronidazole 0.0075 MG/MG Vaginal Gel Metronidazole 0 .75 % Metronidazole 0.75 % 05/08/2019 12:00:00 AM EST 1.0 {application} active Metronidazole 0.75 % eCW1 ([facility]) Metronidazole 0.0075 MG/MG Vaginal Gel Metronidazole 0 .75 % Metronidazole 0.75 % 05/08/2019 12:00:00 AM EST 1.0 {application} active Metronidazole 0.75 % eCW1 ([facility]) Metronidazole 0.0075 MG/MG Vaginal Gel Metronidazole 0 .75 % Metronidazole 0.75 % 05/08/2019 12:00:00 AM EST active 1 application eCW1 ([facility]) Metronidazole 0.0075 MG/MG Vaginal Gel Metronidazole 0 .75 % Metronidazole 0.75 % 05/08/2019 12:00:00 AM EST 1.0 {application} active Metronidazole 0.75 % eCW1 ([facility]) Metronidazole 0.0075 MG/MG Vaginal Gel Metronidazole 0 .75 % Metronidazole 0.75 % 05/08/2019 12:00:00 AM EST 1.0 {application} active Metronidazole 0.75 % eCW1 ([facility]) Metronidazole 0.0075 MG/MG Vaginal Gel Metronidazole 0 .75 % Metronidazole 0.75 % 05/08/2019 12:00:00 AM EST 1.0 {application} active Metronidazole 0.75 % eCW1 ([facility]) Metronidazole 0.0075 MG/MG Vaginal Gel Metronidazole 0 .75 % Metronidazole 0.75 % 05/08/2019 12:00:00 AM EST 1.0 {application} active Metronidazole 0.75 % eCW1 ([facility]) Metronidazole 0.0075 MG/MG Vaginal Gel Metronidazole 0 .75 % Metronidazole 0.75 % 05/08/2019 12:00:00 AM EST 1.0 {application} active Metronidazole 0.75 % eCW1 ([facility]) Metronidazole 0.0075 MG/MG Vaginal Gel Metronidazole 0 .75 % Metronidazole 0.75 % 05/08/2019 12:00:00 AM EST 1.0 {application} active Metronidazole 0.75 % eCW1 ([facility]) Metronidazole 0.0075 MG/MG Vaginal Gel Metronidazole 0 .75 % Metronidazole 0.75 % 05/08/2019 12:00:00 AM EST 1.0 {application} active Metronidazole 0.75 % eCW1 ([facility]) Metronidazole 0.0075 MG/MG Vaginal Gel Metronidazole 0 .75 % Metronidazole 0.75 % 05/08/2019 12:00:00 AM EST 1.0 {application} active Metronidazole 0.75 % eCW1 ([facility]) venlafaxine 100 MG Oral Tablet VENLAFAXINE HCL [...] AM ES T active 1 tablet eCW1 ([facility]) Amoxicillin 875 MG / Clavulanate 125 MG Oral Tablet Amoxicillin-Pot Clavulanate 875-125 MG Amoxicillin-Pot Clavulanate 875-125 MG 04/29/2019 12:00:00 AM ES T 1.0 {tablet} suspended Amoxicillin-Pot C lavulanate 875-125 MG eCW1 ([facility]) Amoxicillin 875 MG / Clavulanate 125 MG Oral Tablet Amoxicillin-Pot Clavulanate 875-125 MG Amoxicillin-Pot Clavulanate 875-125 MG 04/29/2019 12:00:00 AM ES T suspended 1 tablet eCW1 ([facility]) Amoxicillin 875 MG / Clavulanate 125 MG Oral Tablet Amoxicillin-Pot Clavulanate 875-125 MG Amoxicillin-Pot Clavulanate 875-125 MG 04/29/2019 12:00:00 AM ES T suspended 1 tablet eCW1 ([facility]) venlafaxine 100 MG Oral Tablet Venlafaxine HCl 100 MG Venlaf axine HCl 100 MG 04/29/2019 12:00:00 AM EST active 1 tablet with food eCW1 ([facility]) venlafaxine 100 MG Oral Tablet Venlafaxine HCl 100 MG Venlaf axine HCl 100 MG 04/29/2019 12:00:00 AM EST active 1 tablet with food eCW1 ([facility]) 875-125 mg 04/29/2019 12:00:00 AM EST tablet 20 TAKE ONE TABLET BY MOUTH EVERY 12 HOURS FOR 10 DAYS TAKE ONE TABLET BY MOUTH EVERY 12 HOURS FOR 10 DAYS SOLD: 05/05/2019 [facility] Amoxicillin 875 MG / Clavulanate 125 MG Oral Tablet Amoxicillin-Pot Clavulanate 875-125 MG Amoxicillin-Pot Clavulanate 875-125 MG 04/29/2019 12:00:00 AM ES T 1.0 {tablet} suspended Amoxicillin-Pot C lavulanate 875-125 MG eCW1 ([facility]) Amoxicillin 875 MG / Clavulanate 125 MG Oral Tablet Amoxicillin-Pot Clavulanate 875-125 MG Amoxicillin-Pot Clavulanate 875-125 MG 04/29/2019 12:00:00 AM ES T active 1 tablet eCW1 ([facility]) Amoxicillin 875 MG / Clavulanate 125 MG Oral Tablet Amoxicillin-Pot Clavulanate 875-125 MG Amoxicillin-Pot Clavulanate 875-125 MG 04/29/2019 12:00:00 AM ES T suspended 1 tablet W1 ([facility]) 25 mcg (1,000 unit) 03/29/2019 12:00:00 AM [...] TABLET BY MOUTH EVERY DAY SOLD: 05/19/2019 [facility] 10 mg [...] relationship to lorenzana Policy Lorenzana Plan Information [facility] [id number] SP [id number] [facility] [id number] SP [id number] [facility]) O [id number] S [id number] Managed Care [facility] Community Plan P [id number] S [id number] Medicaid S [id number] S [id number] Managed Care Critical access hospital Plan P [id number] S [id number] [facility] [id number] SP [id number] [facility] [id number] [facility] [id number] Managed Care - [facility] Plan [facility] P [id number] S [id number] [facility] [id number] Managed Care - Community Plan [facility] P [id number] S [id number] Medicaid S [id number] S [id number] ANS-Medicaid [id number] [facility] [id number] [facility] [id number] SP [id number] ANSI-Medicaid [id number] [facility] Health Maintenance Organization (O) [id number] Self [id number] ANSI-Medicaid [id number] ANSI-Medicaid [id number] [facility] Health Maintenance Organization ([facility]) [id number] Self [id number] ANSI-Medicaid [id number] [facility] [id number] S [id number] Managed Care - Community Plan [facility] P [id number] S [id number] MEDICAID [id number] SP [id number] SELF PAY ONLY [id number] SP [id number] [facility] O [id number] S [id number] [employer] COMP [id number] SP [id number] [facility] [id number] SP [id number] SELF PAY UNAVAILABLE SP UNAVAILA [facility] [id number] SP [id number] [employer] [id number] SP [id number] Problems, Conditions, and Diagnoses Code Display Name Description Problem Type Effective Dates Data Source(s) G47.33 [id number] EDSON (obstructive sleep apnea) Problem 06/04/2020 12:00:00 AM EST eC1 ([facility]) K21.9 [id number] Gastroesophageal ref lux disease, unspecified whether esophagitis present Problem 03/24/2020 12:00:00 AM EST eCW1 ([facility]) 521.00 Dental caries Dental caries 01/05/2020 03:21:29 PM EDT [facility] Thoracic aortic ectasia Thoracic aortic ectasia Proble m 12/03/2019 12:00:00 AM EDT MEDENT ([facility]) [id number] Dietary management surveillance Dietary manageme nt surveillance Problem 12/03/2019 12:00:00 AM EDT MEDENT ([facility] 766568966 Obesity Obesity Problem 12/03/2019 12:00:00 AM ED T MEDENT ([facility]) 469438280 Pure hypercholesterolemia Pure hypercholesterolemia Pr oblem 12/03/2019 12:00:00 AM EDT MEDENT ([facility]) 420043904 Syncope and collapse Syncope and collapse Problem 12/03/2019 12:00:00 AM EDT MEDENT ([facility]) M54.32 61848130 Sciatica of left side Problem 11/27/2019 12: 00:00 AM EDT eCW1 ([facility]) 321333017 Pure hypercholesterolemia Pure hypercholesterolemia Pr oblem 11/14/2019 12:00:00 AM EDT MEDENT ([facility] ) 034.0 STREP THROAT STREP THROAT 07/04/2019 02:44:15 P M EST [facility] L71.9 [id number] Rosacea Problem 05/08/2019 12:00:00 AM ES T eCW1 ([facility]) L71.9 089848886 Rosacea Problem 05/08/2019 12:00:00 AM ES T eCW1 ([facility]) N52.2 898181077 Drug-induced erectile dysfunction Problem 04/29/2019 12:00:00 AM EST eCW1 ([facility]) N52.2 017661197 Drug-induced erectile dysfunction Problem 04/29/2019 12:00:00 AM EST eCW1 ([facility]) Surgeries/Procedures Procedure Description Date Indications Data Source(s) ECG ROUTINE ECG W/LEAST 12 LDS W/I&R 05/31/2020 12:00: 00 AM EST MEDENT ([facility]) Implantable Loop Recorder System, Review And Report 05/20/2020 12:00:00 AM EST MEDENT ([facility]) Implantable Loop Recorder System, Review And Report 04/16/2020 12:00:00 AM EST MEDENT ([facility]) Implantable Loop Recorder System, Review And Report 03/15/2020 12:00:00 AM EST MEDENT ([facility]) Laminectomy One Interspace, Lumbar 03/08/2020 12:00:00 AM EST MEDENT ([facility] ) Laminectomy One Interspace, Lumbar 03/08/2020 12:00:00 AM EST MEDENT ([facility] ) ECG ROUTINE ECG W/LEAST 12 LDS W/I&R 03/01/2020 12:00: 00 AM EDT MEDENT ([facility]) RADEX SPINE LUMBOSACRAL MINIMUM 4 VIEWS 02/09/2020 12: 00:00 AM EDT MEDENT ([facility] ) MRI SPINAL CANAL LUMBAR W/O CONTRAST MATERIAL 02/03/20 20 12:00:00 AM EDT MEDENT ([facility] ) MRI SPINAL CANAL LUMBAR W/O CONTRAST MATERIAL 02/03/20 20 12:00:00 AM EDT MEDENT ([facility] ) Injection, Single Or Multiple trigger points one or two musc les 02/02/2020 12:00:00 AM EDT MEDENT ([facility], ) Inj, Anesth Agent, Trigeminal 02/02/2020 12:00:00 AM E DT MEDENT ([facility] ) INJECTION ANES OTHER PERIPHERAL NERVE/BRANCH 0 12:00:00 AM EDT MEDENT ([facility] ) Implantable Loop Recorder System, Review And Report 12/08/2019 12:00:00 AM EDT MEDENT ([facility]) ECG ROUTINE ECG W/LEAST 12 LDS W/I&R 12/03/2019 12:00: 00 AM EDT MEDENT ([facility]) Injection, Single Or Multiple trigger points one or two musc les 11/20/2019 12:00:00 AM EDT MEDENT ([facility] ) Inj, Anesth Agent, Trigeminal 11/20/2019 12:00:00 AM E DT MEDENT ([facility] ) INJECTION ANES OTHER PERIPHERAL NERVE/BRANCH 0 12:00:00 AM EDT MEDENT ([facility] ) CHEMODNRVTJ [facility] MUSC INNERVATED FACIAL NRV 11/18/2019 12:00:00 AM EDT MEDENT ([facility] ) Implantable Loop Recorder System, Review And Report 11/05/2019 12:00:00 AM EDT MEDENT ([facility]) Implantable Loop Recorder System, Review And Report 10/03/2019 12:00:00 AM EDT MEDENT ([facility]) Injection, Single Or Multiple trigger points one or two musc les 09/03/2019 12:00:00 AM EDT MEDENT ([facility] ) Inj, Anesth Agent, Trigeminal 09/03/2019 12:00:00 AM E DT MEDENT ([facility] ) INJECTION ANES OTHER PERIPHERAL NERVE/BRANCH 0 12:00:00 AM EDT MEDENT ([facility] ) Implantable Loop Recorder System, Review And Report 09/02/2019 12:00:00 AM EDT MEDENT ([facility]) Injection, Single Or Multiple trigger points one or two musc les 07/07/2019 12:00:00 AM EST MEDENT ([facility] ) Inj, Anesth Agent, Trigeminal 07/07/2019 12:00:[address] MEDENT ([facility] ) INJECTION ANES OTHER PERIPHERAL NERVE/BRANCH 0 12:00:00 AM EST MEDENT ([facility] ) Implantable Loop Recorder System, Review And Report 06/19/2019 12:00:00 AM EST MEDENT ([facility]) Spirometry 05/29/2019 12:00:00 AM EST M EDENT ([facility], ) Injection, Single Or Multiple trigger points one or two musc les 04/25/2019 12:00:00 AM EST MEDENT ([facility]) Inj, Anesth Agent, Trigeminal 04/25/2019 12:00:[address] MEDENT ([facility] ) INJECTION ANES OTHER PERIPHERAL NERVE/BRANCH 9 12:00:00 AM EST MEDENT ([facility] ) Results ID Date Data Source [id number] 04/28/2020 08:08:00 AM EST MEDENT ([facility]) Name Value Range Interpretation Code Description Data Polina rce(s) Supporting Document(s) Thyroid Stimulating Hormone 1.340 ME DENT ([facility]) Free T4 0.90 MEDENT ([facility]) ID Date Data Source FREE T4 & TSH PANEL 04/28/2020 12:00:00 AM EST eCW1 ([facility]) Name Value Range Interpretation Code Description Data Polina rce(s) Supporting Document(s) 1.340 0.358-3.740 eCW1 ([facility]) 0.90 0.76-1.46 eCW1 ([facility]) ID Date Data Source [id number] 03/09/2020 09:41:00 AM EST MEDENT ([facility]) Name Value Range Interpretation Code Description Data Polina rce(s) Supporting Document(s) Methicillin resistant Staphylococcus aur eus (MRSA) DNA [Presence] in Unspecified specimen by Probe and target amplification method [facility] A negative test result does not exclude the possibility of nasal colonization because test results may be affected by improper specimen collection, technical error, sample mix-up, or because the number of organisms in the sample is below the limit of detection of the test. ID Date Data Source [id number] 03/08/2020 02:41:00 PM EST MEDENT ([facility]) Name Value Range Interpretation Code Description Data [facility] rce(s) Supporting Document(s) Surgical pathology study Laboratory test result [facility] ([facility]) FINAL DIAGNOSIS Submitted as "disc tissue L5-S1",discectomy: Consistent with disc tissue. Negative for malignancy. 03/10/2020857 CLINICAL DIAGNOSIS Herniated/ruptured disc at level L5-S1 03/09/20201331 GROSS DIAGNOSIS Received in formalin labeled "disc tissue L5-S1" consists of fragments of tissue, 0.5 x 0.5 x 0.1 cm. All in one. -OA 03/09/20201331 Signed LASHANDA STEWART MD 03/10/2020 0911 ID Date Data Source [id number] 03/08/2020 11:14:00 AM EST MEDENT ([facility]) Name Value Range Interpretation Code Description Data Polina rce(s) Supporting Document(s) AB Screen Gel Manual Laboratory test result MEDENT ([facility]) Blood Type Laboratory test result MEDENT ([facility]) ID Date Data Source [id number] 03/03/2020 10:30:00 AM EDT [facility] Name Value Range Interpretation Code Description Data Polina rce(s) Supporting Document(s) SARS coronavirus 2 RNA [facility] This lab was ordered by [facility] and reported by [facility]. ID Date Data Source [id number] 02/09/2020 10:08:22 AM EDT [facility] Vital SignsTemperature: 98.8FV ital Signs performed by: Josi Hall LPN, February 09, 2020 10:08 AMVaccines Administered/Entered:Vaccination Group: InfluenzaSeries: 2Vaccination: Flulaval Quadrivalent Intramuscular Suspension Prefilled Syringe 0.5 MLMfr / Lot# / Exp.Date: [employer] / [id number] / 11/03/2020mt. Given / Route / Site: 0.5 mL / IM / Left DeltoidNDC / CVX: [id number] / 150Administered Date: 02/09/2020 10:09VFC Eligibility: Not VFC EligibleVIS Date: 12/19/2018Comments: Administered by: Josi Hall LPN Assessment & Plan Orders:[id number] - Immo Admin (under 19 yrs), 1st Toxoid [CPT- 41122] FluLaval Quadrivalent, preservative free [CPT-33224] 43251-Ooq Vst-Est Level I [CPT-37691] Name Value Range Interpretation Code Description Data Polina rce(s) Supporting Document(s) ID Date Data Source [id number] 01/05/2020 10:53:44 AM EDT [facility] Current Problems: Dental caries (ICD-521 .00) (ECO77-H93.9)STREP THROAT (ICD- 034.0) (ACT95-L20.0)DENTAL JAIN STATUS (ICD-V45.84) (JSB92-Y55.811)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 . Took temp@ F. Additional [...] was cooperative. NV: P/Pili Sousa DMD by linsey (01/05/2020 3:21 PM): Tooth Notes and Watches:- Tooth 12 Watch: distalSylvia Matos by janie (10/22/2018 3:06 PM): - Tooth 13 Watch: mesialSylvia Matos by janie (10/22/2018 3:06 PM): - Tooth 3 Note: open margin on the distalSylvia Matos by janie (10/22/2018 3:07 PM): - Tooth 31 Watch: mesial Sylvia Matos RDH by janie (11/20/2019 2:54 PM): Assessment & Plan Problems:Added: Dental caries (ICD-521.00) (YBT63-O78.9)Medications:VITAMIN D3 SUPER STRENGTH 2000 UNIT ORAL TABLETVENTOLIN HFA 108 (90 Base) MCG/ACT INHALATION AEROSOL SOLUTIONAllergies:* SEASONAL (Critical) Name Value Range Interpretation Code Description Data Polina rce(s) Supporting Document(s) ID Date Data Source [id number] 11/20/2019 02:38:09 PM EDT [facility] Patient History Medical History:MRSAasth maPast Hx of recurrent strep throatback problemsmigraines- botox injectionsFamily History:Mother-lung cancerSocial/Personal History: Smoking Status: never smokerCurrent Problems: STREP THROAT (ICD-034.0) (IXI66-H49.0)DENTAL JAIN STATUS (ICD-V45.84) (BOE05-F98.811)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 CC: none. Reviewed Xrays. Exam: caries detected. OCS: WNL IO/ EO completed, No significant hard findings upon clinical exam Pt was cooperative.OHI givenReferral: N/ANV:fillingRaso Sylvia HERNANDEZ by linsey (11/20/2019 4:06 PM): ; janie (Nov 20 2019 3:34PM): [facility] with patient- updated. He is having a little sensitivity on the upper left.Adult prophy- handscaled, kazakh- mint prophy paste, flossOH-Patient brushes twice/day and [...] 3:07 PM): - Tooth 31 Watch: mesial RasSylvia macedo RDH by janie (11/20/2019 2:54 PM): Assessment & Plan Medications:VITAMIN D3 SUPER STRENGTH 2000 UNIT ORAL TABLETVENTOLIN HFA 108 (90 Base) MCG/ACT INHALATION AEROSOL SOLUTIONAllergies:* SEASONAL (Critical) Name Value Range Interpretation Code Description Data Polina rce(s) Supporting Document(s) ID Date Data Source [id number] 10/06/2019 05:51:00 PM EDT [facility] ([facility]) Name Value Range Interpretation Code Description Data Polina rce(s) Supporting Document(s) Lymphocytes [#/volume] in Blood by Automated count 1.7 1.5-5.0 [facility] ([facility]) ID Date Data Source [id number] 10/06/2019 05:51:00 PM EDT [facility] ([facility]) Name Value Range Interpretation Code Description Data Polina rce(s) Supporting Document(s) Neutrophils [#/volume] in Blood by Automated count 4.4 1.5-8.5 [facility] ([facility]) ID Date Data Source [id number] 10/06/2019 05:51:00 PM EDT [facility] ([facility]) Name Value Range Interpretation Code Description Data Polina rce(s) Supporting Document(s) Nucleated erythrocytes/100 leukocytes [Ratio] in Blood by Au tomated count 0.0 0-0 [facility] ([facility]) ID Date Data Source [id number] 10/06/2019 05:51:00 PM EDT [facility] ([facility]) Name Value Range Interpretation Code Description Data Polina rce(s) Supporting Document(s) Immature granulocytes/100 leukocytes in Blood by Automated count 0.1 0-3.0 [facility] ([facility]) ID Date Data Source [id number] 10/06/2019 05:51:00 PM EDT [facility] ([facility]) Name Value Range Interpretation Code Description Data Polina rce(s) Supporting Document(s) Basophils/100 leukocytes in Blood by Automated count 0.4 0.0-1 .0 [facility] ([facility]) ID Date Data Source [id number] 10/06/2019 05:51:00 PM EDT [facility] ([facility]) Name Value Range Interpretation Code Description Data Polina rce(s) Supporting Document(s) Eosinophils/100 leukocytes in Blood by Automated count 3.0 0.0 -3.0 [facility] ([facility]) ID Date Data Source [id number] 10/06/2019 05:51:00 PM EDT [facility] ([facility]) Name Value Range Interpretation Code Description Data Polina rce(s) Supporting Document(s) Monocytes/100 leukocytes in Blood by Automated count 7.2 0.0-5 .0 [facility] ([facility]) ID Date Data Source [id number] 10/06/2019 05:51:00 PM EDT [facility] ([facility]) Name Value Range Interpretation Code Description Data Polina rce(s) Supporting Document(s) Lymphocytes/100 leukocytes in Blood by Automated count 25.1 24. 0-44.0 [facility] ([facility]) ID Date Data Source [id number] 10/06/2019 05:51:00 PM EDT [facility] ([facility]) Name Value Range Interpretation Code Description Data Polina rce(s) Supporting Document(s) Neutrophils [#/volume] in Blood by Automated count 64.2 36.0-66 .0 [facility] ([facility]) ID Date Data Source [id number] 10/06/2019 05:51:00 PM EDT [facility] ([facility]) Name Value Range Interpretation Code Description Data Polina rce(s) Supporting Document(s) Platelets [#/volume] in Blood by Automated count 244 150-450 [facility] ([facility]) ID Date Data Source [id number] 10/06/2019 05:51:00 PM EDT [facility] ([facility]) Name Value Range Interpretation Code Description Data Polina rce(s) Supporting Document(s) Erythrocyte distribution width [Ratio] by Automated count 13.2 11.5-14.5 [facility] ([facility]) ID Date Data Source [id number] 10/06/2019 05:51:00 PM EDT [facility] ([facility]) Name Value Range Interpretation Code Description Data Polina rce(s) Supporting Document(s) Erythrocyte mean corpuscular hemoglobin concentration [Mass/volume] by Automated count 34.1 32.0-36.5 [facility] ([facility]) ID Date Data Source [id number] 10/06/2019 05:51:00 PM EDT [facility] ([facility]) Name Value Range Interpretation Code Description Data Polina rce(s) Supporting Document(s) Erythrocyte mean corpuscular hemoglobin [Entitic mass] by Au tomated count 29.9 27.0-33.0 [facility] ([facility]) ID Date Data Source [id number] 10/06/2019 05:51:00 PM EDT [facility] ([facility]) Name Value Range Interpretation Code Description Data Polina rce(s) Supporting Document(s) Erythrocyte mean corpuscular volume [Entitic volume] by Auto mated count 87.6 80.0-96.0 [facility] ([facility]) ID Date Data Source [id number] 10/06/2019 05:51:00 PM EDT [facility] ([facility]) Name Value Range Interpretation Code Description Data Polina rce(s) Supporting Document(s) Hematocrit [Volume Fraction] of Blood by Automated count 41.6 4 2.0-52.0 [facility] ([facility]) ID Date Data Source [id number] 10/06/2019 05:51:00 PM EDT [facility] ([facility]) Name Value Range Interpretation Code Description Data Polina rce(s) Supporting Document(s) Hemoglobin [Mass/volume] in Blood 14.2 13.5-17.5 [facility] ([facility]) ID Date Data Source [id number] 10/06/2019 05:51:00 PM EDT [facility] ([facility]) Name Value Range Interpretation Code Description Data Polina rce(s) Supporting Document(s) Erythrocytes [#/volume] in Blood by Automated count 4.75 4.30-6 .10 [facility] ([facility]) ID Date Data Source [id number] 10/06/2019 05:51:00 PM EDT [facility] ([facility]) Name Value Range Interpretation Code Description Data Polina rce(s) Supporting Document(s) Magnesium [Mass/volume] in Serum or Plasma 2.3 1.8-2.4 [facility] ([facility]) ID Date Data Source [id number] 10/06/2019 05:51:00 PM EDT [facility] ([facility]) Name Value Range Interpretation Code Description Data Polina rce(s) Supporting Document(s) Calcium [Moles/volume] in Serum or Plasma 8.6 8.5-10.1 [facility] ([facility]) ID Date Data Source [id number] 10/06/2019 05:51:00 PM EDT [facility] ([facility]) Name Value Range Interpretation Code Description Data Polina rce(s) Supporting Document(s) Anion gap 3 in Serum or Plasma 3 8-16 [facility] ([facility]) ID Date Data Source [id number] 10/06/2019 05:51:00 PM EDT [facility] ([facility]) Name Value Range Interpretation Code Description Data Polina rce(s) Supporting Document(s) Carbon dioxide, total [Moles/volume] in Serum or Plasma 26 21 -32 [facility] ([facility] ) ID Date Data Source [id number] 10/06/2019 05:51:00 PM EDT [facility] ([facility] ) Name Value Range Interpretation Code Description Data Polina rce(s) Supporting Document(s) Chloride [Moles/volume] in Serum or Plasma 108 98-107 [facility] ([facility]) ID Date Data Source [id number] 10/06/2019 05:51:00 PM EDT [facility] ([facility]) Name Value Range Interpretation Code Description Data Polina rce(s) Supporting Document(s) Potassium [Moles/volume] in Serum or Plasma 3.7 3.5-5.1 [facility] ([facility] ) ID Date Data Source [id number] 10/06/2019 05:51:00 PM EDT [facility] ([facility]) Name Value Range Interpretation Code Description Data Polina rce(s) Supporting Document(s) Sodium [Moles/volume] in Serum or Plasma 137 136-145 [facility] ([facility] ) ID Date Data Source [id number] 10/06/2019 05:51:00 PM EDT [facility] ([facility]) Name Value Range Interpretation Code Description Data Polina rce(s) Supporting Document(s) Glomerular filtration rate/1.73 sq M.pre dicted [Volume Rate/Area] in Serum or Plasma by Creatinine-based formula (MDRD) Laboratory test result [facility] ([facility] ) ID Date Data Source [id number] 10/06/2019 05:51[facility] [facility] Name Value Range Interpretation Code Description Data Polina rce(s) Supporting Document(s) Creatinine [Mass/volume] in Serum or Plasma 0.90 0.70-1.30 [facility] ([facility] ) ID Date Data Source [id number] 10/06/2019 05:51:00 PM EDT [facility] ([facility] ) Name Value Range Interpretation Code Description Data Polina rce(s) Supporting Document(s) Urea nitrogen [Mass/volume] in Serum or Plasma 12 7-18 [facility] ([facility] ) ID Date Data Source [id number] 10/06/2019 05:51:00 PM EDT [facility] ([facility]) Name Value Range Interpretation Code Description Data Polina rce(s) Supporting Document(s) Glucose [Mass/volume] in Serum or Plasma 100 70-100 [facility] ([facility]) ID Date Data Source [id number] 10/06/2019 05:51:00 PM EDT [facility] ([facility]) Name Value Range Interpretation Code Description Data Polina rce(s) Supporting Document(s) Basophils [#/volume] in Blood by Automated count 0.0 0.0-0.2 [facility] ([facility]) ID Date Data Source [id number] 10/06/2019 05:51:00 PM EDT [facility] ([facility]) Name Value Range Interpretation Code Description Data Polina rce(s) Supporting Document(s) Eosinophils [#/volume] in Blood by Automated count 0.2 0.0-0.5 [facility] ([facility]) ID Date Data Source [id number] 10/06/2019 05:51:00 PM EDT [facility] ([facility]) Name Value Range Interpretation Code Description Data Polina rce(s) Supporting Document(s) Monocytes [#/volume] in Blood by Automated count 0.5 0.0-0.8 [facility] ([facility]) ID Date Data Source [id number] 10/06/2019 05:51:00 PM EDT [facility] ([facility]) Name Value Range Interpretation Code Description Data Polina rce(s) Supporting Document(s) Leukocytes [#/volume] in Blood by Automated count 6.9 4.0-10.0 [facility] ([facility]) ID Date Data Source [id number] 10/06/2019 05:51:00 PM EDT [facility] ([facility]) Name Value Range Interpretation Code Description Data Polina rce(s) Supporting Document(s) Thyrotropin [Units/volume] in Serum or Plasma by Detec tion limit <= 0.005 mIU/L 0.616 0.358-3.740 [facility] ([facility]) ID Date Data Source [id number] 08/25/2019 10:18:00 AM EDT [facility] ([facility]) Name Value Range Interpretation Code Description Data Polina rce(s) Supporting Document(s) Albumin/Globulin [Mass Ratio] in Serum or Plasma 1.32 1.00-1.93 [facility] ([facility]) ID Date Data Source [id number] 08/25/2019 10:18:00 AM EDT [facility] ([facility]) Name Value Range Interpretation Code Description Data Polina rce(s) Supporting Document(s) Albumin [Mass/volume] in Serum or Plasma 4.1 3.2-5.2 [facility] ([facility]) ID Date Data Source [id number] 08/25/2019 10:18:00 AM EDT [facility] ([facility]) Name Value Range Interpretation Code Description Data Polina rce(s) Supporting Document(s) Protein [Mass/volume] in Serum or Plasma 7.2 6.4-8.2 [facility] ([facility]) ID Date Data Source [id number] 08/25/2019 10:18:00 AM EDT [facility] ([facility]) Name Value Range Interpretation Code Description Data Polina rce(s) Supporting Document(s) Bilirubin.direct [Mass/volume] in Serum or Plasma 0.1 0.0-0.2 [facility] ([facility]) ID Date Data Source [id number] 08/25/2019 10:18:00 AM EDT [facility] ([facility]) Name Value Range Interpretation Code Description Data Polina rce(s) Supporting Document(s) Bilirubin.total [Mass/volume] in Serum or Plasma 0.7 0.2-1.0 [facility] ([facility]) ID Date Data Source [id number] 08/25/2019 10:18:00 AM EDT [facility] ([facility]) Name Value Range Interpretation Code Description Data Polina rce(s) Supporting Document(s) Alkaline phosphatase [Enzymatic activity/volume] in Serum or Ara sma 110 45-117 [facility] ([facility]) ID Date Data Source [id number] 08/25/2019 10:18:00 AM EDT [facility] ([facility]) Name Value Range Interpretation Code Description Data Polina rce(s) Supporting Document(s) Gamma glutamyl transferase [Enzymatic activity/volume] in Se rum or Plasma 75 15-85 [facility] ([facility]) ID Date Data Source [id number] 08/25/2019 10:18:00 AM EDT [facility] ([facility]) Name Value Range Interpretation Code Description Data Polina rce(s) Supporting Document(s) Alanine aminotransferase [Enzymatic activity/volume] in Seru m or Plasma 38 12-78 [facility] ([facility]) ID Date Data Source [id number] 08/25/2019 10:18:00 AM EDT [facility] ([facility]) Name Value Range Interpretation Code Description Data Polina rce(s) Supporting Document(s) Aspartate aminotransferase [Enzymatic activity/volume] in Se rum or Plasma 22 7-37 [facility] ([facility]) ID Date Data Source [id number] PROFILE 08/25/2019 12:00:00 AM EDT eCW1 ([facility]) Name Value Range Interpretation Code Description Data Polina rce(s) Supporting Document(s) 22 7-37 AST/SGOT eCW1 ([facility]) 0.1 0.0-0.2 BILIRUBIN,DIRECT eCW1 ([facility]) 110 45-117 ALKALINE PHOSPHATASE eCW1 ([facility]) 38 12-78 ALT/SGPT eCW1 ([facility]) 0.7 0.2-1.0 BILIRUBIN,TOTAL eCW1 ([facility]) 7.2 6.4-8.2 TOTAL PROTEIN eCW1 ([facility]) 4.1 3.2-5.2 ALBUMIN eCW1 ([facility]) 1.32 1.00-1.93 ALBUMIN/GLOBULIN RATIO eCW1 ([facility]) ID Date Data Source [id number] 08/25/2019 12:00:00 AM EDT eCW1 ([facility]) Name Value Range Interpretation Code Description Data Polina rce(s) Supporting Document(s) 75 15-85 GAMMA GLUTAMYLTRANSPEPTIDASE e CW1 ([facility]) ID Date Data Source [id number] 07/02/2019 03:37:46 PM [facility] Measurements & CalculationsHeight: 66 inches 167.64 cm [...] Result Reference Range Normal ValueRapid Strep: positive negativeCaitdave Hall LPN, July 02, 2019 3:41 PMInitial [...] NoHave you seen a dentist? Yes - yan dental Intake performed by: Josi Hall LPN, [...] (HPI)URI SYMPTOMS PAST FEW DAYS. SEEN IN [facility] AND TOLD HE HAD THE FLU BUT NO ONE EXAMINED HIM AND THEY REFUSED TO TEST FOR STREP. GIVEN TAMIFLU BUT HE HAS NOT STARTED TAKING.Transitions of Care InboundProblem ReviewProblem List was reviewed and/or updated during this visit.Medication Reconciliation & ReviewMedication List was reviewed and/or updated during this visit, including review of any [id number] medications, herbal therapies, and/or supplements.Allergy ReviewAllergy List [...] CareInboundAssessment & Plan Problems:Added: STREP THROAT (ICD-034.0) (BQE01-J61.0) Assessment: Instructions: POSITIVE STREP TEST.PENICILLIN X 10 [...] DAYS Qty: 40[Tablet] Refills: 0 Method: ElectronicRemoved:DRISDOL 31841 UNIT ORAL CAPSULE-1 tab po weekly with dinnerAllergies:* SEASONAL (Critical)Orders:Rapid Strep [CPT-65092] Ofc Vst, Est Level III [CPT-74446] Follow-Up Return to clinic: as needed for follow upMedications:PENICILLIN V POTASSIUM 500 MG ORAL TABLET (PENICILLIN V POTASSIUM) 2 TABS PO BID X 10 DAYS #40[Tablet] x 0 Route:ORAL Entered and Authorized by: Milana CARBALLO Method used: Electronically to [facility] (retail) [id number] [place] [address] Fax: Note to Pharmacy: Route: ORAL; RxID: [id number]]Elec tronically signed by Milana CARBALLO on 07/04/2019 at 2:44 PM Name Value Range Interpretation Code Description Data Polina rce(s) Supporting Document(s) ID Date Data Source [id number] 07/02/2019 03:37:46 PM EST [facility] Name Value Range Interpretation Code Description Data Polina rce(s) Supporting Document(s) RAPID STREP positive [facility] ID Date Data Source [id number] 07/02/2019 08:51:00 AM EST [facility] ([facility]) Name Value Range Interpretation Code Description Data Polina rce(s) Supporting Document(s) Deprecated Cobalamin [Mass/volume] in Serum 24.7 30.0-100.0 [facility] ([facility]) ID Date Data Source [id number] 07/02/2019 08:51:00 AM EST [facility] ([facility]) Name Value Range Interpretation Code Description Data Polina rce(s) Supporting Document(s) Thyroxine (T4) free [Mass/volume] in Serum or Plasma 1.17 0.76- 1.46 [facility] ([facility]) ID Date Data Source [id number] 07/02/2019 08:51:00 AM EST [facility] ([facility]) Name Value Range Interpretation Code Description Data Polina rce(s) Supporting Document(s) Cholesterol.total/Cholesterol in HDL [Mass Ratio] in Serum or Plasm a 3.533 [facility] ([facility]) ID Date Data Source [id number] 07/02/2019 08:51:00 AM EST [facility] ([facility]) Name Value Range Interpretation Code Description Data Polina rce(s) Supporting Document(s) Cholesterol non HDL [Mass/volume] in Serum or Plasma 114 [facility] ([facility]) ID Date Data Source [id number] 07/02/2019 08:51:00 AM EST [facility] ([facility]) Name Value Range Interpretation Code Description Data Polina rce(s) Supporting Document(s) Cholesterol in LDL [Mass/volume] in Serum or Plasma by calculation 96 [facility] ([facility]) ID Date Data Source [id number] 07/02/2019 08:51:00 AM EST [facility] ([facility]) Name Value Range Interpretation Code Description Data Polina rce(s) Supporting Document(s) Cholesterol in HDL [Mass/volume] in Serum or Plasma 45 [facility] ([facility]) ID Date Data Source [id number] 07/02/2019 08:51:00 AM EST [facility] ([facility]) Name Value Range Interpretation Code Description Data Polina rce(s) Supporting Document(s) Cholesterol [Mass/volume] in Serum or Plasma 159 [facility] ([facility]) ID Date Data Source [id number] 07/02/2019 08:51:00 AM EST [facility] ([facility]) Name Value Range Interpretation Code Description Data Polina rce(s) Supporting Document(s) Triglyceride [Mass/volume] in Serum or Plasma 89 [facility] ([facility]) ID Date Data Source [id number] 05/13/2019 12:32:26 PM [facility] Patient History Medical History:MRSAasth maFamily History:Mother-lung cancerSocial/Personal History: Smoking Status: never smokerCurrent Problems: DENTAL JAIN STATUS (ICD-V45.84) (OKU26-H58.811)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) (CEI97-M19.6)vitamin D deficiency (ICD-268.9) (ICD10- E55.9)Well adult exam (ICD-V70.0) (XYR26-S09.00)Influenza vaccine (ICD-V04.8) (SQJ62-M22)Abdominal pain (ICD-789.00) (SYD50-O32.9)Memory loss (ICD-780.93) (RXK86-X91.3)BMI 32.0-32.9 (ICD-V85.32) (FAQ52-I27.32)Obesity (ICD-278.00) (ZUC24-F41.09)Problem list reviewed during this update.Current Medications: TRISHA MIN D3 SUPER STRENGTH 2000 UNIT ORAL TABLET (CHOLECALCIFEROL) 1 tab po daily with dinner omit on day taking the Drisdol.; Route: ORALDRISDOL 46569 UNIT ORAL CAPSULE (ERGOCALCIFEROL) 1 tab po [...] Description[E] Decay On #2 Surface O Chart Notes:linsey (May 13 2019 2:59PM): [facility](-). CC: none. Reviewed Xrays. Exam: caries detected. OCS: WNL IO/ EO completed, No significant hard findings upon clinical exam Pt was cooperative.OHI givenReferral: N/ANV:fillingSylvia Matos RDH by linsey (05/13/2019 2:59 PM): ; sraso (May 13 2019 1:12PM): [facility] with patient- No changes. No problems or concerns today. Adult prophy- handscaled, kazakh- mint prophy paste, floss, 4 BW's- alwasy [...] teeth. Patient is cooperative. [place]- 6 month recallRaso Sylvia HERNANDEZ by janie (05/13/2019 1:12 PM): Tooth Notes [...] D3 SUPER STRENGTH 2000 UNIT ORAL TABLETDRISDOL 67317 UNIT ORAL CAPSULEVENTOLIN HFA 108 (90 Base) MCG/ACT INHALATION AEROSOL SOLUTIONAllergies:* SEASONAL (Critical) __ Name Value Range Interpretation Code Description Data Polina rce(s) Supporting Document(s) Procedure Social History Code Duration Value Status Description Data Source(s ) Smoking 06/04/2020 12:00:00 AM EST Never Smoker completed Never S moker eCW1 ([facility]) Smoking 05/31/2020 12:00:00 AM EST Patient has never smoked co mpleted Patient has never smoked [facility] ([facility] Smoking 05/10/2020 12:00:00 AM EST Never Smoker completed Never S moker eCW1 ([facility]) Smoking 05/10/2020 12:00:00 AM EST Never Smoker completed Never S moker eCW1 ([facility]) Smoking 05/10/2020 12:00:00 AM EST Never Smoker completed Never S moker eCW1 ([facility]) Smoking 04/28/2020 12:00:00 AM EST Never Smoker completed Never S moker eCW1 ([facility]) Smoking 04/28/2020 12:00:00 AM EST Never Smoker completed Never S moker eCW1 ([facility]) Smoking 04/28/2020 12:00:00 AM EST Never Smoker completed Never S moker eCW1 ([facility]) Smoking 03/24/2020 12:00:00 AM EST Never Smoker completed Never S moker eCW1 ([facility]) Smoking 11/27/2019 12:00:00 AM EDT Never Smoker completed Never S moker eCW1 ([facility]) Smoking 11/27/2019 12:00:00 AM EDT Never Smoker completed Never S moker eCW1 ([facility]) Smoking 11/27/2019 12:00:00 AM EDT Never Smoker completed Never S moker eCW1 ([facility]) Smoking 11/27/2019 12:00:00 AM EDT Never Smoker completed Never S moker eCW1 ([facility]) Smoking 11/27/2019 12:00:00 AM EDT Never Smoker completed Never S moker eCW1 ([facility]) Smoking 11/03/2019 12:00:00 AM EDT Never Smoker completed Never S moker eCW1 ([facility]) Smoking 10/13/2019 12:00:00 AM EDT Never Smoker completed Never S moker eCW1 ([facility]) Vital Signs ID Date Data Source UNK Name Value Range Interpretation Code Description Data Source(s) Respiratory rate 16 /min 16 /min [facility] ( [facility]) Heart rate 80 /min 80 /min [facility] ([facility] Regular Body mass index (BMI) [Ratio] 39.2 kg/m2 39.2 k g/m2 [facility] ([facility]) Body height 67 [in_i] 67 [in_i] [facility] ([facility] 5'7" Body weight 250.00 [lb_av] 250.00 [lb_av] MEDEN T ([facility]) Diastolic blood pressure 80 mm[Hg] 80 mm[Hg] [facility] ([facility]) sitting Systolic blood pressure 128 mm[Hg] 128 mm[Hg] M EDENT ([facility]) sitting Diastolic blood pressure 80 mm[Hg] 80 mm[Hg] [facility] ([facility]) sitting, large cuff Systolic blood pressure 126 mm[Hg] 126 mm[Hg] M EDENT ([facility]) sitting, large cuff Body surface area Derived from formula 2.22 m2 2.22 m2 MED[facility] ([facility], ) Body weight 113.117 kg 113.117 kg MED[facility] ([facility] ) [place] body weight 148 [lb_av] 148 [lb_av] MEDEN T ([facility]) Body mass index (BMI) [Ratio] 39.1 kg/m2 39.1 k g/m2 MED[facility] ([facility]) Body weight 249.38 [lb_av] 249.38 [lb_av] MEDEN T ([facility]) Body height 67 [in_i] 67 [in_i] MED[facility] ([facility]) 5'7" Diastolic blood pressure 102 mm[Hg] 102 mm[Hg] MEDENT ([facility]) Systolic blood pressure 152 mm[Hg] 152 mm[Hg] M EDENT ([facility]) Diastolic blood pressure 90 mm[Hg] 90 mm[Hg] eCW1 ([facility]) Systolic blood pressure 148 mm[Hg] 148 mm[Hg] e CW1 ([facility]) Body mass index (BMI) [Ratio] 37.90 kg/m2 37.90 kg/m2 W1 ([facility]) Body height [in_i] eCW1 ([facility]) Body weight 242 [lb_av] 242 [lb_av] eCW1 ([facility]) Diastolic blood pressure 82 mm[Hg] 82 mm[Hg] eCW1 ([facility]) Systolic blood pressure 116 mm[Hg] 116 mm[Hg] e CW1 ([facility]) Body temperature 98.7 [degF] 98.7 [degF] eCW1 ( [facility]) Respiratory rate 18 /min 18 /min eCW1 ([facility]) Heart rate 103 /min 103 /min eCW1 ([facility]) Body mass index (BMI) [Ratio] 37.43 kg/m2 37.43 kg/m2 eCW1 ([facility]) Body height [in_i] eCW1 ([facility]) Body weight 239 [lb_av] 239 [lb_av] eCW1 ([facility]) Body temperature 96.3 [degF] 96.3 [degF] MEDENT ([facility]) Diastolic blood pressure 92 mm[Hg] 92 mm[Hg] eCW1 ([facility]) Systolic blood pressure 126 mm[Hg] 126 mm[Hg] e CW1 ([facility]) Body temperature 97.8 [degF] 97.8 [degF] eCW1 ( [facility]) Respiratory rate 18 /min 18 /min eCW1 ([facility]) Heart rate 82 /min 82 /min eCW1 ([facility]) Body mass index (BMI) [Ratio] 33.98 kg/m2 33.98 kg/m2 eCW1 ([facility]) Body height [in_i] eCW1 ([facility]) Body weight 217 [lb_av] 217 [lb_av] eCW1 ([facility]) Body temperature 97.1 [degF] 97.1 [degF] MEDENT ([facility]) Diastolic blood pressure 74 mm[Hg] 74 mm[Hg] MEDENT ([facility] sitting Systolic blood pressure 126 mm[Hg] 126 mm[Hg] M EDENT ([facility]) sitting Diastolic blood pressure 74 mm[Hg] 74 mm[Hg] MEDENT ([facility]) sitting, large cuff Systolic blood pressure 128 mm[Hg] 128 mm[Hg] M EDENT ([facility]) sitting, large cuff Respiratory rate 16 /min 16 /min MEDENT ( [facility]) Heart rate 100 /min 100 /min MEDENT ([facility]) Regular Body mass index (BMI) [Ratio] 33.4 kg/m2 33.4 k g/m2 MEDENT ([facility]) Body height 67 [in_i] 67 [in_i] MEDENT ([facility]) 5'7" Body weight 213.00 [lb_av] 213.00 [lb_av] MEDEN T ([facility]) Body surface area Derived from formula 2.05 m2 2.05 m2 MEDENT ([facility], ) Body weight 97.297 kg 97.297 kg MEDENT ([facility], ) [place] body weight 136 [lb_av] 136 [lb_av] MEDEN T ([facility]) Body mass index (BMI) [Ratio] 35.1 kg/m2 35.1 k g/m2 MEDENT ([facility]) Body weight 214.50 [lb_av] 214.50 [lb_av] MEDEN T ([facility]) Body height 65.5 [in_i] 65.5 [in_i] [facility] 5'5.50" Body temperature 97.5 [degF] 97.5 [degF] [facility] ([facility]) Oxygen saturation in Arterial blood by Pulse oximetry 94 % 94 % [facility] ([facility]) Heart rate 76 /min 76 /min [facility] ([facility]) Diastolic blood pressure 84 mm[Hg] 84 mm[Hg] [facility] Systolic blood pressure 122 mm[Hg] 122 mm[Hg] [facility] Diastolic blood pressure--sitting 84 mm[Hg] 84 mm[Hg] [facility]) large cuff, Ra Systolic blood pressure--sitting 122 mm[Hg] 122 mm[Hg] MEDENT ([facility]) large cuff, Ra Heart rate 89 /min 89 /min MEDENT ([facility]) Body mass index (BMI) [Ratio] 34.0 kg/m2 34.0 k g/m2 MEDENT ([facility]) Body height 67 [in_i] 67 [in_i] MEDENT ([facility]) 5'7" Body weight 217.00 [lb_av] 217.00 [lb_av] MEDEN T ([facility]) [place] body weight 148 [lb_av] 148 [lb_av] MEDEN T ([facility]) Body mass index (BMI) [Ratio] 31.3 kg/m2 31.3 k g/m2 [facility] ([facility]) Body weight 200.00 [lb_av] 200.00 [lb_av] MEDEN T ([facility]) Body height 67 [in_i] 67 [in_i] [facility] 5'7" Respiratory rate 12 /min 12 /min MEDENT ( [facility], ) Diastolic blood pressure 66 mm[Hg] 66 mm[Hg] eCW1 ([facility]) Systolic blood pressure 122 mm[Hg] 122 mm[Hg] e CW1 ([facility]) Body temperature 98.5 [degF] 98.5 [degF] eCW1 ( [facility]) Respiratory rate 18 /min 18 /min eCW1 ([facility]) Heart rate 120 /min 120 /min eCW1 ([facility]) Body mass index (BMI) [Ratio] 33.70 kg/m2 33.70 kg/m2 eCW1 ([facility]) Body height [in_i] eCW1 ([facility]) Body weight 215.2 [lb_av] 215.2 [lb_av] eCW1 ([facility]) Body mass index (BMI) [Ratio] 34.0 kg/m2 34.0 k g/m2 MEDENT ([facility] ) Body weight 220.44 [lb_av] 220.44 [lb_av] MEDEN T ([facility] ) Diastolic blood pressure 70 mm[Hg] 70 mm[Hg] eCW1 ([facility]) Systolic blood pressure 120 mm[Hg] 120 mm[Hg] e CW1 ([facility]) Body temperature 96.8 [degF] 96.8 [degF] eCW1 ( [facility]) Respiratory rate 18 /min 18 /min eCW1 ([facility]) Heart rate 99 /min 99 /min eCW1 ([facility]) Body mass index (BMI) [Ratio] 33.14 kg/m2 33.14 kg/m2 eCW1 ([facility]) Body height [in_i] eCW1 ([facility]) Body weight 211.6 [lb_av] 211.6 [lb_av] eCW1 ([facility]) [place] body weight 148 [lb_av] 148 [lb_av] MEDEN T ([facility], ) Body mass index (BMI) [Ratio] 31.3 kg/m2 31.3 k g/m2 MEDENT ([facility], ) Body weight 200.00 [lb_av] 200.00 [lb_av] MEDEN T ([facility], ) Body height 67 [in_i] 67 [in_i] MEDENT ([facility], ) 5'7" Respiratory rate 12 /min 12 /min MEDENT ( [facility], ) Diastolic blood pressure 78 mm[Hg] 78 mm[Hg] eCW1 ([facility]) Systolic blood pressure 128 mm[Hg] 128 mm[Hg] e CW1 ([facility]) Body temperature 96.9 [degF] 96.9 [degF] eCW1 ( [facility]) Respiratory rate 18 /min 18 /min eCW1 ([facility]) Heart rate 109 /min 109 /min eCW1 ([facility]) Body mass index (BMI) [Ratio] 33.48 kg/m2 33.48 kg/m2 eCW1 ([facility]) Body height [in_us] eCW1 ([facility]) Body weight Measured 213.8 [lb_av] 213.8 [lb_av ] eCW1 ([facility]) Diastolic blood pressure 74 mm[Hg] 74 mm[Hg] eCW1 ([facility]) Systolic blood pressure 126 mm[Hg] 126 mm[Hg] e CW1 ([facility]) Body temperature 97.1 [degF] 97.1 [degF] eCW1 ( [facility]) Respiratory rate 18 /min 18 /min eCW1 ([facility]) Heart rate 113 /min 113 /min eCW1 ([facility]) Body mass index (BMI) [Ratio] 32.95 kg/m2 32.95 kg/m2 eCW1 ([facility]) Body height [in_us] eCW1 ([facility]) Body weight Measured 210.4 [lb_av] 210.4 [lb_av ] eCW1 ([facility]) Body mass index (BMI) [Ratio] 31.3 kg/m2 31.3 k g/m2 MEDENT ([facility]) Body weight 200.00 [lb_av] 200.00 [lb_av] MEDEN T ([facility]) Body height 67 [in_i] 67 [in_i] MEDENT ([facility]) 5'7" Respiratory rate 12 /min 12 /min MEDENT ( [facility]) Heart rate 68 /min 68 /min MEDENT ([facility]) Diastolic blood pressure 72 mm[Hg] 72 mm[Hg] MEDENT ([facility]) Systolic blood pressure 120 mm[Hg] 120 mm[Hg] M EDENT ([facility]) Diastolic blood pressure 70 mm[Hg] 70 mm[Hg] eCW1 ([facility]) Systolic blood pressure 122 mm[Hg] 122 mm[Hg] e CW1 ([facility]) Body temperature 97.5 [degF] 97.5 [degF] eCW1 ( [facility]) Respiratory rate 18 /min 18 /min eCW1 ([facility]) Heart rate 109 /min 109 /min eCW1 ([facility]) Body mass index (BMI) [Ratio] 32.39 kg/m2 32.39 kg/m2 eCW1 ([facility]) Body height [in_us] eCW1 ([facility]) Body weight Measured 206.8 [lb_av] 206.8 [lb_av ] eCW1 ([facility]) Body weight 91.741 kg 91.741 kg MEDENT ([facility], ) Body mass index (BMI) [Ratio] 33.1 kg/m2 33.1 k g/m2 MEDENT ([facility], ) Body weight 202.25 [lb_av] 202.25 [lb_av] MEDEN T ([facility], ) Body height 65.5 [in_i] 65.5 [in_i] MEDENT ([facility], ) 5'5.50" Oxygen saturation in Arterial blood by Pulse oximetry 98 % 98 % [facility], ) Heart rate 67 /min 67 /min MEDENT ([facility], ) Diastolic blood pressure 82 mm[Hg] 82 mm[Hg] MEDENT ([facility], ) Systolic blood pressure 118 mm[Hg] 118 mm[Hg] M EDENT ([facility], ) Diastolic blood pressure 86 mm[Hg] 86 mm[Hg] eCW1 ([facility]) Systolic blood pressure 132 mm[Hg] 132 mm[Hg] e CW1 ([facility]) Body temperature 98.7 [degF] 98.7 [degF] eCW1 ( [facility]) Respiratory rate 18 /min 18 /min eCW1 ([facility]) Heart rate 85 /min 85 /min eCW1 ([facility]) Body mass index (BMI) [Ratio] 31.67 kg/m2 31.67 kg/m2 W1 ([facility]) Body height [in_us] eCW1 ([facility]) Body weight Measured 202.2 [lb_av] 202.2 [lb_av ] eCW1 ([facility]) Diastolic blood pressure 82 mm[Hg] 82 mm[Hg] eCW1 ([facility]) Systolic blood pressure 122 mm[Hg] 122 mm[Hg] e CW1 ([facility]) Body temperature 97.1 [degF] 97.1 [degF] eCW1 ( [facility]) Respiratory rate 18 /min 18 /min eCW1 ([facility]) Heart rate 81 /min 81 /min eCW1 ([facility]) Body mass index (BMI) [Ratio] 31.04 kg/m2 31.04 kg/m2 eCW1 ([facility]) Body height [in_us] eCW1 ([facility]) Body weight Measured 198.2 [lb_av] 198.2 [lb_av ] W1 ([facility]) Patient Treatment Plan of Care Planned Activity Planned Date Details Description Data Source (s) pregabalin 25 MG Oral Capsule [Lyrica] 05/10/2020 12:00:00 AM EST eCW1 ([facility]) pregabalin 25 MG Oral Capsule [Lyrica] 05/10/2020 12:00:00 AM EST eCW1 ([facility]) pregabalin 75 MG Oral Capsule [Lyrica] 02/19/2020 12:00:00 AM EDT eCW1 ([facility]) pregabalin 75 MG Oral Capsule [Lyrica] 02/19/2020 12:00:00 AM EDT eCW1 ([facility]) pregabalin 75 MG Oral Capsule [Lyrica] 02/19/2020 12:00:00 AM EDT eCW1 ([facility]) gabapentin 600 MG Oral Tablet 11/27/2019 12:00:00 AM EDT eCW1 ([facility]) gabapentin 600 MG Oral Tablet 11/27/2019 12:00:00 AM EDT eCW1 ([facility]) gabapentin 600 MG Oral Tablet 11/27/2019 12:00:00 AM EDT eCW1 ([facility]) gabapentin 600 MG Oral Tablet 11/27/2019 12:00:00 AM EDT eCW1 ([facility]) gabapentin 600 MG Oral Tablet 11/27/2019 12:00:00 AM EDT eCW1 ([facility]) Bupropion Hydrochloride 75 MG Oral Tablet 10/13/2019 12:00:00 AM ED T eCW1 ([facility]) Bupropion Hydrochloride 75 MG Oral Tablet 10/13/2019 12:00:00 AM ED T eCW1 ([facility]) Bupropion Hydrochloride 75 MG Oral Tablet 10/13/2019 12:00:00 AM ED T eCW1 ([facility]) Bupropion Hydrochloride 75 MG Oral Tablet 10/13/2019 12:00:00 AM ED T eCW1 ([facility]) Bupropion Hydrochloride 75 MG Oral Tablet 10/13/2019 12:00:00 AM ED T eCW1 ([facility]) Bupropion Hydrochloride 100 MG Oral Tablet 06/05/2019 12:00:[address] eCW1 ([facility]) Metronidazole 0.0075 MG/MG Vaginal Gel 05/08/2019 12:00:00 AM EST eCW1 ([facility]) Metronidazole 0.0075 MG/MG Vaginal Gel 05/08/2019 12:00:00 AM EST eCW1 ([facility]) Metronidazole 0.0075 MG/MG Vaginal Gel 05/08/2019 12:00:00 AM EST eCW1 ([facility]) Metronidazole 0.0075 MG/MG Vaginal Gel 05/08/2019 12:00:00 AM EST eCW1 ([facility]) Amoxicillin 875 MG / Clavulanate 125 MG Oral Tablet 04/29/20 12:00:00 AM EST eCW1 ([facility]) venlafaxine 100 MG Oral Tablet 04/29/2019 12:00:00 AM EST eCW1 ([facility])
[2020-06-11 01:11] VITALS: BP 127/90
== END 2020-06-11 01:12 | disposition home or self-care (01) ==
LOC: M ED 21:11
DX: S61.252A Open bite of right middle finger without damage to nail, initial encounter (principal); W55.01XA Bitten by cat, initial encounter; Y92.019 Unspecified place in single-family (private) house as the place of occurrence of the external cause; Y93.9 Activity, unspecified; Y99.9 Unspecified external cause status; E78.5 Hyperlipidemia, unspecified; J45.909 Unspecified asthma, uncomplicated; L21.9 Seborrheic dermatitis, unspecified; G47.33 Obstructive sleep apnea (adult) (pediatric); M54.9 Dorsalgia, unspecified; F33.9 Major depressive disorder, recurrent, unspecified; F41.9 Anxiety disorder, unspecified; E66.9 Obesity, unspecified; Z91.041 Radiographic dye allergy status; Z79.899 Other long term (current) drug therapy

== ENCOUNTER → 2020-06-10 | Outpatient (CLI) | payer OTHER ==
[~2020-06-10] MED LIST changes: +AMOX875T2; +MONT10TA10; +MONT10TA10 PO; -MONT5TAB2 PO
== END ==
LOC: M LABSMTC 10:28
PROVIDERS: ATTEND Anesthesiology
DX: Z01.812 Encounter for preprocedural laboratory examination (principal); Z20.822 Contact with and (suspected) exposure to COVID-19

== ENCOUNTER 2020-06-15 08:22 | Day surgery (SDC) | payer OTHER ==
[~2020-06-15] VITALS: Ht 167.6 cm; Wt 110.3 kg
[~2020-06-15 08:22] MED LIST changes: +ACETAMINOPHEN 1000MG 100ML IV BTL (OFIRMEV) (J0131 PER 10MG) As Ordered ONE; +AMOX875T2; +LIDOCAINE 1% MDV 20ML VIAL SQ PRN; +LIDOCAINE 2% 100MG/5ML SDV (FOR ANES.) As Ordered ONE; +LR 1,000 ML IV ONE; +MIDAZOLAM INJ 2MG/2ML VIAL (J2250 PER 1MG) As Ordered ONE; +MONT10TA10; +MONT10TA10 PO; -MONT5TAB2 PO; +ONDANSETRON 4MG/2ML VIAL As Ordered ONE; +ROCURONIUM BROMIDE 50 MG/5 ML VIAL As Ordered ONE; +SUGAMMADEX SODIUM 500 MG/5 ML VIAL (BRIDION) As Ordered ONE; +ceFAZolin SOD 2 GM in IV 1 EA IV ONE; +dexameTHASONE 4 MG/ML 1ML VIAL (J1100 PER 1MG) As Ordered ONE; +fentaNYL 250 MCG/5 ML INJECTION (J3010) As Ordered ONE; +propofoL 200 MG/20 ML VIAL As Ordered ONE
[2020-06-15] MEDS ORDERED: BUPIVACAINE HCL 0.25% 30ML VIAL As Ordered ONE (10:47)
[2020-06-15] MEDS ORDERED: KETOROLAC 60MG 2ML VIAL As Ordered ONE (11:46)
[2020-06-15] MEDS ORDERED: ACETAMINOPHEN 1000MG 100ML IV BTL (OFIRMEV) (J0131 PER 10MG) As Ordered ONE (11:46)
[2020-06-15] MEDS ORDERED: hydrALAZINE 20MG/ML 1ML VIAL (J0360 PER 20MG) As Ordered ONE (11:53)
[2020-06-15] MEDS ORDERED: oxyCODONE 5MG TAB As Ordered ONE (12:34)
[2020-06-15] MEDS ORDERED: fentaNYL 100 MCG/2 ML INJECTION (J3010) As Ordered ONE (12:34)
[2020-06-15] MEDS: fentaNYL 100 MCG/2 ML INJECTION (J3010) IV PRN ×4 (12:38→12:55)
[2020-06-15] MEDS: oxyCODONE 5MG TAB PO PRN ×2 (12:38→13:17)
[2020-06-15] MEDS ORDERED: NORCO, ANEXSIA 5/325MG TABLET (HYDROcodone/ACETAMINOPHEN) PO PRN (13:00)
[2020-06-15] MEDS ORDERED: LR 1,000 ML IV SCH ×2 (13:00→13:30)
[2020-06-15] MEDS ORDERED: ONDANSETRON 4MG/2ML VIAL IV PRN ×2 (13:00→13:30)
[2020-06-15] MEDS ORDERED: HYDROMORPHONE HCL 0.5 MG/ 0.5 ML SYRINGE (J1170 PER 1) As Ordered ONE ×3 (13:02→13:16)
[2020-06-15] MEDS: HYDROMORPHONE HCL 0.5 MG/ 0.5 ML SYRINGE (J1170 PER 1) IV PRN ×5 (13:05→14:19)
[2020-06-15] MEDS ORDERED: METOCLOPRAMIDE INJ 10MG/2ML VIAL (J2765 PER 1) IV PRN (13:30)
[2020-06-15] MEDS ORDERED: METOCLOPRAMIDE INJ 10MG/2ML VIAL (J2765 PER 1) As Ordered ONE (14:49)
--- NOTE | 2020-06-15 14:51 | RO ---
OPERATIVE NOTE DATE OF OPERATION: 06/15/2020 PREOPERATIVE DIAGNOSIS: Umbilical hernia. POSTOPERATIVE DIAGNOSIS: Umbilical hernia. PROCEDURE: Robotic umbilical hernia repair. SURGEON: Dr. Haines PROCESS IMPROVEMENT SPECIALIST: TOMER Burr. ANESTHESIA: General. ESTIMATED BLOOD LOSS: 5. COMPLICATIONS: None. INDICATIONS FOR PROCEDURE: Patient is a 29-year-old male who presents with umbilical hernia. Recommendation to proceed with robotic repair was made. Risks and benefits of the procedure not limited to, but including, bleeding, infection, hernia formation, hernia recurrence, damage to surrounding structures, and need for further surgery were discussed in detail with the patient. Informed consent was obtained. The procedure was planned. DESCRIPTION OF PROCEDURE: Patient was brought back to operating room 7. After sufficient sedation, the abdomen was sterilely prepped and draped. Next, a time-out was done to confirm proper patient and proper procedure. Following that, an 8 mm incision was made in the left upper quadrant, Veress needle inserted, and the abdomen was insufflated to 15 mmHg. The Veress needle was then removed, and an 8 mm Optiview port was used to gain access to the abdomen. Once the abdomen was entered, the umbilical hernia was easily identified. Two more ports were placed, one subxiphoid, just to the left of midline, and one in the right upper quadrant. The robot was then docked to the ports. Next, from the console, the preperitoneal space was entered just at the end of the falciform ligament with a horizontal incision. The preperitoneal space was then dissected free, heading from about 5 cm superior to the umbilicus inferiorly until the entire hernia sac was completely dissected free and reduced with at least a 3 cm margin all around it. Once that was completed, the primary defect was about 1.5 cm in diameter. There was also about a 3 cm diastasis surrounding that. I was able to reapproximate that entire area using an 0 Stratafix suture. Once that was completed a 4 x 6 cm piece of ProGrip mesh was placed over top of the area of reinforce it. The peritoneum was then closed over top of it with a 2-0 V-Loc suture, thus ending procedure. Once that was completed, the needle were removed. The abdomen was desulfated. Skin incisions closed with 4-0 Vicryl subcuticular sutures. The abdomen was cleaned and dried. Steri-Strips, 4 x 4, and tape were applied. This ended procedure.
[2020-06-15 16:00] VITALS: BP 142/77
== END 2020-06-15 16:00 | disposition home or self-care (01) ==
LOC: M SDC 08:22
PROVIDERS: ATTEND Surgery
DX: K42.9 Umbilical hernia without obstruction or gangrene (principal); J45.909 Unspecified asthma, uncomplicated; K21.9 Gastro-esophageal reflux disease without esophagitis; E78.5 Hyperlipidemia, unspecified; G47.30 Sleep apnea, unspecified; Z79.899 Other long term (current) drug therapy; Z91.041 Radiographic dye allergy status; F41.9 Anxiety disorder, unspecified; F32.9 Major depressive disorder, single episode, unspecified; G43.909 Migraine, unspecified, not intractable, without status migrainosus
CPT/HCPCS: 49652; C1781; J0131; J0360; J0690; J1100; J1170; J1885; J2250; J2405; J2765; J3010; S2900

== ENCOUNTER → 2020-07-07 | Outpatient (REF) | payer OTHER ==
[~2020-07-07] MED LIST changes: -ACETAMINOPHEN 1000MG 100ML IV BTL (OFIRMEV) (J0131 PER 10MG) As Ordered ONE; -LIDOCAINE 1% MDV 20ML VIAL SQ PRN; -LIDOCAINE 2% 100MG/5ML SDV (FOR ANES.) As Ordered ONE; -LR 1,000 ML IV ONE; -MIDAZOLAM INJ 2MG/2ML VIAL (J2250 PER 1MG) As Ordered ONE; -ONDANSETRON 4MG/2ML VIAL As Ordered ONE; -ROCURONIUM BROMIDE 50 MG/5 ML VIAL As Ordered ONE; -SUGAMMADEX SODIUM 500 MG/5 ML VIAL (BRIDION) As Ordered ONE; -ceFAZolin SOD 2 GM in IV 1 EA IV ONE; -dexameTHASONE 4 MG/ML 1ML VIAL (J1100 PER 1MG) As Ordered ONE; -fentaNYL 250 MCG/5 ML INJECTION (J3010) As Ordered ONE; -propofoL 200 MG/20 ML VIAL As Ordered ONE
[2020-07-07 14:15] LABS: ALT/SGPT 46 U/L (12-78); BILIRUBIN,TOTAL 0.3 MG/DL (0.2-1.0); BLOOD UREA NITROGEN 10 MG/DL (7-18); CALCIUM LEVEL 9.1 MG/DL (8.5-10.1); CARBON DIOXIDE LEVEL 33 MEQ/L (21-32); CHLORIDE LEVEL 107 MEQ/L (98-107); CREATININE FOR GFR 0.98 MG/DL (0.70-1.30); FREE T4 0.84 NG/DL (0.76-1.46); GLOMERULAR FILTRATION RATE > 60.0 (>60); GLUCOSE, FASTING 91 MG/DL (70-100); NT-PRO BNP 7 PG/ML (<125); POTASSIUM SERUM 4.6 MEQ/L (3.5-5.1); SODIUM LEVEL 142 MEQ/L (136-145); TOTAL PROTEIN 6.7 GM/DL (6.4-8.2)
== END ==
LOC: M SFHCADAM 10:53
PROVIDERS: ATTEND Family Medicine
DX: R60.9 Edema, unspecified (principal)

== ENCOUNTER → 2020-08-06 | Outpatient (CLI) | payer OTHER ==
--- NOTE | 2020-08-06 18:43 | REPVR ---
PROCEDURE INFORMATION: Exam: MR Lumbar Spine Without Contrast Exam date and time: 08/06/2020 12:49 PM Age: 29 years old Clinical indication: Pain; Other: Radiculopathy L region; Prior surgery; Surgery date: 1-6 months; Surgery type: Discectomy TECHNIQUE: Imaging protocol: Multiplanar magnetic resonance images of the lumbar spine without intravenous contrast. COMPARISON: CT Spine, lumbar w/o contrast 11/12/2019 9:31 PM FINDINGS: Vertebrae: Unremarkable. Spinal cord: Normal signal. No cord compression. L1-L2: No significant disc disease. No significant spinal canal stenosis. No neural foraminal stenosis. L2-L3: No significant disc disease. No significant spinal canal stenosis. No neural foraminal stenosis. L3-L4: No significant disc disease. No significant spinal canal stenosis. No neural foraminal stenosis. L4-L5: No significant disc disease. No significant spinal canal stenosis. No neural foraminal stenosis. L5-S1: Left posterolateral and foraminal disc protrusion at L5-S1 compresses the exiting L5 nerve root on the left and impinges and posterior displaces the left S1 nerve root as it exits from the thecal sac. Status post left hemilaminectomy with soft tissue density demonstrated in the left posterolateral epidural space likely representing scarring. Neural in trapped and related to epidural scarring not excluded. Further evaluation with postcontrast MRI could be obtained if clinically desired. Soft tissues: Unremarkable. IMPRESSION: Left posterolateral and foraminal disc protrusion and epidural fibrotic changes with probable impingement of the exiting L5 and traversing S1 nerve root on the left. Further evaluation with postcontrast MRI suggested if clinically desired. Electronically signed by: Kulwant Yap On 08/06/2020 18:43:43 PM
== END ==
LOC: M PLARAD 11:16
PROVIDERS: ATTEND Physician Assistant
DX: M51.27 Other intervertebral disc displacement, lumbosacral region (principal)

== ENCOUNTER 2020-10-02 21:04 | Emergency (ER) | payer OTHER ==
[~2020-10-02] VITALS: Ht 167.6 cm; Wt 101.7 kg
[2020-10-02 21:05] VITALS: BP 154/102
[2020-10-02] MEDS ORDERED: METF500T13 PO (21:15)
--- NOTE | 2020-10-02 21:54 | REPVR ---
PROCEDURE INFORMATION: Exam: XR Left Wrist Exam date and time: 10/02/2020 9:49 PM Age: 30 years old Clinical indication: Other: Trauma; Additional info: Fall, trauma TECHNIQUE: Imaging protocol: XR Left wrist. Views: 3 or more views. COMPARISON: CR Wrist, complete 06/05/2017 12:23 PM FINDINGS: Bones/joints: Fracture at the base of the 4th and 5th metacarpal bones extending to the proximal articular surfaces. Otherwise unremarkable. Soft tissues: Normal. IMPRESSION: Fracture at the base of the 4th and 5th metacarpal bones extending to the proximal articular surfaces. Electronically signed by: Kulwant Yap On 10/02/2020 21:53:57 PM
--- NOTE | 2020-10-02 21:55 | REPVR ---
PROCEDURE INFORMATION: Exam: XR Left Hand Exam date and time: 10/02/2020 9:49 PM Age: 30 years old Clinical indication: Other: Trauma; Additional info: Fall, trauma TECHNIQUE: Imaging protocol: XR Left hand. Views: 3 or more views. COMPARISON: CR Hand, complete LEFT 11/29/2016 9:59 AM FINDINGS: Bones/joints: Fractures at the base of the 4th and 5th metacarpal bones with fracture lines extending to the proximal articular surfaces. Fractured lunate bone. Soft tissues: Normal. IMPRESSION: 1. Fractures at the base of the 4th and 5th metacarpal bones with fracture lines extending to the proximal articular surfaces. 2. Fractured lunate bone. Electronically signed by: Kulwant Yap On 10/02/2020 21:55:33 PM
[2020-10-02] MEDS ORDERED: ACETAMINOPHEN TAB 650MG DOSE (2X325MG) PO ONE (23:45)
[2020-10-02] MEDS ORDERED: IBUPROFEN 800 MG TAB PO ONE (23:45)
[2020-10-02] MEDS ORDERED: NORCO 5/325MG TABLET (BULK FOR ED) PO ONE (23:50)
[2020-10-02] MEDS ORDERED: IBUP-1022 PO (23:51)
[2020-10-02] MEDS ORDERED: HYDR-3713 PO (23:51)
== END 2020-10-03 00:11 | disposition home or self-care (01) ==
LOC: M ED 21:04
DX: S62.317A Displaced fracture of base of fifth metacarpal bone, left hand, initial encounter for closed fracture (principal); S62.315A Displaced fracture of base of fourth metacarpal bone, left hand, initial encounter for closed fracture; W01.0XXA Fall on same level from slipping, tripping and stumbling without subsequent striking against object, initial encounter; E11.9 Type 2 diabetes mellitus without complications; Y92.009 Unspecified place in unspecified non-institutional (private) residence as the place of occurrence of the external cause; Y93.9 Activity, unspecified; Y99.9 Unspecified external cause status

== ENCOUNTER 2021-04-15 10:55 | Outpatient (CLI) | payer OTHER ==
[~2021-04-15] VITALS: Ht 167.6 cm; Wt 97.0 kg
[~2021-04-15 10:55] MED LIST changes: +ALBUTEROL 90 MCG/ACT 8GM HFA INHALER INH PRN; +ALBUTEROL SULFATE 2.5 MG/0.5 ML INH NEB SOLN INH PRN; +EPINEPHrine INJ 1 MG/ML 1ML AMP IM PRN; +HYDR-3713 PO; +IBUP-1022 PO; +METF500T13 PO; -MONT10TA10; -MONT10TA10 PO; +MONT10TA97; +MONT10TA97 PO; +NS 1,000 ML IV SCH; +diphenhydrAMINE 50MG/ML VIAL (J1200) IV PRN; +methylPREDNISolone 125MG 2ML VIAL IV PRN
[2021-04-15] MEDS ORDERED: CASIRIVIMAB/IMDEVIMAB 1,200 MG in NS 250 ML IV ONE (11:00)
[2021-04-15] MEDS ORDERED: CASIRIVIMAB (REGN10933) 600 MG, IMDEVIMAB (REGN10987) 600 MG in NS 250 ML IV ONE (11:00)
[2021-04-15 11:29] VITALS: BP 150/99
[2021-04-15 11:59] VITALS: BP 129/88
[2021-04-15 12:29] VITALS: BP 148/77
[2021-04-15 13:29] VITALS: BP 143/89
== END 2021-04-15 13:29 | disposition home or self-care (01) ==
LOC: M OPCLI4PR 10:55
PROVIDERS: ATTEND Family Medicine
DX: U07.1 COVID-19 (principal)

== ENCOUNTER → 2021-06-08 | Outpatient (CLI) | payer OTHER ==
[~2021-06-08] MED LIST changes: -ALBUTEROL 90 MCG/ACT 8GM HFA INHALER INH PRN; -ALBUTEROL SULFATE 2.5 MG/0.5 ML INH NEB SOLN INH PRN; -EPINEPHrine INJ 1 MG/ML 1ML AMP IM PRN; -NS 1,000 ML IV SCH; -diphenhydrAMINE 50MG/ML VIAL (J1200) IV PRN; -methylPREDNISolone 125MG 2ML VIAL IV PRN
[2021-06-08 12:09] LABS: PLATELET COUNT, AUTOMATED 277 10^3/uL (150-450)
[2021-06-08 12:20] LABS: INR 0.92; PROTHROMBIN TIME 12.8 SECONDS (12.7-14.5)
[2021-06-08 12:21] LABS: PARTIAL THROMBOPLASTIN TIME 29.8 SECONDS (25.9-37.0)
[2021-06-08 12:31] LABS: COLLAGEN EPINEPHRINE 201 SECONDS (74-162)
[2021-06-08 12:56] LABS: COLLAGEN ADP 125 SECONDS (56-103)
== END ==
LOC: M LAB 10:07
PROVIDERS: ATTEND Physical Medicine & Rehabilitation
DX: M51.37 Other intervertebral disc degeneration, lumbosacral region (principal)

== ENCOUNTER → 2021-06-09 | Outpatient (CLI) | payer OTHER ==
[2021-06-09 18:58] LABS: COLLAGEN EPINEPHRINE 165 SECONDS (74-162)
[2021-06-09 19:23] LABS: COLLAGEN ADP 122 SECONDS (56-103)
== END ==
LOC: M LAB 17:24
PROVIDERS: ATTEND Physical Medicine & Rehabilitation
DX: Z01.812 Encounter for preprocedural laboratory examination (principal)

== ENCOUNTER → 2021-06-10 | Outpatient (CLI) | payer OTHER ==
[2021-06-10 11:44] LABS: COLLAGEN EPINEPHRINE 166 SECONDS (74-162)
[2021-06-10 12:09] LABS: COLLAGEN ADP 107 SECONDS (56-103)
== END ==
LOC: M LAB 10:50
PROVIDERS: ATTEND Physical Medicine & Rehabilitation
DX: Z01.812 Encounter for preprocedural laboratory examination (principal)

== ENCOUNTER → 2021-10-09 | Outpatient (CLI) | payer OTHER ==
[~2021-10-09] MED LIST changes: +ALBU8.5H INH; -D31000TA2 PO; +FLUT1INH2; -MONT10TA97; +VITA100093 PO
== END ==
LOC: M LABSMTC 09:26
PROVIDERS: ATTEND Anesthesiology
DX: Z01.812 Encounter for preprocedural laboratory examination (principal); Z20.822 Contact with and (suspected) exposure to COVID-19

== ENCOUNTER 2021-10-13 08:15 | Day surgery (SDC) | payer OTHER ==
[~2021-10-13] VITALS: Ht 167.6 cm; Wt 95.3 kg
[~2021-10-13 08:15] MED LIST changes: +NS 1,000 ML IV ONE
[2021-10-13] MEDS ORDERED: fentaNYL 100 MCG/2 ML INJECTION As Ordered ONE (09:14)
[2021-10-13] MEDS ORDERED: LIDOCAINE 2% 100MG/5ML SDV (FOR ANES.) As Ordered ONE (09:14)
[2021-10-13] MEDS ORDERED: propofoL 500 MG/50 ML VIAL As Ordered ONE (09:14)
[2021-10-13 11:21] VITALS: BP 136/68
== END 2021-10-13 11:10 | disposition home or self-care (01) ==
LOC: M SDC 08:15
PROVIDERS: ATTEND Internal Medicine Gastroenterology
DX: D50.9 Iron deficiency anemia, unspecified (principal); R12 Heartburn; R19.7 Diarrhea, unspecified; K21.00 Gastro-esophageal reflux disease with esophagitis, without bleeding; K29.70 Gastritis, unspecified, without bleeding; F32.A Depression, unspecified; F41.9 Anxiety disorder, unspecified; K64.8 Other hemorrhoids; D12.5 Benign neoplasm of sigmoid colon; R55 Syncope and collapse; I77.810 Thoracic aortic ectasia; Z79.84 Long term (current) use of oral hypoglycemic drugs; Z79.899 Other long term (current) drug therapy; Z79.51 Long term (current) use of inhaled steroids; J45.909 Unspecified asthma, uncomplicated; Z91.041 Radiographic dye allergy status; E78.00 Pure hypercholesterolemia, unspecified; Z95.810 Presence of automatic (implantable) cardiac defibrillator
CPT/HCPCS: 43239; 45380; 88305; J3010

== ENCOUNTER → 2022-02-27 | Outpatient (CLI) | payer OTHER ==
[~2022-02-27] MED LIST changes: -NS 1,000 ML IV ONE
[2022-02-27 13:45] LABS: PLATELET COUNT, AUTOMATED 227 10^3/uL (150-450)
[2022-02-27 13:57] LABS: INR 0.9; PROTHROMBIN TIME 12.3 SECONDS (12.5-14.5)
[2022-02-27 13:58] LABS: PARTIAL THROMBOPLASTIN TIME 27.2 SECONDS (24.8-34.2)
[2022-02-27 14:14] LABS: COLLAGEN EPINEPHRINE 256 SECONDS (74-162)
[2022-02-27 14:22] LABS: COLLAGEN ADP 105 SECONDS (56-103)
== END ==
LOC: M LAB 13:07
PROVIDERS: ATTEND Physician Assistant
DX: M54.16 Radiculopathy, lumbar region (principal)

== ENCOUNTER → 2022-09-06 | Outpatient (REF) | payer OTHER ==
[~2022-09-06] MED LIST changes: -DOXY-350 PO; +DOXY-444 PO; +LIDO15SO2 SSP; -LIDO2SO SSP
[2022-09-06 16:51] LABS: ALBUMIN 4.4 G/DL (3.2-5.2); ALKALINE PHOSPHATASE 111 U/L (46-116); ALT/SGPT 49 U/L (7.0-40); AST/SGOT 28 U/L (<34); BILIRUBIN,TOTAL 0.5 MG/DL (0.3-1.2); BLOOD UREA NITROGEN 7 MG/DL (9-23); CALCIUM LEVEL 10.2 MG/DL (8.5-10.1); CARBON DIOXIDE LEVEL 32 MMOL/L (20-31); CHLORIDE LEVEL 106 MMOL/L (98-107); CHOLESTEROL LEVEL 140 MG/DL (<200); CHOLESTEROL RISK RATIO 3.69 (<5); CREATININE FOR GFR 1.05 MG/DL (0.70-1.30); GLOMERULAR FILTRATION RATE > 60.0 (>60); GLUCOSE, FASTING 71 MG/DL (60-100); HDL CHOLESTEROL 37.9 MG/DL (>40); LDL CHOLESTEROL 72.3 MG/DL (<100); NON-HDL-C 102.1 MG/DL; POTASSIUM SERUM 4.6 MMOL/L (3.5-5.1); SODIUM LEVEL 141 MMOL/L (136-145); TOTAL PROTEIN 7.1 G/DL (5.7-8.2); TRIGLYCERIDES LEVEL 149 MG/DL (<150)
[2022-09-06 16:52] LABS: FREE T4 1.05 NG/DL (0.89-1.76); THYROID STIMULATING HORMONE 1.595 uIU/ML (0.55-4.78)
[2022-09-06 16:53] LABS: TOTAL 25(OH) VITAMIN D 37.3 NG/ML (20.0-100.0)
[2022-09-06 16:54] LABS: HEMOGLOBIN A1c 5.2 % (4.0-6.0)
== END ==
LOC: M SFHCADAM 15:01
PROVIDERS: ATTEND Family Medicine
DX: E55.9 Vitamin D deficiency, unspecified (principal); E78.2 Mixed hyperlipidemia; F32.9 Major depressive disorder, single episode, unspecified; E66.9 Obesity, unspecified

== ENCOUNTER 2023-03-13 14:39 | Emergency (ER) | payer OTHER ==
[~2023-03-13] VITALS: Ht 167.6 cm; Wt 99.9 kg
[2023-03-13 17:49] LABS: LIPASE 26 U/L (12-53)
[2023-03-13 17:50] LABS: AMYLASE 71 U/L (30-118)
[2023-03-13 17:51] LABS: ALKALINE PHOSPHATASE 101 U/L (46-116); ALT/SGPT 31 U/L (7.0-40); AST/SGOT 21 U/L (<34); BILIRUBIN,DIRECT 0.2 MG/DL (<0.4); BILIRUBIN,TOTAL 0.6 MG/DL (0.3-1.2); BLOOD UREA NITROGEN 9 MG/DL (9-23); CALCIUM LEVEL 9.4 MG/DL (8.5-10.1); CARBON DIOXIDE LEVEL 31 MMOL/L (20-31); CHLORIDE LEVEL 104 MMOL/L (98-107); GLOMERULAR FILTRATION RATE > 60.0 (>60); GLUCOSE, FASTING 85 MG/DL (60-100); POTASSIUM SERUM 4.2 MMOL/L (3.5-5.1); SODIUM LEVEL 142 MMOL/L (136-145); TOTAL PROTEIN 6.8 G/DL (5.7-8.2)
[2023-03-13 18:44] LABS: APPEARANCE, URINE CLEAR (CLEAR); BACTERIA, URINE AUTO NEGATIVE (NEGATIVE); BILIRUBIN, URINE AUTO NEGATIVE (NEGATIVE); BLOOD, URINE BLOOD NEGATIVE (NEGATIVE); COLOR, URINE YELLOW (YELLOW); GLUCOSE, URINE (UA) AUTO NEGATIVE (NEGATIVE); KETONE, URINE AUTO NEGATIVE (NEGATIVE); LEUKOCYTE ESTERASE, URINE AUTO NEGATIVE (NEGATIVE); NITRITE, URINE AUTO NEGATIVE (NEGATIVE); PROTEIN, URINE AUTO NEGATIVE (NEGATIVE); RBC, URINE AUTO 0 /HPF (0-3); SPECIFIC GRAVITY URINE AUTO 1.005 (1.002-1.035); SQUAMOUS EPITHELIAL CELL UR AU 0 /HPF (0-6); UROBILINOGEN, URINE AUTO 0.2 mg/dL (0.0-2.0); WBC, URINE AUTO 0 /HPF (0-3)
[2023-03-13 18:49] LABS: BASO % 0.3 % (0.0-1.0); EOS # 0.2 10^3/uL (0.0-0.5); EOS % 3.7 % (0.0-3.0); HEMATOCRIT 45.2 % (42.0-52.0); HEMOGLOBIN 14.8 g/dl (13.5-17.5); LYMPH # 1.6 10^3/uL (1.5-5.0); LYMPH % 26.5 % (24.0-44.0); MEAN CORPUSCULAR HEMOGLOBIN 30.2 pg (27.0-33.0); MEAN CORPUSCULAR HGB CONC 32.7 g/dl (32.0-36.5); MEAN CORPUSCULAR VOLUME 92.2 fl (80.0-96.0); MONO # 0.4 10^3/uL (0.0-0.8); MONO % 6.8 % (2.0-8.0); NEUTROPHILS # 3.8 10^3/uL (1.5-8.5); NEUTROPHILS % 62.2 % (36.0-66.0); PLATELET COUNT, AUTOMATED 203 10^3/uL (150-450); WHITE BLOOD COUNT 6.2 10^3/uL (4.0-10.0)
[2023-03-13 19:04] LABS: INR 1.09; PROTHROMBIN TIME 13.8 SECONDS (12.5-14.5)
[2023-03-13 19:05] LABS: PARTIAL THROMBOPLASTIN TIME 29.1 SECONDS (24.8-34.2)
[2023-03-13 19:07] LABS: CK-MB VALUE MASS < 1.0 NG/ML (<3.6)
[2023-03-13 19:10] LABS: CPK CREATINE PHOSPHOKINASE 130 U/L (46-171); MB/CK RELATIVE INDEX 0.76 (< OR =4)
[2023-03-13] MEDS ORDERED: ISOVUE-370 76% 100ML VIAL As Ordered ONE (19:28)
[2023-03-13] MEDS ORDERED: DICYCLOMINE 10 MG CAP PO ONE (20:40)
[2023-03-13] MEDS ORDERED: KETOROLAC 30 MG/ML 1ML VIAL IV ONE (20:40)
[2023-03-13] MEDS ORDERED: ONDANSETRON 4MG 2ML VIAL IV ONE (20:40)
[2023-03-13 21:16] VITALS: BP 121/90; TEMP 98.1; O2SAT 99
[2023-03-13] MEDS ORDERED: ONDA4TAB6 PO (21:19)
[2023-03-13] MEDS ORDERED: DICY-61 PO (21:19)
== END 2023-03-13 21:41 | disposition home or self-care (01) ==
LOC: M ED 14:39
DX: R10.11 Right upper quadrant pain (principal); I10 Essential (primary) hypertension; K21.9 Gastro-esophageal reflux disease without esophagitis; F41.9 Anxiety disorder, unspecified; M54.50 Low back pain, unspecified; Z91.041 Radiographic dye allergy status; Z79.52 Long term (current) use of systemic steroids; Z79.4 Long term (current) use of insulin; Z79.83 Long term (current) use of bisphosphonates; Z79.899 Other long term (current) drug therapy
CPT/HCPCS: 71046; 71275; 74177; 80047; 80048; 80076; 81001; 82150; 82550; 82553; 83690; 85025; 85610; 85730; 93005; 93041; 96374; 99284; J1885; J2405; Q9967

== ENCOUNTER → 2023-04-23 | Outpatient (CLI) | payer OTHER ==
[~2023-04-23] MED LIST changes: +DICY-61 PO
== END ==
LOC: M RAD 07:42
PROVIDERS: ATTEND Family Medicine
DX: R16.1 Splenomegaly, not elsewhere classified (principal)

== ENCOUNTER → 2023-05-25 | Outpatient (CLI) | payer OTHER | LOC: M RAD 07:47 | PROVIDERS: ATTEND Nurse Practitioner Family | DX: G44.52 New daily persistent headache (NDPH) (principal); R44.8 Other symptoms and signs involving general sensations and perceptions ==

== ENCOUNTER → 2023-06-05 | Outpatient (CLI) | payer OTHER | LOC: M WHC 16:18 | PROVIDERS: ATTEND Family Medicine | DX: R16.1 Splenomegaly, not elsewhere classified (principal); Z53.9 Procedure and treatment not carried out, unspecified reason ==

== ENCOUNTER → 2023-06-20 | Outpatient (CLI) | payer OTHER ==
[~2023-06-20] MED LIST changes: +AMIT75TA PO; +BUPR-70 PO; +ESZO1TAB4 PO; -FLUT1INH2; +FLUT1INH2 INH; +MELO7.5T35 PO; +PANT40TA29 PO
== END ==
LOC: M WHC 08:10
PROVIDERS: ATTEND Family Medicine
DX: R16.1 Splenomegaly, not elsewhere classified (principal)

== ENCOUNTER 2023-06-21 11:32 | Day surgery (SDC) | payer OTHER ==
[~2023-06-21] VITALS: Ht 167.6 cm; Wt 101.6 kg
[2023-06-21] MEDS ORDERED: LR 1,000 ML IV SCH (11:55)
[2023-06-21] MEDS ORDERED: LIDOCAINE 2% 100MG/5ML SDV (FOR ANES.) As Ordered ONE (12:28)
[2023-06-21] MEDS ORDERED: fentaNYL 100 MCG/2 ML INJECTION As Ordered ONE (12:28)
[2023-06-21] MEDS ORDERED: propofoL 200 MG/20 ML VIAL As Ordered ONE (12:28)
[2023-06-21] MEDS ORDERED: MIDAZOLAM INJ 2MG/2ML VIAL As Ordered ONE (12:28)
[2023-06-21] MEDS: ceFAZolin SOD 2 GM in IV 1 EA IV ONE (13:15)
[2023-06-21] MEDS: LIDOCAINE 1% SDV 30ML VIAL As Ordered ONE (13:36)
[2023-06-21 14:05] VITALS: BP 130/93; TEMP 97.8; O2SAT 97
== END 2023-06-21 14:25 | disposition home or self-care (01) ==
LOC: M SDC 11:32
PROVIDERS: ATTEND Internal Medicine Cardiovascular Disease
DX: Z45.09 Encounter for adjustment and management of other cardiac device (principal); I77.810 Thoracic aortic ectasia; G47.33 Obstructive sleep apnea (adult) (pediatric); E78.00 Pure hypercholesterolemia, unspecified; J45.909 Unspecified asthma, uncomplicated; Z79.899 Other long term (current) drug therapy; Z79.84 Long term (current) use of oral hypoglycemic drugs; Z79.52 Long term (current) use of systemic steroids
CPT/HCPCS: 33286; J0690; J2250; J3010

== ENCOUNTER → 2023-08-23 | Outpatient (REF) | payer OTHER ==
[~2023-08-23] MED LIST changes: -LIDO15SO2 SSP; +LIDO15SO9 SSP
[2023-08-23 13:32] LABS: FERRITIN 47.2 NG/ML (10.5-307.3)
[2023-08-23 13:33] LABS: ALBUMIN 3.8 G/DL (3.2-5.2); BILIRUBIN,DIRECT 0.2 MG/DL (<0.4); BILIRUBIN,TOTAL 0.6 MG/DL (0.3-1.2); CHOLESTEROL RISK RATIO 4.96 (<5); HDL CHOLESTEROL 31.4 MG/DL (>40); HEMATOCRIT 45.6 % (42.0-52.0); HEMOGLOBIN 14.9 g/dl (13.5-17.5); LDL CHOLESTEROL 99.4 MG/DL (<100); NON-HDL-C 124.6 MG/DL; PLATELET COUNT, AUTOMATED 196 10^3/uL (150-450); TOTAL PROTEIN 6.8 G/DL (5.7-8.2)
== END ==
LOC: M LABDRWAD 12:54
PROVIDERS: ATTEND Internal Medicine Gastroenterology
DX: R16.0 Hepatomegaly, not elsewhere classified (principal)

== ENCOUNTER 2023-10-29 20:06 | Emergency (ER) | payer OTHER ==
[~2023-10-29] VITALS: Ht 170.2 cm; Wt 101.4 kg
[~2023-10-29 20:06] MED LIST changes: +DOXY-440 PO; -DOXY-444 PO; +ONDA-282 PO; -ONDA4TAB6 PO
[2023-10-29 20:32] LABS: BASO % 0.5 % (0.0-1.0); EOS # 0.1 10^3/uL (0.0-0.5); EOS % 2.4 % (0.0-3.0); HEMATOCRIT 44.4 % (42.0-52.0); LYMPH # 1.5 10^3/uL (1.5-5.0); LYMPH % 26.2 % (24.0-44.0); MEAN CORPUSCULAR HEMOGLOBIN 30.7 pg (27.0-33.0); MEAN CORPUSCULAR HGB CONC 33.8 g/dl (32.0-36.5); MONO # 0.3 10^3/uL (0.0-0.8); MONO % 5.9 % (2.0-8.0); NEUTROPHILS # 3.7 10^3/uL (1.5-8.5); NEUTROPHILS % 64.5 % (36.0-66.0); PLATELET COUNT, AUTOMATED 210 10^3/uL (150-450); RED BLOOD COUNT 4.88 10^6/uL (4.30-6.10); WHITE BLOOD COUNT 5.7 10^3/uL (4.0-10.0)
[2023-10-29 20:56] LABS: CK-MB VALUE MASS < 1.0 NG/ML (<3.6); LIPASE 27 U/L (12-53)
[2023-10-29 20:57] LABS: CPK CREATINE PHOSPHOKINASE 207 U/L (46-171); MB/CK RELATIVE INDEX 0.48 (< OR =4)
[2023-10-29 20:58] LABS: BLOOD UREA NITROGEN 11 MG/DL (9-23); CALCIUM LEVEL 9.3 MG/DL (8.5-10.1); CARBON DIOXIDE LEVEL 31 MMOL/L (20-31); CHLORIDE LEVEL 106 MMOL/L (98-107); CREATININE FOR GFR 1.07 MG/DL (0.70-1.30); GLOMERULAR FILTRATION RATE > 60.0 (>60); GLUCOSE, FASTING 101 MG/DL (60-100); POTASSIUM SERUM 3.8 MMOL/L (3.5-5.1); SODIUM LEVEL 141 MMOL/L (136-145)
[2023-10-30 00:55] VITALS: BP 122/110; TEMP 97.6; O2SAT 97
== END 2023-10-30 05:13 | disposition left against medical advice (07) ==
LOC: M ED 20:06
DX: Z53.21 Procedure and treatment not carried out due to patient leaving prior to being seen by health care provider (principal)

== ENCOUNTER 2024-02-19 18:57 | Emergency (ER) | payer OTHER ==
[~2024-02-19] VITALS: Ht 167.6 cm; Wt 103.3 kg
[~2024-02-19 18:57] MED LIST changes: +GABA-1172 PO; -GABA-282 PO; +NAPR-1405 PO; -NAPR500T6 PO
[2024-02-19 21:00] VITALS: BP 140/90; TEMP 97.8; O2SAT 100
[2024-02-19] MEDS ORDERED: CEPH500C PO (21:00)
[2024-02-19] MEDS: CEPHALEXIN 500 MG CAP PO ONE (21:04)
== END 2024-02-19 21:12 | disposition home or self-care (01) ==
LOC: M ED 18:57
DX: S60.511A Abrasion of right hand, initial encounter (principal); L03.113 Cellulitis of right upper limb; J45.909 Unspecified asthma, uncomplicated; F41.9 Anxiety disorder, unspecified; F32.A Depression, unspecified; R51.9 Headache, unspecified; Z91.041 Radiographic dye allergy status; Z79.02 Long term (current) use of antithrombotics/antiplatelets; Z79.2 Long term (current) use of antibiotics; Z79.899 Other long term (current) drug therapy; Y92.9 Unspecified place or not applicable; Y93.9 Activity, unspecified; Y99.9 Unspecified external cause status

== ENCOUNTER → 2024-05-16 | Outpatient (CLI) | payer OTHER ==
[~2024-05-16] MED LIST changes: +CEPH500C PO
== END ==
LOC: M CARPUL 09:29
PROVIDERS: ATTEND Family Medicine
DX: I77.810 Thoracic aortic ectasia (principal)

== ENCOUNTER → 2024-06-18 | Outpatient (REF) | payer OTHER ==
[2024-06-18 13:59] LABS: BASO % 0.5 % (0.0-1.0); EOS # 0.1 10^3/uL (0.0-0.5); EOS % 2.5 % (0.0-3.0); HEMOGLOBIN 14.8 g/dl (13.5-17.5); LYMPH # 1.8 10^3/uL (1.5-5.0); LYMPH % 31.6 % (24.0-44.0); MEAN CORPUSCULAR HEMOGLOBIN 29.4 pg (27.0-33.0); MEAN CORPUSCULAR HGB CONC 32.2 g/dl (32.0-36.5); MEAN CORPUSCULAR VOLUME 91.3 fl (80.0-96.0); MONO # 0.5 10^3/uL (0.0-0.8); MONO % 8.6 % (2.0-8.0); NEUTROPHILS # 3.2 10^3/uL (1.5-8.5); NEUTROPHILS % 56.4 % (36.0-66.0); PLATELET COUNT, AUTOMATED 243 10^3/uL (150-450); RED BLOOD COUNT 5.04 10^6/uL (4.30-6.10); WHITE BLOOD COUNT 5.7 10^3/uL (4.0-10.0)
[2024-06-18 14:20] LABS: ALBUMIN 3.8 G/DL (3.2-5.2); ALKALINE PHOSPHATASE 105 U/L (40-129); ALT/SGPT 37 U/L (7.0-40); AST/SGOT 23 U/L (<34); BILIRUBIN,TOTAL 0.4 MG/DL (0.3-1.2); BLOOD UREA NITROGEN 13 MG/DL (9-23); CALCIUM LEVEL 9.4 MG/DL (8.5-10.1); CARBON DIOXIDE LEVEL 31 MMOL/L (20-31); CHLORIDE LEVEL 103 MMOL/L (98-107); CHOLESTEROL LEVEL 173 MG/DL (<200); CHOLESTEROL RISK RATIO 4.95 (<5); CREATININE FOR GFR 0.94 MG/DL (0.70-1.30); GLOMERULAR FILTRATION RATE > 60.0 (>60); GLUCOSE, FASTING 88 MG/DL (60-100); HDL CHOLESTEROL 34.9 MG/DL (>40); LDL CHOLESTEROL 107.3 MG/DL (<100); NON-HDL-C 138.1 MG/DL; SODIUM LEVEL 143 MMOL/L (136-145); THYROID STIMULATING HORMONE 1.332 uIU/ML (0.55-4.78); TOTAL PROTEIN 6.7 G/DL (5.7-8.2); TRIGLYCERIDES LEVEL 154 MG/DL (<150)
== END ==
LOC: M SFHCADAM 10:06
PROVIDERS: ATTEND Family Medicine
DX: Z00.00 Encounter for general adult medical examination without abnormal findings (principal)